=== PATIENT | male | born 1955 | race Caucasian/White ===

== ENCOUNTER 2018-02-17 13:22 | Inpatient (IN) ==
[2018-02-17] MEDS ORDERED: Morphine Inj 4 MG/ML Vial IV.PUSH ONE ×2 (13:55→15:58)
[2018-02-17] MEDS ORDERED: Vancomycin Inj 1 GM/200 ML PIGGYBACK IV.SIG ONE (13:55)
[2018-02-17] MEDS ORDERED: Sodium Chlor 0.9% Inj 500 ML IV.SIG SCH (14:00)
[2018-02-17 14:34] LABS: Baso # (Auto) 2.4 th/mm3 (0.0-0.2); Baso % (Auto) 15.7 % (0.0-2.0); Eos # (Auto) 0.1 th/mm3 (0.0-0.4); Eos % (Auto) 0.5 % (0.0-4.0); Hematocrit 41.6 % (39.0-51.0); Hemoglobin 14.4 gm/dL (13.0-17.0); Lymph # (Auto) 1.9 th/mm3 (1.0-4.8); Lymph % (Auto) 12.4 % (9.0-44.0); Mean Corpuscular HGB Conc 34.6 % (32.0-36.0); Mean Corpuscular Hemoglobin 31.1 pg (27.0-34.0); Mean Corpuscular Volume 89.9 fL (80.0-100.0); Mean Platelet Volume 8.4 fL (7.0-11.0); Mono # (Auto) 2.3 th/mm3 (0.0-0.9); Mono % (Auto) 15.4 % (0.0-8.0); Neut # (Auto) 8.4 th/mm3 (1.8-7.7); Platelet Count 259 th/mm3 (150-450); Red Blood Count 4.62 mil/mm3 (4.50-5.90); Red Cell Distribution Width 13.2 % (11.6-17.2); White Blood Count 15.1 th/mm3 (4.0-11.0)
[2018-02-17 14:42] LABS: Chloride 90 meq/L (98-107); Sodium 129 meq/L (136-145)
--- NOTE | 2018-02-17 14:42 | XR ---
EXAM DATE: 02/17/2018 1:55 PM EDT AGE/SEX: 62 years / Male INDICATIONS: Swelling, red, painful right forearm after fall 6 days ago CLINICAL DATA: This is the patient's initial encounter. Patient reports that signs and symptoms have been present for 4 - 6 days and indicates a pain score of 9/10. MEDICAL/SURGICAL HISTORY: Chronic obstructive pulmonary disease. . Right elbow surgery COMPARISON: No prior exams available for comparison. FINDINGS: Bony structures are intact and in normal alignment. Osseous density is normal. . There is diffuse non specific soft tissue swelling involving the forearm. No definite radiopaque foreign bodies are demons trated. CONCLUSION: 1. Diffuse soft tissue swelling. 2. No acute fracture or joint dislocation. Electronically signed by: Galdino Fowler MD 02/17/2018 2:41 PM EDT
[2018-02-17 14:47] LABS: Anion Gap 14 meq/L (5-15); Blood Urea Nitrogen 10 mg/dL (7-18); Calcium 8.3 mg/dL (8.5-10.1); Carbon Dioxide 24.6 meq/L (21.0-32.0); Glucose,Random 143 mg/dL (74-106)
[2018-02-17 14:48] LABS: Activated Partial Thrombo Time 28.2 sec (24.3-30.1); INR 1.2 Ratio; Prothrombin Time 11.9 sec (9.8-11.6)
[2018-02-17 14:50] LABS: Alanine Aminotransferase 22 U/L (12-78); Aspartate Aminotransferase 26 U/L (15-37); Glomerular Filtration Rate Greater Than 89 mL/min (>89)
[2018-02-17 14:52] LABS: Total Protein 6.6 g/dL (6.4-8.2)
[2018-02-17 14:53] LABS: Alkaline Phosphatase 198 U/L (45-117)
[2018-02-17] MEDS ORDERED: Vancomycin Inj 1,000 MG in Sodium Chlor 0.9% Inj 250 ML IV.SIG ONE (15:00)
[2018-02-17 15:04] LABS: Creatine Kinase 22 U/L (39-308)
[2018-02-17 15:17] LABS: Albumin 2.2 g/dL (3.4-5.0)
[2018-02-17 15:19] LABS: Eosinophils 1 % (0-4); Lymphocytes 3 % (9-44); Monocytes 2 % (0-8)
--- NOTE | 2018-02-17 15:55 | XR ---
EXAM DATE: 02/17/2018 3:33 PM EDT AGE/SEX: 62 years / Male INDICATIONS: Post central line placement CLINICAL DATA: This is the patient's subsequent encounter. Patient reports that signs and symptoms h ave been present for 1 day and indicates a pain score of 10/10. MEDICAL/SURGICAL HISTORY: . Chronic obstructive pulmonary disease. . None. Right elbow surger y COMPARISON: [facility], XR CHEST PA AND LAT, 06/12/2017. . FINDINGS: A single AP view of the chest demonstrates the lungs to be symmetrically aerated without evidence of mass, infiltrate or effusion. There is a right-sided central line in place. The central line appears to be in good position. There is no evidence of pneumothorax. The cardiomediastinal contours are sta ble. Osseous structures are intact and stable. CONCLUSION: Right-sided central line in place. No evidence of pneumothorax. The lungs are grossly clear. Electronically signed by: Galdino Fowler MD 02/17/2018 3:54 PM EDT
[2018-02-17] MEDS ORDERED: Sod Chloride 0.9% Inj 1,000 ML IV.SIG SCH (16:00)
--- NOTE | 2018-02-17 16:01 | ED ---
HPI General Chief complaint: Extremity Problem,Nontraumatic Stated complaint: Right arm swelling/redness Time Seen by Provider: 02/17/18 13:39 Source: patient Mode of arrival: ambulatory Limitations: no limitations History of Present Illness HPI narrative: Patient is a 62-year-old male who comes in complaining of pain and swelling to his right arm. He says it started Sunday when he fell. Per friend, he felt "woozy" that day and seemed off balance when he fell. The symptoms have resolved, however his arm continues to become more swollen, red, painful. He says that after the fall Sunday he noticed some drainage from his elbow. The redness just continued to spread from there. He denies fever at home. He has not taken anything for her symptoms. Severity is moderate to severe. Related Data Home Medications Medication Instructions Recorded Confirmed amlodipine 10 mg PO DAILY 02/17/18 02/17/18 bupropion HCl (smoking deter) 150 mg PO BID 02/17/18 02/17/18 clopidogrel 75 mg PO DAILY 02/17/18 02/17/18 gabapentin 400 mg PO 5 TIMES A DAY 02/17/18 02/17/18 metoprolol tartrate 50 mg PO BID 02/17/18 02/17/18 omeprazole 20 mg PO BID 02/17/18 02/17/18 potassium chloride 20 meq PO DAILY 02/17/18 02/17/18 simvastatin 40 mg PO QPM 02/17/18 02/17/18 Allergies Allergy/AdvReac Type Severity Reaction Status Date / Time penicillin G Allergy Mild Hives Verified 02/17/18 13:30 Review of Systems ROS: all other systems reviewed are negative Constitutional Denies chills and Denies fever(s) ENT Denies dizziness Cardiovascular Denies chest pain and Denies dyspnea Respiratory Denies dyspnea Gastrointestinal Denies nausea and Denies vomiting Musculoskeletal Reports myalgias Integumentary/Breasts Reports change in pigmentation, Reports sores and Reports wounds Neurologic Denies focal weakness and Denies numbness [facility] Medical History Medical History Diverticulitis (Acute) GERD (gastroesophageal reflux disease) (Acute) High cholesterol (Acute) History of CVA (cerebrovascular accident) without residual deficits (Acute) Hypertension (Acute) Hypokalemia (Acute) Neuropathy (Acute) Surgical History Surgical History H/O colectomy (Acute) H/O elbow surgery (Acute) Social History Social History Substance History: No History of Abuse Second Hand Smoke Exposure: No Smoking Status: Former smoker Tobacco Type: Cigarettes How Often Do You Have a Drink Containing Alcohol: 2 to 4 times a month Recent Travel in [facility] within the Last 8 Weeks: No Recent Out of Country Travel within the Last 8 Weeks: No Immunization History Tetanus Immunization: Unsure Exam Narrative Exam Narrative: GENERAL: Awake and alert, in no acute distress. SKIN: Extensive erythema and warmth from the mid humerus to the wrist on the right side. The erythema is circumferential to the right forearm and the posterior humerus. There are areas that are leaking yellow fluid. No definitive abscess. Small amount of crepitus posterior and just distal to the elbow. HEAD: Atraumatic. Normocephalic. EYES: Pupils equal and round. No scleral icterus. No injection or drainage. ENT: No nasal bleeding or discharge. Mucous membranes pink and moist. NECK: Trachea midline. No JVD. CARDIOVASCULAR: Regular rate and rhythm. No murmur appreciated. RESPIRATORY: No accessory muscle use. Clear to auscultation. Breath sounds equal bilaterally. GASTROINTESTINAL: Abdomen soft, non-tender, nondistended. MUSCULOSKELETAL: No obvious deformities. No clubbing. No cyanosis. Large edema of the right arm. Radial pulse intact. NEUROLOGICAL: Awake and alert. No obvious cranial nerve deficits. Motor grossly within normal limits. Normal speech. PSYCHIATRIC: Appropriate mood and affect; insight and judgment normal. Procedures Central Line Placement Right IJ: Time Out Performed: Yes Patient Placed on Monitor/Pulse Ox: Yes Prep: mask, gown and gloves Central Line Prep: Chlorhexidine scrub Local anesthesia used: lidocaine 1% Amount of anesthesia used (mL): 4 Ultrasound Used for Placement: Yes Central Line Lumen Inserted: triple Post Procedure: sutured in place, good blood return, all ports aspirated, flushed, capped and sterile dressing applied Post Procedure X-Ray: tip of catheter in good position and no pneumothorax seen Patient Tolerated Procedure: well and no complications Course Initial Documented Vital Signs Temperature 98.8 F 02/17/18 13:30 Pulse Rate 101 H 02/17/18 13:30 Respiratory Rate 20 10/07/18 13:30 Blood Pressure 155/74 H 02/17/18 13:30 Pulse Oximetry 97 02/17/18 13:30 Last Documented Vital Signs Temperature 98.8 F 02/17/18 13:30 Pulse Rate 80 02/17/18 17:05 Respiratory Rate 18 02/17/18 17:05 Blood Pressure 137/72 02/17/18 17:05 Pulse Oximetry 96 02/17/18 17:05 Critical Care Time Critical Care Time: Yes Total Critical Care Time: 45 Attestation: Aggregate critical care time was 45 minutes. Time to perform other separately billable procedures was not included in the critical care time. My time did not include minutes spent treating any other patients simultaneously or on activities that did not directly contribute to the patient's treatment. The services I provided to this patient were to treat and/or prevent clinically significant deterioration that could result in: serious illness or . I provided critical care services requiring my management, as noted below: Chart data review, documentation time, medication orders and management, vital sign assessments/reviewing monitor data, ordering and reviewing lab tests, ordering and interpreting/reviewing x-rays and diagnostic studies, care of the patient and discussion of the patient with the admitting physicians. Medical Decision Making MDM Narrative Medical decision making narrative: Patient is a 62 year old male who comes in complaining of pain and swelling to his right arm. Exam shows large edema, erythema, warmth and leakage of clear, yellow fluid. IV established in the left forearm and blood work obtained. Patient had limited access and due to the seriousness of his infection, decision made to place right IJ. Patient given IVF, Cefepime, Vancomycin, Clindamycin. Given pain medicine. XR of the forearm performed shows no fracture. I spoke with the radiologist and he was unsure if the air was related to the edema/fat of the arm vs actual gas. CT arm performed, shows large amount of gas bubbles as well as abscess and evidence of cellulitis. 17:21: Spoke with Dr. Moreno regarding the patient and need for surgical debridement. Patient admitted to the ICU for further management. Medical Screen Exam Complete: Yes Emergency Medical Condition: Yes Differential Diagnosis Differential Diagnosis: Cellulitis versus abscess versus necrotizing infection versus fracture Medical Records Medical records reviewed: Yes I reviewed the patient's medical records. Lab Data Lab results reviewed: Yes I reviewed the patient's lab results. Result diagrams: 02/17/18 14:15 02/17/18 14:15 Lab Results 02/17/18 02/17/18 02/17/18 Range/Units 14:15 14:15 14:15 CBC w Diff Slide review pending WBC 15.1 H (4.0-11.0) th/mm3 RBC 4.62 (4.50-5.90) mil/mm3 Hgb 14.4 (13.0-17.0) gm/dL Hct 41.6 (39.0-51.0) % MCV 89.9 (80.0-100.0) fL MCH 31.1 (27.0-34.0) pg MCHC 34.6 (32.0-36.0) % RDW 13.2 (11.6-17.2) % Plt Count 259 (150-450) th/mm3 MPV 8.4 (7.0-11.0) fL Neut % (Auto) 56.0 (16.0-70.0) % Lymph % (Auto) 12.4 (9.0-44.0) % [place] % (Auto) 15.4 H (0.0-8.0) % Eos % (Auto) 0.5 (0.0-4.0) % Baso % (Auto) 15.7 H (0.0-2.0) % Neut # (Auto) 8.4 H (1.8-7.7) th/mm3 Lymph # (Auto) 1.9 (1.0-4.8) th/mm3 [place] # (Auto) 2.3 H (0.0-0.9) th/mm3 Eos # (Auto) 0.1 (0.0-0.4) th/mm3 Baso # (Auto) 2.4 H (0.0-0.2) th/mm3 WBC Differential Manual diff final Seg Neuts % (Manual) 88 H (16-70) % Band Neuts % (Manual) 6 (0-6) % Lymphocytes % (Manual) 3 L (9-44) % Monocytes % (Manual) 2 (0-8) % Eosinophils % (Manual) 1 (0-4) % Abs Neuts (Manual) 14.2 H (1.8-7.7) th/mm3 Differential Comment . PT 11.9 H (9.8-11.6) sec INR 1.2 Ratio APTT 28.2 (24.3-30.1) sec Sodium 129 L (136-145) meq/L Potassium 3.0 L (3.5-5.1) meq/L Chloride 90 L (98-107) meq/L Carbon Dioxide 24.6 (21.0-32.0) meq/L Anion Gap 14 (5-15) meq/L BUN 10 (7-18) mg/dL Creatinine 0.85 (0.60-1.30) mg/dL Estimated GFR Greater than 89 (>89) mL/min Random Glucose 143 H (74-106) mg/dL Lactic Acid (0.4-2.0) mmol/L Calcium 8.3 L (8.5-10.1) mg/dL Total Bilirubin 1.0 (0.2-1.0) mg/dL AST 26 (15-37) U/L ALT 22 (12-78) U/L Alkaline Phosphatase 198 H (45-117) U/L Total Creatine Kinase 22 L (39-308) U/L Troponin I Less than 0.02 L (0.02-0.05) ng/mL Total Protein 6.6 (6.4-8.2) g/dL Albumin 2.2 L (3.4-5.0) g/dL 02/17/18 Range/Units 15:27 CBC w Diff WBC (4.0-11.0) th/mm3 RBC (4.50-5.90) mil/mm3 Hgb (13.0-17.0) gm/dL Hct (39.0-51.0) % MCV (80.0-100.0) fL MCH (27.0-34.0) pg MCHC (32.0-36.0) % RDW (11.6-17.2) % Plt Count (150-450) th/mm3 MPV (7.0-11.0) fL Neut % (Auto) (16.0-70.0) % Lymph % (Auto) (9.0-44.0) % [place] % (Auto) (0.0-8.0) % Eos % (Auto) (0.0-4.0) % Baso % (Auto) (0.0-2.0) % Neut # (Auto) (1.8-7.7) th/mm3 Lymph # (Auto) (1.0-4.8) th/mm3 [place] # (Auto) (0.0-0.9) th/mm3 Eos # (Auto) (0.0-0.4) th/mm3 Baso # (Auto) (0.0-0.2) th/mm3 WBC Differential Seg Neuts % (Manual) (16-70) % Band Neuts % (Manual) (0-6) % Lymphocytes % (Manual) (9-44) % Monocytes % (Manual) (0-8) % Eosinophils % (Manual) (0-4) % Abs Neuts (Manual) (1.8-7.7) th/mm3 Differential Comment PT (9.8-11.6) sec INR Ratio APTT (24.3-30.1) sec Sodium (136-145) meq/L Potassium (3.5-5.1) meq/L Chloride (98-107) meq/L Carbon Dioxide (21.0-32.0) meq/L Anion Gap (5-15) meq/L BUN (7-18) mg/dL Creatinine (0.60-1.30) mg/dL Estimated GFR (>89) mL/min Random Glucose (74-106) mg/dL Lactic Acid 1.5 (0.4-2.0) mmol/L Calcium (8.5-10.1) mg/dL Total Bilirubin (0.2-1.0) mg/dL AST (15-37) U/L ALT (12-78) U/L Alkaline Phosphatase (45-117) U/L Total Creatine Kinase (39-308) U/L Troponin I (0.02-0.05) ng/mL Total Protein (6.4-8.2) g/dL Albumin (3.4-5.0) g/dL Imaging Data Radiologist's impression: Forearm CT 02/17/18 13:55 CONCLUSION: 1. Prominent area of subcutaneous fluid, thickening, and collections of gas extending from distal forearm to elbow, suspicious for abscess along the medial aspect of the forearm. 2. Osseous structures are radiographically intact. Forearm X-Ray 02/17/18 13:55 CONCLUSION: 1. Diffuse soft tissue swelling. 2. No acute fracture or joint dislocation. Head CT 02/17/18 13:55 CONCLUSION: 1. Negative noncontrast CT brain. . Chest X-Ray 02/17/18 15:33 CONCLUSION: Right-sided central line in place. No evidence of pneumothorax. The lungs are grossly clear. ECG Data EKG Prior to Arrival: No Attestation: I personally reviewed and interpreted this ECG as follows: Interpretation: ECG shows sinus rhythm, no ST elevation or depression Discharge Plan Discharge Disposition Patient Disposition: 30 Still Patient Discharge Condition Condition: Stable Discharge Details Diagnosis: Necrotizing soft tissue infection, Cellulitis and abscess of upper arm and forearm Physicians Team ED Provider: Jenna Garcia Primary Care Provider: Dolores Rosales Attending Provider: [place] Other Providers: Yuniel Moreno Discharge Interventions Interventions: Vital Signs Last Done: 02/17/18 17:05 Status ED Status: Admitted Patient
--- NOTE | 2018-02-17 16:26 | CT ---
EXAM DATE: 02/17/2018 2:22 PM EDT AGE/SEX: 62 years / Male INDICATIONS: Weakness. Recent fall. CLINICAL DATA: This is the patient's initial encounter. Patient reports that signs and symptoms have been present for 1 day and indicates a pain score of 8/10. MEDICAL/SURGICAL HISTORY: Diverticulitis. Gastroesophageal reflux disease. Hypertension. . Colect caitlin. Elbow surgery. RADIATION DOSE: 55.39 CTDI (mGy) COMPARISON: No prior exams available for comparison. TECHNIQUE: CT of the head without contrast. Using automated exposure control and adjustment of the mA and/or kV according to patient size, radiation dose was kept as low as reasonably achievable to ob tain optimal diagnostic quality images. DICOM format image data is available electronically for revi ew and comparison. FINDINGS: Cerebrum: The ventricles are normal for age. No evidence of midline shift, mass lesion, hemorrhage or acute infarction. No extraaxial fluid collections are seen. Posterior Fossa: The cerebellum and brainstem are intact. The 4th ventricle is midline. The cerebe llopontine angle is unremarkable. Extracranial: The visualized portion of the orbits is intact. Skull: The calvaria is intact. No evidence of skull fracture. CONCLUSION: 1. Negative noncontrast CT brain. . Electronically signed by: Mika Vega MD 02/17/2018 4:24 PM EDT
[2018-02-17] MEDS ORDERED: Clindamycin 900 mg/NS Premix 900 MG/50 ML PIGGYBACK IV.SIG ONE (16:56)
--- NOTE | 2018-02-17 16:56 | CT ---
EXAM DATE: 02/17/2018 2:22 PM EDT AGE/SEX: 62 years / Male INDICATIONS: Recent fall. Right forearm swelling and redness. CLINICAL DATA: This is the patient's initial encounter. Patient reports that signs and symptoms have been present for 1 day and indicates a pain score of 8/10. MEDICAL/SURGICAL HISTORY: Diverticulitis. Gastroesophageal reflux disease. Hypertension. . Colect caitlin. Elbow surgery. RADIATION DOSE: 29.52 CTDI (mGy) COMPARISON: [facility], FOREARM RIGHT 2V, 02/17/2018. . TECHNIQUE: Multiple contiguous axial images were acquired using a multi-row detector CT scanner afte r the intravenous administration of 95 ml Omnipaque 350 (iohexol) nonionic water-soluble contrast as a single exam dose. Multiplanar reconstruction was performed in the sagittal and coronal planes. Using automated exposure control and adjustment of the mA and/or kV according to patient size, radiat ion dose was kept as low as reasonably achievable to obtain optimal diagnostic quality images. DICOM format image data is available electronically for review and comparison. FINDINGS: There is abnormal appearance to the subcutaneous soft tissues of the mid and proximal forearm with s ubcutaneous soft tissue thickening, fluid, and multiple collections of gas in the medial soft tissues extending from distal one third of the forearm to the elbow about the olecranon. The soft tissue thi ckening/fluid measures up to 3 cm in thickness. There is some flattening of the adjacent musculature, but the gas is limited to the subcutaneous soft tissues. The osseous structures of the forearm are grossly intact without evidence of periosteal reaction, foc al bony destruction, or fracture.. CONCLUSION: 1. Prominent area of subcutaneous fluid, thickening, and collections of gas extending from distal fo rearm to elbow, suspicious for abscess along the medial aspect of the forearm. 2. Osseous structures are radiographically intact. Electronically signed by: Mika Vega MD 02/17/2018 4:55 PM EDT
[2018-02-17] MEDS ORDERED: Bisacodyl 10 MG Supp RECTAL PRN (17:25)
[2018-02-17] MEDS ORDERED: Vancomycin Consult Pharmacy OTHER PRN (17:35)
[2018-02-17] MEDS: Sod Chloride 0.9% Inj 1,000 ML IV.CONT SCH ×2 (18:01→23:50)
[2018-02-17] MEDS: Senna/Docusate Sodium 8.6/50 MG Tablet PO SCH (20:00)
[2018-02-17] MEDS: Famotidine PF Inj 20 MG/2 ML Vial IV.PUSH SCH (20:00)
--- NOTE | 2018-02-17 20:06 | P.CONID ---
History of Present Illness Service: ID Consult date: 02/17/18 Requesting Physician: Esmer Pagan Reason for Consult: Nec Fasc right forearm Primary Care Provider: Dolores Rosales Family Provider: Dolores Rosales History of Present Illness: 62 yo male denies past medical history sp fall on Sunday , he hioit hhis R forearm Since then he noted worsening aswelling redness and pain in the arm with erythema and edema extending upper arm HE presented to ER in [facility] today HIs vitals are stable and afebrile, WBC however is [address] of the RUE showed Prominent area of subcutaneous fluid, thickening, and collections of gas extending from distal forearm to elbow, suspicious for abscess along the medial aspect of the forearm. Nec fasc was suspected and pt was transferred to [facility], orhtoedic surgeon was consulted Review of Systems All other systems reviewed negative except as stated in HPI PMFSH - History History Provided By: Patient - Medical History Medical History: Medical History (Last Reviewed 02/17/18 @ 21:06 by Angelita Velasquez MD) Diverticulitis GERD (gastroesophageal reflux disease) High cholesterol History of CVA (cerebrovascular accident) without residual deficits Hypertension Hypokalemia Neuropathy - Surgical History Surgical History: Surgical History (Last Reviewed 02/17/18 @ 21:06 by Angelita Velasquez MD) H/O colectomy H/O elbow surgery - Family History Family History: Family History (Last Updated 02/17/18 @ 21:06 by Angelita Velasquez MD) Other No pertinent family history - Social History I have reviewed the patient's Social History: Yes - Tobacco History Second Hand Smoke Exposure: No Tobacco Use In Past 30 Days: No Smoking Status: Former smoker Tobacco Type: Cigarettes - Alcohol History How Often Do You Have a Drink Containing Alcohol: 2 to 4 times a month - Substance Use History Substance History: No History of Abuse - Travel History Recent Travel in the [place] Within the Last 8 Weeks: No Recent Travel Out of the Country Within the Last 8 Weeks: No - Immunization History Tetanus Immunization: Unsure Medications and Allergies Active Medications: Active Medications Al Hydroxide/Mg Hydroxide (Milk Of Magnesia Liq) 30 ml PO Q12H PRN PRN Reason: Mild Constipation Albuterol (Duoneb Neb (Prn)) 1 ampul NEB Q2HR NEB PRN PRN Reason: WHEEZING Bisacodyl (Dulcolax Supp) 10 mg RECTAL DAILY PRN PRN Reason: SEVERE CONSITIPATION Chlorhexidine Gluconate (Chlorhexidine 2% Cloth) 3 pack TOPICAL DAILY@0400 [place] Stop: 02/23/18 03:59 Chlorhexidine Gluconate (Chlorhexidine 2% Cloth) 3 pack TOPICAL DAILY@0400 PRN PRN Reason: Extra cloth needed Stop: 02/23/18 03:59 Famotidine (Pepcid Pf Inj) 20 mg IV.PUSH Q12HR [place] Last Admin: 02/17/18 20:00 Dose: Not Given Sodium Chloride (Ns Inj) 500 mls @ 0 mls/hr IV.SIG BOLUS [place] Last Infusion: 02/17/18 15:10 Dose: Infused Sodium Chloride (Ns Inj) 1,000 mls @ 0 mls/hr IV.SIG BOLUS [place] Last Infusion: 02/17/18 17:16 Dose: Infused Sodium Chloride (Ns Inj) 1,000 mls @ 84 mls/hr IV.CONT .[id number] [place] Last Admin: 02/17/18 18:01 Dose: 84 mls/hr Cefepime HCl 2,000 mg/ Sodium (Chloride) 100 mls @ 200 mls/hr IV.SIG Q8H [place] Clindamycin/Sodium Chloride (Cleocin 900 Mg/Ns Premix) 900 mg in 50 mls @ 100 mls/hr IV.SIG Q6HR [place] Vancomycin HCl 1,600 mg/ (Sodium Chloride) 516 mls @ 250 mls/hr IV.SIG Q12H [place] Lactulose (Lactulose Liq) 30 ml PO DAILY PRN PRN Reason: SEVERE CONSITIPATION Miscellaneous Information ([facility] Ordered Lab Info) 1 each OTHER ONCE ONE Stop: 02/19/18 09:46 Pharmacy Profile Note (Vancomycin Consult Pharmacy) 1 each OTHER UNSCH PRN PRN Reason: Pharmacy to dose Senna/Docusate Sodium (Kait-Colace) 1 tab PO BID [facility] Last Admin: 02/17/18 20:00 Dose: Not Given Sennosides (Senokot) 17.2 mg PO Q12H PRN PRN Reason: Moderate Constipation Sodium Chloride (Ns Flush) 2 ml IV.FLUSH BID [place] Sodium Chloride (Ns Flush) 2 ml IV.FLUSH PRN PRN PRN Reason: FLUSH AFTER USING IV ACCESS Allergies Allergy/AdvReac Type Severity Reaction Status Date / Time penicillin G Allergy Mild Hives Verified 02/17/18 13:30 Home Medications Medication Instructions Recorded Confirmed Type amlodipine 10 mg PO DAILY 02/17/18 02/17/18 History bupropion HCl (smoking deter) 150 mg PO BID 02/17/18 02/17/18 History clopidogrel 75 mg PO DAILY 02/17/18 02/17/18 History gabapentin 400 mg PO 5 TIMES A DAY 02/17/18 02/17/18 History metoprolol tartrate 50 mg PO BID 02/17/18 02/17/18 History omeprazole 20 mg PO BID 02/17/18 02/17/18 History potassium chloride 20 meq PO DAILY 02/17/18 02/17/18 History simvastatin 40 mg PO QPM 02/17/18 02/17/18 History Exam Vital signs: Vital Signs 02/17/18 13:30 02/17/18 15:41 02/17/18 17:05 Temperature 98.8 F Pulse Rate 101 H 85 80 Respiratory Rate 20 18 18 Blood Pressure 155/74 H 155/66 H 137/72 Pulse Oximetry 97 96 96 Intake & Output 02/17/18 02/17/18 02/18/18 06:59 18:59 06:59 Intake Total 1900 / 1900 Output Total 2 / 2 Balance 1897 / 189 Weight 95.5 kg 101.9 kg Intake: IV 1900 / 1900 Maxipime Inj 1,000 MG In NS Inj 100 / 100 100 ML @ 200 mls/hr IV.SIG ONCE ONE Rx#:[id number] Cleocin 900 mg/NS Premix 900 mg 50 / 50 In 50 ml @ 100 mls/hr IV.SIG ONCE ONE Rx#:[id number] NS Inj 1,000 ML @ Wide Open IV. 1000 / 1000 SIG BOLUS [place] Rx#:[id number] NS Inj 500 ML @ Wide Open IV. 500 / 500 SIG BOLUS [place] Rx#:[id number] Vancomycin Inj 1,000 MG In NS 250 / 250 Inj 250 ML @ 250 mls/hr IV.SIG ONCE ONE Rx#:[id number] Output: Urine 2 / 2 Other: Weight On Admission 101.9 kg - Constitutional no acute distress, average body habitus - Routine HEENT Exam Head: Present: normocephalic, atraumatic Eye: Present: EOMI, PERRL ENT: Present: mucous membranes moist, oropharynx clear - Routine Neck Exam Present: supple. Absent: JVD, lymphadenopathy - Routine Chest/Breast/Axilla Exam Axillae: Absent: lymphadenopathy - Routine Respiratory Exam Present: CTA bilaterally. Absent: decreased breath sounds - Routine Cardiovascular Exam Present: RRR, S1, S2. Absent: murmur, gallop, rubs - Routine Abdominal Exam Present: soft, normoactive bowel sounds, organomegaly, mass. Absent: tenderness , distended - Routine Extremities Exam Absent: cyanosis, clubbing Comments: STATUS LOCALIS: prominent R forearm and elbow edema with wrinkles cw diminishing edema erythema, brick coloured no loss of sensation finggers free of neurovascular deficits Edema and erythema extending along inner aspect of upper arm to axilla - Routine Skin Exam Absent: warm, rash - Routine Neurological Exam Present: alert, oriented X3, CN II-XII intact, moving all extremities, vision grossly intact, hearing grossly intact, normal speech - Routine Psychiatric Exam Present: normal affect, normal thought process, cooperative Results - Labs CBC & Chem 7: 02/17/18 14:15 02/17/18 14:15 Labs: Laboratory Results - last 24 hr 02/17/18 02/17/18 02/17/18 14:15 14:15 14:15 CBC w Diff Slide review pending WBC 15.1 H RBC 4.62 Hgb 14.4 Hct 41.6 MCV 89.9 MCH 31.1 MCHC 34.6 RDW 13.2 Plt Count 259 MPV 8.4 Neut % (Auto) 56.0 Lymph % (Auto) 12.4 [place] % (Auto) 15.4 H Eos % (Auto) 0.5 Baso % (Auto) 15.7 H Neut # (Auto) 8.4 H Lymph # (Auto) 1.9 [place] # (Auto) 2.3 H Eos # (Auto) 0.1 Baso # (Auto) 2.4 H WBC Differential Manual diff final Seg Neuts % (Manual) 88 H Band Neuts % (Manual) 6 Lymphocytes % (Manual) 3 L Monocytes % (Manual) 2 Eosinophils % (Manual) 1 Abs Neuts (Manual) 14.2 H Differential Comment . PT 11.9 H INR 1.2 APTT 28.2 Sodium 129 L Potassium 3.0 L Chloride 90 L Carbon Dioxide 24.6 Anion Gap 14 BUN 10 Creatinine 0.85 Estimated GFR Greater than 89 Random Glucose 143 H Lactic Acid Calcium 8.3 L Total Bilirubin 1.0 AST 26 ALT 22 Alkaline Phosphatase 198 H Total Creatine Kinase 22 L Troponin I Less than 0.02 L Total Protein 6.6 Albumin 2.2 L 02/17/18 15:27 CBC w Diff WBC RBC Hgb Hct MCV MCH MCHC RDW Plt Count MPV Neut % (Auto) Lymph % (Auto) [place] % (Auto) Eos % (Auto) Baso % (Auto) Neut # (Auto) Lymph # (Auto) [place] # (Auto) Eos # (Auto) Baso # (Auto) WBC Differential Seg Neuts % (Manual) Band Neuts % (Manual) Lymphocytes % (Manual) Monocytes % (Manual) Eosinophils % (Manual) Abs Neuts (Manual) Differential Comment PT INR APTT Sodium Potassium Chloride Carbon Dioxide Anion Gap BUN Creatinine Estimated GFR Random Glucose Lactic Acid 1.5 Calcium Total Bilirubin AST ALT Alkaline Phosphatase Total Creatine Kinase Troponin I Total Protein Albumin - Imaging Impressions Forearm CT 02/17/18 13:55 CONCLUSION: 1. Prominent area of subcutaneous fluid, thickening, and collections of gas extending from distal forearm to elbow, suspicious for abscess along the medial aspect of the forearm. 2. Osseous structures are radiographically intact. Forearm X-Ray 02/17/18 13:55 CONCLUSION: 1. Diffuse soft tissue swelling. 2. No acute fracture or joint dislocation. Head CT 02/17/18 13:55 CONCLUSION: 1. Negative noncontrast CT brain. . Chest X-Ray 02/17/18 15:33 CONCLUSION: Right-sided central line in place. No evidence of pneumothorax. The lungs are grossly clear. Assessment and Plan - Plan Severe SSTI of RUE including celluilitis, abscess and possible early nec fasciiting Gas forming organism seems to be involved by imaging findings Unknown type PCN alelrgic reaction Stable hemodynamically Agree with plan for emergent surgery Broad spectrum abx: meropenem, vancomycin and clindamycin will follow blood and operative cultures dejah Pagan
--- NOTE | 2018-02-17 20:07 | P.PNADD ---
Addendum to Inpatient Note Additional information: pt seen and examined abx reviewd: see orders full note to follow PCN allergy: type unknown to pt (in infancy) dejah Cox
[2018-02-17] MEDS ORDERED: Sugammadex Inj 200 MG/2 ML Vial IV.PUSH ONE (21:13)
[2018-02-17] MEDS ORDERED: Phenylephrine/NS 1000 MCG/10ML Syringe IV.PUSH ONE (21:20)
[2018-02-17] MEDS ORDERED: Succinylcholine Inj 100 MG/5 ML Syringe IV.PUSH ONE (21:20)
[2018-02-17] MEDS ORDERED: Vancomycin Inj 1,600 MG in Sodium Chlor 0.9% Inj 500 ML IV.SIG SCH (22:00)
--- NOTE | 2018-02-17 22:24 | MB ---
cc: Yuniel Moreno MD DATE: 02/17/2018 REASON FOR CONSULTATION: Severe infection, necrotizing fasciitis, right upper extremity. HISTORY OF PRESENT ILLNESS: A 62-year-old male who presents to [facility] complaining of severe pain and swelling of the right arm. He states this started this past Sunday, which is approximately 5 days ago, after a fall. He says he lost his balance his balance and fell into the right arm. The arm subsequently became increasingly painful, swollen and red. He has also noticed blistering of the skin and also drainage. He states the severity of the pain is moderate to severe and getting worse. Currently, no numbness or tingling. He denies IV drug use. PAST MEDICAL HISTORY: Positive for gastric reflux, high cholesterol, history of stroke without residual deficits, hypertension, hypokalemia, peripheral neuropathy, diverticulitis. PAST SURGICAL HISTORY: History of colectomy, history of bilateral cubital tunnel release and ulnar nerve transfer. SOCIAL HISTORY: He denies IV drug use. Denies currently smoking. He is a former smoker. He drinks 2-4 drinks a month. REVIEW OF SYSTEMS: Negative for 10 systems other than HPI. PHYSICAL EXAMINATION: GENERAL: The patient is awake, alert, lying in bed, in no acute distress. HEENT: Normocephalic, atraumatic. Pupils are round and reactive. Extraocular muscles intact. NECK: Supple. LUNGS: Clear. HEART: Regular rate and rhythm. ABDOMEN: Soft, nontender. EXTREMITIES: The right upper extremity has significant swelling, redness, erythema and blistering of the skin with drainage. The redness and erythema begin at the region of the wrist along the volar aspect and extends all the way to the elbow and even proximally. It also as it approaches the elbow becomes more circumferential to include the dorsal aspect as well and extension proximally to the arm. RADIOLOGIC DATA: X-ray of the forearm shows no fracture. There appears to be potential gas. A CT scan of the arm shows a large amount of gas bubbles as well as abscess and cellulitis. IMPRESSION: A 62-year-old male status post fall. He has a severe necrotizing fasciitis infection with gas forming organisms and abscess. This is a limb and life-threatening infection. PLAN: I discussed the findings with the patient and spoke about treatment options and my recommendations. The patient wished to proceed with surgical intervention to including incision, drainage, irrigation and debridement. Of note, the patient has a white blood cell count of 15.1, which is significantly elevated. INR is 1.2. Written consent has been obtained. The surgical site was marked and we will urgently proceed with surgical intervention. Of note, I did speak to the emergency room physician and immediately came to the hospital to evaluate and treat this patient on an emergent basis. MD LACIE Ladd/violeta , 09:30 PM , 09:38 PM
--- NOTE | 2018-02-17 22:43 | P.HPCC ---
History of Present Illness Primary Care Physician: Dolores Rosales History of Present Illness: 62-year-old male presents in complaining of pain and swelling to his right arm. He says it started Sunday when he fell. Per friend, he felt "woozy" that day and seemed off balance when he fell. The symptoms have resolved, however his arm continues to become more swollen, red, painful. He says that after the fall Sunday he noticed some drainage from his elbow. The redness just continued to spread from there. He denies fever at home. He has not taken anything for this symptoms. Necrotizing fasciitis was suspected and the patient was transferred to [facility], and was emergently taken to operating room by orthopedic surgeon. Inpatient Certification: I certify that the inpatient services were ordered in accordance with Medicare regulations governing the order. This includes certification that hospital inpatient services are reasonable and necessary and in the case of services not specified as inpatient-only under 42 CFR 419.22(n), that they are appropriately provided as inpatient services in accordance to with the 2-midnight benchmark under 43 CFR 412.3(e) Estimated Total Length of Stay (Days): 5 Plans for Post Hospital Care: Not yet determined Review of Systems All other systems reviewed negative except as stated in HPI [facility] - History History Provided By: Patient - Medical History Medical History: Medical History (Last Reviewed 02/17/18 @ 21:06 by Angelita Velasquez MD) Diverticulitis GERD (gastroesophageal reflux disease) High cholesterol History of CVA (cerebrovascular accident) without residual deficits Hypertension Hypokalemia Neuropathy - Surgical History Surgical History: Surgical History (Last Reviewed 02/17/18 @ 21:06 by Angelita Velasquez MD) H/O colectomy H/O elbow surgery - Family History Family History: Family History (Last Updated 02/17/18 @ 21:06 by Angelita Velasquez MD) Other No pertinent family history - Tobacco History Second Hand Smoke Exposure: No Tobacco Use In Past 30 Days: No Smoking Status: Former smoker Tobacco Type: Cigarettes - Alcohol History How Often Do You Have a Drink Containing Alcohol: 2 to 4 times a month - Substance Use History Substance History: No History of Abuse - Travel History Recent Travel in the [facility] Within the Last 8 Weeks: No Recent Travel Out of the Country Within the Last 8 Weeks: No - Immunization History Tetanus Immunization: Unsure Hx Influenza Vaccine This Season: No Medications and Allergies Active Medications: Active Medications Al Hydroxide/Mg Hydroxide (Milk Of Magnesia Liq) 30 ml PO Q12H PRN PRN Reason: Mild Constipation Albuterol (Duoneb Neb (Prn)) 1 ampul NEB Q2HR NEB PRN PRN Reason: WHEEZING Bisacodyl (Dulcolax Supp) 10 mg RECTAL DAILY PRN PRN Reason: SEVERE CONSITIPATION Chlorhexidine Gluconate (Chlorhexidine 2% Cloth) 3 pack TOPICAL DAILY@0400 [place] Stop: 02/23/18 03:59 Chlorhexidine Gluconate (Chlorhexidine 2% Cloth) 3 pack TOPICAL DAILY@0400 PRN PRN Reason: Extra cloth needed Stop: 02/23/18 03:59 Famotidine (Pepcid Pf Inj) 20 mg IV.PUSH Q12HR [place] Last Admin: 02/17/18 20:00 Dose: Not Given Hydromorphone HCl (Dilaudid Pf Inj) 0.5 mg IV.PUSH Q3H PRN PRN Reason: PAIN 6-10;IF UNABLE TO TAKE PO Sodium Chloride (Ns Inj) 500 mls @ 0 mls/hr IV.SIG BOLUS [place] Last Infusion: 02/17/18 15:10 Dose: Infused Sodium Chloride (Ns Inj) 1,000 mls @ 0 mls/hr IV.SIG BOLUS [place] Last Infusion: 02/17/18 17:16 Dose: Infused Sodium Chloride (Ns Inj) 1,000 mls @ 84 mls/hr IV.CONT .[id number] [place] Last Admin: 02/17/18 18:01 Dose: 84 mls/hr Clindamycin/Sodium Chloride (Cleocin 900 Mg/Ns Premix) 900 mg in 50 mls @ 100 mls/hr IV.SIG Q6HR [place] Vancomycin HCl 1,600 mg/ (Sodium Chloride) 516 mls @ 250 mls/hr IV.SIG Q12H [place] Meropenem 1,000 mg/ Sodium (Chloride) 100 mls @ 200 mls/hr IV.SIG Q8H [place] Lactulose (Lactulose Liq) 30 ml PO DAILY PRN PRN Reason: SEVERE CONSITIPATION Miscellaneous Information ([facility] Ordered Lab Info) 1 each OTHER ONCE ONE Stop: 02/19/18 09:46 Pharmacy Profile Note (Vancomycin Consult Pharmacy) 1 each OTHER UNSCH PRN PRN Reason: Pharmacy to dose Senna/Docusate Sodium (Kait-Colace) 1 tab PO BID [facility] Last Admin: 02/17/18 20:00 Dose: Not Given Sennosides (Senokot) 17.2 mg PO Q12H PRN PRN Reason: Moderate Constipation Sodium Chloride (Ns Flush) 2 ml IV.FLUSH BID [facility] Last Admin: 02/17/18 20:27 Dose: 2 ml Sodium Chloride (Ns Flush) 2 ml IV.FLUSH PRN PRN PRN Reason: FLUSH AFTER USING IV ACCESS Allergies Allergy/AdvReac Type Severity Reaction Status Date / Time penicillin G Allergy Mild Hives Verified 02/17/18 13:30 Home Medications Medication Instructions Recorded Confirmed Type amlodipine 10 mg PO DAILY 02/17/18 02/17/18 History bupropion HCl (smoking deter) 150 mg PO BID 02/17/18 02/17/18 History clopidogrel 75 mg PO DAILY 02/17/18 02/17/18 History gabapentin 400 mg PO 5 TIMES A DAY 02/17/18 02/17/18 History metoprolol tartrate 50 mg PO BID 02/17/18 02/17/18 History omeprazole 20 mg PO BID 02/17/18 02/17/18 History potassium chloride 20 meq PO DAILY 02/17/18 02/17/18 History simvastatin 40 mg PO QPM 02/17/18 02/17/18 History Results - Labs CBC & Chem 7: 02/17/18 14:15 02/17/18 14:15 Labs: Short CBC 02/17/18 Range/Units 14:15 WBC 15.1 H (4.0-11.0) th/mm3 Hgb 14.4 (13.0-17.0) gm/dL Hct 41.6 (39.0-51.0) % Plt Count 259 (150-450) th/mm3 BMP 02/17/18 14:15 Sodium 129 L Potassium 3.0 L Chloride 90 L Carbon Dioxide 24.6 BUN 10 Creatinine 0.85 Calcium 8.3 L Cardiac Enzymes 02/17/18 Range/Units 14:15 Total Creatine Kinase 22 L (39-308) U/L Troponin I Less than 0.02 L (0.02-0.05) ng/mL Liver Function 10/07/18 Range/Units 14:15 Total Bilirubin 1.0 (0.2-1.0) mg/dL AST 26 (15-37) U/L ALT 22 (12-78) U/L Alkaline Phosphatase 198 H (45-117) U/L Albumin 2.2 L (3.4-5.0) g/dL - Imaging Impressions Forearm CT 02/17/18 13:55 CONCLUSION: 1. Prominent area of subcutaneous fluid, thickening, and collections of gas extending from distal forearm to elbow, suspicious for abscess along the medial aspect of the forearm. 2. Osseous structures are radiographically intact. Forearm X-Ray 02/17/18 13:55 CONCLUSION: 1. Diffuse soft tissue swelling. 2. No acute fracture or joint dislocation. Head CT 02/17/18 13:55 CONCLUSION: 1. Negative noncontrast CT brain. . Chest X-Ray 02/17/18 15:33 CONCLUSION: Right-sided central line in place. No evidence of pneumothorax. The lungs are grossly clear. Exam Vital signs: Vital Signs 02/17/18 13:30 02/17/18 15:41 02/17/18 17:05 Temperature 98.8 F Pulse Rate 101 H 85 80 Respiratory Rate 20 18 18 Blood Pressure 155/74 H 155/66 H 137/72 Pulse Oximetry 97 96 96 02/17/18 20:00 Temperature 98.9 F Pulse Rate 80 Respiratory Rate 23 Blood Pressure 142/65 H Pulse Oximetry 96 Intake & Output 02/17/18 02/17/18 02/18/18 06:59 18:59 06:59 Intake Total 1900 / 1900 Output Total 2 / 2 Balance 1898 / 1898 Weight 95.5 kg 101.9 kg Intake: IV 1900 / 1900 Maxipime Inj 1,000 MG In NS Inj 100 / 100 100 ML @ 200 mls/hr IV.SIG ONCE ONE Rx#:[id number] Cleocin 900 mg/NS Premix 900 mg 50 / 50 In 50 ml @ 100 mls/hr IV.SIG ONCE ONE Rx#:[id number] NS Inj 1,000 ML @ Wide Open IV. 1000 / 1000 SIG BOLUS [place] Rx#:[id number] NS Inj 500 ML @ Wide Open IV. 500 / 500 SIG BOLUS [place] Rx#:[id number] Vancomycin Inj 1,000 MG In NS 250 / 250 Inj 250 ML @ 250 mls/hr IV.SIG ONCE ONE Rx#:[id number] Output: Urine 2 / 2 Other: Weight On Admission 101.9 kg - Constitutional mild distress - Routine HEENT Exam Head: Present: normocephalic, atraumatic Eye: Present: EOMI, PERRL, normal accommodation ENT: Present: mucous membranes moist - Routine Neck Exam Present: supple, full ROM. Absent: JVD, carotid bruit - Routine Respiratory Exam Absent: accessory muscle use, rhonchi, stridor, wheezes - Routine Cardiovascular Exam Present: RRR, S1, S2 - Routine Abdominal Exam Present: soft, normoactive bowel sounds. Absent: tenderness, distended, rebound - Routine Extremities Exam Present: edema, tenderness, joint swelling. Absent: cyanosis, clubbing - Routine Skin Exam Present: erythema, warm, lesions, wounds. Absent: cyanosis - Routine Neurological Exam Present: alert, oriented X3, moving all extremities Septic Shock Reassessment Septic shock perfusion: reassessment completed Caprini VTE Risk Assessment Caprini VTE Risk Assessment: Moderate/High Risk (score >= 2) Caprini Risk Assessment Model: Point Value = 1 Point Value = 2 Point Value = 3 Point Value = 5 Age 41-60 Minor surgery BMI > 25 kg/m2 Swollen legs Varicose veins or History of unexplained or recurrent spontaneous Oral contraceptives or hormone replacement Sepsis (< 1 month) Serious lung disease, including pneumonia (< 1 month) Abnormal pulmonary function Acute myocardial infarction Congestive heart failure (< 1 month) History of inflammatory bowel disease Medical patient at bed rest Age 61-74 Arthroscopic surgery Major open surgery (> 45 min) Laparoscopic surgery (> 45 min) Malignancy Confined to bed (> 72 hours) Immobilizing plaster cast Central venous access Age >= 75 History of VTE Family history of VTE Factor V Leiden Prothrombin [id number] Lupus anticoagulant Anticardiolipin antibodies Elevated serum homocysteine Heparin-induced thrombocytopenia Other congenital or acquired thrombophilia Stroke (< 1 month) Elective arthroplasty Hip, pelvis, or leg fracture Acute spinal cord injury (< 1 month) Prophylaxis Regimen: Total Risk Factor Score Risk Level Prophylaxis Regimen 0-1 Low Early ambulation 2 Moderate Order ONE of the following: *Sequential Compression Device (SCD) *Heparin 5000 units SQ BID 3-4 Higher Order ONE of the following medications: *Heparin 5000 units SQ TID *Enoxaparin/Lovenox 40 mg SQ daily (WT < 150 kg, CrCl > 30 mL/min) *Enoxaparin/Lovenox 30 mg SQ daily (WT < 150 kg, CrCl > 10-29 mL/min) *Enoxaparin/Lovenox 30 mg SQ BID (WT < 150 kg, CrCl > 30 mL/min) AND/OR *Sequential Compression Device (SCD) 5 or more Highest Order ONE of the following medications: *Heparin 5000 units SQ TID (Preferred with Epidurals) *Enoxaparin/Lovenox 40 mg SQ daily (WT < 150 kg, CrCl > 30 mL/min) *Enoxaparin/Lovenox 30 mg SQ daily (WT < 150 kg, CrCl > 10-29 mL/min) *Enoxaparin/Lovenox 30 mg SQ BID (WT < 150 kg, CrCl > 30 mL/min) AND *Sequential Compression Device (SCD) Assessment and Plan - Assessment and Plan Plan: Necrotizing fasciitis -Clindamycin -Vancomycin -Meropenem -Further antibiotic recommendations per infectious disease -Emergent fasciotomy and debridement by orthopedic surgeon Hypertension -Hold Norvasc and metoprolol until hemodynamically stable -Resume when indicated Atherosclerosis -Continue simvastatin -Resume Plavix when okay with surgeon Neuropathy -Continue gabapentin Tobacco use disorder -Wellbutrin DVT GI prophylaxis -Teds SCDs -Pharmacological DVT prophylaxis per surgeon -Pepcid 35 minutes of critical care H&P: Quality - VTE Deep Vein Thrombosis/Pulmonary Embolism Present on Admission: No
[2018-02-17] MEDS ORDERED: fentaNYL Citrate Inj 100 MCG/2 ML Ampul ONE ×2 (23:01)
--- NOTE | 2018-02-17 23:56 | MP ---
cc: Yuniel Morneo MD DATE OF OPERATION: 02/17/2018 PREOPERATIVE DIAGNOSIS: Necrotizing fasciitis of the right upper arm, right elbow, right forearm, right wrist. POSTOPERATIVE DIAGNOSIS: Necrotizing fasciitis of the right upper arm, right elbow, right forearm, right wrist. PROCEDURE PERFORMED: Irrigation and debridement excisional, incision and drainage necrotizing fasciitis right arm, elbow, forearm and wrist through 3 separate incisions, 30 cm total. SURGEON: Yuniel Moreno MD AUTOMATIC DRILL OPERATOR: KM Vergara. ANESTHESIA: General. ESTIMATED BLOOD LOSS: 500 mL. TOURNIQUET TIME: 0 minutes. COMPLICATIONS: None. JUSTIFICATION: This patient is a 62-year-old male who presents to [facility] emergency room with severe pain, swelling, redness and necrotizing fasciitis of the right upper extremity. Orthopedic surgery consulted. The patient was evaluated emergently and taken to the operating room for this limb and life-threatening infection. PROCEDURE IN DETAIL: After appropriate consent was obtained, the patient was identified, taken to the operating room and placed supine on the operating room table. General anesthesia was administered to the patient as well as 2 g of IV Ancef. He has received multiple antibiotics while in the emergency room including vancomycin, Ceftin and clindamycin. The right upper extremity was prepped and draped using isopropyl alcohol, Hibiclens solution and DuraPrep solution. After a timeout was performed, a longitudinal incision was made over the volar aspect of the right forearm, then extending more towards the dorsal aspect over the elbow, then proximally up the arm posteriorly. There was evidence of severe infection with necrosis and purulence. Deep cultures were obtained. Extensive excisional debridement was performed to include skin, subcutaneous tissue, muscle down to level of bone. There was purulence. There was necrosis. There was severe infection almost circumferentially. The patient had severe swelling and his compartments were tight. The fascia was released. Two separate incisions were then performed as well, one over the anterior aspect of the biceps and then another incision more along the dorsal aspect of the forearm, to allow for additional excisional debridement of the severe necrotizing infection. The volar biceps incision was debrided and cleansed. All wounds were then thoroughly irrigated with sterile saline, pulse lavage antibiotic-impregnated solution. At this point, the biceps incision was closed with 3-0 nylon sutures. The dorsal incision closed with 3-0 nylon suture and the volar incision was left open due to the severe nature of the infection. A wound VAC sponge was applied with 125 mm of continuous suction. The patient tolerated the procedure well. No intraoperative complications noted. He will be taken to the intensive care unit in critical condition as related to this infection. Yuniel Moreno MD JWSaul/kehinde , 11:30 PM , 11:37 PM
[2018-02-18] MEDS: Clindamycin 900 mg/NS Premix 900 MG/50 ML PIGGYBACK IV.SIG SCH ×4 (01:34→17:09)
[2018-02-18 03:48] LABS: Baso # (Auto) 0.1 th/mm3 (0.0-0.2); Baso % (Auto) 0.4 % (0.0-2.0); Eos % (Auto) 0.2 % (0.0-4.0); Hematocrit 30.9 % (39.0-51.0); Hemoglobin 10.2 gm/dL (13.0-17.0); Lymph % (Auto) 5.7 % (9.0-44.0); Mean Corpuscular HGB Conc 32.9 % (32.0-36.0); Mean Corpuscular Hemoglobin 30.7 pg (27.0-34.0); Mean Corpuscular Volume 93.1 fL (80.0-100.0); Mean Platelet Volume 8.2 fL (7.0-11.0); Mono # (Auto) 1.6 th/mm3 (0.0-0.9); Mono % (Auto) 9.1 % (0.0-8.0); Neut # (Auto) 15.1 th/mm3 (1.8-7.7); Neut % (Auto) 84.6 % (16.0-70.0); Platelet Count 194 th/mm3 (150-450); Red Blood Count 3.31 mil/mm3 (4.50-5.90); Red Cell Distribution Width 13.9 % (11.6-17.2); White Blood Count 17.9 th/mm3 (4.0-11.0)
[2018-02-18] MEDS ORDERED: Chlorhexidine Gluconate 2% 1 Pack (2 Cloths) TOPICAL PRN (04:00)
[2018-02-18 04:12] LABS: Alanine Aminotransferase 15 U/L (12-78); Albumin 1.5 g/dL (3.4-5.0); Alkaline Phosphatase 129 U/L (45-117); Anion Gap 5 meq/L (5-15); Aspartate Aminotransferase 17 U/L (15-37); Blood Urea Nitrogen 12 mg/dL (7-18); Calcium 6.8 mg/dL (8.5-10.1); Carbon Dioxide 25.6 meq/L (21.0-32.0); Chloride 97 meq/L (98-107); Glomerular Filtration Rate Greater Than 89 mL/min (>89); Glucose,Random 166 mg/dL (74-106); Magnesium 1.7 mg/dL (1.5-2.5); Potassium 3.3 meq/L (3.5-5.1); Sodium 128 meq/L (136-145); Total Protein 4.8 g/dL (6.4-8.2)
[2018-02-18] MEDS: Chlorhexidine Gluconate 2% 1 Pack (2 Cloths) TOPICAL SCH (05:17)
[2018-02-18] MEDS: Gabapentin 400 MG Capsule PO SCH ×5 (05:17→21:28)
[2018-02-18] MEDS: Sod Chloride 0.9% Inj 1,000 ML IV.CONT SCH (05:18)
[2018-02-18] MEDS: HYDROmorphone PF Inj 2 MG/ML Vial IV.PUSH PRN ×4 (05:52→22:27)
--- NOTE | 2018-02-18 07:13 | P.PNOP ---
Subjective Interval history: s/p I&D right arm by Dr Dell Dent yesterday doing well. pain controlled. no complaints. Physical Exam Vital signs: Vital Signs 02/17/18 13:30 02/17/18 15:41 02/17/18 17:05 Temperature 98.8 F Pulse Rate 101 H 85 80 Respiratory Rate 20 18 18 Blood Pressure 155/74 H 155/66 H 137/72 Pulse Oximetry 97 96 96 02/17/18 20:00 02/17/18 23:40 02/17/18 23:45 Temperature 98.9 F 98.3 F Pulse Rate 80 82 94 H Respiratory Rate 23 16 22 Blood Pressure 142/65 H 111/57 L 114/59 L Pulse Oximetry 96 97 94 L 02/18/18 00:00 02/18/18 00:10 02/18/18 04:00 Temperature 98.2 F 96.6 F L Pulse Rate 73 75 60 Respiratory Rate 18 18 15 Blood Pressure 106/59 L 107/61 Pulse Oximetry 94 L 95 100 Intake & Output 02/17/18 02/18/18 02/18/18 18:59 06:59 18:59 Intake Total 1900 / 1900 4600 / 4600 Output Total 2 / 2 850 / 850 Balance 1898 / 1898 3750 / 3750 Weight 95.5 kg 101.1 kg Intake: IV 1900 / 1900 2200 / 2200 NS Inj 1,000 ML @ 84 mls/hr IV. 1999 CONT .[id number] [facility] Rx#: [id number] Maxipime Inj 1,000 MG In NS Inj 100 / 100 100 ML @ 200 mls/hr IV.SIG ONCE ONE Rx#:[id number] Cleocin 900 mg/NS Premix 900 mg 50 / 50 100 / 100 In 50 ml @ 100 mls/hr IV.SIG Q6HR [facility] Rx#:[id number] Merrem Inj 1,000 MG In NS Inj 100 / 100 100 ML @ 200 mls/hr IV.SIG Q8H [facility] Rx#:[id number] NS Inj 1,000 ML @ Wide Open IV. 1000 / 1000 SIG BOLUS [facility] Rx#:[id number] NS Inj 500 ML @ Wide Open IV. 500 / 500 SIG BOLUS [facility] Rx#:[id number] Vancomycin Inj 1,000 MG In NS 250 / 250 Inj 250 ML @ 250 mls/hr IV.SIG ONCE ONE Rx#:[id number] Oral 600 / 600 Anesthesia Amount 1800 / 1800 Output: Urine 2 / 2 400 / 400 Estimated Blood Loss 400 / 400 Wound Vac Amount 50 / 50 Right Arm 50 / 50 Other: Mode Setting Right Arm Continuous Weight On Admission 101.9 kg Narrative: RUE: +vac. good seal. nvi. Results - Labs CBC & Chem 7: 02/18/18 03:35 02/18/18 03:35 Laboratory Results - last 24 hr 02/17/18 02/17/18 02/17/18 14:15 14:15 14:15 CBC w Diff Slide review pending WBC 15.1 H RBC 4.62 Hgb 14.4 Hct 41.6 MCV 89.9 MCH 31.1 MCHC 34.6 RDW 13.2 Plt Count 259 MPV 8.4 Neut % (Auto) 56.0 Lymph % (Auto) 12.4 Weld % (Auto) 15.4 H Eos % (Auto) 0.5 Baso % (Auto) 15.7 H Neut # (Auto) 8.4 H Lymph # (Auto) 1.9 Weld # (Auto) 2.3 H Eos # (Auto) 0.1 Baso # (Auto) 2.4 H WBC Differential Manual diff final Seg Neuts % (Manual) 88 H Band Neuts % (Manual) 6 Lymphocytes % (Manual) 3 L Monocytes % (Manual) 2 Eosinophils % (Manual) 1 Abs Neuts (Manual) 14.2 H Differential Comment . PT 11.9 H INR 1.2 APTT 28.2 Sodium 129 L Potassium 3.0 L Chloride 90 L Carbon Dioxide 24.6 Anion Gap 14 BUN 10 Creatinine 0.85 Estimated GFR Greater than 89 Random Glucose 143 H Lactic Acid Calcium 8.3 L Prot Corrected Calcium Magnesium Total Bilirubin 1.0 AST 26 ALT 22 Alkaline Phosphatase 198 H Total Creatine Kinase 22 L Troponin I Less than 0.02 L Total Protein 6.6 Albumin 2.2 L Nasal Screen MRSA (PCR) 02/17/18 02/17/18 02/18/18 15:27 19:28 03:35 CBC w Diff WBC 17.9 H RBC 3.31 L Hgb 10.2 L D Hct 30.9 L MCV 93.1 MCH 30.7 MCHC 32.9 RDW 13.9 Plt Count 194 MPV 8.2 Neut % (Auto) 84.6 H Lymph % (Auto) 5.7 L Weld % (Auto) 9.1 H Eos % (Auto) 0.2 Baso % (Auto) 0.4 Neut # (Auto) 15.1 H Lymph # (Auto) 1.0 Weld # (Auto) 1.6 H Eos # (Auto) 0.0 Baso # (Auto) 0.1 WBC Differential . Seg Neuts % (Manual) Band Neuts % (Manual) Lymphocytes % (Manual) Monocytes % (Manual) Eosinophils % (Manual) Abs Neuts (Manual) Differential Comment Auto diff final PT INR APTT Sodium Potassium Chloride Carbon Dioxide Anion Gap BUN Creatinine Estimated GFR Random Glucose Lactic Acid 1.5 Calcium Prot Corrected Calcium Magnesium Total Bilirubin AST ALT Alkaline Phosphatase Total Creatine Kinase Troponin I Total Protein Albumin Nasal Screen MRSA (PCR) Not detected 02/18/18 03:35 CBC w Diff WBC RBC Hgb Hct MCV MCH MCHC RDW Plt Count MPV Neut % (Auto) Lymph % (Auto) Weld % (Auto) Eos % (Auto) Baso % (Auto) Neut # (Auto) Lymph # (Auto) Weld # (Auto) Eos # (Auto) Baso # (Auto) WBC Differential Seg Neuts % (Manual) Band Neuts % (Manual) Lymphocytes % (Manual) Monocytes % (Manual) Eosinophils % (Manual) Abs Neuts (Manual) Differential Comment PT INR APTT Sodium 128 L Potassium 3.3 L Chloride 97 L Carbon Dioxide 25.6 Anion Gap 5 BUN 12 Creatinine 0.79 Estimated GFR Greater than 89 Random Glucose 166 H Lactic Acid Calcium 6.8 L* D Prot Corrected Calcium 8.0 L Magnesium 1.7 Total Bilirubin 0.8 AST 17 ALT 15 Alkaline Phosphatase 129 H Total Creatine Kinase Troponin I Total Protein 4.8 L D Albumin 1.5 L D Nasal Screen MRSA (PCR) - Imaging Impressions Forearm CT 02/17/18 13:55 CONCLUSION: 1. Prominent area of subcutaneous fluid, thickening, and collections of gas extending from distal forearm to elbow, suspicious for abscess along the medial aspect of the forearm. 2. Osseous structures are radiographically intact. Forearm X-Ray 02/17/18 13:55 CONCLUSION: 1. Diffuse soft tissue swelling. 2. No acute fracture or joint dislocation. Head CT 02/17/18 13:55 CONCLUSION: 1. Negative noncontrast CT brain. . Chest X-Ray 02/17/18 15:33 CONCLUSION: Right-sided central line in place. No evidence of pneumothorax. The lungs are grossly clear. Assessment and Plan - Assessment and Plan 1) Right Arm Necrotizing Fasciitis s/p I&D and vac application - POD 1 -regular diet -npo after MN -sign consents -plan for repeat I&D with [facility] on sunday
[2018-02-18] MEDS: Famotidine PF Inj 20 MG/2 ML Vial IV.PUSH SCH ×2 (08:41→21:27)
[2018-02-18] MEDS: buPROPion 150 MG 12 HR Tablet PO SCH ×2 (08:41→21:28)
[2018-02-18] MEDS: Senna/Docusate Sodium 8.6/50 MG Tablet PO SCH ×2 (08:41→21:28)
--- NOTE | 2018-02-18 11:00 | ECG ---
Date Performed: 02/17/2018 Time Performed: 14:03:17 PTAGE: 62 years EKG: Sinus rhythm BORDERLINE LEFT AXIS DEVIATION MODERATE INTRAVENTRICULAR CONDUCTION DELAY NONSPECIFIC ST & T-WAVE AB NORMALITY BORDERLINE ECG Compared to PREVIOUS TRACING the patient is no longer bradycardic PREVIOUS TRACIN09/15/2013 12.22 DOCTOR: Rekha Ennis Interpretating Date/Time 02/18/2018 10:58:19
--- NOTE | 2018-02-18 12:48 | P.PNID ---
Subjective Remarks: sp emeergent debridment + VAC last night by Dr Moreno Op report reviewed: nectotic tissue and purulence present vss stable and afebrile G stains with GPC in pairs Antibiotics: meropenem clindaycin vancomycin Allergies/Adverse Reactions: Allergies penicillin G Allergy (Mild, Verified 02/17/18 13:30) Hives Objective Vital Signs 02/17/18 13:30 02/17/18 15:41 02/17/18 17:05 Temperature 98.8 F Pulse Rate 101 H 85 80 Respiratory Rate 20 18 18 Blood Pressure 155/74 H 155/66 H 137/72 Pulse Oximetry 97 96 96 02/17/18 20:00 02/17/18 23:40 02/17/18 23:45 Temperature 98.9 F 98.3 F Pulse Rate 80 82 94 H Respiratory Rate 23 16 22 Blood Pressure 142/65 H 111/57 L 114/59 L Pulse Oximetry 96 97 94 L 02/18/18 00:00 02/18/18 00:10 02/18/18 04:00 Temperature 98.2 F 96.6 F L Pulse Rate 73 75 60 Respiratory Rate 18 18 15 Blood Pressure 106/59 L 107/61 Pulse Oximetry 94 L 95 100 02/18/18 07:31 02/18/18 08:00 02/18/18 10:00 Temperature 97.5 F L Pulse Rate 68 Respiratory Rate 16 16 16 Blood Pressure 127/81 Pulse Oximetry 100 Intake & Output 02/17/18 02/18/18 02/18/18 18:59 06:59 18:59 Intake Total 1900 / 1900 4600 / 4600 Output Total 2 / 2 850 / 850 Balance 1898 / 1898 3750 / 3750 Weight 95.5 kg 101.1 kg Intake: IV 1900 / 1900 2200 / 2200 NS Inj 1,000 ML @ 84 mls/hr IV. 1999 CONT .[id number] [facility] Rx#: [id number] Maxipime Inj 1,000 MG In NS Inj 100 / 100 100 ML @ 200 mls/hr IV.SIG ONCE ONE Rx#:[id number] Cleocin 900 mg/NS Premix 900 mg 50 / 50 100 / 100 In 50 ml @ 100 mls/hr IV.SIG Q6HR [facility] Rx#:[id number] Merrem Inj 1,000 MG In NS Inj 100 / 100 100 ML @ 200 mls/hr IV.SIG Q8H [facility] Rx#:[id number] NS Inj 1,000 ML @ Wide Open IV. 1000 / 1000 SIG BOLUS [facility] Rx#:[id number] NS Inj 500 ML @ Wide Open IV. 500 / 500 SIG BOLUS [place] Rx#:[id number] Vancomycin Inj 1,000 MG In NS 250 / 250 Inj 250 ML @ 250 mls/hr IV.SIG ONCE ONE Rx#:[id number] Oral 600 / 600 Anesthesia Amount 1800 / 1800 Output: Urine 2 / 2 400 / 400 Estimated Blood Loss 400 / 400 Wound Vac Amount 50 / 50 Right Arm 50 / 50 Other: Mode Setting Right Arm Continuous Weight On Admission 101.9 kg 02/17/18 15:27 Blood - Peripheral Aerobic Blood Culture - Preliminary No growth in 1 day 02/17/18 15:27 Blood - Peripheral Anaerobic Blood Culture - Preliminary No growth in 1 day 02/17/18 15:00 Blood - Peripheral Aerobic Blood Culture - Preliminary No growth in 1 day 02/17/18 15:00 Blood - Peripheral Anaerobic Blood Culture - Preliminary No growth in 1 day 02/17/18 21:40 Wound - Elbow Fungal Smear - Final No fungal elements seen 02/17/18 21:40 Wound - Elbow Fungal Culture - Pending 02/17/18 21:40 Wound - Elbow Gram Stain - Final 02/17/18 21:40 Wound - Elbow Wound Culture - Pending 02/17/18 21:50 Wound - Arm Fungal Smear - Final No fungal elements seen 02/17/18 21:50 Wound - Arm Fungal Culture - Pending 02/17/18 21:50 Wound - Arm Gram Stain - Final 02/17/18 21:50 Wound - Arm Wound Culture - Pending 02/17/18 21:40 Wound - Arm Fungal Smear - Final No fungal elements seen 02/17/18 21:40 Wound - Arm Fungal Culture - Pending 02/17/18 21:40 Wound - Arm Gram Stain - Final 02/17/18 21:40 Wound - Arm Wound Culture - Pending 02/17/18 21:40 Wound - Elbow Acid Fast Bacilli Smear - Pending 02/17/18 21:40 Wound - Elbow Mycobacterial Culture - Pending 02/17/18 21:50 Wound - Arm Acid Fast Bacilli Smear - Pending 02/17/18 21:50 Wound - Arm Mycobacterial Culture - Pending 02/17/18 21:40 Wound - Arm Acid Fast Bacilli Smear - Pending 02/17/18 21:40 Wound - Arm Mycobacterial Culture - Pending Lab - Hematology Results 02/17/18 02/18/18 14:15 03:35 CBC w Diff Slide review pending WBC 15.1 H 17.9 H RBC 4.62 3.31 L Hgb 14.4 10.2 L D Hct 41.6 30.9 L MCV 89.9 93.1 MCH 31.1 30.7 MCHC 34.6 32.9 RDW 13.2 13.9 Plt Count 259 194 MPV 8.4 8.2 Neut % (Auto) 56.0 84.6 H Lymph % (Auto) 12.4 5.7 L [place] % (Auto) 15.4 H 9.1 H Eos % (Auto) 0.5 0.2 Baso % (Auto) 15.7 H 0.4 Neut # (Auto) 8.4 H 15.1 H Lymph # (Auto) 1.9 1.0 [place] # (Auto) 2.3 H 1.6 H Eos # (Auto) 0.1 0.0 Baso # (Auto) 2.4 H 0.1 WBC Differential Manual diff final . Seg Neuts % (Manual) 88 H Band Neuts % (Manual) 6 Lymphocytes % (Manual) 3 L Monocytes % (Manual) 2 Eosinophils % (Manual) 1 Abs Neuts (Manual) 14.2 H Differential Comment . Auto diff final Lab - Chemistry Results 02/17/18 02/17/18 02/18/18 14:15 15:27 03:35 Sodium 129 L 128 L Potassium 3.0 L 3.3 L Chloride 90 L 97 L Carbon Dioxide 24.6 25.6 Anion Gap 14 5 BUN 10 12 Creatinine 0.85 0.79 Estimated GFR Greater than 89 Greater than 89 Random Glucose 143 H 166 H Lactic Acid 1.5 Calcium 8.3 L 6.8 L* D Prot Corrected Calcium 8.0 L Magnesium 1.7 Total Bilirubin 1.0 0.8 AST 26 17 ALT 22 15 Alkaline Phosphatase 198 H 129 H Total Creatine Kinase 22 L Troponin I Less than 0.02 L Total Protein 6.6 4.8 L D Albumin 2.2 L 1.5 L D Imaging: ITS Impressions Forearm CT 02/17/18 13:55 CONCLUSION: 1. Prominent area of subcutaneous fluid, thickening, and collections of gas extending from distal forearm to elbow, suspicious for abscess along the medial aspect of the forearm. 2. Osseous structures are radiographically intact. Forearm X-Ray 02/17/18 13:55 CONCLUSION: 1. Diffuse soft tissue swelling. 2. No acute fracture or joint dislocation. Head CT 02/17/18 13:55 CONCLUSION: 1. Negative noncontrast CT brain. . Chest X-Ray 02/17/18 15:33 CONCLUSION: Right-sided central line in place. No evidence of pneumothorax. The lungs are grossly clear. Physical Exam: GENERAL: NAD Sitting on the edge of the bed comfortable SKIN: Warm and dry. No rash EYES: Pupils equal and round. No scleral icterus. ENT: No nasal bleeding or discharge. Mucous membranes pink and moist. NECK: Trachea midline. No JVD. CARDIOVASCULAR: Regular rate and rhythm. No murmurs RESPIRATORY: No accessory muscle use. Clear to auscultation. Breath sounds equal bilaterally. GASTROINTESTINAL: Abdomen soft, non-tender, nondistended. Hepatic and splenic margins not palpable. MUSCULOSKELETAL: Extremities without clubbing, cyanosis, or edema. No obvious deformities. STATUS localis: R UE with surg dressing, CLAUDE, VAC in place with serosang drainage Very large defect ulnar aspect of R forearm covered with VAC sponge no asceding redness or induration on the upper arm fingers free of neurovasc deficits NEUROLOGICAL: Awake and alert. No obvious cranial nerve deficits. Motor grossly within normal limits. Five out of 5 muscle strength in the arms and legs. Normal speech. PSYCHIATRIC: Appropriate mood and affect; Assessment and Plan - Plan Severe SSTI of RUE including celluilitis, abscess and nec fasciiting probaly GAS infx emergent surgery Gas forming organism seems to be involved by imaging findings Unknown type PCN alelrgic reaction Stable hemodynamically pt will undergo staged procedures and likely eventually will need plastic surgery to cover for defect cont broad spectrum abx: meropenem, vancomycin and clindamycin will follow blood and operative cultures untill final dejah MENDENHALL
[2018-02-18] MEDS: Vancomycin Inj 1,600 MG in Sodium Chlor 0.9% Inj 500 ML IV.SIG SCH (13:01)
--- NOTE | 2018-02-18 14:05 | P.PNCC ---
Subjective Subjective Remarks/Hospital Course: 62-year-old male presents in complaining of pain and swelling to his right arm. He says it started Sunday when he fell. Per friend, he felt "woozy" that day and seemed off balance when he fell. The symptoms have resolved, however his arm continues to become more swollen, red, painful. He says that after the fall Sunday he noticed some drainage from his elbow. The redness just continued to spread from there. He denies fever at home. He has not taken anything for this symptoms. Necrotizing fasciitis was suspected and the patient was transferred to [facility], and was emergently taken to operating room by orthopedic surgeon. 02/18: Forearm open widely last night, initial debridement begun, VAC dressing in place. Patient appears comfortable this morning. He is clearly lucid and well-oriented. He does not appear toxic. I discussed the stages involved in the debridement and closure of this wound in detail with his sister at the bedside. Objective Vital Signs / I&O: Vital Signs 02/17/18 15:41 02/17/18 17:05 02/17/18 20:00 Temperature 98.9 F Pulse Rate 85 80 80 Respiratory Rate 18 18 23 Blood Pressure 155/66 H 137/72 142/65 H Pulse Oximetry 96 96 96 02/17/18 23:40 02/17/18 23:45 02/18/18 00:00 Temperature 98.3 F Pulse Rate 82 94 H 73 Respiratory Rate 16 22 18 Blood Pressure 111/57 L 114/59 L 106/59 L Pulse Oximetry 97 94 L 94 L 02/18/18 00:10 02/18/18 04:00 02/18/18 07:31 Temperature 98.2 F 96.6 F L Pulse Rate 75 60 Respiratory Rate 18 15 16 Blood Pressure 107/61 Pulse Oximetry 95 100 02/18/18 08:00 02/18/18 10:00 02/18/18 12:00 Temperature 97.5 F L 98.5 F Pulse Rate 68 63 Respiratory Rate 16 16 18 Blood Pressure 127/81 121/62 Pulse Oximetry 100 96 Intake & Output 02/17/18 02/18/18 02/18/18 18:59 06:59 18:59 Intake Total 1900 / 1900 4600 / 4600 Output Total 2 / 2 850 / 850 Balance 1898 / 1898 3750 / 3750 Weight 95.5 kg 101.1 kg Intake: IV 1900 / 1900 2200 / 2200 NS Inj 1,000 ML @ 84 mls/hr IV. 1999 / 1999 CONT .[id number] [facility] Rx#: [id number] Maxipime Inj 1,000 MG In NS Inj 100 / 100 100 ML @ 200 mls/hr IV.SIG ONCE ONE Rx#:[id number] Cleocin 900 mg/NS Premix 900 mg 50 / 50 100 / 100 In 50 ml @ 100 mls/hr IV.SIG Q6HR [facility] Rx#:[id number] Merrem Inj 1,000 MG In NS Inj 100 / 100 100 ML @ 200 mls/hr IV.SIG Q8H [facility] Rx#:[id number] NS Inj 1,000 ML @ Wide Open IV. 1000 / 1000 SIG BOLUS [facility] Rx#:[id number] NS Inj 500 ML @ Wide Open IV. 500 / 500 SIG BOLUS [facility] Rx#:[id number] Vancomycin Inj 1,000 MG In NS 250 / 250 Inj 250 ML @ 250 mls/hr IV.SIG ONCE ONE Rx#:[id number] Oral 600 / 600 Anesthesia Amount 1800 / 1800 Output: Urine 2 / 2 400 / 400 Estimated Blood Loss 400 / 400 Wound Vac Amount 50 / 50 Right Arm 50 / 50 Other: Mode Setting Right Arm Continuous Weight On Admission 101.9 kg Result Diagrams: 02/18/18 03:35 02/18/18 03:35 Objective Remarks: - Constitutional Calm, no distress distress - Routine HEENT Exam Head: Present: normocephalic, atraumatic Eye: Present: EOMI, PERRL, normal accommodation ENT: Present: mucous membranes moist - Routine Neck Exam Present: supple, full ROM. Airway widely patent, no obstructive noises. Absent : JVD, carotid bruit - Routine Respiratory Exam Comfortable respiratory pattern absent: accessory muscle use, rhonchi, stridor, wheezes - Routine Cardiovascular Exam Present: RRR, S1, S2, no JVD. - Routine Abdominal Exam Present: soft, normoactive bowel sounds. No guarding, mildly obese absent: tenderness, distended, rebound - Routine Extremities Exam Present: edema, tenderness, joint swelling, open wound right side. Fingers viable. Absent: cyanosis, clubbing - Routine Skin Exam Present: erythema, warm, lesions, wounds. Wound VAC in place right forearm. Absent: cyanosis - Routine Neurological Exam Present: alert, oriented X3, moving all extremities, person, speech clear. Assessment and Plan - Assessment and Plan Plan: Necrotizing fasciitis -Clindamycin -Vancomycin -Meropenem -Further antibiotic recommendations per infectious disease -Emergent fasciotomy and debridement by orthopedic surgeon /07. Hypertension -Restart Norvasc and metoprolol -Resume when indicated Atherosclerosis -Continue simvastatin -Resume Plavix when okay with surgeon Neuropathy -Continue gabapentin Tobacco use disorder -Wellbutrin DVT GI prophylaxis -Teds SCDs -Pharmacological DVT prophylaxis per surgeon -Pepcid Overall impression: Patient clearly critically ill with necrotizing fasciitis involving the right forearm. Initial wide incision and debridement has been performed and devitalized tissue removed. Will require additional procedures. Critical care 38 minutes
[2018-02-18] MEDS: Metoprolol Tartrate 50 MG Tablet PO SCH ×2 (16:21→21:27)
[2018-02-19] MEDS: Clindamycin 900 mg/NS Premix 900 MG/50 ML PIGGYBACK IV.SIG SCH ×4 (00:05→18:19)
[2018-02-19] MEDS: Vancomycin Inj 1,600 MG in Sodium Chlor 0.9% Inj 500 ML IV.SIG SCH ×2 (00:06→13:21)
[2018-02-19] MEDS: HYDROmorphone PF Inj 2 MG/ML Vial IV.PUSH PRN ×4 (01:15→13:21)
[2018-02-19 04:43] LABS: Glomerular Filtration Rate Greater Than 89 mL/min (>89)
[2018-02-19] MEDS: Chlorhexidine Gluconate 2% 1 Pack (2 Cloths) TOPICAL SCH (05:45)
[2018-02-19] MEDS: Gabapentin 400 MG Capsule PO SCH ×5 (06:04→21:15)
--- NOTE | 2018-02-19 07:34 | P.PNOP ---
Subjective Interval history: s/p right arm I&D by Dr Moreno on Sunday no changes. doing well Physical Exam Vital signs: Vital Signs 02/18/18 08:00 02/18/18 10:00 02/18/18 12:00 Temperature 97.5 F L 98.5 F Pulse Rate 68 63 Respiratory Rate 16 16 18 Blood Pressure 127/81 121/62 Pulse Oximetry 100 96 02/18/18 16:00 02/18/18 17:08 02/18/18 20:00 Temperature 98.5 F 97.5 F L Pulse Rate 64 58 L Respiratory Rate 16 21 Blood Pressure 134/60 119/84 Pulse Oximetry 97 98 02/19/18 00:00 02/19/18 04:00 Temperature 96.8 F L 98.1 F Pulse Rate 57 L 68 Respiratory Rate 13 19 Blood Pressure 118/54 L 105/51 L Pulse Oximetry 94 L 94 L Intake & Output 02/18/18 02/19/18 02/19/18 18:59 06:59 18:59 Intake Total 1716 / 1716 630 / 630 Output Total 1000 / 1000 800 / 800 Balance 716 / 716 -170 / -170 Weight 105.8 kg Intake: IV 816 / 816 150 / 150 Cleocin 900 mg/NS Premix 900 mg 100 / 100 50 / 50 In 50 ml @ 100 mls/hr IV.SIG Q6HR [facility] Rx#:[id number] Merrem Inj 1,000 MG In NS Inj 200 / 200 100 / 100 100 ML @ 200 mls/hr IV.SIG Q8H [facility] Rx#:[id number] Vancomycin Inj 1,600 MG In NS 516 / 516 Inj 500 ML @ 250 mls/hr IV.SIG Q12H [facility] Rx#:[id number] Oral 900 / 900 480 / 480 Output: Urine 850 / 850 640 / 640 Wound Vac Amount 150 / 150 160 / 160 Right Arm 150 / 150 160 / 160 Other: Mode Setting Right Arm Continuous Continuous # Voids 3 # Bowel Movements 0 Narrative: RUE: +vac. good seal. nvi distally. good movement of arm. Results - Labs CBC & Chem 7: 02/18/18 03:35 02/19/18 04:05 Laboratory Results - last 24 hr 02/18/18 02/19/18 20:00 04:05 Creatinine 0.72 Estimated GFR Greater than 89 Lactic Acid 0.9 Microbiology 02/17/18 21:40 Wound - Elbow Acid Fast Bacilli Smear - Final No acid fast bacilli seen 02/17/18 21:50 Wound - Arm Acid Fast Bacilli Smear - Final No acid fast bacilli seen 02/17/18 21:40 Wound - Arm Acid Fast Bacilli Smear - Final No acid fast bacilli seen 02/17/18 15:27 Blood - Peripheral Aerobic Blood Culture - Preliminary No growth in 1 day 02/17/18 15:27 Blood - Peripheral Anaerobic Blood Culture - Preliminary No growth in 1 day 02/17/18 15:00 Blood - Peripheral Aerobic Blood Culture - Preliminary No growth in 1 day 02/17/18 15:00 Blood - Peripheral Anaerobic Blood Culture - Preliminary No growth in 1 day 02/17/18 21:40 Wound - Elbow Fungal Smear - Final No fungal elements seen 02/17/18 21:40 Wound - Elbow Gram Stain - Final 02/17/18 21:50 Wound - Arm Fungal Smear - Final No fungal elements seen 02/17/18 21:50 Wound - Arm Gram Stain - Final 02/17/18 21:40 Wound - Arm Fungal Smear - Final No fungal elements seen 02/17/18 21:40 Wound - Arm Gram Stain - Final Assessment and Plan - Assessment and Plan 1) Right Arm Necrotizing Fasciitis s/p I&D and vac application - POD 2 -repeat I&D today with [facility]
[2018-02-19] MEDS: Famotidine PF Inj 20 MG/2 ML Vial IV.PUSH SCH ×2 (09:22→21:16)
[2018-02-19] MEDS: buPROPion 150 MG 12 HR Tablet PO SCH ×2 (09:23→21:14)
[2018-02-19] MEDS: Senna/Docusate Sodium 8.6/50 MG Tablet PO SCH ×2 (09:23→21:17)
[2018-02-19] MEDS: Metoprolol Tartrate 50 MG Tablet PO SCH ×2 (09:24→21:15)
[2018-02-19] MEDS ORDERED: Pharmacy Ordered Lab Info OTHER ONE ×2 (09:45→12:45)
--- NOTE | 2018-02-19 10:46 | P.PNCC ---
Subjective Subjective Remarks/Hospital Course: 62-year-old male presents in complaining of pain and swelling to his right arm. He says it started Sunday when he fell. Per friend, he felt "woozy" that day and seemed off balance when he fell. The symptoms have resolved, however his arm continues to become more swollen, red, painful. He says that after the fall Sunday he noticed some drainage from his elbow. The redness just continued to spread from there. He denies fever at home. He has not taken anything for this symptoms. Necrotizing fasciitis was suspected and the patient was transferred to [facility], and was emergently taken to operating room by orthopedic surgeon. 02/18: Forearm open widely last night, initial debridement begun, VAC dressing in place. Patient appears comfortable this morning. He is clearly lucid and well-oriented. He does not appear toxic. I discussed the stages involved in the debridement and closure of this wound in detail with his sister at the bedside. 02/19: Patient appears healthy and nontoxic Swelling in the right hand is reduced considerably. He has no axillary tenderness on the right side. The wound is wrapped and contains a VAC dressing at this point. Objective Vital Signs / I&O: Vital Signs 02/18/18 12:00 02/18/18 16:00 02/18/18 17:08 Temperature 98.5 F 98.5 F Pulse Rate 63 64 Respiratory Rate 18 16 Blood Pressure 121/62 134/60 Pulse Oximetry 96 97 02/18/18 20:00 02/19/18 00:00 02/19/18 04:00 Temperature 97.5 F L 96.8 F L 98.1 F Pulse Rate 58 L 57 L 68 Respiratory Rate 21 13 19 Blood Pressure 119/84 118/54 L 105/51 L Pulse Oximetry 98 94 L 94 L 02/19/18 08:00 Temperature 98.3 F Pulse Rate 62 Respiratory Rate 16 Blood Pressure 99/52 L Pulse Oximetry 96 Intake & Output 02/18/18 02/19/18 02/19/18 18:59 06:59 18:59 Intake Total 1716 / 1716 680 / 680 Output Total 1000 / 1000 800 / 800 Balance 716 / 716 -120 / -120 Weight 105.8 kg Intake: IV 816 / 816 200 / 200 Cleocin 900 mg/NS Premix 900 mg 100 / 100 100 / 100 In 50 ml @ 100 mls/hr IV.SIG Q6HR [facility] Rx#:[id number] Merrem Inj 1,000 MG In NS Inj 200 / 200 100 / 100 100 ML @ 200 mls/hr IV.SIG Q8H [facility] Rx#:[id number] Vancomycin Inj 1,600 MG In NS 516 / 516 Inj 500 ML @ 250 mls/hr IV.SIG Q12H [facility] Rx#:[id number] Oral 900 / 900 480 / 480 Output: Urine 850 / 850 640 / 640 Wound Vac Amount 150 / 150 160 / 160 Right Arm 150 / 150 160 / 160 Other: Mode Setting Right Arm Continuous Continuous # Voids 3 # Bowel Movements 0 Result Diagrams: 02/18/18 03:35 02/19/18 04:05 Objective Remarks: - Constitutional Calm, no distress distress - Routine HEENT Exam Head: Present: normocephalic, atraumatic Eye: Present: EOMI, PERRL, normal accommodation ENT: Present: mucous membranes moist - Routine Neck Exam Present: supple, full ROM. Airway widely patent, no obstructive noises. Absent : JVD, carotid bruit - Routine Respiratory Exam Comfortable respiratory pattern absent: accessory muscle use, rhonchi, stridor, wheezes - Routine Cardiovascular Exam Present: RRR, S1, S2, no JVD. - Routine Abdominal Exam Present: soft, normoactive bowel sounds. No guarding, mildly obese absent: tenderness, distended, rebound - Routine Extremities Exam Present: Less edema, tenderness, joint swelling, open wound right side with wound VAC. Fingers viable. Absent: cyanosis, clubbing - Routine Skin Exam Present: erythema, warm, lesions, wounds. Wound VAC in place right forearm. Absent: cyanosis - Routine Neurological Exam Present: alert, oriented X3, moving all extremities, person, speech clear. Assessment and Plan - Assessment and Plan Plan: Necrotizing fasciitis -Clindamycin -Vancomycin -Meropenem -Further antibiotic recommendations per infectious disease -Emergent fasciotomy and debridement by orthopedic surgeon performed 02/17. -Will return for debridement today 02/19 Hypertension -Restart Norvasc and metoprolol -Resume when indicated -Blood pressure control acceptable Atherosclerosis -Continue simvastatin -Resume Plavix when okay with surgeon Neuropathy -Continue gabapentin Tobacco use disorder -Wellbutrin DVT GI prophylaxis -Teds SCDs -Pharmacological DVT prophylaxis per surgeon -Pepcid Overall impression: Patient much improved following treatment for necrotizing fasciitis involving the right forearm. Initial wide incision and debridement has been performed and devitalized tissue removed. He returns today for additional look and debridement if necessary.
[2018-02-19] MEDS ORDERED: Succinylcholine Inj 100 MG/5 ML Syringe IV.PUSH ONE (16:28)
[2018-02-19] MEDS ORDERED: Phenylephrine/NS 1000 MCG/10ML Syringe IV.PUSH ONE (16:28)
[2018-02-19] MEDS ORDERED: Glycopyrrolate Inj 1 MG/5 ML Vial IV.PUSH ONE (16:28)
[2018-02-19] MEDS ORDERED: Post-op Orders (for Pharmacy) OTHER STA (16:57)
--- NOTE | 2018-02-19 17:02 | P.OP ---
- Preoperative Diagnosis (1) Necrotizing soft tissue infection (2) Cellulitis and abscess of upper arm and forearm Date of procedure: 02/19/18 Procedure: Irrigation and debridement of right forearm, application of wound VAC dressing Anesthesia: SAMMIEA Surgeon: Pietro Catherine MD [employer]: Narciso Narayan PA-C The surgical procedure was assisted by my physician learning support assistant. My P.A. presence was necessary throughout this case for the manipulation and positioning of the surgical extremity. My P.A. was assisting me throughout the duration of this procedure. The skill set of a physician learning support assistant was medically necessary to complete this procedure. During the surgical case the surgical scrub technologist was working at the back table and the physician learning support assistant was directly assisting me. Operation and Findings: Kyree was seen and evaluated preoperatively. He was taken to the operating room [address] Moreno for treatment of necrotizing infection of right forearm. I have been consulted for further management of this wound and problem. Informed consent was obtained preoperatively and operative site was marked. Patient is brought operating. He was given IV sedation and general anesthesia. He is on scheduled antibiotics. Timeout procedure was performed. Right arm was prepped with alcohol followed Hibiclens and draped in usual sterile fashion. Procedure began with debridement of the wound. There were significant areas of skin necrosis. Full-thickness skin flaps were excised. All necrotic tissue was excised. An excisional debridement was performed with scalpel, curettes, and rongour. Areas of muscle and fascia were also excised. After completion of excisional debridement, the wound was thoroughly irrigated with sterile saline. There was an additional anterior forearm incision which was opened. This area of muscle was debrided with curettes. Overall the wound appeared to be clean. There was no gross visible sign of infection in this wound. This incision was closed with 3-0 PDS and 3-0 nylon. At this point a VAC dressing was applied over the open wound. An extra-large VAC dressing was opened. VAC dressing was sealed appropriately. The seal was checked. Sterile dressings were applied. Patient was transferred to recovery room in stable condition.
[2018-02-19] MEDS ORDERED: *morphine SULFATE 4 MG/ML PERIprocedure ONLY ONE ×2 (18:07→18:16)
[2018-02-19] MEDS ORDERED: fentaNYL Citrate Inj 100 MCG/2 ML Ampul ONE (18:07)
[2018-02-19] MEDS: oxyCODONE/Acetaminophen 10/325 Tablet PO PRN (23:46)
[2018-02-20] MEDS: Clindamycin 900 mg/NS Premix 900 MG/50 ML PIGGYBACK IV.SIG SCH ×5 (00:48→23:43)
[2018-02-20] MEDS: Vancomycin Inj 1,600 MG in Sodium Chlor 0.9% Inj 500 ML IV.SIG SCH ×2 (00:58→14:08)
[2018-02-20] MEDS: Chlorhexidine Gluconate 2% 1 Pack (2 Cloths) TOPICAL SCH (04:24)
[2018-02-20] MEDS: oxyCODONE/Acetaminophen 10/325 Tablet PO PRN ×5 (05:24→23:42)
[2018-02-20] MEDS: Gabapentin 400 MG Capsule PO SCH ×5 (05:44→23:43)
[2018-02-20 07:17] LABS: Baso % (Auto) 0.2 % (0.0-2.0); Hematocrit 23.4 % (39.0-51.0); Hemoglobin 7.8 gm/dL (13.0-17.0); Lymph # (Auto) 1.4 th/mm3 (1.0-4.8); Lymph % (Auto) 9.7 % (9.0-44.0); Mean Corpuscular HGB Conc 33.3 % (32.0-36.0); Mean Corpuscular Hemoglobin 30.9 pg (27.0-34.0); Mean Corpuscular Volume 92.6 fL (80.0-100.0); Mean Platelet Volume 7.9 fL (7.0-11.0); Mono # (Auto) 0.7 th/mm3 (0.0-0.9); Mono % (Auto) 5.1 % (0.0-8.0); Neut # (Auto) 12.1 th/mm3 (1.8-7.7); Platelet Count 277 th/mm3 (150-450); Red Blood Count 2.53 mil/mm3 (4.50-5.90); Red Cell Distribution Width 13.8 % (11.6-17.2); White Blood Count 14.2 th/mm3 (4.0-11.0)
--- NOTE | 2018-02-20 08:42 | P.PNOP ---
Subjective Interval history: POD 1 s/p I&D vac change right arm doing well. reoprts soreness Physical Exam Vital signs: Vital Signs 02/19/18 09:00 02/19/18 10:00 02/19/18 10:18 Temperature Pulse Rate 65 66 65 Respiratory Rate 30 H 24 20 Blood Pressure 128/56 L Pulse Oximetry 97 95 98 02/19/18 10:26 02/19/18 11:00 02/19/18 12:00 Temperature 98.0 F Pulse Rate 64 67 Respiratory Rate 20 26 H 20 Blood Pressure 103/51 L Pulse Oximetry 96 96 02/19/18 12:40 02/19/18 13:00 02/19/18 17:58 Temperature 97.8 F Pulse Rate 65 64 74 Respiratory Rate 22 20 16 Blood Pressure 103/51 L 104/59 L Pulse Oximetry 96 97 100 02/19/18 18:00 02/19/18 18:15 02/19/18 18:18 Temperature 97.8 F Pulse Rate 73 68 Respiratory Rate 19 27 H 14 Blood Pressure 116/61 101/56 L Pulse Oximetry 100 98 02/19/18 18:32 02/19/18 20:00 02/19/18 21:43 Temperature 97.2 F L Pulse Rate 68 Respiratory Rate 15 18 Blood Pressure 122/54 L Pulse Oximetry 100 98 02/20/18 00:00 02/20/18 04:00 02/20/18 08:00 Temperature 98.4 F 97.6 F 97.6 F Pulse Rate 73 64 58 L Respiratory Rate 19 19 17 Blood Pressure 139/67 95/54 L 155/69 H Pulse Oximetry 96 95 91 L Intake & Output 02/19/18 02/20/18 02/20/18 18:59 06:59 18:59 Intake Total 2516 / 2516 1716 / 1716 550 / 550 Output Total 70 / 70 800 / 800 400 / 400 Balance 2446 / 2446 916 / 916 150 / 150 Intake: IV 716 / 716 1716 / 1716 LR 1000 mL Inj 1,000 ML @ 80 1000 / 1000 mls/hr IV.CONT .[id number] [facility] Rx# :[id number] Cleocin 900 mg/NS Premix 900 mg 100 / 100 100 / 100 In 50 ml @ 100 mls/hr IV.SIG Q6HR [facility] Rx#:[id number] Merrem Inj 1,000 MG In NS Inj 100 / 100 100 / 100 100 ML @ 200 mls/hr IV.SIG Q8H [facility] Rx#:[id number] Vancomycin Inj 1,600 MG In NS 516 / 516 516 / 516 Inj 500 ML @ 250 mls/hr IV.SIG Q12H [facility] Rx#:[id number] Oral 550 / 550 Anesthesia Amount 1800 / 1800 Output: Urine 800 / 800 300 / 300 Estimated Blood Loss 70 / 70 Wound Vac Amount 100 / 100 Right Arm 100 / 100 Other: Mode Setting Right Arm Intermittent Intermittent Intermittent Narrative: RUE: +vac. good seal. nvi. dressings clean Results - Labs CBC & Chem 7: 02/20/18 06:33 02/19/18 04:05 Laboratory Results - last 24 hr 02/19/18 02/19/18 02/20/18 12:18 14:18 06:33 WBC 14.2 H RBC 2.53 L Hgb 7.8 L Hct 23.4 L MCV 92.6 MCH 30.9 MCHC 33.3 RDW 13.8 Plt Count 277 D MPV 7.9 Prelim Diff (Auto) Slide review pending Neut % (Auto) 85.0 H Lymph % (Auto) 9.7 [place] % (Auto) 5.1 Eos % (Auto) 0.0 Baso % (Auto) 0.2 Neut # (Auto) 12.1 H Lymph # (Auto) 1.4 [place] # (Auto) 0.7 Eos # (Auto) 0.0 Baso # (Auto) 0.0 Differential Comment . POC Glucose 89 Vancomycin Trough 12.6 H Microbiology 02/17/18 21:40 Wound - Elbow Gram Stain - Final 02/17/18 21:40 Wound - Elbow Wound Culture - Preliminary Group A beta Strep 02/17/18 21:50 Wound - Arm Gram Stain - Final 02/17/18 21:50 Wound - Arm Wound Culture - Preliminary Group A beta Strep 02/17/18 21:40 Wound - Arm Gram Stain - Final 02/17/18 21:40 Wound - Arm Wound Culture - Preliminary Group A beta Strep 02/17/18 15:27 Blood - Peripheral Aerobic Blood Culture - Preliminary No growth in 2 days 02/17/18 15:27 Blood - Peripheral Anaerobic Blood Culture - Preliminary No growth in 2 days 02/17/18 15:00 Blood - Peripheral Aerobic Blood Culture - Preliminary No growth in 2 days 02/17/18 15:00 Blood - Peripheral Anaerobic Blood Culture - Preliminary No growth in 2 days Assessment and Plan - Assessment and Plan 1) Right Arm Necrotizing Fasciitis s/p I&D and vac application - POD 1 -maintain vac at all times. -100mmHg, DPC, 3:1 -will plan for repeat I&D or sunday -will need skin grafting of right arm when infection is cleared
[2018-02-20] MEDS: buPROPion 150 MG 12 HR Tablet PO SCH ×2 (09:01→20:27)
[2018-02-20] MEDS: Metoprolol Tartrate 50 MG Tablet PO SCH ×2 (09:02→20:27)
[2018-02-20] MEDS: Senna/Docusate Sodium 8.6/50 MG Tablet PO SCH ×2 (09:03→20:27)
[2018-02-20] MEDS: Famotidine PF Inj 20 MG/2 ML Vial IV.PUSH SCH ×2 (09:03→20:27)
[2018-02-20 12:24] LABS: Lymphocytes 7 % (9-44); Metamyelocytes 1 % (0-1); Monocytes 1 % (0-8); Platelet Estimate Normal (Normal); Platelet Morphology Normal (Normal); Toxic Granulation 1+
--- NOTE | 2018-02-20 15:07 | P.PNIM ---
Subjective Interval history: Pain control. No new complaints. Plan for OR in 1-2 days with further debridement if needed. Physical Exam Vital signs: Vital Signs 02/19/18 17:58 02/19/18 18:00 02/19/18 18:15 Temperature 97.8 F 97.8 F Pulse Rate 74 73 68 Respiratory Rate 16 19 27 H Blood Pressure 104/59 L 116/61 101/56 L Pulse Oximetry 100 100 98 02/19/18 18:18 02/19/18 18:32 02/19/18 20:00 Temperature 97.2 F L Pulse Rate 68 Respiratory Rate 14 15 18 Blood Pressure 122/54 L Pulse Oximetry 100 02/19/18 21:43 02/20/18 00:00 02/20/18 04:00 Temperature 98.4 F 97.6 F Pulse Rate 73 64 Respiratory Rate 19 19 Blood Pressure 139/67 95/54 L Pulse Oximetry 98 96 95 02/20/18 08:00 02/20/18 12:00 Temperature 97.6 F 97.1 F L Pulse Rate 58 L 58 L Respiratory Rate 17 17 Blood Pressure 155/69 H 113/55 L Pulse Oximetry 91 L 93 L Intake & Output 02/19/18 02/20/18 02/20/18 18:59 06:59 18:59 Intake Total 2516 / 2516 1716 / 1716 700 / 700 Output Total 70 / 70 800 / 800 400 / 400 Balance 2446 / 2446 916 / 916 300 / 300 Intake: IV 716 / 716 1716 / 1716 150 / 150 LR 1000 mL Inj 1,000 ML @ 80 1000 / 1000 mls/hr IV.CONT .[id number] [facility] Rx# :[id number] Cleocin 900 mg/NS Premix 900 mg 100 / 100 100 / 100 50 / 50 In 50 ml @ 100 mls/hr IV.SIG Q6HR [facility] Rx#:[id number] Merrem Inj 1,000 MG In NS Inj 100 / 100 100 / 100 100 / 100 100 ML @ 200 mls/hr IV.SIG Q8H [facility] Rx#:[id number] Vancomycin Inj 1,600 MG In NS 516 / 516 516 / 516 Inj 500 ML @ 250 mls/hr IV.SIG Q12H [facility] Rx#:[id number] Oral 550 / 550 Anesthesia Amount 1800 / 1800 Output: Urine 800 / 800 300 / 300 Estimated Blood Loss 70 / 70 Wound Vac Amount 100 / 100 Right Arm 100 / 100 Other: Mode Setting Right Arm Intermittent Intermittent Intermittent Narrative: GENERAL: NAD, A&Ox3 HEAD: Normocephalic. NECK: Supple, trachea midline. No lymphadenopathy. EYES: No scleral icterus. No injection or drainage. CARDIOVASCULAR: Regular rate and rhythm without murmurs, gallops, or rubs. RESPIRATORY: Breath sounds equal bilaterally. No accessory muscle use. GASTROINTESTINAL: Abdomen soft, non-tender, nondistended. MUSCULOSKELETAL: No cyanosis, or edema. Right arm is bandaged, wound VAC in place. SKIN: Warm and dry. NEURO: No focal neurological deficits. Results - Labs CBC & Chem 7: 02/20/18 06:33 02/19/18 04:05 Laboratory Results - last 24 hr 02/19/18 02/20/18 14:18 06:33 WBC 14.2 H RBC 2.53 L Hgb 7.8 L Hct 23.4 L MCV 92.6 MCH 30.9 MCHC 33.3 RDW 13.8 Plt Count 277 D MPV 7.9 Prelim Diff (Auto) Slide review pending Neut % (Auto) 85.0 H Lymph % (Auto) 9.7 [place] % (Auto) 5.1 Eos % (Auto) 0.0 Baso % (Auto) 0.2 Neut # (Auto) 12.1 H Lymph # (Auto) 1.4 [place] # (Auto) 0.7 Eos # (Auto) 0.0 Baso # (Auto) 0.0 WBC Differential Manual diff final Seg Neuts % (Manual) 87 H Band Neuts % (Manual) 4 Lymphocytes % (Manual) 7 L Monocytes % (Manual) 1 Metamyelocytes % (Man) 1 Abs Neuts (Manual) 13.1 H Differential Comment . Toxic Granulation 1+ H Platelet Estimate Normal Platelet Morphology Normal Vancomycin Trough 12.6 H Microbiology 02/17/18 15:27 Blood - Peripheral Aerobic Blood Culture - Preliminary No growth in 3 days 02/17/18 15:27 Blood - Peripheral Anaerobic Blood Culture - Preliminary No growth in 3 days 02/17/18 15:00 Blood - Peripheral Aerobic Blood Culture - Preliminary No growth in 3 days 02/17/18 15:00 Blood - Peripheral Anaerobic Blood Culture - Preliminary No growth in 3 days 02/17/18 21:40 Wound - Elbow Gram Stain - Final 02/17/18 21:40 Wound - Elbow Wound Culture - Preliminary Group A beta Strep Staphylococcus aureus 02/17/18 21:50 Wound - Arm Gram Stain - Final 02/17/18 21:50 Wound - Arm Wound Culture - Final Group A beta Strep 02/17/18 21:40 Wound - Arm Gram Stain - Final 02/17/18 21:40 Wound - Arm Wound Culture - Final Group A beta Strep Assessment and Plan - Plan 62-year-old male admitted secondary to necrotizing fasciitis of the right arm Necrotizing fasciitis Continue clindamycin Continue vancomycin Continue meropenem ID following Orthopedic surgeons following Debridement on 02/17/2018 Debridement on 02/19/2018 Potential further debridement in 1-2 days Hypertension Continue Norvasc and metoprolol Follow blood pressures Adjust treatments as needed Atherosclerosis Continue simvastatin Resume Plavix after surgeries are completed Neuropathy Continue gabapentin Tobacco use disorder Wellbutrin Patient recommended to quit DVT GI prophylaxis SCDs
[2018-02-21] MEDS: Vancomycin Inj 1,600 MG in Sodium Chlor 0.9% Inj 500 ML IV.SIG SCH ×2 (00:19→14:19)
[2018-02-21] MEDS: oxyCODONE/Acetaminophen 10/325 Tablet PO PRN ×4 (04:22→20:36)
[2018-02-21] MEDS: Chlorhexidine Gluconate 2% 1 Pack (2 Cloths) TOPICAL SCH (04:24)
[2018-02-21] MEDS: Clindamycin 900 mg/NS Premix 900 MG/50 ML PIGGYBACK IV.SIG SCH ×4 (06:34→23:58)
[2018-02-21] MEDS: Gabapentin 400 MG Capsule PO SCH ×5 (06:34→23:58)
[2018-02-21 08:27] LABS: Baso # (Auto) 0.1 th/mm3 (0.0-0.2); Baso % (Auto) 0.3 % (0.0-2.0); Eos # (Auto) 0.1 th/mm3 (0.0-0.4); Eos % (Auto) 0.5 % (0.0-4.0); Hematocrit 23.4 % (39.0-51.0); Hemoglobin 7.9 gm/dL (13.0-17.0); Lymph # (Auto) 2.2 th/mm3 (1.0-4.8); Lymph % (Auto) 11.3 % (9.0-44.0); Mean Corpuscular HGB Conc 33.6 % (32.0-36.0); Mean Corpuscular Hemoglobin 31.3 pg (27.0-34.0); Mean Corpuscular Volume 93.2 fL (80.0-100.0); Mean Platelet Volume 7.7 fL (7.0-11.0); Mono # (Auto) 0.9 th/mm3 (0.0-0.9); Mono % (Auto) 4.8 % (0.0-8.0); Neut % (Auto) 83.1 % (16.0-70.0); Platelet Count 330 th/mm3 (150-450); Red Blood Count 2.51 mil/mm3 (4.50-5.90); White Blood Count 19.3 th/mm3 (4.0-11.0)
[2018-02-21] MEDS: Famotidine PF Inj 20 MG/2 ML Vial IV.PUSH SCH ×2 (09:55→20:36)
[2018-02-21] MEDS: Metoprolol Tartrate 50 MG Tablet PO SCH ×2 (09:55→20:37)
[2018-02-21] MEDS: buPROPion 150 MG 12 HR Tablet PO SCH ×2 (09:55→20:37)
[2018-02-21] MEDS: Senna/Docusate Sodium 8.6/50 MG Tablet PO SCH ×2 (09:55→20:46)
[2018-02-21] MEDS ORDERED: Post-op Orders (for Pharmacy) OTHER STA (12:15)
--- NOTE | 2018-02-21 12:19 | P.OP ---
- Preoperative Diagnosis (1) Necrotizing soft tissue infection (2) Cellulitis and abscess of upper arm and forearm Date of procedure: 02/21/18 Procedure: Excisional irrigation and debridement of right forearm, application of wound VAC Anesthesia: SERENE Surgeon: Pietro Catherine MD Mixing Tank Operator: SHAI Rodriguez PA-C The surgical procedure was assisted by my physician legal document assistant. My P.A. presence was necessary throughout this case for the manipulation and positioning of the surgical extremity. My P.A. was assisting me throughout the duration of this procedure. The skill set of a physician legal document assistant was medically necessary to complete this procedure. During the surgical case the surgical corsetier was working at the back table and the physician legal document assistant was directly assisting me. Operation and Findings: Kyree returns to the operating today for management of right arm necrotizing infection. Informed consent was obtained preoperatively and OpSite was marked. He is brought the operating room. Is given IV sedation and general anesthesia. Right arm was prepped with alcohol followed Hibiclens and draped in usual sterile fashion. Timeout procedure was performed. Procedure began with excisional debridement of the right forearm. Areas of skin fascia and muscle were sharply debrided. Scalpel and rongoure were used for debridement. After debridement of all necrotic tissue the wound was thoroughly irrigated with pulsatile lavage. Patient does have evidence of early granulation tissue formation. Next, attention was turned towards wound VAC dressing. An extra-large VAC dressing was opened. VAC dressing was cut to fit the wound. VAC dressing was sealed appropriately. Patient was awakened and transferred to recovery in stable condition.
[2018-02-21] MEDS ORDERED: Pharmacy Ordered Lab Info OTHER ONE (12:45)
[2018-02-21] MEDS ORDERED: Metoprolol Tartrate 25 MG Tablet PO ONE (13:15)
[2018-02-21] MEDS ORDERED: Chlorhexidine Gluconate 2% 1 Pack (2 Cloths) TOPICAL ONE (13:15)
[2018-02-21] MEDS ORDERED: Sodium Chlor 0.9% Inj 500 ML IV.CONT ONE (13:15)
[2018-02-21] MEDS ORDERED: Lidocaine PF 1% Inj 5 ML Syringe OTHER ONE (13:55)
--- NOTE | 2018-02-21 13:57 | P.PNIM ---
Subjective Interval history: Further debridement of the right arm is planned today in regards to patient's necrotizing fasciitis. New complaint of abdominal distention today. Patient has had bowel movements and is passing gas. Pain controlled. Physical Exam Vital signs: Vital Signs 02/20/18 16:00 02/20/18 20:00 02/21/18 00:00 Temperature 97.3 F L 97.8 F 98.3 F Pulse Rate 55 L 64 58 L Respiratory Rate 17 20 20 Blood Pressure 109/58 L 120/56 L 97/55 L Pulse Oximetry 97 98 95 02/21/18 00:18 02/21/18 04:00 02/21/18 04:24 Temperature 97.4 F L Pulse Rate 62 Respiratory Rate 18 20 18 Blood Pressure 120/71 Pulse Oximetry 92 L 02/21/18 06:34 02/21/18 08:00 Temperature 98.2 F Pulse Rate 61 Respiratory Rate 18 17 Blood Pressure 105/56 L Pulse Oximetry 95 Intake & Output 02/20/18 02/21/18 02/21/18 18:59 06:59 18:59 Intake Total 2982 / 2982 1196 / 1196 200 / 200 Output Total 400 / 400 500 / 500 Balance 2582 / 2582 696 / 696 200 / 200 Intake: IV 766 / 766 716 / 716 200 / 200 Cleocin 900 mg/NS Premix 900 mg 50 / 50 100 / 100 100 / 100 In 50 ml @ 100 mls/hr IV.SIG Q6HR [facility] Rx#:[id number] Merrem Inj 1,000 MG In NS Inj 200 / 200 100 / 100 100 / 100 100 ML @ 200 mls/hr IV.SIG Q8H [facility] Rx#:[id number] Vancomycin Inj 1,600 MG In NS 516 / 516 516 / 516 Inj 500 ML @ 250 mls/hr IV.SIG Q12H [facility] Rx#:[id number] Oral 2216 / 2216 480 / 480 Output: Urine 300 / 300 500 / 500 Wound Vac Amount 100 / 100 Right Arm 100 / 100 Other: Mode Setting Right Arm Continuous Continuous Continuous # Voids 2 Date of Last Bowel Movement 02/20/18 # Bowel Movements 1 Narrative: GENERAL: NAD, A&Ox3 HEAD: Normocephalic. NECK: Supple, trachea midline. No lymphadenopathy. EYES: No scleral icterus. No injection or drainage. CARDIOVASCULAR: Regular rate and rhythm without murmurs, gallops, or rubs. RESPIRATORY: Breath sounds equal bilaterally. No accessory muscle use. GASTROINTESTINAL: Abdomen soft, non-tender, nondistended. MUSCULOSKELETAL: No cyanosis, or edema. Right arm is bandaged, wound VAC in place. SKIN: Warm and dry. NEURO: No focal neurological deficits. Results - Labs CBC & Chem 7: 02/21/18 07:36 02/21/18 07:36 Laboratory Results - last 24 hr 02/21/18 02/21/18 07:36 07:36 WBC 19.3 H RBC 2.51 L Hgb 7.9 L Hct 23.4 L MCV 93.2 MCH 31.3 MCHC 33.6 RDW 14.0 Plt Count 330 MPV 7.7 Neut % (Auto) 83.1 H Lymph % (Auto) 11.3 [place] % (Auto) 4.8 Eos % (Auto) 0.5 Baso % (Auto) 0.3 Neut # (Auto) 16.0 H Lymph # (Auto) 2.2 [place] # (Auto) 0.9 Eos # (Auto) 0.1 Baso # (Auto) 0.1 WBC Differential . Differential Comment Auto diff final Creatinine 0.94 Estimated GFR 81 L Microbiology 02/17/18 15:27 Blood - Peripheral Aerobic Blood Culture - Preliminary No growth in 4 days 02/17/18 15:27 Blood - Peripheral Anaerobic Blood Culture - Preliminary No growth in 4 days 02/17/18 15:00 Blood - Peripheral Aerobic Blood Culture - Preliminary No growth in 4 days 02/17/18 15:00 Blood - Peripheral Anaerobic Blood Culture - Preliminary No growth in 4 days 02/17/18 21:40 Wound - Elbow Gram Stain - Final 02/17/18 21:40 Wound - Elbow Wound Culture - Final Group A beta Strep Staphylococcus aureus 02/17/18 21:50 Wound - Arm Gram Stain - Final 02/17/18 21:50 Wound - Arm Wound Culture - Final Group A beta Strep 02/17/18 21:40 Wound - Arm Gram Stain - Final 02/17/18 21:40 Wound - Arm Wound Culture - Final Group A beta Strep Assessment and Plan - Plan 62-year-old male admitted secondary to necrotizing fasciitis of the right arm Abdominal distention Obtain abdominal x-ray If no small bowel obstruction will treat with simethicone, Colace, laxative, and probiotics A small bowel obstruction is present patient will be transitioned to n.p.o. status Necrotizing fasciitis Continue clindamycin Continue vancomycin Continue meropenem ID following Orthopedic surgeons following Debridement on 02/17/2018 Debridement on 02/19/2018 Debridement on 02/21/2018 Potential further debridement in 1-3 days Hypertension Continue Norvasc and metoprolol Follow blood pressures Adjust treatments as needed Atherosclerosis Continue simvastatin Resume Plavix after surgeries are completed Neuropathy Continue gabapentin Tobacco use disorder Wellbutrin Patient recommended to quit DVT GI prophylaxis SCDs
--- NOTE | 2018-02-21 15:06 | P.BOP ---
- Preoperative Diagnosis (1) Necrotizing soft tissue infection (2) Cellulitis and abscess of upper arm and forearm - Postoperative Diagnosis (1) Necrotizing soft tissue infection (2) Cellulitis and abscess of upper arm and forearm Date of procedure: 02/21/18 Procedure: right upper extremity irrigation and debridement, vacuum assisted closure Anesthesia: SAMMIEA Surgeon: Gin Boswell MD Estimated blood loss (mL): 50 Pathology: none sent Condition: stable Disposition: PACU
[2018-02-21] MEDS: Lactobacillus Acidophilus/L. Spores Tablet PO SCH ×2 (15:39→17:08)
[2018-02-21] MEDS ORDERED: Cathflo Activase Inj 2 MG Vial I-CATHETER ONE (16:20)
[2018-02-21] MEDS: ceFAZolin Inj 2,000 MG in Sodium Chlor 0.9% Inj 80 ML IV.SIG SCH (18:39)
--- NOTE | 2018-02-21 19:33 | XR ---
EXAM DATE: 02/21/2018 12:00 AM EDT AGE/SEX: 62 years / Male INDICATIONS: Abdomen pain, distention CLINICAL DATA: This is the patient's initial encounter. Patient reports that signs and symptoms have been present for 2 days and indicates a pain score of 4/10. MEDICAL/SURGICAL HISTORY: . Chronic obstructive pulmonary disease. . Right elbow surgery COMPARISON: No prior exams available for comparison. FINDINGS: There is moderate gaseous distention of large and small bowel present throughout the abdomen. There has been previous mesh abdominal wall reconstruction. There are no suspicious calcific densities. Reg ional skeleton is grossly intact. CONCLUSION: Prominent diffuse gaseous distention of bowel. Recommend CT abdomen and pelvis for further evaluation . Electronically signed by: Ej Huizar MD 02/21/2018 7:32 PM EDT
[2018-02-21] MEDS: Docusate Sodium 100 MG Capsule PO SCH (20:46)
[2018-02-22] MEDS: oxyCODONE/Acetaminophen 10/325 Tablet PO PRN ×5 (00:31→21:37)
[2018-02-22] MEDS: ceFAZolin Inj 2,000 MG in Sodium Chlor 0.9% Inj 80 ML IV.SIG SCH ×3 (04:20→17:21)
[2018-02-22] MEDS: Chlorhexidine Gluconate 2% 1 Pack (2 Cloths) TOPICAL SCH (05:01)
[2018-02-22] MEDS: Gabapentin 400 MG Capsule PO SCH ×5 (05:19→21:36)
[2018-02-22] MEDS: Clindamycin 900 mg/NS Premix 900 MG/50 ML PIGGYBACK IV.SIG SCH ×3 (05:19→18:31)
[2018-02-22 06:53] LABS: Baso % (Auto) 0.2 % (0.0-2.0); Eos % (Auto) 0.1 % (0.0-4.0); Hematocrit 22.3 % (39.0-51.0); Hemoglobin 7.5 gm/dL (13.0-17.0); Lymph # (Auto) 1.7 th/mm3 (1.0-4.8); Mean Corpuscular HGB Conc 33.6 % (32.0-36.0); Mean Corpuscular Hemoglobin 31.1 pg (27.0-34.0); Mean Corpuscular Volume 92.4 fL (80.0-100.0); Mean Platelet Volume 7.7 fL (7.0-11.0); Mono # (Auto) 1.1 th/mm3 (0.0-0.9); Mono % (Auto) 4.5 % (0.0-8.0); Neut # (Auto) 21.7 th/mm3 (1.8-7.7); Neut % (Auto) 88.2 % (16.0-70.0); Platelet Count 345 th/mm3 (150-450); Red Blood Count 2.41 mil/mm3 (4.50-5.90); Red Cell Distribution Width 13.8 % (11.6-17.2); White Blood Count 24.6 th/mm3 (4.0-11.0)
[2018-02-22 07:19] LABS: Anion Gap 10 meq/L (5-15); Aspartate Aminotransferase 15 U/L (15-37); Blood Urea Nitrogen 11 mg/dL (7-18); Calcium 7.8 mg/dL (8.5-10.1); Carbon Dioxide 29.7 meq/L (21.0-32.0); Chloride 95 meq/L (98-107); Glomerular Filtration Rate 82 mL/min (>89); Glucose,Random 95 mg/dL (74-106); Potassium 3.1 meq/L (3.5-5.1); Sodium 135 meq/L (136-145)
[2018-02-22 07:23] LABS: Alanine Aminotransferase 15 U/L (12-78); Alkaline Phosphatase 88 U/L (45-117); Total Protein 5.7 g/dL (6.4-8.2)
[2018-02-22] MEDS: buPROPion 150 MG 12 HR Tablet PO SCH ×2 (09:09→21:36)
[2018-02-22] MEDS: Docusate Sodium 100 MG Capsule PO SCH ×2 (09:09→21:35)
[2018-02-22] MEDS: Senna/Docusate Sodium 8.6/50 MG Tablet PO SCH ×2 (09:09→21:37)
[2018-02-22] MEDS: Famotidine PF Inj 20 MG/2 ML Vial IV.PUSH SCH ×2 (09:09→21:37)
[2018-02-22] MEDS: Metoprolol Tartrate 50 MG Tablet PO SCH ×2 (09:09→21:35)
[2018-02-22] MEDS: Lactobacillus Acidophilus/L. Spores Tablet PO SCH ×3 (09:09→17:22)
--- NOTE | 2018-02-22 10:59 | P.PNIM ---
Subjective Interval history: Patient doing well postop for debridement on 02/21/2018. No complaints of pain today. Next debridement plan for 02/26/2018. Physical Exam Vital signs: Vital Signs 02/21/18 15:12 02/21/18 15:15 02/21/18 15:30 Temperature 97.6 F Pulse Rate 59 L 57 L 58 L Respiratory Rate 20 16 16 Blood Pressure 141/62 H 119/69 110/66 Pulse Oximetry 97 98 98 02/21/18 15:45 02/21/18 17:27 02/21/18 20:00 Temperature 97.6 F 97.2 F L 97.8 F Pulse Rate 55 L 60 64 Respiratory Rate 16 18 18 Blood Pressure 109/56 L 117/57 L 118/66 Pulse Oximetry 98 96 97 02/22/18 00:00 02/22/18 04:00 02/22/18 09:00 Temperature 97.3 F L 97.8 F 97.4 F L Pulse Rate 57 L 61 57 L Respiratory Rate 18 18 18 Blood Pressure 112/59 L 118/67 120/59 L Pulse Oximetry 95 93 L 94 L Intake & Output 02/21/18 02/22/18 02/22/18 18:59 06:59 18:59 Intake Total 1116 / 1116 300 / 300 100 / 100 Output Total 50 / 50 750 / 750 Balance 1066 / 1066 -450 / -450 100 / 100 Weight 105.8 kg Intake: IV 866 / 866 300 / 300 100 / 100 Cleocin 900 mg/NS Premix 900 mg 150 / 150 100 / 100 In 50 ml @ 100 mls/hr IV.SIG Q6HR [facility] Rx#:[id number] Merrem Inj 1,000 MG In NS Inj 200 / 200 100 ML @ 200 mls/hr IV.SIG Q8H [facility] Rx#:[id number] Vancomycin Inj 1,600 MG In NS 516 / 516 Inj 500 ML @ 250 mls/hr IV.SIG Q12H [facility] Rx#:[id number] Ancef Inj 2,000 MG In NS Inj 80 200 / 200 100 / 100 ML @ 200 mls/hr IV.SIG Q8H [facility] Rx#:[id number] Anesthesia Amount 250 / 250 Output: Urine 750 / 750 Estimated Blood Loss 50 / 50 Other: Mode Setting Right Arm Intermittent Continuous Continuous # Voids 1 1 Date of Last Bowel Movement 02/20/18 Narrative: GENERAL: NAD, A&Ox3 HEAD: Normocephalic. NECK: Supple, trachea midline. No lymphadenopathy. EYES: No scleral icterus. No injection or drainage. CARDIOVASCULAR: Regular rate and rhythm without murmurs, gallops, or rubs. RESPIRATORY: Breath sounds equal bilaterally. No accessory muscle use. GASTROINTESTINAL: Abdomen soft, non-tender, nondistended. MUSCULOSKELETAL: No cyanosis, or edema. Right arm is bandaged, wound VAC in place. SKIN: Warm and dry. NEURO: No focal neurological deficits. Results - Labs CBC & Chem 7: 02/22/18 05:20 02/22/18 05:50 Laboratory Results - last 24 hr 02/21/18 02/22/18 02/22/18 15:32 02:10 05:20 WBC 24.6 H RBC 2.41 L Hgb 7.5 L Hct 22.3 L MCV 92.4 MCH 31.1 MCHC 33.6 RDW 13.8 Plt Count 345 MPV 7.7 Neut % (Auto) 88.2 H Lymph % (Auto) 7.0 L [place] % (Auto) 4.5 Eos % (Auto) 0.1 Baso % (Auto) 0.2 Neut # (Auto) 21.7 H Lymph # (Auto) 1.7 [place] # (Auto) 1.1 H Eos # (Auto) 0.0 Baso # (Auto) 0.0 WBC Differential . Differential Comment Auto diff final Sodium Potassium Chloride Carbon Dioxide Anion Gap BUN Creatinine Estimated GFR POC Glucose 107 Random Glucose Calcium Total Bilirubin AST ALT Alkaline Phosphatase Total Protein Albumin Vancomycin Trough 19.9 H 02/22/18 05:50 WBC RBC Hgb Hct MCV MCH MCHC RDW Plt Count MPV Neut % (Auto) Lymph % (Auto) [place] % (Auto) Eos % (Auto) Baso % (Auto) Neut # (Auto) Lymph # (Auto) [place] # (Auto) Eos # (Auto) Baso # (Auto) WBC Differential Differential Comment Sodium 135 L Potassium 3.1 L Chloride 95 L Carbon Dioxide 29.7 Anion Gap 10 BUN 11 Creatinine 0.93 Estimated GFR 82 L POC Glucose Random Glucose 95 Calcium 7.8 L Total Bilirubin 0.3 AST 15 ALT 15 Alkaline Phosphatase 88 Total Protein 5.7 L D Albumin 2.0 L Vancomycin Trough Microbiology 02/17/18 15:27 Blood - Peripheral Aerobic Blood Culture - Preliminary No growth in 4 days 02/17/18 15:27 Blood - Peripheral Anaerobic Blood Culture - Preliminary No growth in 4 days 02/17/18 15:00 Blood - Peripheral Aerobic Blood Culture - Preliminary No growth in 4 days 02/17/18 15:00 Blood - Peripheral Anaerobic Blood Culture - Preliminary No growth in 4 days 02/17/18 21:40 Wound - Elbow Gram Stain - Final 02/17/18 21:40 Wound - Elbow Wound Culture - Final Group A beta Strep Staphylococcus aureus - Imaging Impressions Abdomen X-Ray 02/21/18 00:00 CONCLUSION: Prominent diffuse gaseous distention of bowel. Recommend CT abdomen and pelvis for further evaluation. Assessment and Plan - Plan 62-year-old male admitted secondary to necrotizing fasciitis of the right arm Continue pain management. Continue to follow leukocytosis and follow clinically for fevers or other signs of infection. Abdominal distention Obtain abdominal x-ray If no small bowel obstruction will treat with simethicone, Colace, laxative, and probiotics A small bowel obstruction is present patient will be transitioned to n.p.o. status Necrotizing fasciitis Continue clindamycin Continue vancomycin Continue meropenem ID following Orthopedic surgeons following Debridement on 02/17/2018 Debridement on 02/19/2018 Debridement on 02/21/2018 Potential further debridement on 02/26/2018 Hypertension Continue Norvasc and metoprolol Follow blood pressures Adjust treatments as needed Atherosclerosis Continue simvastatin Resume Plavix after surgeries are completed Neuropathy Continue gabapentin Tobacco use disorder Wellbutrin Patient recommended to quit DVT GI prophylaxis SCDs
[2018-02-22] MEDS: Simethicone 80 MG Chew Tablet PO PRN ×2 (11:39→21:37)
[2018-02-23] MEDS: Clindamycin 900 mg/NS Premix 900 MG/50 ML PIGGYBACK IV.SIG SCH ×3 (01:06→11:50)
[2018-02-23] MEDS: oxyCODONE/Acetaminophen 10/325 Tablet PO PRN ×4 (01:41→18:02)
[2018-02-23] MEDS: ceFAZolin Inj 2,000 MG in Sodium Chlor 0.9% Inj 80 ML IV.SIG SCH ×3 (01:41→18:02)
[2018-02-23] MEDS: Gabapentin 400 MG Capsule PO SCH ×5 (05:45→21:00)
[2018-02-23 06:20] LABS: Baso # (Auto) 0.1 th/mm3 (0.0-0.2); Baso % (Auto) 0.3 % (0.0-2.0); Eos # (Auto) 0.1 th/mm3 (0.0-0.4); Eos % (Auto) 0.5 % (0.0-4.0); Hematocrit 22.9 % (39.0-51.0); Hemoglobin 7.7 gm/dL (13.0-17.0); Lymph # (Auto) 1.3 th/mm3 (1.0-4.8); Lymph % (Auto) 5.9 % (9.0-44.0); Mean Corpuscular HGB Conc 33.6 % (32.0-36.0); Mean Corpuscular Hemoglobin 30.8 pg (27.0-34.0); Mean Corpuscular Volume 91.9 fL (80.0-100.0); Mean Platelet Volume 7.5 fL (7.0-11.0); Mono # (Auto) 0.7 th/mm3 (0.0-0.9); Mono % (Auto) 3.4 % (0.0-8.0); Neut # (Auto) 19.3 th/mm3 (1.8-7.7); Neut % (Auto) 89.9 % (16.0-70.0); Platelet Count 370 th/mm3 (150-450); White Blood Count 21.4 th/mm3 (4.0-11.0)
[2018-02-23 07:37] LABS: Alanine Aminotransferase 10 U/L (12-78); Albumin 1.9 g/dL (3.4-5.0); Alkaline Phosphatase 87 U/L (45-117); Anion Gap 12 meq/L (5-15); Aspartate Aminotransferase 18 U/L (15-37); Blood Urea Nitrogen 14 mg/dL (7-18); Calcium 7.7 mg/dL (8.5-10.1); Carbon Dioxide 30.9 meq/L (21.0-32.0); Chloride 92 meq/L (98-107); Glomerular Filtration Rate 84 mL/min (>89); Glucose,Random 111 mg/dL (74-106); Sodium 135 meq/L (136-145); Total Protein 5.7 g/dL (6.4-8.2)
[2018-02-23] MEDS: Simethicone 80 MG Chew Tablet PO PRN ×2 (09:37→20:35)
[2018-02-23] MEDS: Metoprolol Tartrate 50 MG Tablet PO SCH ×2 (09:37→20:37)
[2018-02-23] MEDS: Senna/Docusate Sodium 8.6/50 MG Tablet PO SCH ×2 (09:37→20:37)
[2018-02-23] MEDS: buPROPion 150 MG 12 HR Tablet PO SCH ×2 (09:37→20:37)
[2018-02-23] MEDS: Docusate Sodium 100 MG Capsule PO SCH ×2 (09:37→20:37)
[2018-02-23] MEDS: Famotidine PF Inj 20 MG/2 ML Vial IV.PUSH SCH ×2 (09:38→20:34)
[2018-02-23] MEDS: Lactobacillus Acidophilus/L. Spores Tablet PO SCH ×3 (09:38→17:11)
--- NOTE | 2018-02-23 13:41 | P.PNIM ---
Subjective Interval history: Patient resting comfortably today. No new complaints. No fevers overnight. Downward trend and leukocytosis. Physical Exam Vital signs: Vital Signs 02/22/18 16:00 02/22/18 17:00 02/22/18 21:00 Temperature 97.3 F L 97.7 F Pulse Rate 57 L 58 L Respiratory Rate 18 18 18 Blood Pressure 144/67 H 126/58 L Pulse Oximetry 95 97 02/23/18 01:29 02/23/18 05:00 02/23/18 08:00 Temperature 97.8 F 97.3 F L 97.6 F Pulse Rate 57 L 59 L 68 Respiratory Rate 18 18 20 Blood Pressure 131/60 135/60 127/77 Pulse Oximetry 94 L 94 L 93 L 02/23/18 11:50 02/23/18 11:59 Temperature 97.6 F 97.6 F Pulse Rate 64 64 Respiratory Rate 16 20 Blood Pressure 142/69 H 142/69 H Pulse Oximetry 92 L 92 L Intake & Output 02/22/18 02/23/18 02/23/18 18:59 06:59 18:59 Intake Total 250 / 250 250 / 250 100 / 100 Balance 250 / 250 250 / 250 100 / 100 Weight 104.8 kg Intake: IV 250 / 250 250 / 250 100 / 100 Cleocin 900 mg/NS Premix 900 mg 50 / 50 150 / 150 In 50 ml @ 100 mls/hr IV.SIG Q6HR [facility] Rx#:[id number] Ancef Inj 2,000 MG In NS Inj 80 200 / 200 100 / 100 100 / 100 ML @ 200 mls/hr IV.SIG Q8H [facility] Rx#:[id number] Other: Mode Setting Right Arm Continuous Intermittent Intermittent # Voids 1 3 Date of Last Bowel Movement 02/22/18 02/20/18 # Bowel Movements 1 Narrative: GENERAL: NAD, A&Ox3 HEAD: Normocephalic. NECK: Supple, trachea midline. No lymphadenopathy. EYES: No scleral icterus. No injection or drainage. CARDIOVASCULAR: Regular rate and rhythm without murmurs, gallops, or rubs. RESPIRATORY: Breath sounds equal bilaterally. No accessory muscle use. GASTROINTESTINAL: Abdomen soft, non-tender, nondistended. MUSCULOSKELETAL: No cyanosis, or edema. Right arm is bandaged, wound VAC in place. SKIN: Warm and dry. NEURO: No focal neurological deficits. Results - Labs CBC & Chem 7: 02/23/18 06:00 02/23/18 06:00 Laboratory Results - last 24 hr 02/20/18 02/23/18 02/23/18 06:33 06:00 06:00 WBC 21.4 H RBC 2.50 L Hgb 7.7 L Hct 22.9 L MCV 91.9 MCH 30.8 MCHC 33.6 RDW 14.0 Plt Count 370 MPV 7.5 Neut % (Auto) 89.9 H Lymph % (Auto) 5.9 L [place] % (Auto) 3.4 Eos % (Auto) 0.5 Baso % (Auto) 0.3 Neut # (Auto) 19.3 H Lymph # (Auto) 1.3 [place] # (Auto) 0.7 Eos # (Auto) 0.1 Baso # (Auto) 0.1 WBC Differential . Differential Comment Auto diff final Sodium 135 L Potassium 3.0 L Chloride 92 L Carbon Dioxide 30.9 Anion Gap 12 BUN 14 Creatinine 0.91 Estimated GFR 84 L Random Glucose 111 H Calcium 7.7 L Total Bilirubin 0.3 AST 18 ALT 10 L Alkaline Phosphatase 87 Total Protein 5.7 L Albumin 1.9 L Vit D 1,25-Dihydroxy 73 H Microbiology 02/17/18 15:27 Blood - Peripheral Aerobic Blood Culture - Final No growth in 5 days 02/17/18 15:27 Blood - Peripheral Anaerobic Blood Culture - Final No growth in 5 days 02/17/18 15:00 Blood - Peripheral Aerobic Blood Culture - Final No growth in 5 days 02/17/18 15:00 Blood - Peripheral Anaerobic Blood Culture - Final No growth in 5 days Assessment and Plan - Plan 62-year-old male admitted secondary to necrotizing fasciitis of the right arm No acute changes overnight. Pain control. Continue pain management. Continue to follow leukocytosis and follow clinically for fevers or other signs of infection. Abdominal distention Obtain abdominal x-ray If no small bowel obstruction will treat with simethicone, Colace, laxative, and probiotics A small bowel obstruction is present patient will be transitioned to n.p.o. status Necrotizing fasciitis Continue clindamycin Continue vancomycin Continue meropenem ID following Orthopedic surgeons following Debridement on 02/17/2018 Debridement on 02/19/2018 Debridement on 02/21/2018 Potential further debridement on 02/26/2018 Hypertension Continue Norvasc and metoprolol Follow blood pressures Adjust treatments as needed Atherosclerosis Continue simvastatin Resume Plavix after surgeries are completed Neuropathy Continue gabapentin Tobacco use disorder Wellbutrin Patient recommended to quit DVT GI prophylaxis SCDs
--- NOTE | 2018-02-23 15:37 | P.PNID ---
Subjective Remarks: co diarrhea and abd distentiosn reports multiple liquid BMs undergoing staged debridements RUE pain, swelling improves wound clx with MSSA 1/3, GAS (3/3) Antibiotics: ancef clindamycin Allergies/Adverse Reactions: Allergies penicillin G Allergy (Mild, Verified 02/17/18 13:30) Hives Objective Vital Signs 02/22/18 16:00 02/22/18 17:00 02/22/18 21:00 Temperature 97.3 F L 97.7 F Pulse Rate 57 L 58 L Respiratory Rate 18 18 18 Blood Pressure 144/67 H 126/58 L Pulse Oximetry 95 97 02/23/18 01:29 02/23/18 05:00 02/23/18 08:00 Temperature 97.8 F 97.3 F L 97.6 F Pulse Rate 57 L 59 L 68 Respiratory Rate 18 18 20 Blood Pressure 131/60 135/60 127/77 Pulse Oximetry 94 L 94 L 93 L 02/23/18 11:50 02/23/18 11:59 Temperature 97.6 F 97.6 F Pulse Rate 64 64 Respiratory Rate 16 20 Blood Pressure 142/69 H 142/69 H Pulse Oximetry 92 L 92 L Intake & Output 02/22/18 02/23/18 02/23/18 18:59 06:59 18:59 Intake Total 250 / 250 250 / 250 150 / 150 Balance 250 / 250 250 / 250 150 / 150 Weight 104.8 kg Intake: IV 250 / 250 250 / 250 150 / 150 Cleocin 900 mg/NS Premix 900 mg 50 / 50 150 / 150 50 / 50 In 50 ml @ 100 mls/hr IV.SIG Q6HR [facility] Rx#:[id number] Ancef Inj 2,000 MG In NS Inj 80 200 / 200 100 / 100 100 / 100 ML @ 200 mls/hr IV.SIG Q8H [facility] Rx#:[id number] Other: Mode Setting Right Arm Continuous Intermittent Intermittent # Voids 1 3 Date of Last Bowel Movement 02/22/18 02/20/18 # Bowel Movements 1 02/17/18 15:27 Blood - Peripheral Aerobic Blood Culture - Final No growth in 5 days 02/17/18 15:27 Blood - Peripheral Anaerobic Blood Culture - Final No growth in 5 days 02/17/18 15:00 Blood - Peripheral Aerobic Blood Culture - Final No growth in 5 days 02/17/18 15:00 Blood - Peripheral Anaerobic Blood Culture - Final No growth in 5 days 02/17/18 21:40 Wound - Elbow Gram Stain - Final 02/17/18 21:40 Wound - Elbow Wound Culture - Final Group A beta Strep Staphylococcus aureus Lab - Hematology Results 02/22/18 02/23/18 05:20 06:00 WBC 24.6 H 21.4 H RBC 2.41 L 2.50 L Hgb 7.5 L 7.7 L Hct 22.3 L 22.9 L MCV 92.4 91.9 MCH 31.1 30.8 MCHC 33.6 33.6 RDW 13.8 14.0 Plt Count 345 370 MPV 7.7 7.5 Neut % (Auto) 88.2 H 89.9 H Lymph % (Auto) 7.0 L 5.9 L [place] % (Auto) 4.5 3.4 Eos % (Auto) 0.1 0.5 Baso % (Auto) 0.2 0.3 Neut # (Auto) 21.7 H 19.3 H Lymph # (Auto) 1.7 1.3 [place] # (Auto) 1.1 H 0.7 Eos # (Auto) 0.0 0.1 Baso # (Auto) 0.0 0.1 WBC Differential . . Differential Comment Auto diff final Auto diff final Lab - Chemistry Results 02/20/18 02/21/18 02/22/18 06:33 15:32 05:50 Sodium 135 L Potassium 3.1 L Chloride 95 L Carbon Dioxide 29.7 Anion Gap 10 BUN 11 Creatinine 0.93 Estimated GFR 82 L POC Glucose 107 Random Glucose 95 Calcium 7.8 L Total Bilirubin 0.3 AST 15 ALT 15 Alkaline Phosphatase 88 Total Protein 5.7 L D Albumin 2.0 L Vit D 1,25-Dihydroxy 73 H 02/23/18 06:00 Sodium 135 L Potassium 3.0 L Chloride 92 L Carbon Dioxide 30.9 Anion Gap 12 BUN 14 Creatinine 0.91 Estimated GFR 84 L POC Glucose Random Glucose 111 H Calcium 7.7 L Total Bilirubin 0.3 AST 18 ALT 10 L Alkaline Phosphatase 87 Total Protein 5.7 L Albumin 1.9 L Vit D 1,25-Dihydroxy Imaging: ITS Impressions Forearm CT 02/17/18 13:55 CONCLUSION: 1. Prominent area of subcutaneous fluid, thickening, and collections of gas extending from distal forearm to elbow, suspicious for abscess along the medial aspect of the forearm. 2. Osseous structures are radiographically intact. Forearm X-Ray 02/17/18 13:55 CONCLUSION: 1. Diffuse soft tissue swelling. 2. No acute fracture or joint dislocation. Head CT 02/17/18 13:55 CONCLUSION: 1. Negative noncontrast CT brain. . Chest X-Ray 02/17/18 15:33 CONCLUSION: Right-sided central line in place. No evidence of pneumothorax. The lungs are grossly clear. Abdomen X-Ray 02/21/18 00:00 CONCLUSION: Prominent diffuse gaseous distention of bowel. Recommend CT abdomen and pelvis for further evaluation. Physical Exam: GENERAL: NAD comfortable SKIN: Warm and dry. No rash EYES: Pupils equal and round. No scleral icterus. ENT: No nasal bleeding or discharge. Mucous membranes pink and moist. NECK: Trachea midline. No JVD. CARDIOVASCULAR: Regular rate and rhythm. No murmurs RESPIRATORY: No accessory muscle use. Clear to auscultation. Breath sounds equal bilaterally. GASTROINTESTINAL: Abdomen soft, quite tender, distended. tympanic to palpation Hepatic and splenic margins not palpable. MUSCULOSKELETAL: Extremities without clubbing, cyanosis, or edema. STATUS localis: R UE with surg dressing, CLAUDE, VAC in place with serosang drainage no asceding redness or induration on the upper arm soft compartments fingers free of neurovasc deficits NEUROLOGICAL: Awake and alert. Non focal. Normal speech. PSYCHIATRIC: Appropriate mood and affect; Assessment and Plan - Plan Nec fasciitis RUE: GAS, MSSA - sp multiple debridement s, VAC Diarrhea, abd distention on clinda ? C.diff cont Ancef Hold clindamycin untill c.diff r/o'd r/o c.diff KUB
--- NOTE | 2018-02-23 17:48 | XR ---
EXAM DATE: 02/23/2018 12:00 AM EDT AGE/SEX: 62 years / Male INDICATIONS: Distention. CLINICAL DATA: This is the patient's subsequent encounter. Patient reports that signs and symptoms h ave been present for 4 - 6 days and indicates a pain score of 0/10. MEDICAL/SURGICAL HISTORY: . Chronic obstructive pulmonary disease. . Right elbow surgery. COMPARISON: [facility] [place], ABDOMEN 1V KUB, 02/21/2018. . FINDINGS: 2 AP supine views of the abdomen. Diffuse air-filled distention of the colon and small bowel is agai n seen. Paucity of bowel gas in the rectosigmoid colon. No significant interval change. Metallic tack s indicating prior hernia repair surgery again seen. CONCLUSION: Diffuse marked air filled distention of the colon and small bowel again seen with paucity of bowel ga s in the rectosigmoid colon. No significant interval change. Electronically signed by: Skinny Wilcox MD 02/23/2018 5:46 PM EDT
[2018-02-24] MEDS: ceFAZolin Inj 2,000 MG in Sodium Chlor 0.9% Inj 80 ML IV.SIG SCH ×3 (02:10→17:12)
[2018-02-24] MEDS: oxyCODONE/Acetaminophen 10/325 Tablet PO PRN (02:38)
[2018-02-24] MEDS ORDERED: Diatrizoate Meglum/Diatrizoate Sod Liq 9 ML UDC PO ONE (04:00)
[2018-02-24 05:11] LABS: Baso # (Auto) 0.1 th/mm3 (0.0-0.2); Baso % (Auto) 0.6 % (0.0-2.0); Eos # (Auto) 0.1 th/mm3 (0.0-0.4); Eos % (Auto) 0.5 % (0.0-4.0); Hematocrit 22.6 % (39.0-51.0); Hemoglobin 7.8 gm/dL (13.0-17.0); Lymph # (Auto) 1.7 th/mm3 (1.0-4.8); Lymph % (Auto) 9.7 % (9.0-44.0); Mean Corpuscular HGB Conc 34.3 % (32.0-36.0); Mean Corpuscular Hemoglobin 31.1 pg (27.0-34.0); Mean Corpuscular Volume 90.8 fL (80.0-100.0); Mean Platelet Volume 7.3 fL (7.0-11.0); Mono # (Auto) 0.8 th/mm3 (0.0-0.9); Mono % (Auto) 4.6 % (0.0-8.0); Neut # (Auto) 14.9 th/mm3 (1.8-7.7); Neut % (Auto) 84.6 % (16.0-70.0); Platelet Count 435 th/mm3 (150-450); Red Blood Count 2.49 mil/mm3 (4.50-5.90); Red Cell Distribution Width 14.1 % (11.6-17.2); White Blood Count 17.6 th/mm3 (4.0-11.0)
[2018-02-24] MEDS: Gabapentin 400 MG Capsule PO SCH ×5 (05:34→21:21)
[2018-02-24 06:08] LABS: Alanine Aminotransferase 10 U/L (12-78); Alkaline Phosphatase 75 U/L (45-117); Anion Gap 8 meq/L (5-15); Aspartate Aminotransferase 10 U/L (15-37); Blood Urea Nitrogen 14 mg/dL (7-18); Calcium 8.3 mg/dL (8.5-10.1); Carbon Dioxide 37.2 meq/L (21.0-32.0); Chloride 90 meq/L (98-107); Glomerular Filtration Rate Greater Than 89 mL/min (>89); Glucose,Random 98 mg/dL (74-106); Sodium 135 meq/L (136-145); Total Protein 5.8 g/dL (6.4-8.2)
[2018-02-24] MEDS: HYDROmorphone PF Inj 2 MG/ML Vial IV.PUSH PRN ×5 (06:37→22:52)
[2018-02-24 06:43] LABS: Potassium 2.7 meq/L (3.5-5.1)
--- NOTE | 2018-02-24 08:20 | CT ---
EXAM DATE: 02/24/2018 7:17 AM EDT AGE/SEX: 62 years / Male INDICATIONS: Abdomen pain with distention CLINICAL DATA: This is the patient's initial encounter. Patient reports that signs and symptoms have been present for 1 day and indicates a pain score of 8/10. MEDICAL/SURGICAL HISTORY: Diverticulitis. Gastroesophageal reflux disease. Hypertension. . Co lectomy RADIATION DOSE: 15.30 CTDI (mGy) COMPARISON: [facility], MR ABDOMEN W/O CONTRAST, 05/11/2017. [facility], ABDOMEN 1V KUB, 02/23/2018. . TECHNIQUE: Multiple contiguous axial images were obtained through the abdomen. Images were obtained using multiple row detector helical technique. Using automated exposure control and adjustment of the mA and/or kV according to patient size, radiation dose was kept as low as reasonably achievable to o btain optimal diagnostic quality images. DICOM format image data is available electronically for rev iew and comparison. FINDINGS: Lower Lungs: The visualized lower lungs are clear. Liver: The liver has a homogeneous density without space-occupying lesion. There is no dilation of th e biliary tree. Gallbladder is well-distended with small stones identified within the lumen. No evide nce of wall thickening. Spleen: Homogeneous density without enlargement. Pancreas: Unremarkable without mass or calcification. Kidneys: Normal in size and shape. No evidence of mass or hydronephrosis. Adrenal Glands: Unremarkable. Aorta: Stents of atherosclerosis. No evidence of aneurysm.. Bowel/Mesentery: There is significant abnormal dilation of the small bowel which is fluid-filled. Th ere is mesh identified along the mid anterior abdominal wall with closely adherent dilated small macho l loops present. There is an area of transition between dilated small bowel and decompressed small phan wel identified within the inferior central pelvis. The large bowel is largely decompressed. Diverticu la identified within the sigmoid colon with a suture line. No adjacent abnormality identified at this point. There is a small amount fluid identified within the right upper quadrant and adjacent to the small bowel loops within the left mid abdomen. Abdominal Wall: Intact. Retroperitoneum: No evidence of adenopathy in the retrocrural, para-aortic, or deep pelvic regions. Bladder: Contours are smooth. Reproductive Organs: No abnormal masses or calcifications seen. Inguinal: The inguinal region is unremarkable without evidence of adenopathy. Bony Structures: Unremarkable. CONCLUSION: 1. Small bowel obstruction with significantly dilated small bowel and evidence of free fluid identif ied within the right upper quadrant and left midabdomen. The transition point appears within the lowe r central pelvis within the ileum. There appears to be large areas of adhesion with small bowel and t he adjacent abdominal mesh. Electronically signed by: Malou Desai MD 02/24/2018 8:18 AM EDT
--- NOTE | 2018-02-24 09:41 | P.CONGI ---
History of Present Illness Chief complaint: Necrotizing fascitis, right fore arm <Linda Gant - Last Filed: 02/24/18 15:42> Consult date: 02/24/18 Consult reason: Gi bleed Chief complaint: Necrotizing fascitis, right fore arm History of Present Illness: This is 62-year-old male admitted secondary to necrotizing fasciitis of the right arm after a fall, he is s/p I&D and wound vac placement. GI consulted for GI bleed, hgb declined from 10 to 7.8 today, but seems to be stable over few days. Gastric fluid was Gastroccult (+). Pt denies any obvious GI bleed. He has been having diarrhea, increasing heart burn, and diffused abd pain. States he has been inducing vomiting to get some relief. Stools were negative for C- diff. CT done and that showed SBO. Pt with hx of colectomy, colostomy then take down due to diverticulitis many yrs ago. No previous hx of SBO. Patient had EGD/ colonoscopy less than a month ago with Dr. Peterson and was normal by report. <Salud Philip - Last Filed: 03/03/18 10:31> Review of Systems All other systems reviewed negative except as stated in HPI <Salud Philip - Last Filed: 03/03/18 10:31> PMFSH - Medical History Medical History: Medical History (Last Reviewed 02/17/18 @ 21:06 by Angelita Velasquez MD) Diverticulitis GERD (gastroesophageal reflux disease) High cholesterol History of CVA (cerebrovascular accident) without residual deficits Hypertension Hypokalemia Neuropathy - Surgical History Surgical History: Surgical History (Last Reviewed 02/20/18 @ 08:15 by Shara Kiran) H/O colectomy H/O elbow surgery - Family History Family History: Family History (Last Updated 02/17/18 @ 21:06 by Angelita Velasquez MD) Other No pertinent family history <Linda Gant - Last Filed: 02/24/18 15:42> - History History Provided By: Patient - Medical History Medical History: Medical History (Last Reviewed 02/17/18 @ 21:06 by Angelita Velasquez MD) Diverticulitis GERD (gastroesophageal reflux disease) High cholesterol History of CVA (cerebrovascular accident) without residual deficits Hypertension Hypokalemia Neuropathy - Surgical History Surgical History: Surgical History (Last Reviewed 02/20/18 @ 08:15 by Shara Kiran) H/O colectomy H/O elbow surgery - Family History Family History: Family History (Last Updated 02/17/18 @ 21:06 by Angelita Velasquez MD) Other No pertinent family history - Tobacco History Second Hand Smoke Exposure: No Tobacco Use In Past 30 Days: No Smoking Status: Former smoker Tobacco Type: Cigarettes - Alcohol History How Often Do You Have a Drink Containing Alcohol: 2 to 4 times a month - Substance Use History Substance History: No History of Abuse - Travel History Recent Travel in the [place] Within the Last 8 Weeks: No Recent Travel Out of the Country Within the Last 8 Weeks: No - Immunization History Tetanus Immunization: Unsure Hx Influenza Vaccine This Season: No <Salud Philip - Last Filed: 03/03/18 10:31> Medications and Allergies Active Medications: Active Medications Al Hydroxide/Mg Hydroxide (Milk Of Qurateraaliyah Liq) 30 ml PO Q12H PRN PRN Reason: Mild Constipation Albuterol (Duoneb Neb (Prn)) 1 ampul NEB Q2HR NEB PRN PRN Reason: WHEEZING Bisacodyl (Dulcolax Supp) 10 mg RECTAL DAILY PRN PRN Reason: SEVERE CONSITIPATION Bupropion HCl (Wellbutrin Sr) 150 mg PO BID [facility] Last Admin: 02/24/18 12:16 Dose: Not Given Diphenhydramine HCl (Benadryl) 25 mg PO Q6H PRN PRN Reason: ITCHING Docusate Sodium (Colace) 100 mg PO BID [facility] Last Admin: 02/24/18 09:48 Dose: Not Given Famotidine (Pepcid Pf Inj) 20 mg IV.PUSH Q12HR [facility] Last Admin: 02/24/18 09:47 Dose: 20 mg Gabapentin (Neurontin) 400 mg PO 5 TIMES A DAY [facility] Last Admin: 02/24/18 12:16 Dose: Not Given Hydromorphone HCl (Dilaudid Pf Inj) 0.5 mg IV.PUSH Q3H PRN PRN Reason: PAIN 6-10;IF UNABLE TO TAKE PO Last Admin: 02/24/18 13:15 Dose: 0.5 mg Sodium Chloride (Ns Inj) 500 mls @ 0 mls/hr IV.SIG BOLUS [facility] Last Infusion: 02/17/18 15:10 Dose: Infused Lactated Ringer's (Lr 1000 Ml Inj) 1,000 mls @ 80 mls/hr IV.CONT .[id number] [facility] Last Admin: 02/24/18 12:16 Dose: Not Given Cefazolin Sodium 2,000 mg/ (Sodium Chloride) 100 mls @ 200 mls/hr IV.SIG Q8H [facility] Last Infusion: 02/24/18 12:16 Dose: Infused Potassium Chloride (Kcl 20 Meq Premix Inj) 20 meq in 100 mls @ 50 mls/hr IV.SIG Q2H [facility] Stop: 02/24/18 18:29 Lactobacillus Acidophilus (Lactinex) 1 tab PO TID [facility] Last Admin: 02/24/18 12:17 Dose: Not Given Lactulose (Lactulose Liq) 30 ml PO DAILY PRN PRN Reason: SEVERE CONSITIPATION Metoprolol Tartrate (Lopressor) 50 mg PO BID [facility] Last Admin: 02/24/18 09:48 Dose: Not Given Ondansetron HCl (Zofran Inj) 4 mg IV.PUSH Q6H PRN PRN Reason: NAUSEA Last Admin: 02/24/18 06:20 Dose: 4 mg Oxycodone/Acetaminophen (Percocet 10/325 Mg) 1 tab PO Q4H PRN PRN Reason: pain 5-10 Last Admin: 02/24/18 02:38 Dose: 1 tab Pravastatin Sodium (Pravachol) 80 mg PO [facility] Last Admin: 02/23/18 20:37 Dose: 80 mg Senna/Docusate Sodium (Kait-Colace) 1 tab PO BID [facility] Last Admin: 02/24/18 12:16 Dose: Not Given Sennosides (Senokot) 17.2 mg PO Q12H PRN PRN Reason: Moderate Constipation Simethicone (Mylicon Chew) 80 mg PO TIDAC PRN PRN Reason: Gaseous Distention Last Admin: 02/23/18 20:35 Dose: 80 mg Sodium Chloride (Ns Flush) 2 ml IV.FLUSH BID [facility] Last Admin: 02/24/18 09:48 Dose: 2 ml Sodium Chloride (Ns Flush) 2 ml IV.FLUSH PRN PRN PRN Reason: FLUSH AFTER USING IV ACCESS Last Admin: 02/22/18 00:31 Dose: 2 ml <Linda Gant - Last Filed: 02/24/18 15:42> Active Medications: Active Medications Al Hydroxide/Mg Hydroxide (Milk Of Magnesia Liq) 30 ml PO Q12H PRN PRN Reason: Mild Constipation Albuterol (Duoneb Neb (Prn)) 1 ampul NEB Q2HR NEB PRN PRN Reason: WHEEZING Bisacodyl (Dulcolax Supp) 10 mg RECTAL DAILY PRN PRN Reason: SEVERE CONSITIPATION Bupropion HCl (Wellbutrin Sr) 150 mg PO BID [facility] Last Admin: 02/23/18 20:37 Dose: 150 mg Diphenhydramine HCl (Benadryl) 25 mg PO Q6H PRN PRN Reason: ITCHING Docusate Sodium (Colace) 100 mg PO BID [facility] Last Admin: 02/23/18 20:37 Dose: Not Given Famotidine (Pepcid Pf Inj) 20 mg IV.PUSH Q12HR [facility] Last Admin: 02/23/18 20:34 Dose: 20 mg Gabapentin (Neurontin) 400 mg PO 5 TIMES A DAY [facility] Last Admin: 02/24/18 05:34 Dose: 400 mg Hydromorphone HCl (Dilaudid Pf Inj) 0.5 mg IV.PUSH Q3H PRN PRN Reason: PAIN 6-10;IF UNABLE TO TAKE PO Last Admin: 02/24/18 06:37 Dose: 0.5 mg Sodium Chloride (Ns Inj) 500 mls @ 0 mls/hr IV.SIG BOLUS [facility] Last Infusion: 02/17/18 15:10 Dose: Infused Lactated Ringer's (Lr 1000 Ml Inj) 1,000 mls @ 80 mls/hr IV.CONT .[id number] [facility] Last Admin: 02/24/18 00:35 Dose: Not Given Cefazolin Sodium 2,000 mg/ (Sodium Chloride) 100 mls @ 200 mls/hr IV.SIG Q8H [facility] Last Infusion: 02/24/18 02:42 Dose: Infused Lactobacillus Acidophilus (Lactinex) 1 tab PO TID [facility] Last Admin: 02/23/18 17:11 Dose: 1 tab Lactulose (Lactulose Liq) 30 ml PO DAILY PRN PRN Reason: SEVERE CONSITIPATION Metoprolol Tartrate (Lopressor) 50 mg PO BID [facility] Last Admin: 02/23/18 20:37 Dose: 50 mg Ondansetron HCl (Zofran Inj) 4 mg IV.PUSH Q6H PRN PRN Reason: NAUSEA Last Admin: 02/24/18 06:20 Dose: 4 mg Oxycodone/Acetaminophen (Percocet 10/325 Mg) 1 tab PO Q4H PRN PRN Reason: pain 5-10 Last Admin: 02/24/18 02:38 Dose: 1 tab Pravastatin Sodium (Pravachol) 80 mg PO [facility] Last Admin: 02/23/18 20:37 Dose: 80 mg Senna/Docusate Sodium (Kait-Colace) 1 tab PO BID [facility] Last Admin: 02/23/18 20:37 Dose: Not Given Sennosides (Senokot) 17.2 mg PO Q12H PRN PRN Reason: Moderate Constipation Simethicone (Mylicon Chew) 80 mg PO TIDAC PRN PRN Reason: Gaseous Distention Last Admin: 02/23/18 20:35 Dose: 80 mg Sodium Chloride (Ns Flush) 2 ml IV.FLUSH BID [facility] Last Admin: 02/23/18 20:32 Dose: 2 ml Sodium Chloride (Ns Flush) 2 ml IV.FLUSH PRN PRN PRN Reason: FLUSH AFTER USING IV ACCESS Last Admin: 02/22/18 00:31 Dose: 2 ml <Salud Philip - Last Filed: 03/03/18 10:31> Allergies Allergy/AdvReac Type Severity Reaction Status Date / Time penicillin G Allergy Mild Hives Verified 02/17/18 13:30 Home Medications Medication Instructions Recorded Confirmed Type amlodipine 10 mg PO DAILY 02/17/18 02/17/18 History bupropion HCl (smoking deter) 150 mg PO BID 02/17/18 02/17/18 History clopidogrel 75 mg PO DAILY 02/17/18 02/17/18 History gabapentin 400 mg PO 5 TIMES A DAY 02/17/18 02/17/18 History metoprolol tartrate 50 mg PO BID 02/17/18 02/17/18 History omeprazole 20 mg PO BID 02/17/18 02/17/18 History potassium chloride 20 meq PO DAILY 02/17/18 02/17/18 History simvastatin 40 mg PO QPM 02/17/18 02/17/18 History Exam Vital signs: Vital Signs 02/23/18 15:58 02/23/18 20:00 02/24/18 00:00 Temperature 97.4 F L 98.1 F 98.4 F Pulse Rate 65 60 64 Respiratory Rate 20 18 18 Blood Pressure 140/67 135/56 L 134/61 Pulse Oximetry 95 96 95 02/24/18 03:01 02/24/18 03:03 02/24/18 04:00 Temperature 98 F Pulse Rate 67 Respiratory Rate 20 20 18 Blood Pressure 145/65 H Pulse Oximetry 98 02/24/18 08:00 02/24/18 11:59 Temperature 97.8 F 97.7 F Pulse Rate 64 69 Respiratory Rate 16 16 Blood Pressure 165/71 H 163/70 H Pulse Oximetry 94 L 92 L Intake & Output 02/23/18 02/24/18 02/24/18 18:59 06:59 18:59 Intake Total 250 / 250 100 / 100 100 / 100 Output Total 451 / 451 Balance -201 / -201 100 / 100 100 / 100 Intake: IV 250 / 250 100 / 100 100 / 100 Cleocin 900 mg/NS Premix 900 mg 50 / 50 In 50 ml @ 100 mls/hr IV.SIG Q6HR [facility] Rx#:[id number] Ancef Inj 2,000 MG In NS Inj 80 200 / 200 100 / 100 100 / 100 ML @ 200 mls/hr IV.SIG Q8H [facility] Rx#:[id number] Output: Urine 450 / 450 Stool 1 / 1 Other: Mode Setting Right Arm Intermittent Continuous Intermittent # Voids 2 Date of Last Bowel Movement 02/23/18 02/24/18 02/24/18 # Bowel Movements 2 # Emeses 3 <Linda Gant - Last Filed: 02/24/18 15:42> Vital signs: Vital Signs 02/23/18 11:50 02/23/18 11:59 02/23/18 15:58 Temperature 97.6 F 97.6 F 97.4 F L Pulse Rate 64 64 65 Respiratory Rate 16 20 20 Blood Pressure 142/69 H 142/69 H 140/67 Pulse Oximetry 92 L 92 L 95 02/23/18 20:00 02/24/18 00:00 02/24/18 03:01 Temperature 98.1 F 98.4 F Pulse Rate 60 64 Respiratory Rate 18 18 20 Blood Pressure 135/56 L 134/61 Pulse Oximetry 96 95 02/24/18 03:03 02/24/18 04:00 02/24/18 08:00 Temperature 98 F 97.8 F Pulse Rate 67 64 Respiratory Rate 20 18 16 Blood Pressure 145/65 H 165/71 H Pulse Oximetry 98 94 L Intake & Output 02/23/18 02/24/18 02/24/18 18:59 06:59 18:59 Intake Total 250 / 250 100 / 100 Output Total 451 / 451 Balance -201 / -201 100 / 100 Intake: IV 250 / 250 100 / 100 Cleocin 900 mg/NS Premix 900 mg 50 / 50 In 50 ml @ 100 mls/hr IV.SIG Q6HR [facility] Rx#:[id number] Ancef Inj 2,000 MG In NS Inj 80 200 / 200 100 / 100 ML @ 200 mls/hr IV.SIG Q8H [facility] Rx#:[id number] Output: Urine 450 / 450 Stool Other: Mode Setting Right Arm Intermittent Continuous # Voids 2 Date of Last Bowel Movement 02/23/18 02/24/18 # Bowel Movements 2 # Emeses 3 - Constitutional mild distress - Routine HEENT Exam Head: Present: normocephalic - Routine Respiratory Exam Present: CTA bilaterally - Routine Cardiovascular Exam Present: RRR - Routine Abdominal Exam Present: tenderness, distended, firm Comments: Hypoactive bowel sounds - Routine Extremities Exam Comments: dssng to right forearm - Routine Skin Exam Present: intact - Routine Neurological Exam Present: alert, oriented X3 <Salud Philip - Last Filed: 03/03/18 10:31> Results - Labs CBC & Chem 7: 02/24/18 04:56 02/24/18 04:56 Labs: Laboratory Results - last 24 hr 02/24/18 02/24/18 02/24/18 02:22 04:56 04:56 WBC 17.6 H RBC 2.49 L Hgb 7.8 L Hct 22.6 L MCV 90.8 MCH 31.1 MCHC 34.3 RDW 14.1 Plt Count 435 MPV 7.3 Neut % (Auto) 84.6 H Lymph % (Auto) 9.7 [place] % (Auto) 4.6 Eos % (Auto) 0.5 Baso % (Auto) 0.6 Neut # (Auto) 14.9 H Lymph # (Auto) 1.7 [place] # (Auto) 0.8 Eos # (Auto) 0.1 Baso # (Auto) 0.1 WBC Differential . Differential Comment Auto diff final Sodium 135 L Potassium 2.7 L* Chloride 90 L Carbon Dioxide 37.2 H Anion Gap 8 BUN 14 Creatinine 0.83 Estimated GFR Greater than 89 Random Glucose 98 Calcium 8.3 L Total Bilirubin 0.3 AST 10 L ALT 10 L Alkaline Phosphatase 75 Total Protein 5.8 L Albumin 2.0 L Stl C.difficile DNA Amp Negative St C. diff Tox Epid 027 Negative - Imaging Impressions Abdomen X-Ray 02/23/18 00:00 CONCLUSION: Diffuse marked air filled distention of the colon and small bowel again seen with paucity of bowel gas in the rectosigmoid colon. No significant interval change. Abdomen X-Ray 02/24/18 00:00 CONCLUSION: 1. No nasoenteric catheter noted in the lower hemithorax are upper abdomen. Catheter may be coiled in the pharynx or esophagus. 2. Redemonstration of small bowel obstruction pattern. Abdomen/Pelvis CT 02/24/18 00:00 CONCLUSION: 1. Small bowel obstruction with significantly dilated small bowel and evidence of free fluid identified within the right upper quadrant and left midabdomen. The transition point appears within the lower central pelvis within the ileum. There appears to be large areas of adhesion with small bowel and the adjacent abdominal mesh. Chest X-Ray 02/24/18 00:00 CONCLUSION: 1. NG tube is coiled in the oropharynx. 2. Stable mild left lower lung zone pleural-parenchymal opacities. Tube Placement X-Ray 02/24/18 00:00 CONCLUSION: 1. Fluoroscopic guided placement of nasogastric catheter. <Linda Gant - Last Filed: 02/24/18 15:42> - Labs CBC & Chem 7: 03/03/18 06:30 03/03/18 06:30 Labs: Laboratory Results - last 24 hr 02/24/18 02/24/18 02/24/18 02:22 04:56 04:56 WBC 17.6 H RBC 2.49 L Hgb 7.8 L Hct 22.6 L MCV 90.8 MCH 31.1 MCHC 34.3 RDW 14.1 Plt Count 435 MPV 7.3 Neut % (Auto) 84.6 H Lymph % (Auto) 9.7 [place] % (Auto) 4.6 Eos % (Auto) 0.5 Baso % (Auto) 0.6 Neut # (Auto) 14.9 H Lymph # (Auto) 1.7 [place] # (Auto) 0.8 Eos # (Auto) 0.1 Baso # (Auto) 0.1 WBC Differential . Differential Comment Auto diff final Sodium 135 L Potassium 2.7 L* Chloride 90 L Carbon Dioxide 37.2 H Anion Gap 8 BUN 14 Creatinine 0.83 Estimated GFR Greater than 89 Random Glucose 98 Calcium 8.3 L Total Bilirubin 0.3 AST 10 L ALT 10 L Alkaline Phosphatase 75 Total Protein 5.8 L Albumin 2.0 L Stl C.difficile DNA Amp Negative St C. diff Tox Epid 027 Negative - Imaging Impressions Abdomen X-Ray 02/23/18 00:00 CONCLUSION: Diffuse marked air filled distention of the colon and small bowel again seen with paucity of bowel gas in the rectosigmoid colon. No significant interval change. Abdomen/Pelvis CT 02/24/18 00:00 CONCLUSION: 1. Small bowel obstruction with significantly dilated small bowel and evidence of free fluid identified within the right upper quadrant and left midabdomen. The transition point appears within the lower central pelvis within the ileum. There appears to be large areas of adhesion with small bowel and the adjacent abdominal mesh. <Salud Philip - Last Filed: 03/03/18 10:31> Assessment and Plan - Plan seen, examined agree with above <Linda Gant - Last Filed: 02/24/18 15:42> - Plan - Anemia/ Gastric fluid was Gastroccult (+) hgb declined from 10 to 7.8 today, but seems to be stable over few days. Pt denies any obvious GI bleed.Patient had EGD/colonoscopy less than a month ago with Dr. Peterson and was normal by report. - SBO He has been having diarrhea, increasing heart burn, and diffused abd pain. States he has been inducing vomiting to get some relief. Stools were negative for C-diff. CT done and that showed SBO. Pt with hx of colectomy, colostomy then take down due to diverticulitis many yrs ago. No previous hx of SBO. Abdomen X-Ray 02/23/18 Diffuse marked air filled distention of the colon and small bowel again seen with paucity of bowel gas in the rectosigmoid colon. No significant interval change. Abdomen/Pelvis CT 02/24/18 1. Small bowel obstruction with significantly dilated small bowel and evidence of free fluid identified within the right upper quadrant and left midabdomen. The transition point appears within the lower central pelvis within the ileum. There appears to be large areas of adhesion with small bowel and the adjacent abdominal mesh. - necrotizing fasciitis of the right arm after a fall, he is s/p I&D and wound vac placement. - Hypokalemia defer to attending - HTN per attending Plan: - NPO - Insert NGT to LIWS - KUB in am - Consult GS - Monitor hh - Transfuse as needed - Supportive care - Pt seen and examined by Dr. Gant and myself and this note is written on her behalf <Salud Philip - Last Filed: 03/03/18 10:31>
[2018-02-24] MEDS: Famotidine PF Inj 20 MG/2 ML Vial IV.PUSH SCH ×2 (09:47→21:20)
[2018-02-24] MEDS: Lactobacillus Acidophilus/L. Spores Tablet PO SCH ×3 (09:48→17:29)
[2018-02-24] MEDS: Metoprolol Tartrate 50 MG Tablet PO SCH ×2 (09:48→23:37)
[2018-02-24] MEDS: Docusate Sodium 100 MG Capsule PO SCH ×2 (09:48→21:20)
--- NOTE | 2018-02-24 11:35 | P.PNIM ---
Subjective Interval history: Patient had worsening of his GI symptoms including distention. Nausea started. CT of abdomen was obtained and shows evidence of a bowel obstruction. Patient now n.p.o. General surgery consulted. NG tube placement in process. Physical Exam Vital signs: Vital Signs 02/23/18 11:50 02/23/18 11:59 02/23/18 15:58 Temperature 97.6 F 97.6 F 97.4 F L Pulse Rate 64 64 65 Respiratory Rate 16 20 20 Blood Pressure 142/69 H 142/69 H 140/67 Pulse Oximetry 92 L 92 L 95 02/23/18 20:00 02/24/18 00:00 02/24/18 03:01 Temperature 98.1 F 98.4 F Pulse Rate 60 64 Respiratory Rate 18 18 20 Blood Pressure 135/56 L 134/61 Pulse Oximetry 96 95 02/24/18 03:03 02/24/18 04:00 02/24/18 08:00 Temperature 98 F 97.8 F Pulse Rate 67 64 Respiratory Rate 20 18 16 Blood Pressure 145/65 H 165/71 H Pulse Oximetry 98 94 L Intake & Output 02/23/18 02/24/18 02/24/18 18:59 06:59 18:59 Intake Total 250 / 250 100 / 100 Output Total 451 / 451 Balance -201 / -201 100 / 100 Intake: IV 250 / 250 100 / 100 Cleocin 900 mg/NS Premix 900 mg 50 / 50 In 50 ml @ 100 mls/hr IV.SIG Q6HR [facility] Rx#:[id number] Ancef Inj 2,000 MG In NS Inj 80 200 / 200 100 / 100 ML @ 200 mls/hr IV.SIG Q8H [facility] Rx#:[id number] Output: Urine 450 / 450 Stool 1 / 1 Other: Mode Setting Right Arm Intermittent Continuous Intermittent # Voids 2 Date of Last Bowel Movement 02/23/18 02/24/18 02/24/18 # Bowel Movements 2 # Emeses 3 Narrative: GENERAL: NAD, A&Ox3 HEAD: Normocephalic. NG tube placed, placement confirmation in process. NECK: Supple, trachea midline. No lymphadenopathy. EYES: No scleral icterus. No injection or drainage. CARDIOVASCULAR: Regular rate and rhythm without murmurs, gallops, or rubs. RESPIRATORY: Breath sounds equal bilaterally. No accessory muscle use. GASTROINTESTINAL: Abdomen soft, non-tender, nondistended. MUSCULOSKELETAL: No cyanosis, or edema. Right arm is bandaged, wound VAC in place. SKIN: Warm and dry. NEURO: No focal neurological deficits. Results - Labs CBC & Chem 7: 02/24/18 04:56 02/24/18 04:56 Laboratory Results - last 24 hr 02/24/18 02/24/18 02/24/18 02:22 04:56 04:56 WBC 17.6 H RBC 2.49 L Hgb 7.8 L Hct 22.6 L MCV 90.8 MCH 31.1 MCHC 34.3 RDW 14.1 Plt Count 435 MPV 7.3 Neut % (Auto) 84.6 H Lymph % (Auto) 9.7 [place] % (Auto) 4.6 Eos % (Auto) 0.5 Baso % (Auto) 0.6 Neut # (Auto) 14.9 H Lymph # (Auto) 1.7 [place] # (Auto) 0.8 Eos # (Auto) 0.1 Baso # (Auto) 0.1 WBC Differential . Differential Comment Auto diff final Sodium 135 L Potassium 2.7 L* Chloride 90 L Carbon Dioxide 37.2 H Anion Gap 8 BUN 14 Creatinine 0.83 Estimated GFR Greater than 89 Random Glucose 98 Calcium 8.3 L Total Bilirubin 0.3 AST 10 L ALT 10 L Alkaline Phosphatase 75 Total Protein 5.8 L Albumin 2.0 L Stl C.difficile DNA Amp Negative St C. diff Tox Epid 027 Negative Microbiology 02/23/18 22:15 Gastric Fluid Gastric Occult Blood - Final Gastrocult positive - Imaging Impressions Abdomen X-Ray 02/23/18 00:00 CONCLUSION: Diffuse marked air filled distention of the colon and small bowel again seen with paucity of bowel gas in the rectosigmoid colon. No significant interval change. Abdomen/Pelvis CT 02/24/18 00:00 CONCLUSION: 1. Small bowel obstruction with significantly dilated small bowel and evidence of free fluid identified within the right upper quadrant and left midabdomen. The transition point appears within the lower central pelvis within the ileum. There appears to be large areas of adhesion with small bowel and the adjacent abdominal mesh. Assessment and Plan - Plan 62-year-old male admitted secondary to necrotizing fasciitis of the right arm Worsening of GI symptoms occurred overnight. CT scan shows evidence of bowel obstruction. No fevers. Small bowel obstruction General surgery following NG tube placement in process N.p.o. Follow clinically for improvement As needed pain treatments Necrotizing fasciitis Continue clindamycin Continue vancomycin Continue meropenem ID following Orthopedic surgeons following Debridement on 02/17/2018 Debridement on 02/19/2018 Debridement on 02/21/2018 Potential further debridement on 02/26/2018 Hypertension Continue Norvasc and metoprolol Follow blood pressures Adjust treatments as needed Atherosclerosis Continue simvastatin Resume Plavix after surgeries are completed Neuropathy Continue gabapentin Tobacco use disorder Wellbutrin Patient recommended to quit DVT GI prophylaxis SCDs
--- NOTE | 2018-02-24 12:03 | XR ---
EXAM DATE: 02/24/2018 12:00 AM EDT AGE/SEX: 62 years / Male INDICATIONS: Check NG tube placement. CLINICAL DATA: This is the patient's initial encounter. Patient reports that signs and symptoms have been present for 1 day and indicates a pain score of 5/10. MEDICAL/SURGICAL HISTORY: . Diverticulitis. Gastroesophageal reflux disease. Hypertension. . Colectomy. [place] [facility] [place]AST, 02/24/2018. . FINDINGS: There is no nasoenteric catheter identified in the lower thorax or upper abdomen. Redemonstration of multiple prominent loops of bowel in the upper abdomen consistent with small bowel obstruction noted on CT exam. No gross free air. CONCLUSION: 1. No nasoenteric catheter noted in the lower hemithorax are upper abdomen. Catheter may be coiled i n the pharynx or esophagus. 2. Redemonstration of small bowel obstruction pattern. Electronically signed by: Juan Miguel Anton MD 02/24/2018 12:02 PM EDT
--- NOTE | 2018-02-24 12:09 | XR ---
EXAM DATE: 02/24/2018 12:00 AM EDT AGE/SEX: 62 years / Male INDICATIONS: Check NG tube placement. CLINICAL DATA: This is the patient's initial encounter. Patient reports that signs and symptoms have been present for 1 day and indicates a pain score of 0/10. MEDICAL/SURGICAL HISTORY: . Diverticulitis. Gastroesophageal reflux disease. Hypertension. . Colectomy. COMPARISON: [facility], CHEST 1V SINGLE AP, 02/17/2018. . FINDINGS: NG tube is coiled in the oropharynx. Right IJ central line is stable in position. Stable mild left lo wer lung zone pleural-parenchymal opacities. Cardiomediastinal contours are within normal limits. Rem ainder of the exam is unchanged. CONCLUSION: 1. NG tube is coiled in the oropharynx. 2. Stable mild left lower lung zone pleural-parenchymal opacities. Electronically signed by: Juan Miguel Anton MD 02/24/2018 12:08 PM EDT
[2018-02-24] MEDS: Senna/Docusate Sodium 8.6/50 MG Tablet PO SCH ×2 (12:16→21:20)
[2018-02-24] MEDS: buPROPion 150 MG 12 HR Tablet PO SCH ×2 (12:16→21:21)
--- NOTE | 2018-02-24 14:05 | FL ---
EXAM DATE: 02/24/2018 12:00 AM EDT AGE/SEX: 62 years / Male INDICATIONS: NG tube placement. CLINICAL DATA: This is the patient's initial encounter. Patient reports that signs and symptoms have been present for 1 day and indicates a pain score of 0/10. MEDICAL/SURGICAL HISTORY: None. None. COMPARISON: No prior exams available for comparison. FINDINGS: With fluoroscopic guidance a standard nasogastric tube was repositioned into the proximal stomach and documented with spot image. The patient tolerated the procedure well and there were no complication s. CONCLUSION: 1. Fluoroscopic guided placement of nasogastric catheter. Electronically signed by: Juan Miguel Anton MD 02/24/2018 2:03 PM EDT
[2018-02-24] MEDS: Potassium Chlor 20 mEq Premix 20 MEQ/100 ML PIGGYBACK IV.SIG SCH ×2 (17:08→19:48)
--- NOTE | 2018-02-24 20:11 | MB ---
cc: Ren Simmons MD, Daniel C MD DATE: 02/24/2018 PHYSICIAN REQUESTING CONSULTATION: Lexa Bedolla MD HISTORY OF PRESENT ILLNESS: The patient is a 62-year-old male who was admitted to [facility] with necrotizing fasciitis of his right arm. He has undergone multiple debridements and care by hand surgery. The patient also has a history of diverticulitis operated on up [place]. The patient states over the last 24 hours, he has developed increased abdominal distention and nausea and vomiting. The last time he had a bowel movement was over 24 hours. He has passed minimal flatus. He denies any fevers, chills, night sweats, chest pain, shortness of breath or any GI bleeding. He denies having a history of a previous bowel obstruction. The patient had an NG tube placed with bilious output. A CT scan was performed on 02/24/2018 in the a.m. and did show a small-bowel obstruction consistent with adhesions. General surgery was consulted. REVIEW OF SYSTEMS: A 12-point review of systems conducted with the patient is negative except for the pertinent positives mentioned above in the history of present illness. PAST MEDICAL HISTORY: 1. Necrotizing fasciitis of the upper extremity as above. 2. History of diverticulitis, status post surgery. 3. Gastroesophageal reflux disease. 4. High cholesterol. 5. History of CVA. 6. Hypertension. 7. Hypokalemia. 8. Neuropathy. PAST SURGICAL HISTORY: 1. Colectomy as above. 2. Multiple debridements of the right upper extremity as above in the HPI. 3. History of elbow surgery. ALLERGIES: PENICILLIN G. HOME MEDICATIONS: 1. Amlodipine. 2. Bupropion. 3. Plavix. 4. Gabapentin. 5. Metoprolol. 6. Omeprazole. 7. Simvastatin. 8. Potassium chloride 20 mEq. SOCIAL HISTORY: The patient occasionally uses alcohol. Denies tobacco or illicit drug use. FAMILY HISTORY: Reviewed and noncontributory. PHYSICAL EXAMINATION: VITAL SIGNS: Temperature 98 degrees, pulse 70, respiratory rate 16, blood pressure 144/65, O2 saturation 92%. GENERAL: The patient is a male in the hospital bed, in no acute distress. HEENT: His head is normocephalic, atraumatic. Pupils are round, reactive and accommodating to light. Sclerae are anicteric. Oral cavity is clear. Nasogastric tube is in place. NECK: Supple. No JVD. No lymphadenopathy. LUNGS: Breath sounds present bilaterally. Nonlabored breathing pattern. HEART: Regular rate and rhythm. No murmurs. ABDOMEN: Distended, tympanic, mildly tender without peritonitis or rebound tenderness. There is a scar in the lower mid abdomen. EXTREMITIES: No clubbing, cyanosis or edema. He does have an upper extremity bandaged splint in place. BACK: No CVA tenderness. NEUROLOGIC: The patient is alert and oriented x 3. Nonfocal peripheral exam. Cranial nerves 2-12 are grossly intact. Mood, judgment and insight are intact. LABORATORY VALUES: White blood cell count 17.6, hemoglobin 7.8. INR 1.2. IMAGING: CT scan of the abdomen and pelvis does show a small-bowel obstruction without mass, likely adhesions. ASSESSMENT AND PLAN: The patient is a 62-year-old male with an adhesive small-bowel obstruction while inpatient for right upper extremity fasciitis. The patient is currently undergoing nonoperative management with n.p.o. and intravenous fluids as well as nasogastric tube decompression. The patient has no signs of bowel ischemia and is stable from a surgical standpoint at this time. I do recommend continued nonoperative management and I do not recommend any acute surgical intervention. I discussed with the patient that if he developed worsening clinical symptoms or signs or signs of nonresolution that this could require surgery; however, we would pursue nonoperative management. He is in agreement with the plan. We will follow along with the patient. Thank you very much for this consultation. MD NANO Putnam/violeta , 05:09 PM , 05:19 PM
[2018-02-25] MEDS: ceFAZolin Inj 2,000 MG in Sodium Chlor 0.9% Inj 80 ML IV.SIG SCH ×3 (02:10→17:07)
[2018-02-25] MEDS: HYDROmorphone PF Inj 2 MG/ML Vial IV.PUSH PRN ×6 (02:11→20:41)
[2018-02-25 06:11] LABS: Baso # (Auto) 0.1 th/mm3 (0.0-0.2); Baso % (Auto) 0.4 % (0.0-2.0); Eos # (Auto) 0.1 th/mm3 (0.0-0.4); Eos % (Auto) 0.4 % (0.0-4.0); Hematocrit 24.6 % (39.0-51.0); Hemoglobin 8.1 gm/dL (13.0-17.0); Lymph # (Auto) 1.3 th/mm3 (1.0-4.8); Mean Corpuscular HGB Conc 32.9 % (32.0-36.0); Mean Corpuscular Hemoglobin 30.1 pg (27.0-34.0); Mean Corpuscular Volume 91.7 fL (80.0-100.0); Mean Platelet Volume 7.2 fL (7.0-11.0); Mono # (Auto) 0.9 th/mm3 (0.0-0.9); Mono % (Auto) 4.9 % (0.0-8.0); Neut # (Auto) 15.6 th/mm3 (1.8-7.7); Neut % (Auto) 87.3 % (16.0-70.0); Platelet Count 470 th/mm3 (150-450); Red Blood Count 2.68 mil/mm3 (4.50-5.90); Red Cell Distribution Width 14.1 % (11.6-17.2); White Blood Count 17.9 th/mm3 (4.0-11.0)
[2018-02-25] MEDS: Gabapentin 400 MG Capsule PO SCH ×5 (06:16→21:30)
[2018-02-25 06:42] LABS: Alanine Aminotransferase 8 U/L (12-78); Albumin 2.1 g/dL (3.4-5.0); Alkaline Phosphatase 74 U/L (45-117); Anion Gap 11 meq/L (5-15); Aspartate Aminotransferase 14 U/L (15-37); Blood Urea Nitrogen 14 mg/dL (7-18); Calcium 8.5 mg/dL (8.5-10.1); Carbon Dioxide 37.1 meq/L (21.0-32.0); Chloride 86 meq/L (98-107); Glomerular Filtration Rate Greater Than 89 mL/min (>89); Glucose,Random 113 mg/dL (74-106); Sodium 134 meq/L (136-145)
--- NOTE | 2018-02-25 06:50 | P.PNOP ---
Subjective Interval history: POD 4 s/p I&D and vac change right arm has developed small bowel obstruction. states arm doing well. no complaints of arm. Physical Exam Vital signs: Vital Signs 02/24/18 08:00 02/24/18 11:59 02/24/18 16:00 Temperature 97.8 F 97.7 F 98.0 F Pulse Rate 64 69 70 Respiratory Rate 16 16 16 Blood Pressure 165/71 H 163/70 H 144/65 H Pulse Oximetry 94 L 92 L 92 L 02/24/18 20:00 02/25/18 00:00 02/25/18 04:00 Temperature 97.9 F 97.9 F 97.9 F Pulse Rate 80 75 67 Respiratory Rate 16 16 18 Blood Pressure 165/70 H 124/59 L 165/71 H Pulse Oximetry 94 L 94 L 94 L Intake & Output 02/24/18 02/24/18 02/25/18 06:59 18:59 06:59 Intake Total 100 / 100 200 / 200 300 / 300 Output Total 250 / 250 Balance 100 / 100 -50 / -50 300 / 300 Intake: IV 100 / 100 200 / 200 300 / 300 KCl 20 mEq Premix Inj 20 meq In 200 / 200 100 ml @ 50 mls/hr IV.SIG Q2H [place] Rx#:[id number] Ancef Inj 2,000 MG In NS Inj 80 100 / 100 200 / 200 100 / 100 ML @ 200 mls/hr IV.SIG Q8H [place] Rx#:[id number] Output: Gastric Drainage 250 / 250 Right Nare Nasogastric Tube 250 / 250 Other: Mode Setting Right Arm Continuous Intermittent Intermittent # Voids 2 Date of Last Bowel Movement 02/24/18 02/24/18 02/24/18 # Bowel Movements 2 # Emeses 3 Narrative: RUE: +vac. good seal. nvi. Results - Labs CBC & Chem 7: 02/25/18 06:00 02/24/18 14:30 Laboratory Results - last 24 hr 02/24/18 02/25/18 14:30 06:00 WBC 17.9 H RBC 2.68 L Hgb 8.1 L Hct 24.6 L MCV 91.7 MCH 30.1 MCHC 32.9 RDW 14.1 Plt Count 470 H MPV 7.2 Neut % (Auto) 87.3 H Lymph % (Auto) 7.0 L [place] % (Auto) 4.9 Eos % (Auto) 0.4 Baso % (Auto) 0.4 Neut # (Auto) 15.6 H Lymph # (Auto) 1.3 [place] # (Auto) 0.9 Eos # (Auto) 0.1 Baso # (Auto) 0.1 WBC Differential . Differential Comment Auto diff final Potassium 3.0 L Microbiology 02/23/18 22:15 Gastric Fluid Gastric Occult Blood - Final Gastrocult positive - Imaging Impressions Abdomen X-Ray 02/24/18 00:00 CONCLUSION: 1. No nasoenteric catheter noted in the lower hemithorax are upper abdomen. Catheter may be coiled in the pharynx or esophagus. 2. Redemonstration of small bowel obstruction pattern. Abdomen/Pelvis CT 02/24/18 00:00 CONCLUSION: 1. Small bowel obstruction with significantly dilated small bowel and evidence of free fluid identified within the right upper quadrant and left midabdomen. The transition point appears within the lower central pelvis within the ileum. There appears to be large areas of adhesion with small bowel and the adjacent abdominal mesh. Chest X-Ray 02/24/18 00:00 CONCLUSION: 1. NG tube is coiled in the oropharynx. 2. Stable mild left lower lung zone pleural-parenchymal opacities. Tube Placement X-Ray 02/24/18 00:00 CONCLUSION: 1. Fluoroscopic guided placement of nasogastric catheter. Assessment and Plan - Assessment and Plan 1) Right Arm Necrotizing Fasciitis s/p I&D and vac application - POD 4 -maintain vac at all times. -100mmHg, DPC, 3:1 -consents on chart -plan for repeat I&D with vac change sunday -will need skin grafting of right arm when infection is cleared -Cx: group A beta strep
[2018-02-25 07:22] LABS: Potassium 2.9 meq/L (3.5-5.1)
[2018-02-25] MEDS: Famotidine PF Inj 20 MG/2 ML Vial IV.PUSH SCH ×2 (09:16→20:42)
[2018-02-25] MEDS: Metoprolol Tartrate 50 MG Tablet PO SCH (09:17)
[2018-02-25] MEDS: Senna/Docusate Sodium 8.6/50 MG Tablet PO SCH (09:17)
[2018-02-25] MEDS: Docusate Sodium 100 MG Capsule PO SCH (09:17)
[2018-02-25] MEDS: Lactobacillus Acidophilus/L. Spores Tablet PO SCH ×3 (09:17→20:44)
[2018-02-25] MEDS: buPROPion 150 MG 12 HR Tablet PO SCH (09:17)
--- NOTE | 2018-02-25 10:52 | XR ---
EXAM DATE: 02/25/2018 12:00 AM EDT AGE/SEX: 62 years / Male INDICATIONS: Obstruction. CLINICAL DATA: This is the patient's subsequent encounter. Patient reports that signs and symptoms h ave been present for 1 week and indicates a pain score of 3/10. MEDICAL/SURGICAL HISTORY: . Diverticulitis. Gastroesophageal reflux disease. Hypertension. . C olectomy. COMPARISON: [place], [facility]BD[facility]EN [facility], 02/24/2018. . FINDINGS: There is an NGT with tip in the proximal stomach. Multiple loops of distended air-filled small bowel throughout the abdomen. Air is seen in the colon extending to the sigmoid. No gross free air or pneu matosis. Surgical clips are seen throughout the abdomen. Osseous structures are intact. CONCLUSION: 1. NG tube the proximal stomach. 2. Persistent small bowel obstruction pattern. Electronically signed by: Juan Miguel Anton MD 02/25/2018 10:51 AM EDT
--- NOTE | 2018-02-25 12:13 | P.PNIM ---
Subjective Interval history: The patient was complaining of abdominal pain. He said that the pain medication was working but he needs it stronger. He says he was told he could have a throat spray and some ice chips. He said he was going for surgery tomorrow. Discussed with nursing. Physical Exam Vital signs: Vital Signs 02/24/18 16:00 02/24/18 20:00 02/25/18 00:00 Temperature 98.0 F 97.9 F 97.9 F Pulse Rate 70 80 75 Respiratory Rate 16 16 16 Blood Pressure 144/65 H 165/70 H 124/59 L Pulse Oximetry 92 L 94 L 94 L 02/25/18 04:00 02/25/18 08:00 Temperature 97.9 F 97.9 F Pulse Rate 67 76 Respiratory Rate 18 18 Blood Pressure 165/71 H 177/76 H Pulse Oximetry 94 L 91 L Intake & Output 02/24/18 02/25/18 02/25/18 18:59 06:59 18:59 Intake Total 200 / 200 300 / 300 Output Total 250 / 250 750 / 750 Balance -50 / -50 300 / 300 -750 / -750 Intake: IV 200 / 200 300 / 300 KCl 20 mEq Premix Inj 20 meq In 200 / 200 100 ml @ 50 mls/hr IV.SIG Q2H [place] Rx#:[id number] Ancef Inj 2,000 MG In NS Inj 80 200 / 200 100 / 100 ML @ 200 mls/hr IV.SIG Q8H [place] Rx#:[id number] Output: Gastric Drainage 250 / 250 750 / 750 Right Nare Nasogastric Tube 250 / 250 750 / 750 Other: Mode Setting Right Arm Intermittent Intermittent Intermittent # Voids 1 Date of Last Bowel Movement 02/24/18 02/24/18 02/25/18 Narrative: GENERAL: NAD. HEAD: Normocephalic. NG tube placed, placement confirmation in process. NECK: Supple, trachea midline. No lymphadenopathy. EYES: No scleral icterus. No injection or drainage. CARDIOVASCULAR: Regular rate and rhythm without murmurs, gallops, or rubs. RESPIRATORY: Breath sounds equal bilaterally. No accessory muscle use. GASTROINTESTINAL: Abdomen soft, non-tender, nondistended. Decreased bowel sounds. MUSCULOSKELETAL: No cyanosis, or edema. Right arm is bandaged, wound VAC in place. SKIN: Warm and dry. NEURO: No focal neurological deficits. Results - Labs CBC & Chem 7: 02/25/18 06:00 02/25/18 06:00 Laboratory Results - last 24 hr 02/24/18 02/25/18 02/25/18 14:30 06:00 06:00 WBC 17.9 H RBC 2.68 L Hgb 8.1 L Hct 24.6 L MCV 91.7 MCH 30.1 MCHC 32.9 RDW 14.1 Plt Count 470 H MPV 7.2 Neut % (Auto) 87.3 H Lymph % (Auto) 7.0 L [place] % (Auto) 4.9 Eos % (Auto) 0.4 Baso % (Auto) 0.4 Neut # (Auto) 15.6 H Lymph # (Auto) 1.3 [place] # (Auto) 0.9 Eos # (Auto) 0.1 Baso # (Auto) 0.1 WBC Differential . Differential Comment Auto diff final Sodium 134 L Potassium 3.0 L 2.9 L* Chloride 86 L Carbon Dioxide 37.1 H Anion Gap 11 BUN 14 Creatinine 0.72 Estimated GFR Greater than 89 Random Glucose 113 H Calcium 8.5 Total Bilirubin 0.3 AST 14 L ALT 8 L Alkaline Phosphatase 74 Total Protein 6.0 L Albumin 2.1 L - Imaging Impressions Chest X-Ray 02/24/18 00:00 CONCLUSION: 1. NG tube is coiled in the oropharynx. 2. Stable mild left lower lung zone pleural-parenchymal opacities. Tube Placement X-Ray 02/24/18 00:00 CONCLUSION: 1. Fluoroscopic guided placement of nasogastric catheter. Abdomen X-Ray 02/25/18 00:00 CONCLUSION: 1. NG tube the proximal stomach. 2. Persistent small bowel obstruction pattern. Assessment and Plan - Plan 62-year-old male admitted secondary to necrotizing fasciitis of the right arm Small bowel obstruction Noted on CT. General surgery consult appreciated. -NG tube. -N.p.o. with IVFs. -Follow clinically for improvement. -As needed pain treatments and antiemetics. -hold PO meds. -Chloraseptic spray as needed. Necrotizing fasciitis Ortho and ID consults appreciated. Debridement on 02/17/2018; Debridement on 02/19; Debridement on 02/21/2018. -Continue clindamycin, vancomycin and meropenem. -Orthopedic following. Potential further debridement on 02/26/2018. -pain control as needed. Hypertension PO meds on hold s/t bowel obstruction. -Vasotec as needed. Tobacco use disorder Wellbutrin on hold. -Patient recommended to quit Hypokalemia S/t decreased PO intake. -D5W with KCl. -follow BMP. Check mag and phos. -telemetry. PPx: JOLYLs
--- NOTE | 2018-02-25 13:29 | P.PNGI ---
Subjective Interval history: Patient laying supine in bed. NG tube in place to low intermittent wall suction. 550 mL's of dark drainage noted in container. Patient reporting little to no abdominal discomfort at this time. States passing a small amount of gas, n.p.o. maintained <DamionMelany - Last Filed: 02/25/18 13:14> Physical Exam Vital signs: Vital Signs 02/24/18 16:00 02/24/18 20:00 02/25/18 00:00 Temperature 98.0 F 97.9 F 97.9 F Pulse Rate 70 80 75 Respiratory Rate 16 16 16 Blood Pressure 144/65 H 165/70 H 124/59 L Pulse Oximetry 92 L 94 L 94 L 02/25/18 04:00 02/25/18 08:00 Temperature 97.9 F 97.9 F Pulse Rate 67 76 Respiratory Rate 18 18 Blood Pressure 165/71 H 177/76 H Pulse Oximetry 94 L 91 L Intake & Output 02/24/18 02/25/18 02/25/18 18:59 06:59 18:59 Intake Total 200 / 200 300 / 300 100 / 100 Output Total 250 / 250 750 / 750 Balance -50 / -50 300 / 300 -650 / -650 Intake: IV 200 / 200 300 / 300 100 / 100 KCl 20 mEq Premix Inj 20 meq In 200 / 200 100 ml @ 50 mls/hr IV.SIG Q2H [facility] Rx#:[id number] Ancef Inj 2,000 MG In NS Inj 80 200 / 200 100 / 100 100 / 100 ML @ 200 mls/hr IV.SIG Q8H [place] Rx#:[id number] Output: Gastric Drainage 250 / 250 750 / 750 Right Nare Nasogastric Tube 250 / 250 750 / 750 Other: Mode Setting Right Arm Intermittent Intermittent Intermittent # Voids 1 Date of Last Bowel Movement 02/24/18 02/24/18 02/25/18 - Constitutional no acute distress - Routine HEENT Exam Head: Present: normocephalic - Routine Respiratory Exam Present: CTA bilaterally. Absent: accessory muscle use - Routine Cardiovascular Exam Present: RRR - Routine Abdominal Exam Present: soft, normoactive bowel sounds, distended. Absent: tenderness, guarding, firm Comments: Normal to hyperactive bowel sounds present throughout - Routine Extremities Exam Present: edema, full ROM - Routine Skin Exam Present: dry, warm - Routine Neurological Exam Present: alert, oriented X3 - Detailed Neurological Exam: Coma Scale Eye Opening: Spontaneous Verbal Response: Oriented Motor Response: Obey commands Maame Coma Scale Total: 15 - Routine Psychiatric Exam Present: normal affect, cooperative <Melany Bruno - Last Filed: 02/25/18 13:14> Vital signs: Vital Signs 02/24/18 20:00 02/25/18 00:00 02/25/18 04:00 Temperature 97.9 F 97.9 F 97.9 F Pulse Rate 80 75 67 Respiratory Rate 16 16 18 Blood Pressure 165/70 H 124/59 L 165/71 H Pulse Oximetry 94 L 94 L 94 L 02/25/18 08:00 02/25/18 12:00 02/25/18 15:30 Temperature 97.9 F 98.0 F Pulse Rate 76 76 Respiratory Rate 18 16 12 Blood Pressure 177/76 H 154/71 H Pulse Oximetry 91 L 99 02/25/18 15:34 Temperature Pulse Rate Respiratory Rate 12 Blood Pressure Pulse Oximetry Intake & Output 02/24/18 02/25/18 02/25/18 18:59 06:59 18:59 Intake Total 200 / 200 300 / 300 1100 / 1100 Output Total 250 / 250 750 / 750 Balance -50 / -50 300 / 300 350 / 350 Intake: IV 200 / 200 300 / 300 1100 / 1100 LR 1000 mL Inj 1,000 ML @ 80 1000 / 1000 mls/hr IV.CONT .[id number] [place] Rx# :[id number] KCl 20 mEq Premix Inj 20 meq In 200 / 200 100 ml @ 50 mls/hr IV.SIG Q2H [place] Rx#:[id number] Ancef Inj 2,000 MG In NS Inj 80 200 / 200 100 / 100 100 / 100 ML @ 200 mls/hr IV.SIG Q8H [place] Rx#:[id number] Output: Gastric Drainage 250 / 250 750 / 750 Right Nare Nasogastric Tube 250 / 250 750 / 750 Other: Mode Setting Right Arm Intermittent Intermittent Intermittent # Voids 1 Date of Last Bowel Movement 02/24/18 02/24/18 02/25/18 <Linda Gant - Last Filed: 02/25/18 17:11> Results - Labs CBC & Chem 7: 02/25/18 06:00 02/25/18 06:00 Laboratory Results - last 24 hr 02/24/18 02/25/18 02/25/18 14:30 06:00 06:00 WBC 17.9 H RBC 2.68 L Hgb 8.1 L Hct 24.6 L MCV 91.7 MCH 30.1 MCHC 32.9 RDW 14.1 Plt Count 470 H MPV 7.2 Neut % (Auto) 87.3 H Lymph % (Auto) 7.0 L [place] % (Auto) 4.9 Eos % (Auto) 0.4 Baso % (Auto) 0.4 Neut # (Auto) 15.6 H Lymph # (Auto) 1.3 [place] # (Auto) 0.9 Eos # (Auto) 0.1 Baso # (Auto) 0.1 WBC Differential . Differential Comment Auto diff final Sodium 134 L Potassium 3.0 L 2.9 L* Chloride 86 L Carbon Dioxide 37.1 H Anion Gap 11 BUN 14 Creatinine 0.72 Estimated GFR Greater than 89 Random Glucose 113 H Calcium 8.5 Total Bilirubin 0.3 AST 14 L ALT 8 L Alkaline Phosphatase 74 Total Protein 6.0 L Albumin 2.1 L - Imaging Impressions Tube Placement X-Ray 02/24/18 00:00 CONCLUSION: 1. Fluoroscopic guided placement of nasogastric catheter. Abdomen X-Ray 02/25/18 00:00 CONCLUSION: 1. NG tube the proximal stomach. 2. Persistent small bowel obstruction pattern. <Melany Bruno - Last Filed: 02/25/18 13:14> - Labs CBC & Chem 7: 02/25/18 06:00 02/25/18 06:00 Laboratory Results - last 24 hr 02/25/18 02/25/18 06:00 06:00 WBC 17.9 H RBC 2.68 L Hgb 8.1 L Hct 24.6 L MCV 91.7 MCH 30.1 MCHC 32.9 RDW 14.1 Plt Count 470 H MPV 7.2 Neut % (Auto) 87.3 H Lymph % (Auto) 7.0 L [place] % (Auto) 4.9 Eos % (Auto) 0.4 Baso % (Auto) 0.4 Neut # (Auto) 15.6 H Lymph # (Auto) 1.3 [place] # (Auto) 0.9 Eos # (Auto) 0.1 Baso # (Auto) 0.1 WBC Differential . Differential Comment Auto diff final Sodium 134 L Potassium 2.9 L* Chloride 86 L Carbon Dioxide 37.1 H Anion Gap 11 BUN 14 Creatinine 0.72 Estimated GFR Greater than 89 Random Glucose 113 H Calcium 8.5 Total Bilirubin 0.3 AST 14 L ALT 8 L Alkaline Phosphatase 74 Total Protein 6.0 L Albumin 2.1 L Microbiology 02/17/18 21:40 Wound - Elbow Fungal Smear - Final No fungal elements seen 02/17/18 21:40 Wound - Elbow Fungal Culture - Preliminary No growth in 1 week 02/17/18 21:40 Wound - Elbow Acid Fast Bacilli Smear - Final No acid fast bacilli seen 02/17/18 21:40 Wound - Elbow Mycobacterial Culture - Preliminary No growth in 1 week 02/17/18 21:50 Wound - Arm Fungal Smear - Final No fungal elements seen 02/17/18 21:50 Wound - Arm Fungal Culture - Preliminary No growth in 1 week 02/17/18 21:50 Wound - Arm Acid Fast Bacilli Smear - Final No acid fast bacilli seen 02/17/18 21:50 Wound - Arm Mycobacterial Culture - Preliminary No growth in 1 week 02/17/18 21:40 Wound - Arm Fungal Smear - Final No fungal elements seen 02/17/18 21:40 Wound - Arm Fungal Culture - Preliminary No growth in 1 week 02/17/18 21:40 Wound - Arm Acid Fast Bacilli Smear - Final No acid fast bacilli seen 02/17/18 21:40 Wound - Arm Mycobacterial Culture - Preliminary No growth in 1 week - Imaging Impressions Abdomen X-Ray 02/25/18 00:00 CONCLUSION: 1. NG tube the proximal stomach. 2. Persistent small bowel obstruction pattern. <Linda Gant - Last Filed: 02/25/18 17:11> Assessment and Plan (1) GI bleed Status: Acute Code(s): K92.2 - Gastrointestinal hemorrhage, unspecified (2) Small bowel obstruction Status: Acute Code(s): K56.609 - Unspecified intestinal obstruction, unspecified as to partial versus complete obstruction - Plan Small bowel obstruction/GI bleed NG tube in place, attached to low intermittent wall suction. 550 mL's of dark [id number] appearance- noted in suction container. Abdomen distended but soft and nontender. Positive bowel sounds noted. KUB this a.m. revealed the following---> There is an NGT with tip in the proximal stomach. Multiple loops of distended air-filled small bowel throughout the abdomen. Air is seen in the colon extending to the sigmoid. No gross free air or pneumatosis. Surgical clips are seen throughout the abdomen. Osseous structures are intact. NG tube the proximal stomach. Persistent small bowel obstruction pattern. Anemia Hemoglobin 8.1 hematocrit 24.6 platelet count 470. Stable, patient denies any rectal bleeding. We will continue to follow labs and monitor for active bleeding. Plan -NG to low intermittent wall suction -N.p.o. -Repeat KUB in the a.m. -Monitor labs -General surgery consulted -Supportive care -Further recommendations to follow based on patient status and findings This patient has been seen by myself and Dr. Gant and this note is written on her behalf - Attending Attestation Dr. Gant <Melany Bruno - Last Filed: 02/25/18 13:14> (1) GI bleed Status: Acute Code(s): K92.2 - Gastrointestinal hemorrhage, unspecified (2) Small bowel obstruction Status: Acute Code(s): K56.609 - Unspecified intestinal obstruction, unspecified as to partial versus complete obstruction - Attending Attestation agree with above surgical consult appreciated <Linda Gant - Last Filed: 02/25/18 17:11>
[2018-02-25] MEDS: Phenol 1.4% 180 ML Spray Bottle OROPHARYNG PRN (13:49)
[2018-02-25] MEDS: KCL 40 mEq/D5W/NaCl 0.9% Inj 1,000 ML IV.CONT SCH (13:49)
--- NOTE | 2018-02-25 14:06 | P.PNGS ---
Subjective Interval history: Resting in bed Thirsty Physical Exam Vital signs: Vital Signs 02/24/18 16:00 02/24/18 20:00 02/25/18 00:00 Temperature 98.0 F 97.9 F 97.9 F Pulse Rate 70 80 75 Respiratory Rate 16 16 16 Blood Pressure 144/65 H 165/70 H 124/59 L Pulse Oximetry 92 L 94 L 94 L 02/25/18 04:00 02/25/18 08:00 02/25/18 12:00 Temperature 97.9 F 97.9 F 98.0 F Pulse Rate 67 76 76 Respiratory Rate 18 18 16 Blood Pressure 165/71 H 177/76 H 154/71 H Pulse Oximetry 94 L 91 L 99 Intake & Output 02/24/18 02/25/18 02/25/18 18:59 06:59 18:59 Intake Total 200 / 200 300 / 300 100 / 100 Output Total 250 / 250 750 / 750 Balance -50 / -50 300 / 300 -650 / -650 Intake: IV 200 / 200 300 / 300 100 / 100 KCl 20 mEq Premix Inj 20 meq In 200 / 200 100 ml @ 50 mls/hr IV.SIG Q2H [facility] Rx#:[id number] Ancef Inj 2,000 MG In NS Inj 80 200 / 200 100 / 100 100 / 100 ML @ 200 mls/hr IV.SIG Q8H [facility] Rx#:[id number] Output: Gastric Drainage 250 / 250 750 / 750 Right Nare Nasogastric Tube 250 / 250 750 / 750 Other: Mode Setting Right Arm Intermittent Intermittent Intermittent # Voids 1 Date of Last Bowel Movement 02/24/18 02/24/18 02/25/18 Narrative: Alert and awake Abd: soft; mildly distended NGT to LIWS with dark drainage RIGHT arm with large wrap bandage on it Results - Labs 02/27/18 05:10 02/27/18 05:10 Laboratory Results - last 24 hr 02/24/18 02/25/18 02/25/18 14:30 06:00 06:00 WBC 17.9 H RBC 2.68 L Hgb 8.1 L Hct 24.6 L MCV 91.7 MCH 30.1 MCHC 32.9 RDW 14.1 Plt Count 470 H MPV 7.2 Neut % (Auto) 87.3 H Lymph % (Auto) 7.0 L [place] % (Auto) 4.9 Eos % (Auto) 0.4 Baso % (Auto) 0.4 Neut # (Auto) 15.6 H Lymph # (Auto) 1.3 [place] # (Auto) 0.9 Eos # (Auto) 0.1 Baso # (Auto) 0.1 WBC Differential . Differential Comment Auto diff final Sodium 134 L Potassium 3.0 L 2.9 L* Chloride 86 L Carbon Dioxide 37.1 H Anion Gap 11 BUN 14 Creatinine 0.72 Estimated GFR Greater than 89 Random Glucose 113 H Calcium 8.5 Total Bilirubin 0.3 AST 14 L ALT 8 L Alkaline Phosphatase 74 Total Protein 6.0 L Albumin 2.1 L - Imaging Imaging: ITS Impressions Forearm CT 02/17/18 13:55 CONCLUSION: 1. Prominent area of subcutaneous fluid, thickening, and collections of gas extending from distal forearm to elbow, suspicious for abscess along the medial aspect of the forearm. 2. Osseous structures are radiographically intact. Forearm X-Ray 02/17/18 13:55 CONCLUSION: 1. Diffuse soft tissue swelling. 2. No acute fracture or joint dislocation. Head CT 02/17/18 13:55 CONCLUSION: 1. Negative noncontrast CT brain. . Abdomen/Pelvis CT 02/24/18 00:00 CONCLUSION: 1. Small bowel obstruction with significantly dilated small bowel and evidence of free fluid identified within the right upper quadrant and left midabdomen. The transition point appears within the lower central pelvis within the ileum. There appears to be large areas of adhesion with small bowel and the adjacent abdominal mesh. Chest X-Ray 02/24/18 00:00 CONCLUSION: 1. NG tube is coiled in the oropharynx. 2. Stable mild left lower lung zone pleural-parenchymal opacities. Tube Placement X-Ray 02/24/18 00:00 CONCLUSION: 1. Fluoroscopic guided placement of nasogastric catheter. Abdomen X-Ray 02/25/18 00:00 CONCLUSION: 1. NG tube the proximal stomach. 2. Persistent small bowel obstruction pattern. Assessment and Plan - Assessment (1) Small bowel obstruction Code(s): K56.609 - Unspecified intestinal obstruction, unspecified as to partial versus complete obstruction Status: Acute Plan: 62 year old male with RIGHT arm infection----Orthopedics following; now with abdominal pain -No flatus or BM -Continue NGT to LIWS -Await KUB results -Monitor electrolytes -OOB as tolerated -Chloraseptic spray ORN -Continue non operative management - Attending Attestation The exam, history, and the medical decision-making described in the above note were completed with the assistance of the mid-level provider. I reviewed and agree with the findings presented. I attest that I had a [id number] encounter with the patient on the same day, and personally performed and documented my assessment and findings in the medical record. SBO pain better and abdomen less distended on exam continue non-operative management for now d/w patient
[2018-02-25] MEDS ORDERED: Metoprolol Tartrate 25 MG Tablet PO ONE (16:15)
[2018-02-25] MEDS ORDERED: Chlorhexidine Gluconate 2% 1 Pack (2 Cloths) TOPICAL ONE (16:15)
[2018-02-25] MEDS ORDERED: Sodium Chlor 0.9% Inj 500 ML IV.CONT ONE (16:15)
[2018-02-26] MEDS: KCL 40 mEq/D5W/NaCl 0.9% Inj 1,000 ML IV.CONT SCH (00:29)
[2018-02-26] MEDS: HYDROmorphone PF Inj 2 MG/ML Vial IV.PUSH PRN ×7 (00:30→23:38)
[2018-02-26] MEDS: ceFAZolin Inj 2,000 MG in Sodium Chlor 0.9% Inj 80 ML IV.SIG SCH ×3 (02:46→18:08)
[2018-02-26] MEDS: Gabapentin 400 MG Capsule PO SCH ×4 (05:52→22:00)
[2018-02-26] MEDS ORDERED: Chlorhexidine Gluconate 2% 1 Pack (2 Cloths) TOPICAL ONE (06:27)
[2018-02-26] MEDS ORDERED: Metoprolol Tartrate 25 MG Tablet PO ONE (06:27)
[2018-02-26 06:49] LABS: Hematocrit 21.4 % (39.0-51.0); Hemoglobin 7.2 gm/dL (13.0-17.0); Mean Corpuscular HGB Conc 33.9 % (32.0-36.0); Mean Corpuscular Hemoglobin 30.8 pg (27.0-34.0); Mean Corpuscular Volume 90.8 fL (80.0-100.0); Mean Platelet Volume 7.3 fL (7.0-11.0); Platelet Count 403 th/mm3 (150-450); Red Blood Count 2.36 mil/mm3 (4.50-5.90); Red Cell Distribution Width 14.1 % (11.6-17.2); White Blood Count 13.1 th/mm3 (4.0-11.0)
--- NOTE | 2018-02-26 06:53 | P.PNOP ---
Subjective Interval history: s/p I&D right arm with vac no changes doing well with arm Physical Exam Vital signs: Vital Signs 02/25/18 08:00 02/25/18 12:00 02/25/18 15:30 Temperature 97.9 F 98.0 F Pulse Rate 76 76 Respiratory Rate 18 16 12 Blood Pressure 177/76 H 154/71 H Pulse Oximetry 91 L 99 02/25/18 15:34 02/25/18 16:00 02/25/18 20:00 Temperature 97.9 F 97.4 F L Pulse Rate 77 84 Respiratory Rate 12 16 12 Blood Pressure 148/82 H 164/70 H Pulse Oximetry 92 L 92 L 02/26/18 00:00 02/26/18 04:00 Temperature 97.9 F 97.9 F Pulse Rate 78 63 Respiratory Rate 12 18 Blood Pressure 130/63 155/70 H Pulse Oximetry 94 L 92 L Intake & Output 02/25/18 02/25/18 02/26/18 06:59 18:59 06:59 Intake Total 300 / 300 1200 / 1200 1000 / 1000 Output Total 2049 / 2049 800 / 800 Balance 300 / 300 -850 / -850 200 / 200 Intake: IV 300 / 300 1200 / 1200 1000 / 1000 D5W/NS + KCL 40 mEq Inj 1,000 1000 / 1000 ML @ 100 mls/hr IV.CONT .Q10H [facility] Rx#:[id number] LR 1000 mL Inj 1,000 ML @ 80 1000 / 1000 mls/hr IV.CONT .[id number] [facility] Rx# :[id number] KCl 20 mEq Premix Inj 20 meq In 200 / 200 100 ml @ 50 mls/hr IV.SIG Q2H [facility] Rx#:[id number] Ancef Inj 2,000 MG In NS Inj 80 100 / 100 200 / 200 ML @ 200 mls/hr IV.SIG Q8H [facility] Rx#:[id number] Output: Urine 250 / 250 100 / 100 Gastric Drainage 1750 / 1750 700 / 700 Right Nare Nasogastric Tube 1750 / 1750 700 / 700 Wound Vac Amount 50 / 50 Right Arm 50 / 50 Other: Mode Setting Right Arm Intermittent Intermittent Intermittent # Voids 1 Date of Last Bowel Movement 02/24/18 02/25/18 02/25/18 Narrative: RUE: +vac. good seal. nvi Results - Labs CBC & Chem 7: 02/26/18 06:30 02/25/18 06:00 Laboratory Results - last 24 hr 02/25/18 02/26/18 06:00 06:30 WBC 13.1 H RBC 2.36 L Hgb 7.2 L Hct 21.4 L MCV 90.8 MCH 30.8 MCHC 33.9 RDW 14.1 Plt Count 403 MPV 7.3 Sodium 134 L Potassium 2.9 L* Chloride 86 L Carbon Dioxide 37.1 H Anion Gap 11 BUN 14 Creatinine 0.72 Estimated GFR Greater than 89 Random Glucose 113 H Calcium 8.5 Total Bilirubin 0.3 AST 14 L ALT 8 L Alkaline Phosphatase 74 Total Protein 6.0 L Albumin 2.1 L Microbiology 02/17/18 21:40 Wound - Elbow Fungal Smear - Final No fungal elements seen 02/17/18 21:40 Wound - Elbow Fungal Culture - Preliminary No growth in 1 week 02/17/18 21:40 Wound - Elbow Acid Fast Bacilli Smear - Final No acid fast bacilli seen 02/17/18 21:40 Wound - Elbow Mycobacterial Culture - Preliminary No growth in 1 week 02/17/18 21:50 Wound - Arm Fungal Smear - Final No fungal elements seen 02/17/18 21:50 Wound - Arm Fungal Culture - Preliminary No growth in 1 week 02/17/18 21:50 Wound - Arm Acid Fast Bacilli Smear - Final No acid fast bacilli seen 02/17/18 21:50 Wound - Arm Mycobacterial Culture - Preliminary No growth in 1 week 02/17/18 21:40 Wound - Arm Fungal Smear - Final No fungal elements seen 02/17/18 21:40 Wound - Arm Fungal Culture - Preliminary No growth in 1 week 02/17/18 21:40 Wound - Arm Acid Fast Bacilli Smear - Final No acid fast bacilli seen 02/17/18 21:40 Wound - Arm Mycobacterial Culture - Preliminary No growth in 1 week - Imaging Impressions Abdomen X-Ray 02/25/18 00:00 CONCLUSION: 1. NG tube the proximal stomach. 2. Persistent small bowel obstruction pattern. Assessment and Plan - Assessment and Plan 1) Right Arm Necrotizing Fasciitis s/p I&D and vac application - POD 5 -maintain vac at all times. -100mmHg, DPC, 3:1 -consents on chart -plan for repeat I&D with vac change today with Galvan -will need skin grafting of right arm when infection is cleared -Cx: group A beta strep
[2018-02-26] MEDS ORDERED: Sodium Chlor 0.9% Inj 500 ML IV.SIG SCH (07:00)
[2018-02-26 07:19] LABS: Anion Gap 6 meq/L (5-15); Blood Urea Nitrogen 10 mg/dL (7-18); Calcium 6.2 mg/dL (8.5-10.1); Carbon Dioxide 37.2 meq/L (21.0-32.0); Chloride 94 meq/L (98-107); Glomerular Filtration Rate Greater Than 89 mL/min (>89); Glucose,Random 119 mg/dL (74-106); Magnesium 1.8 mg/dL (1.5-2.5); Potassium 4.1 meq/L (3.5-5.1); Sodium 137 meq/L (136-145)
[2018-02-26 07:45] LABS: Total Protein 5.2 g/dL (6.4-8.2)
[2018-02-26] MEDS: Famotidine PF Inj 20 MG/2 ML Vial IV.PUSH SCH ×2 (08:13→20:17)
[2018-02-26] MEDS: Lactobacillus Acidophilus/L. Spores Tablet PO SCH ×2 (08:30→14:15)
--- NOTE | 2018-02-26 10:41 | P.PNGS ---
Subjective Interval history: Resting in bed Drank quite a bit of ice water yesterday and overnight Feeling better Pain better Physical Exam Vital signs: Vital Signs 02/25/18 12:00 02/25/18 15:30 02/25/18 15:34 Temperature 98.0 F Pulse Rate 76 Respiratory Rate 16 12 12 Blood Pressure 154/71 H Pulse Oximetry 99 02/25/18 16:00 02/25/18 20:00 02/26/18 00:00 Temperature 97.9 F 97.4 F L 97.9 F Pulse Rate 77 84 78 Respiratory Rate 16 12 12 Blood Pressure 148/82 H 164/70 H 130/63 Pulse Oximetry 92 L 92 L 94 L 02/26/18 04:00 02/26/18 08:00 Temperature 97.9 F 97.7 F Pulse Rate 63 77 Respiratory Rate 18 16 Blood Pressure 155/70 H 149/84 H Pulse Oximetry 92 L 98 Intake & Output 02/25/18 02/26/18 02/26/18 18:59 06:59 18:59 Intake Total 1200 / 1200 1000 / 1000 Output Total 2049 / 2049 800 / 800 Balance -850 / -850 200 / 200 Intake: IV 1200 / 1200 1000 / 1000 D5W/NS + KCL 40 mEq Inj 1,000 1000 / 1000 ML @ 100 mls/hr IV.CONT .Q10H [facility] Rx#:[id number] LR 1000 mL Inj 1,000 ML @ 80 1000 / 1000 mls/hr IV.CONT .[id number] [facility] Rx# :[id number] Ancef Inj 2,000 MG In NS Inj 80 200 / 200 ML @ 200 mls/hr IV.SIG Q8H [facility] Rx#:[id number] Output: Urine 250 / 250 100 / 100 Gastric Drainage 1750 / 1750 700 / 700 Right Nare Nasogastric Tube 1750 / 1750 700 / 700 Wound Vac Amount 50 / 50 Right Arm 50 / 50 Other: Mode Setting Right Arm Intermittent Intermittent # Voids 1 Date of Last Bowel Movement 02/25/18 02/25/18 Narrative: Alert and awake Abd: soft RIGHT arm with Wound Vac in place Results - Labs 02/27/18 05:10 02/27/18 05:10 Laboratory Results - last 24 hr 02/26/18 02/26/18 06:30 06:30 WBC 13.1 H RBC 2.36 L Hgb 7.2 L Hct 21.4 L MCV 90.8 MCH 30.8 MCHC 33.9 RDW 14.1 Plt Count 403 MPV 7.3 Sodium 137 Potassium 4.1 D Chloride 94 L D Carbon Dioxide 37.2 H Anion Gap 6 BUN 10 Creatinine 0.71 Estimated GFR Greater than 89 Random Glucose 119 H Calcium 6.2 L* D Prot Corrected Calcium 7.1 L* Phosphorus 2.0 L Magnesium 1.8 Total Protein 5.2 L D - Imaging Imaging: ITS Impressions Forearm CT 02/17/18 13:55 CONCLUSION: 1. Prominent area of subcutaneous fluid, thickening, and collections of gas extending from distal forearm to elbow, suspicious for abscess along the medial aspect of the forearm. 2. Osseous structures are radiographically intact. Forearm X-Ray 02/17/18 13:55 CONCLUSION: 1. Diffuse soft tissue swelling. 2. No acute fracture or joint dislocation. Head CT 02/17/18 13:55 CONCLUSION: 1. Negative noncontrast CT brain. . Abdomen/Pelvis CT 02/24/18 00:00 CONCLUSION: 1. Small bowel obstruction with significantly dilated small bowel and evidence of free fluid identified within the right upper quadrant and left midabdomen. The transition point appears within the lower central pelvis within the ileum. There appears to be large areas of adhesion with small bowel and the adjacent abdominal mesh. Chest X-Ray 02/24/18 00:00 CONCLUSION: 1. NG tube is coiled in the oropharynx. 2. Stable mild left lower lung zone pleural-parenchymal opacities. Tube Placement X-Ray 02/24/18 00:00 CONCLUSION: 1. Fluoroscopic guided placement of nasogastric catheter. Abdomen X-Ray 02/25/18 00:00 CONCLUSION: 1. NG tube the proximal stomach. 2. Persistent small bowel obstruction pattern. Assessment and Plan - Assessment (1) Small bowel obstruction Code(s): K56.609 - Unspecified intestinal obstruction, unspecified as to partial versus complete obstruction Status: Acute Plan: 62 year old male with RIGHT arm infection----Orthopedics following; now with abdominal pain -+flatus -Going to [place] with Orthopedics this afternoon -Post op pain can have a trial of clamping NGT and clear liquids -Continue non op treatment - Attending Attestation The exam, history, and the medical decision-making described in the above note were completed with the assistance of the mid-level provider. I reviewed and agree with the findings presented. I attest that I had a [id number] encounter with the patient on the same day, and personally performed and documented my assessment and findings in the medical record. SBO resolving +flatus continue to follow
--- NOTE | 2018-02-26 10:45 | P.PNIM ---
Subjective Interval history: The patient said that he was going for surgery later this afternoon. He said he would like ice chips. He says he is very painful but the pain medications work when he gets them. He has not been passing much gas. Discussed with nursing at the bedside. Physical Exam Vital signs: Vital Signs 02/25/18 12:00 02/25/18 15:30 02/25/18 15:34 Temperature 98.0 F Pulse Rate 76 Respiratory Rate 16 12 12 Blood Pressure 154/71 H Pulse Oximetry 99 02/25/18 16:00 02/25/18 20:00 02/26/18 00:00 Temperature 97.9 F 97.4 F L 97.9 F Pulse Rate 77 84 78 Respiratory Rate 16 12 12 Blood Pressure 148/82 H 164/70 H 130/63 Pulse Oximetry 92 L 92 L 94 L 02/26/18 04:00 02/26/18 08:00 Temperature 97.9 F 97.7 F Pulse Rate 63 77 Respiratory Rate 18 16 Blood Pressure 155/70 H 149/84 H Pulse Oximetry 92 L 98 Intake & Output 02/25/18 02/26/18 02/26/18 18:59 06:59 18:59 Intake Total 1200 / 1200 1000 / 1000 Output Total 2050 / 2050 800 / 800 Balance -850 / -850 200 / 200 Intake: IV 1200 / 1200 1000 / 1000 D5W/NS + KCL 40 mEq Inj 1,000 1000 / 1000 ML @ 100 mls/hr IV.CONT .Q10H [facility] Rx#:[id number] LR 1000 mL Inj 1,000 ML @ 80 1000 / 1000 mls/hr IV.CONT .[id number] [facility] Rx# :[id number] Ancef Inj 2,000 MG In NS Inj 80 200 / 200 ML @ 200 mls/hr IV.SIG Q8H [facility] Rx#:[id number] Output: Urine 250 / 250 100 / 100 Gastric Drainage 1750 / 1750 700 / 700 Right Nare Nasogastric Tube 1750 / 1750 700 / 700 Wound Vac Amount 50 / 50 Right Arm 50 / 50 Other: Mode Setting Right Arm Intermittent Intermittent # Voids 1 Date of Last Bowel Movement 02/25/18 02/25/18 Narrative: GENERAL: NAD. HEAD: Normocephalic. NG tube placed. NECK: Supple, trachea midline. No lymphadenopathy. EYES: No scleral icterus. No injection or drainage. CARDIOVASCULAR: Regular rate and rhythm without murmurs, gallops, or rubs. RESPIRATORY: Breath sounds equal bilaterally. No accessory muscle use. GASTROINTESTINAL: Abdomen soft, non-tender, nondistended. Decreased bowel sounds. MUSCULOSKELETAL: No cyanosis, or edema. Right arm is bandaged, wound VAC in place. SKIN: Warm and dry. NEURO: No focal neurological deficits. Results - Labs CBC & Chem 7: 02/26/18 06:30 02/26/18 06:30 Laboratory Results - last 24 hr 02/26/18 02/26/18 06:30 06:30 WBC 13.1 H RBC 2.36 L Hgb 7.2 L Hct 21.4 L MCV 90.8 MCH 30.8 MCHC 33.9 RDW 14.1 Plt Count 403 MPV 7.3 Sodium 137 Potassium 4.1 D Chloride 94 L D Carbon Dioxide 37.2 H Anion Gap 6 BUN 10 Creatinine 0.71 Estimated GFR Greater than 89 Random Glucose 119 H Calcium 6.2 L* D Prot Corrected Calcium 7.1 L* Phosphorus 2.0 L Magnesium 1.8 Total Protein 5.2 L D Microbiology 02/17/18 21:40 Wound - Elbow Fungal Smear - Final No fungal elements seen 02/17/18 21:40 Wound - Elbow Fungal Culture - Preliminary No growth in 1 week 02/17/18 21:40 Wound - Elbow Acid Fast Bacilli Smear - Final No acid fast bacilli seen 02/17/18 21:40 Wound - Elbow Mycobacterial Culture - Preliminary No growth in 1 week 02/17/18 21:50 Wound - Arm Fungal Smear - Final No fungal elements seen 02/17/18 21:50 Wound - Arm Fungal Culture - Preliminary No growth in 1 week 02/17/18 21:50 Wound - Arm Acid Fast Bacilli Smear - Final No acid fast bacilli seen 02/17/18 21:50 Wound - Arm Mycobacterial Culture - Preliminary No growth in 1 week 02/17/18 21:40 Wound - Arm Fungal Smear - Final No fungal elements seen 02/17/18 21:40 Wound - Arm Fungal Culture - Preliminary No growth in 1 week 02/17/18 21:40 Wound - Arm Acid Fast Bacilli Smear - Final No acid fast bacilli seen 02/17/18 21:40 Wound - Arm Mycobacterial Culture - Preliminary No growth in 1 week - Imaging Impressions Abdomen X-Ray 02/25/18 00:00 CONCLUSION: 1. NG tube the proximal stomach. 2. Persistent small bowel obstruction pattern. Assessment and Plan - Plan 62-year-old male admitted secondary to necrotizing fasciitis of the right arm Small bowel obstruction Noted on CT. General surgery and gastroenterology consults appreciated. -NG tube. -N.p.o. with IVFs. -Follow clinically for improvement. -As needed pain treatments and antiemetics. -hold PO meds. -Chloraseptic spray as needed. Necrotizing fasciitis Ortho and ID consults appreciated. Debridement on 02/17/2018; Debridement on 02/19; Debridement on 02/21/2018. -Continue clindamycin, vancomycin and meropenem. -Orthopedic following. Surgery scheduled today (02/26). -pain control as needed. Hypertension PO meds on hold s/t bowel obstruction. -Vasotec as needed. Tobacco use disorder Wellbutrin on hold. -Patient recommended to quit Hypokalemia/ Hypocalcemia S/t decreased PO intake. -D5W with KCl. -calcium chloride IV. -follow BMP. Check mag and phos. -telemetry. PPx: SCDs
[2018-02-26] MEDS ORDERED: Calcium Chloride Inj 2 GM in Sodium Chlor 0.9% Inj 100 ML IV.SIG ONE (11:00)
[2018-02-26] MEDS: KCL 20 mEq/D5W/NaCl 0.9% Inj 1,000 ML IV.CONT SCH ×2 (11:28→22:00)
--- NOTE | 2018-02-26 11:59 | P.PNGI ---
Subjective Interval history: Patient laying supine in bed, awake alert and oriented. Denies abdominal pain, states recently received Dilaudid administration. NG tube to low intermittent wall suction. N.p.o. for orthopedic I&D of right upper extremity. <Melany Bruno - Last Filed: 02/26/18 11:51> Physical Exam Vital signs: Vital Signs 02/25/18 12:00 02/25/18 15:30 02/25/18 15:34 Temperature 98.0 F Pulse Rate 76 Respiratory Rate 16 12 12 Blood Pressure 154/71 H Pulse Oximetry 99 02/25/18 16:00 02/25/18 20:00 02/26/18 00:00 Temperature 97.9 F 97.4 F L 97.9 F Pulse Rate 77 84 78 Respiratory Rate 16 12 12 Blood Pressure 148/82 H 164/70 H 130/63 Pulse Oximetry 92 L 92 L 94 L 02/26/18 04:00 02/26/18 08:00 Temperature 97.9 F 97.7 F Pulse Rate 63 77 Respiratory Rate 18 16 Blood Pressure 155/70 H 149/84 H Pulse Oximetry 92 L 98 Intake & Output 02/25/18 02/26/18 02/26/18 18:59 06:59 18:59 Intake Total 1200 / 1200 1100 / 1100 Output Total 0 / 0 800 / 800 Balance -850 / -850 300 / 300 Intake: IV 1200 / 1200 1100 / 1100 D5W/NS + KCL 40 mEq Inj 1,000 1000 / 1000 ML @ 100 mls/hr IV.CONT .Q10H [place] Rx#:[id number] LR 1000 mL Inj 1,000 ML @ 80 1000 / 1000 mls/hr IV.CONT .[id number] [place] Rx# :[id number] Ancef Inj 2,000 MG In NS Inj 80 200 / 200 100 / 100 ML @ 200 mls/hr IV.SIG Q8H [place] Rx#:[id number] Output: Urine 250 / 250 100 / 100 Gastric Drainage 1750 / 1750 700 / 700 Right Nare Nasogastric Tube 1750 / 1750 700 / 700 Wound Vac Amount 50 / 50 Right Arm 50 / 50 Other: Mode Setting Right Arm Intermittent Intermittent # Voids 1 Date of Last Bowel Movement 02/25/18 02/25/18 02/25/18 - Constitutional no acute distress - Routine HEENT Exam Head: Present: normocephalic - Routine Respiratory Exam Present: CTA bilaterally. Absent: accessory muscle use - Routine Cardiovascular Exam Present: RRR - Routine Abdominal Exam Present: soft, normoactive bowel sounds, distended. Absent: tenderness, guarding, firm Comments: Hyper to normal bowel sounds - Routine Extremities Exam Present: pulses intact. Absent: edema - Routine Skin Exam Present: dry, warm - Routine Neurological Exam Present: alert - Routine Psychiatric Exam Present: normal affect, cooperative <Bruno,Melany - Last Filed: 02/26/18 11:51> Vital signs: Vital Signs 02/25/18 20:00 02/26/18 00:00 02/26/18 04:00 Temperature 97.4 F L 97.9 F 97.9 F Pulse Rate 84 78 63 Respiratory Rate 12 12 18 Blood Pressure 164/70 H 130/63 155/70 H Pulse Oximetry 92 L 94 L 92 L 02/26/18 08:00 02/26/18 12:00 Temperature 97.7 F 97.6 F Pulse Rate 77 81 Respiratory Rate 16 14 Blood Pressure 149/84 H 151/65 H Pulse Oximetry 98 91 L Intake & Output 02/25/18 02/26/18 02/26/18 18:59 06:59 18:59 Intake Total 1200 / 1200 1100 / 1100 1120 / 1120 Output Total 2049 / 0 800 / 800 Balance -850 / -850 300 / 300 1120 / 1120 Intake: IV 1200 / 1200 1100 / 1100 1120 / 1120 D5W/NS + KCL 40 mEq Inj 1,000 1000 / 1000 900 / 900 ML @ 100 mls/hr IV.CONT .Q10H [place] Rx#:[id number] LR 1000 mL Inj 1,000 ML @ 80 1000 / 1000 mls/hr IV.CONT .[id number] [place] Rx# :[id number] Calcium Chloride Inj 2 GM In NS 120 / 120 Inj 100 ML @ 120 mls/hr IV.SIG ONCE ONE Rx#:[id number] Ancef Inj 2,000 MG In NS Inj 80 200 / 200 100 / 100 100 / 100 ML @ 200 mls/hr IV.SIG Q8H [place] Rx#:[id number] Output: Urine 250 / 250 100 / 100 Gastric Drainage 1750 / 1750 700 / 700 Right Nare Nasogastric Tube 1750 / 1750 700 / 700 Wound Vac Amount 50 / 50 Right Arm 50 / 50 Other: Mode Setting Right Arm Intermittent Intermittent Continuous # Voids 1 Date of Last Bowel Movement 02/25/18 02/25/18 02/25/18 <Linda Gant - Last Filed: 02/26/18 16:11> Results - Labs CBC & Chem 7: 02/26/18 06:30 02/26/18 06:30 Laboratory Results - last 24 hr 02/26/18 02/26/18 06:30 06:30 WBC 13.1 H RBC 2.36 L Hgb 7.2 L Hct 21.4 L MCV 90.8 MCH 30.8 MCHC 33.9 RDW 14.1 Plt Count 403 MPV 7.3 Sodium 137 Potassium 4.1 D Chloride 94 L D Carbon Dioxide 37.2 H Anion Gap 6 BUN 10 Creatinine 0.71 Estimated GFR Greater than 89 Random Glucose 119 H Calcium 6.2 L* D Prot Corrected Calcium 7.1 L* Phosphorus 2.0 L Magnesium 1.8 Total Protein 5.2 L D Microbiology 02/17/18 21:40 Wound - Elbow Fungal Smear - Final No fungal elements seen 02/17/18 21:40 Wound - Elbow Fungal Culture - Preliminary No growth in 1 week 02/17/18 21:40 Wound - Elbow Acid Fast Bacilli Smear - Final No acid fast bacilli seen 02/17/18 21:40 Wound - Elbow Mycobacterial Culture - Preliminary No growth in 1 week 02/17/18 21:50 Wound - Arm Fungal Smear - Final No fungal elements seen 02/17/18 21:50 Wound - Arm Fungal Culture - Preliminary No growth in 1 week 02/17/18 21:50 Wound - Arm Acid Fast Bacilli Smear - Final No acid fast bacilli seen 02/17/18 21:50 Wound - Arm Mycobacterial Culture - Preliminary No growth in 1 week 02/17/18 21:40 Wound - Arm Fungal Smear - Final No fungal elements seen 02/17/18 21:40 Wound - Arm Fungal Culture - Preliminary No growth in 1 week 02/17/18 21:40 Wound - Arm Acid Fast Bacilli Smear - Final No acid fast bacilli seen 02/17/18 21:40 Wound - Arm Mycobacterial Culture - Preliminary No growth in 1 week <Melany Bruno - Last Filed: 02/26/18 11:51> - Labs CBC & Chem 7: 02/26/18 06:30 10/16/18 06:30 Laboratory Results - last 24 hr 02/26/18 02/26/18 06:30 06:30 WBC 13.1 H RBC 2.36 L Hgb 7.2 L Hct 21.4 L MCV 90.8 MCH 30.8 MCHC 33.9 RDW 14.1 Plt Count 403 MPV 7.3 Sodium 137 Potassium 4.1 D Chloride 94 L D Carbon Dioxide 37.2 H Anion Gap 6 BUN 10 Creatinine 0.71 Estimated GFR Greater than 89 Random Glucose 119 H Calcium 6.2 L* D Prot Corrected Calcium 7.1 L* Phosphorus 2.0 L Magnesium 1.8 Total Protein 5.2 L D Microbiology 02/17/18 21:40 Wound - Elbow Fungal Smear - Final No fungal elements seen 02/17/18 21:40 Wound - Elbow Fungal Culture - Preliminary No growth in 1 week 02/17/18 21:40 Wound - Elbow Acid Fast Bacilli Smear - Final No acid fast bacilli seen 02/17/18 21:40 Wound - Elbow Mycobacterial Culture - Preliminary No growth in 1 week 02/17/18 21:50 Wound - Arm Fungal Smear - Final No fungal elements seen 02/17/18 21:50 Wound - Arm Fungal Culture - Preliminary No growth in 1 week 02/17/18 21:50 Wound - Arm Acid Fast Bacilli Smear - Final No acid fast bacilli seen 02/17/18 21:50 Wound - Arm Mycobacterial Culture - Preliminary No growth in 1 week 02/17/18 21:40 Wound - Arm Fungal Smear - Final No fungal elements seen 02/17/18 21:40 Wound - Arm Fungal Culture - Preliminary No growth in 1 week 02/17/18 21:40 Wound - Arm Acid Fast Bacilli Smear - Final No acid fast bacilli seen 02/17/18 21:40 Wound - Arm Mycobacterial Culture - Preliminary No growth in 1 week <Linda Gant - Last Filed: 02/26/18 16:11> Assessment and Plan (1) GI bleed Status: Acute Code(s): K92.2 - Gastrointestinal hemorrhage, unspecified (2) Small bowel obstruction Status: Acute Code(s): K56.609 - Unspecified intestinal obstruction, unspecified as to partial versus complete obstruction - Plan Small bowel obstruction/GI bleed NG tube in place, attached to low intermittent wall suction. 550 mL's of dark pfiylxdg-[id number]-ssiesq appearance- noted in suction container. Abdomen distended but soft and nontender. Positive bowel sounds noted. KUB this a.m. revealed the following---> There is an NGT with tip in the proximal stomach. Multiple loops of distended air-filled small bowel throughout the abdomen. Air is seen in the colon extending to the sigmoid. No gross free air or pneumatosis. Surgical clips are seen throughout the abdomen. Osseous structures are intact. NG tube the proximal stomach. Persistent small bowel obstruction pattern. Anemia Hemoglobin 8.1 hematocrit 24.6 platelet count 470. Stable, patient denies any rectal bleeding. We will continue to follow labs and monitor for active bleeding. 02/26/2018 Small bowel obstruction/GI bleeding NG tube in place to low intermittent wall suction. 400 mL's of dark drainage noted in suction container. Patient states he drank from water pitcher last evening. Advised not to do so, states tolerated ice chips well. Denies any nausea. Noted general surgery recommendation to trial clamping NG tube, offering clear liquids. Patient n.p.o. at this time for orthopedic procedure/I& D right upper extremity. KUB in the a.m. Anemia Hemoglobin 7.2 hematocrit 21.4 platelet count 403. Patient denies any obvious bleeding. No active bleeding per nursing. Plan -NG to low intermittent wall suction -N.p.o.for ortho intervention -KUB in the a.m. -Monitor labs -General surgery recommendations noted -Supportive care -Further recommendations to follow based on patient status and findings This patient has been seen by myself and Dr. Gant and this note is written on her behalf - Attending Attestation <Melany Bruno - Last Filed: 02/26/18 11:51> (1) GI bleed Status: Acute Code(s): K92.2 - Gastrointestinal hemorrhage, unspecified (2) Small bowel obstruction Status: Acute Code(s): K56.609 - Unspecified intestinal obstruction, unspecified as to partial versus complete obstruction - Attending Attestation agree with above <Linda Gant - Last Filed: 02/26/18 16:11>
[2018-02-26] MEDS ORDERED: *Heparin Central Flush 100 UNIT/ML 3 ML Syringe Periprocedural ONLY IV.FLUSH ONE (15:32)
[2018-02-26] MEDS ORDERED: Phenylephrine/NS 1000 MCG/10ML Syringe IV.PUSH ONE (16:58)
[2018-02-26] MEDS ORDERED: Succinylcholine Inj 100 MG/5 ML Syringe IV.PUSH ONE (16:58)
[2018-02-26] MEDS ORDERED: Lidocaine PF 1% Inj 5 ML Syringe OTHER ONE (16:58)
[2018-02-26] MEDS ORDERED: Post-op Orders (for Pharmacy) OTHER STA (17:32)
--- NOTE | 2018-02-26 17:36 | P.OP ---
- Preoperative Diagnosis (1) Necrotizing soft tissue infection (2) Cellulitis and abscess of upper arm and forearm Date of procedure: 02/26/18 Procedure: Irrigation and debridement of right arm, application of wound VAC dressing Anesthesia: SAMMIEA Surgeon: Pietro Catherine MD Director Of Development: Narciso Narayan PA-C The surgical procedure was assisted by my physician assistant media planner. My P.A. presence was necessary throughout this case for the manipulation and positioning of the surgical extremity. My P.A. was assisting me throughout the duration of this procedure. The skill set of a physician assistant media planner was medically necessary to complete this procedure. During the surgical case the technical professional was working at the back table and the physician assistant media planner was directly assisting me. Pathology: none sent Operation and Findings: Kyree returns to the operating today for management of right arm necrotizing infection and open forearm wound. Informed consent was obtained preoperatively and OpSite was marked. He is brought the operating room. Is given IV sedation and general anesthesia. Right arm was prepped with alcohol followed Hibiclens and draped in usual sterile fashion. Timeout procedure was performed. Procedure began with excisional debridement of the right forearm. Areas of skin fascia and muscle were sharply debrided. Scalpel and rongoure were used for debridement. Overall the wound appeared to be relatively healthy. The wound was now thoroughly irrigated with sterile saline. Patient has some early granulation tissue forming. Patient's forearm is not yet ready for skin graft. Next, attention was turned towards wound VAC dressing. An extra-large VAC dressing was opened. VAC dressing was cut to fit the wound. VAC dressing was sealed appropriately. Patient was awakened and transferred to recovery in stable condition.
[2018-02-26] MEDS ORDERED: fentaNYL Citrate Inj 100 MCG/2 ML Ampul ONE (18:02)
[2018-02-26] MEDS ORDERED: *morphine SULFATE 4 MG/ML PERIprocedure ONLY ONE ×2 (18:02→18:14)
[2018-02-26] MEDS ORDERED: *Meperidine Inj 25 MG/ML Vial PERIprocedural Use ONLY ONE (18:05)
[2018-02-27] MEDS: HYDROmorphone PF Inj 2 MG/ML Vial IV.PUSH PRN ×7 (02:18→23:45)
[2018-02-27] MEDS: KCL 20 mEq/D5W/NaCl 0.9% Inj 1,000 ML IV.CONT SCH ×3 (02:19→19:02)
[2018-02-27] MEDS: ceFAZolin Inj 2,000 MG in Sodium Chlor 0.9% Inj 80 ML IV.SIG SCH ×3 (02:29→17:00)
[2018-02-27] MEDS: Gabapentin 400 MG Capsule PO SCH ×6 (05:11→22:43)
[2018-02-27 05:28] LABS: Hematocrit 21.7 % (39.0-51.0); Hemoglobin 7.3 gm/dL (13.0-17.0); Mean Corpuscular HGB Conc 33.6 % (32.0-36.0); Mean Corpuscular Hemoglobin 30.5 pg (27.0-34.0); Mean Corpuscular Volume 90.8 fL (80.0-100.0); Platelet Count 433 th/mm3 (150-450); Red Blood Count 2.39 mil/mm3 (4.50-5.90); Red Cell Distribution Width 14.1 % (11.6-17.2); White Blood Count 13.5 th/mm3 (4.0-11.0)
[2018-02-27 06:09] LABS: Anion Gap 4 meq/L (5-15); Blood Urea Nitrogen 6 mg/dL (7-18); Calcium 7.9 mg/dL (8.5-10.1); Carbon Dioxide 36.7 meq/L (21.0-32.0); Chloride 96 meq/L (98-107); Glomerular Filtration Rate Greater Than 89 mL/min (>89); Glucose,Random 137 mg/dL (74-106); Magnesium 1.6 mg/dL (1.5-2.5); Phosphorus 3.2 mg/dL (2.5-4.9); Potassium 3.6 meq/L (3.5-5.1); Sodium 137 meq/L (136-145)
--- NOTE | 2018-02-27 07:03 | P.PNOP ---
Subjective Interval history: POd 1 s/p I&D and vac change right forearm doing well. pain controlled. no new complaints. Physical Exam Vital signs: Vital Signs 02/26/18 08:00 02/26/18 12:00 02/26/18 16:00 Temperature 97.7 F 97.6 F 98.0 F Pulse Rate 77 81 79 Respiratory Rate 16 14 18 Blood Pressure 149/84 H 151/65 H 166/75 H Pulse Oximetry 98 91 L 98 02/26/18 17:55 02/26/18 18:10 02/26/18 18:25 Temperature 97.6 F 98.0 F Pulse Rate 74 73 72 Respiratory Rate 20 18 20 Blood Pressure 162/70 H 154/70 H 152/68 H Pulse Oximetry 100 97 97 02/26/18 19:10 02/27/18 00:00 02/27/18 00:23 Temperature 97.6 F 98.1 F Pulse Rate 73 71 74 Respiratory Rate 18 18 Blood Pressure 192/84 H 161/72 H Pulse Oximetry 98 97 02/27/18 00:24 02/27/18 04:00 02/27/18 05:36 Temperature Pulse Rate 71 Respiratory Rate 18 18 18 Blood Pressure Pulse Oximetry Intake & Output 02/26/18 02/27/18 02/27/18 18:59 06:59 18:59 Intake Total 1420 / 1420 1400 / 1400 Output Total 5 / 5 900 / 900 Balance 1415 / 1415 500 / 500 Intake: IV 1120 / 1120 1200 / 1200 D5W/NS + KCL 20 mEq Inj 1,000 1000 / 1000 ML @ 100 mls/hr IV.CONT .Q10H [place] Rx#:[id number] D5W/NS + KCL 40 mEq Inj 1,000 900 / 900 ML @ 100 mls/hr IV.CONT .Q10H [place] Rx#:[id number] Calcium Chloride Inj 2 GM In NS 120 / 120 Inj 100 ML @ 120 mls/hr IV.SIG ONCE ONE Rx#:[id number] Ancef Inj 2,000 MG In NS Inj 80 100 / 100 200 / 200 ML @ 200 mls/hr IV.SIG Q8H [place] Rx#:[id number] Oral 200 / 200 Anesthesia Amount 300 / 300 Output: Urine 400 / 400 Estimated Blood Loss 5 / 5 Gastric Drainage 500 / 500 Right Nare Nasogastric Tube 500 / 500 Other: Mode Setting Right Arm Intermittent Intermittent Narrative: RUE: +vac. good seal. nvi. Results - Labs CBC & Chem 7: 02/27/18 05:10 02/27/18 05:10 Laboratory Results - last 24 hr 02/26/18 02/26/18 02/27/18 06:30 16:14 05:10 WBC RBC Hgb Hct MCV MCH MCHC RDW Plt Count MPV Sodium 137 137 Potassium 4.1 D 3.6 Chloride 94 L D 96 L Carbon Dioxide 37.2 H 36.7 H Anion Gap 6 4 L BUN 10 6 L Creatinine 0.71 0.73 Estimated GFR Greater than 89 Greater than 89 POC Glucose 131 H Random Glucose 119 H 137 H Calcium 6.2 L* D 7.9 L D Prot Corrected Calcium 7.1 L* Phosphorus 2.0 L 3.2 D Magnesium 1.8 1.6 Total Protein 5.2 L D 02/27/18 05:10 WBC 13.5 H RBC 2.39 L Hgb 7.3 L Hct 21.7 L MCV 90.8 MCH 30.5 MCHC 33.6 RDW 14.1 Plt Count 433 MPV 7.0 Sodium Potassium Chloride Carbon Dioxide Anion Gap BUN Creatinine Estimated GFR POC Glucose Random Glucose Calcium Prot Corrected Calcium Phosphorus Magnesium Total Protein Assessment and Plan - Assessment and Plan 1) Right Arm Necrotizing Fasciitis s/p I&D and vac application - POD 1 -maintain vac at all times. -100mmHg, DPC, 3:1 -plan for possible skin graft with repeat I&D sunday -will need skin grafting of right arm when infection is cleared and enough granulation tissue present -Cx: group A beta strep
[2018-02-27] MEDS: Lactobacillus Acidophilus/L. Spores Tablet PO SCH ×4 (09:08→20:16)
[2018-02-27] MEDS: Famotidine PF Inj 20 MG/2 ML Vial IV.PUSH SCH ×2 (09:11→20:28)
--- NOTE | 2018-02-27 09:42 | XR ---
EXAM DATE: 02/27/2018 6:00 AM EDT AGE/SEX: 62 years / Male INDICATIONS: Distention. CLINICAL DATA: This is the patient's subsequent encounter. Patient reports that signs and symptoms h ave been present for 1 week and indicates a pain score of 0/10. MEDICAL/SURGICAL HISTORY: . Diverticulitis. Gastroesophageal reflux disease. Hypertension. . Colectomy. [place] [facility] [place]UB, [place]. [facility] [place] PELVIS W/O CONTRAST, 02/24/2018. . FINDINGS: There remains gaseous distention of small bowel loops overlying the mid to upper abdomen. There is a ir seen within the large bowel. NG tube is present and the side-port overlies the expected location o f the distal esophagus. Osseous structures are intact. CONCLUSION: Persistent small bowel dilatation. Electronically signed by: Wilfred Desir MD 02/27/2018 9:41 AM EDT
--- NOTE | 2018-02-27 15:40 | P.PNGS ---
Subjective Interval history: Resting in bed Tolerating clear liquids No issues after NGT clamped early this morning Physical Exam Vital signs: Vital Signs 02/26/18 16:00 02/26/18 17:55 02/26/18 18:10 Temperature 98.0 F 97.6 F Pulse Rate 79 74 73 Respiratory Rate 18 20 18 Blood Pressure 166/75 H 162/70 H 154/70 H Pulse Oximetry 98 100 97 02/26/18 18:25 02/26/18 19:10 02/27/18 00:00 Temperature 98.0 F 97.6 F Pulse Rate 72 73 71 Respiratory Rate 20 18 Blood Pressure 152/68 H 192/84 H Pulse Oximetry 97 98 02/27/18 00:23 02/27/18 00:24 02/27/18 04:00 Temperature 98.1 F Pulse Rate 74 71 Respiratory Rate 18 18 18 Blood Pressure 161/72 H Pulse Oximetry 97 02/27/18 05:36 02/27/18 06:00 02/27/18 08:00 Temperature 98.4 F 98.7 F Pulse Rate 64 65 Respiratory Rate 18 18 16 Blood Pressure 163/72 H 154/70 H Pulse Oximetry 97 96 02/27/18 12:00 Temperature 97.8 F Pulse Rate 68 Respiratory Rate 16 Blood Pressure 172/79 H Pulse Oximetry 96 Intake & Output 02/26/18 02/27/18 02/27/18 18:59 06:59 18:59 Intake Total 1420 / 1420 1400 / 1400 100 / 100 Output Total 5 / 5 900 / 900 Balance 1415 / 1415 500 / 500 100 / 100 Weight 106 kg Intake: IV 1120 / 1120 1200 / 1200 100 / 100 D5W/NS + KCL 20 mEq Inj 1,000 1000 / 1000 ML @ 100 mls/hr IV.CONT .Q10H [place] Rx#:[id number] D5W/NS + KCL 40 mEq Inj 1,000 900 / 900 ML @ 100 mls/hr IV.CONT .Q10H [place] Rx#:[id number] Calcium Chloride Inj 2 GM In NS 120 / 120 Inj 100 ML @ 120 mls/hr IV.SIG ONCE ONE Rx#:[id number] Ancef Inj 2,000 MG In NS Inj 80 100 / 100 200 / 200 100 / 100 ML @ 200 mls/hr IV.SIG Q8H [place] Rx#:[id number] Oral 200 / 200 Anesthesia Amount 300 / 300 Output: Urine 400 / 400 Estimated Blood Loss 5 / 5 Gastric Drainage 500 / 500 Right Nare Nasogastric Tube 500 / 500 Other: Mode Setting Right Arm Intermittent Intermittent Intermittent Narrative: Alert and awake Abd: soft; non tender; NGT clamped Results - Labs 02/27/18 05:10 02/27/18 05:10 Laboratory Results - last 24 hr 02/26/18 02/27/18 02/27/18 16:14 05:10 05:10 WBC 13.5 H RBC 2.39 L Hgb 7.3 L Hct 21.7 L MCV 90.8 MCH 30.5 MCHC 33.6 RDW 14.1 Plt Count 433 MPV 7.0 Sodium 137 Potassium 3.6 Chloride 96 L Carbon Dioxide 36.7 H Anion Gap 4 L BUN 6 L Creatinine 0.73 Estimated GFR Greater than 89 POC Glucose 131 H Random Glucose 137 H Calcium 7.9 L D Phosphorus 3.2 D Magnesium 1.6 - Imaging Imaging: ITS Impressions Forearm CT 02/17/18 13:55 CONCLUSION: 1. Prominent area of subcutaneous fluid, thickening, and collections of gas extending from distal forearm to elbow, suspicious for abscess along the medial aspect of the forearm. 2. Osseous structures are radiographically intact. Forearm X-Ray 02/17/18 13:55 CONCLUSION: 1. Diffuse soft tissue swelling. 2. No acute fracture or joint dislocation. Head CT 02/17/18 13:55 CONCLUSION: 1. Negative noncontrast CT brain. . Abdomen/Pelvis CT 02/24/18 00:00 CONCLUSION: 1. Small bowel obstruction with significantly dilated small bowel and evidence of free fluid identified within the right upper quadrant and left midabdomen. The transition point appears within the lower central pelvis within the ileum. There appears to be large areas of adhesion with small bowel and the adjacent abdominal mesh. Chest X-Ray 02/24/18 00:00 CONCLUSION: 1. NG tube is coiled in the oropharynx. 2. Stable mild left lower lung zone pleural-parenchymal opacities. Tube Placement X-Ray 02/24/18 00:00 CONCLUSION: 1. Fluoroscopic guided placement of nasogastric catheter. Abdomen X-Ray 02/27/18 06:00 CONCLUSION: Persistent small bowel dilatation. Assessment and Plan - Assessment (1) Small bowel obstruction Code(s): K56.609 - Unspecified intestinal obstruction, unspecified as to partial versus complete obstruction Status: Acute Plan: 62 year old male with RIGHT arm infection----Orthopedics following; now with abdominal pain -+flatus -NG clamped; tolerating clears -DC NGT -Continue non op treatment - Attending Attestation The exam, history, and the medical decision-making described in the above note were completed with the assistance of the mid-level provider. I reviewed and agree with the findings presented. I attest that I had a [id number] encounter with the patient on the same day, and personally performed and documented my assessment and findings in the medical record. SBO resolving, likely due to adhesions, possibly some ileus component 2/2 repeated anesthesia and opioids abdominal exam better, soft pain better will follow, advance slowly
--- NOTE | 2018-02-27 17:42 | P.PNIM ---
Subjective Interval history: 62-year-old male who is admitted for necrotizing fasciitis of right arm, he remains in positive spirits despite this diagnosis and the addition of recent small bowel obstruction which he received an NG tube for decompression. He is requesting to have the NG tube removed today if possible. Denies any nausea or vomiting since yesterday. Physical Exam Vital signs: Vital Signs 02/26/18 17:55 02/26/18 18:10 02/26/18 18:25 Temperature 97.6 F 98.0 F Pulse Rate 74 73 72 Respiratory Rate 20 18 20 Blood Pressure 162/70 H 154/70 H 152/68 H Pulse Oximetry 100 97 97 02/26/18 19:10 02/27/18 00:00 02/27/18 00:23 Temperature 97.6 F 98.1 F Pulse Rate 73 71 74 Respiratory Rate 18 18 Blood Pressure 192/84 H 161/72 H Pulse Oximetry 98 97 02/27/18 00:24 02/27/18 04:00 02/27/18 05:36 Temperature Pulse Rate 71 Respiratory Rate 18 18 18 Blood Pressure Pulse Oximetry 02/27/18 06:00 02/27/18 08:00 02/27/18 12:00 Temperature 98.4 F 98.7 F 97.8 F Pulse Rate 64 65 68 Respiratory Rate 18 16 16 Blood Pressure 163/72 H 154/70 H 172/79 H Pulse Oximetry 97 96 96 02/27/18 16:00 Temperature 98.4 F Pulse Rate 71 Respiratory Rate 17 Blood Pressure 161/75 H Pulse Oximetry 99 Intake & Output 02/26/18 02/27/18 02/27/18 18:59 06:59 18:59 Intake Total 1420 / 1420 1400 / 1400 1100 / 1100 Output Total 5 / 5 900 / 900 Balance 1415 / 1415 500 / 500 1100 / 1100 Weight 106 kg Intake: IV 1120 / 1120 1200 / 1200 1100 / 1100 D5W/NS + KCL 20 mEq Inj 1,000 1000 / 1000 1000 / 1000 ML @ 100 mls/hr IV.CONT .Q10H [place] Rx#:[id number] D5W/NS + KCL 40 mEq Inj 1,000 900 / 900 ML @ 100 mls/hr IV.CONT .Q10H [place] Rx#:[id number] Calcium Chloride Inj 2 GM In NS 120 / 120 Inj 100 ML @ 120 mls/hr IV.SIG ONCE ONE Rx#:[id number] Ancef Inj 2,000 MG In NS Inj 80 100 / 100 200 / 200 100 / 100 ML @ 200 mls/hr IV.SIG Q8H [place] Rx#:[id number] Oral 200 / 200 Anesthesia Amount 300 / 300 Output: Urine 400 / 400 Estimated Blood Loss 5 / 5 Gastric Drainage 500 / 500 Right Nare Nasogastric Tube 500 / 500 Other: Mode Setting Right Arm Intermittent Intermittent Intermittent Date of Last Bowel Movement 02/27/18 # Bowel Movements 1 Narrative: GENERAL: AAOx3, no acute distress, uncomfortable from NG tube SKIN: Warm and dry. No rashes, Júnior bandage over right arm HEAD: Atruamtic, normocephalic. EYES: No scleral icterus. No injection or drainage. ENT: Moist mucous membranes, patent nares, no erythema of oropharynx. NG tube in place NECK: Supple, trachea midline. No JVD or lymphadenopathy. Normal thyroid. CARDIOVASCULAR: Regular rate and rhythm. No murmurs, gallops, or rubs. RESPIRATORY: Breath sounds clear equal bilaterally. No crackles or wheezes. No accessory muscle use. GASTROINTESTINAL: Abdomen soft, non-tender, nondistended, normal active bowel sounds MUSCULOSKELETAL: No cyanosis, or edema. NEURO: CN II-XII grossly intact, no focal deficits, no slurring of speech Results - Labs CBC & Chem 7: 02/27/18 05:10 02/27/18 05:10 Laboratory Results - last 24 hr 02/27/18 02/27/18 05:10 05:10 WBC 13.5 H RBC 2.39 L Hgb 7.3 L Hct 21.7 L MCV 90.8 MCH 30.5 MCHC 33.6 RDW 14.1 Plt Count 433 MPV 7.0 Sodium 137 Potassium 3.6 Chloride 96 L Carbon Dioxide 36.7 H Anion Gap 4 L BUN 6 L Creatinine 0.73 Estimated GFR Greater than 89 Random Glucose 137 H Calcium 7.9 L D Phosphorus 3.2 D Magnesium 1.6 - Imaging Impressions Abdomen X-Ray 02/27/18 06:00 CONCLUSION: Persistent small bowel dilatation. Assessment and Plan - Plan 62-year-old male admitted secondary to necrotizing fasciitis of the right arm Necrotizing fasciitis Ortho and ID consults appreciated. For debridements thus far since 02/17/2018, another debridement scheduled for Continue clindamycin, vancomycin, meropenem Continue pain management Appreciate orthopedics involvement Small bowel obstruction Noted on CT, NG tube placed, symptoms resolved, tube was clamped and nausea did not persist. Bowel sounds are hypoactive on exam today, patient tolerating clear liquids GI pulled NG tube this afternoon, advancing diet as tolerated Chloraseptic spray as needed for throat discomfort Appreciate general surgery consult Appreciate gastroenterology consult Hypertension Okay to resume p.o. meds Tobacco use disorder Okay to resume Wellbutrin Patient counseled to quit DVT prophylaxis SCDs due to frequent surgical debridements
--- NOTE | 2018-02-27 18:55 | P.PNADD ---
Addendum to Inpatient Note Additional information: C.diff negative SBO on CT Gen sx ff conservative treatment NG clamped anticipate transition to PO abx @ dc
--- NOTE | 2018-02-27 18:58 | P.PNGI ---
Subjective Interval history: Patient resting comfortably with eyes closed, awakens easily. Denies abdominal pain, states tolerating clear liquids well without any nausea or vomiting. NG out and patient reports having one small soft brown bowel movement this afternoon. <BrunoMelany - Last Filed: 02/27/18 18:53> Physical Exam Vital signs: Vital Signs 02/26/18 19:10 02/27/18 00:00 02/27/18 00:23 Temperature 97.6 F 98.1 F Pulse Rate 73 71 74 Respiratory Rate 18 18 Blood Pressure 192/84 H 161/72 H Pulse Oximetry 98 97 02/27/18 00:24 02/27/18 04:00 02/27/18 05:36 Temperature Pulse Rate 71 Respiratory Rate 18 18 18 Blood Pressure Pulse Oximetry 02/27/18 06:00 02/27/18 08:00 02/27/18 12:00 Temperature 98.4 F 98.7 F 97.8 F Pulse Rate 64 65 68 Respiratory Rate 18 16 16 Blood Pressure 163/72 H 154/70 H 172/79 H Pulse Oximetry 97 96 96 02/27/18 16:00 Temperature 98.4 F Pulse Rate 71 Respiratory Rate 17 Blood Pressure 161/75 H Pulse Oximetry 99 Intake & Output 02/26/18 02/27/18 02/27/18 18:59 06:59 18:59 Intake Total 1420 / 1420 1400 / 1400 1100 / 1100 Output Total 5 / 5 900 / 900 Balance 1415 / 1415 500 / 500 1100 / 1100 Weight 106 kg Intake: IV 1120 / 1120 1200 / 1200 1100 / 1100 D5W/NS + KCL 20 mEq Inj 1,000 1000 / 1000 1000 / 1000 ML @ 100 mls/hr IV.CONT .Q10H [facility] Rx#:[id number] D5W/NS + KCL 40 mEq Inj 1,000 900 / 900 ML @ 100 mls/hr IV.CONT .Q10H [facility] Rx#:[id number] Calcium Chloride Inj 2 GM In NS 120 / 120 Inj 100 ML @ 120 mls/hr IV.SIG ONCE ONE Rx#:[id number] Ancef Inj 2,000 MG In NS Inj 80 100 / 100 200 / 200 100 / 100 ML @ 200 mls/hr IV.SIG Q8H [facility] Rx#:[id number] Oral 200 / 200 Anesthesia Amount 300 / 300 Output: Urine 400 / 400 Estimated Blood Loss 5 / 5 Gastric Drainage 500 / 500 Right Nare Nasogastric Tube 500 / 500 Other: Mode Setting Right Arm Intermittent Intermittent Intermittent Date of Last Bowel Movement 02/27/18 # Bowel Movements 1 - Constitutional no acute distress - Routine HEENT Exam Head: Present: normocephalic - Routine Respiratory Exam Present: CTA bilaterally. Absent: accessory muscle use - Routine Abdominal Exam Present: soft, normoactive bowel sounds, distended. Absent: guarding, firm - Routine Extremities Exam Absent: edema - Routine Skin Exam Present: dry, warm - Routine Neurological Exam Present: alert, oriented X3 - Routine Psychiatric Exam Present: normal affect, cooperative <Bruno,Melany - Last Filed: 02/27/18 18:53> Vital signs: Vital Signs 02/27/18 00:00 02/27/18 00:23 02/27/18 00:24 Temperature 98.1 F Pulse Rate 71 74 Respiratory Rate 18 18 Blood Pressure 161/72 H Pulse Oximetry 97 02/27/18 04:00 02/27/18 05:36 02/27/18 06:00 Temperature 98.4 F Pulse Rate 71 64 Respiratory Rate 18 18 18 Blood Pressure 163/72 H Pulse Oximetry 97 02/27/18 08:00 02/27/18 12:00 02/27/18 16:00 Temperature 98.7 F 97.8 F 98.4 F Pulse Rate 65 68 71 Respiratory Rate 16 16 17 Blood Pressure 154/70 H 172/79 H 161/75 H Pulse Oximetry 96 96 99 02/27/18 19:37 Temperature 97.3 F L Pulse Rate 70 Respiratory Rate 18 Blood Pressure 167/73 H Pulse Oximetry 97 Intake & Output 02/27/18 02/27/18 02/28/18 06:59 18:59 06:59 Intake Total 1400 / 1400 1820 / 1820 100 / 100 Output Total 900 / 900 400 / 400 Balance 500 / 500 1420 / 1420 100 / 100 Weight 106 kg Intake: IV 1200 / 1200 1100 / 1100 100 / 100 D5W/NS + KCL 20 mEq Inj 1,000 1000 / 1000 1000 / 1000 ML @ 100 mls/hr IV.CONT .Q10H [facility] Rx#:[id number] Ancef Inj 2,000 MG In NS Inj 80 200 / 200 100 / 100 100 / 100 ML @ 200 mls/hr IV.SIG Q8H [facility] Rx#:[id number] Oral 200 / 200 720 / 720 Output: Urine 400 / 400 400 / 400 Gastric Drainage 500 / 500 Right Nare Nasogastric Tube 500 / 500 Other: Mode Setting Right Arm Intermittent Intermittent # Voids 2 4 Date of Last Bowel Movement 02/27/18 02/27/18 # Bowel Movements 1 <Linda Gant - Last Filed: 02/27/18 20:56> Results - Labs CBC & Chem 7: 02/27/18 05:10 02/27/18 05:10 Laboratory Results - last 24 hr 02/27/18 02/27/18 05:10 05:10 WBC 13.5 H RBC 2.39 L Hgb 7.3 L Hct 21.7 L MCV 90.8 MCH 30.5 MCHC 33.6 RDW 14.1 Plt Count 433 MPV 7.0 Sodium 137 Potassium 3.6 Chloride 96 L Carbon Dioxide 36.7 H Anion Gap 4 L BUN 6 L Creatinine 0.73 Estimated GFR Greater than 89 Random Glucose 137 H Calcium 7.9 L D Phosphorus 3.2 D Magnesium 1.6 - Imaging Impressions Abdomen X-Ray 02/27/18 06:00 CONCLUSION: Persistent small bowel dilatation. <Melany Bruno - Last Filed: 02/27/18 18:53> - Labs CBC & Chem 7: 02/27/18 05:10 02/27/18 05:10 Laboratory Results - last 24 hr 02/27/18 02/27/18 05:10 05:10 WBC 13.5 H RBC 2.39 L Hgb 7.3 L Hct 21.7 L MCV 90.8 MCH 30.5 MCHC 33.6 RDW 14.1 Plt Count 433 MPV 7.0 Sodium 137 Potassium 3.6 Chloride 96 L Carbon Dioxide 36.7 H Anion Gap 4 L BUN 6 L Creatinine 0.73 Estimated GFR Greater than 89 Random Glucose 137 H Calcium 7.9 L D Phosphorus 3.2 D Magnesium 1.6 - Imaging Impressions Abdomen X-Ray 02/27/18 06:00 CONCLUSION: Persistent small bowel dilatation. <Linda Gant - Last Filed: 02/27/18 20:56> Assessment and Plan (1) GI bleed Status: Acute Code(s): K92.2 - Gastrointestinal hemorrhage, unspecified (2) Small bowel obstruction Status: Acute Code(s): K56.609 - Unspecified intestinal obstruction, unspecified as to partial versus complete obstruction - Plan Small bowel obstruction/GI bleed NG tube in place, attached to low intermittent wall suction. 550 mL's of dark wnrbgilr-nbtcvu-zssgsv appearance- noted in suction container. Abdomen distended but soft and nontender. Positive bowel sounds noted. KUB this a.m. revealed the following---> There is an NGT with tip in the proximal stomach. Multiple loops of distended air-filled small bowel throughout the abdomen. Air is seen in the colon extending to the sigmoid. No gross free air or pneumatosis. Surgical clips are seen throughout the abdomen. Osseous structures are intact. NG tube the proximal stomach. Persistent small bowel obstruction pattern. Anemia Hemoglobin 8.1 hematocrit 24.6 platelet count 470. Stable, patient denies any rectal bleeding. We will continue to follow labs and monitor for active bleeding. 02/26/2018 Small bowel obstruction/GI bleeding NG tube in place to low intermittent wall suction. 400 mL's of dark drainage noted in suction container. Patient states he drank from water pitcher last evening. Advised not to do so, states tolerated ice chips well. Denies any nausea. Noted general surgery recommendation to trial clamping NG tube, offering clear liquids. Patient n.p.o. at this time for orthopedic procedure/I& D right upper extremity. KUB in the a.m. Anemia Hemoglobin 7.2 hematocrit 21.4 platelet count 403. Patient denies any obvious bleeding. No active bleeding per nursing. 02/26/2018 Abdomen distended with positive bowel sounds present. Patient tolerating ice chips and clear liquids without nausea or vomiting. Hemoglobin 7.3 hematocrit 21.7. Patient denies any active bleeding no active bleeding reported. Plan -Clear liquids -Monitor for bleeding -Monitor labs -General surgery recommendations noted -Supportive care -Further recommendations to follow based on patient status and findings This patient has been seen by myself and Dr. Gant and this note is written on her behalf - Attending Attestation <Melany Bruno - Last Filed: 02/27/18 18:53> (1) GI bleed Status: Acute Code(s): K92.2 - Gastrointestinal hemorrhage, unspecified (2) Small bowel obstruction Status: Acute Code(s): K56.609 - Unspecified intestinal obstruction, unspecified as to partial versus complete obstruction - Attending Attestation seen, examined agree with above egd when sbo completely resolved, unless active bleeding <Linda Gant - Last Filed: 02/27/18 20:56>
[2018-02-28] MEDS: ceFAZolin Inj 2,000 MG in Sodium Chlor 0.9% Inj 80 ML IV.SIG SCH ×3 (01:50→17:31)
[2018-02-28] MEDS: HYDROmorphone PF Inj 2 MG/ML Vial IV.PUSH PRN ×6 (03:13→23:52)
[2018-02-28] MEDS: KCL 20 mEq/D5W/NaCl 0.9% Inj 1,000 ML IV.CONT SCH ×3 (03:13→23:51)
[2018-02-28] MEDS: Gabapentin 400 MG Capsule PO SCH ×5 (06:01→22:08)
--- NOTE | 2018-02-28 06:56 | P.PNOP ---
Subjective Interval history: Patient is awake and alert. He has large open wound on right arm with VAC dressing in place. No new complaints. Physical Exam Vital signs: Vital Signs 02/27/18 08:00 02/27/18 12:00 02/27/18 16:00 Temperature 98.7 F 97.8 F 98.4 F Pulse Rate 65 68 71 Respiratory Rate 16 16 17 Blood Pressure 154/70 H 172/79 H 161/75 H Pulse Oximetry 96 96 99 02/27/18 19:37 02/27/18 23:44 02/28/18 00:45 Temperature 97.3 F L 97.7 F Pulse Rate 70 67 Respiratory Rate 18 20 18 Blood Pressure 167/73 H 148/67 H Pulse Oximetry 97 97 02/28/18 00:51 02/28/18 00:52 02/28/18 02:40 Temperature Pulse Rate 66 Respiratory Rate 18 18 Blood Pressure Pulse Oximetry 02/28/18 03:18 02/28/18 04:25 02/28/18 04:43 Temperature 97.2 F L Pulse Rate 68 62 Respiratory Rate 20 16 Blood Pressure 155/68 H Pulse Oximetry 95 Intake & Output 02/27/18 02/27/18 02/28/18 06:59 18:59 06:59 Intake Total 1400 / 1400 1820 / 1820 1938 Output Total 900 / 900 400 / 400 Balance 500 / 500 1420 / 1420 1938 Weight 106 kg Intake: IV 1200 / 1200 1100 / 1100 1938 D5W/NS + KCL 20 mEq Inj 1,000 1000 / 1000 1000 / 1000 1739 / 1739 ML @ 100 mls/hr IV.CONT .Q10H [facility] Rx#:[id number] Ancef Inj 2,000 MG In NS Inj 80 200 / 200 100 / 100 200 / 200 ML @ 200 mls/hr IV.SIG Q8H [facility] Rx#:[id number] Oral 200 / 200 720 / 720 Output: Urine 400 / 400 400 / 400 Gastric Drainage 500 / 500 Right Nare Nasogastric Tube 500 / 500 Other: Mode Setting Right Arm Intermittent Intermittent Intermittent # Voids 2 4 Date of Last Bowel Movement 02/27/18 02/27/18 # Bowel Movements 1 Narrative: Kyree is awake and alert. VAC dressing in place on right arm. Intact sensation in all fingers. Good capillary refill right hand and fingers. Results - Labs CBC & Chem 7: 02/27/18 05:10 02/27/18 05:10 - Imaging Impressions Abdomen X-Ray 02/27/18 06:00 CONCLUSION: Persistent small bowel dilatation. Assessment and Plan - Assessment and Plan 1) Right Arm Necrotizing Fasciitis s/p multiple I&D and vac application -maintain vac at all times. -125mmHg, intermittent 3:1 -plan for possible skin graft with repeat I&D and VAC dressing change Sunday -will need skin grafting of right arm when infection is cleared and enough granulation tissue present -Cx: group A beta strep -N.p.o. after midnight tonight -Consents on chart
[2018-02-28] MEDS: Famotidine PF Inj 20 MG/2 ML Vial IV.PUSH SCH ×2 (09:13→20:25)
[2018-02-28] MEDS: Lactobacillus Acidophilus/L. Spores Tablet PO SCH ×3 (09:14→17:31)
--- NOTE | 2018-02-28 11:04 | MP ---
cc: Gin Boswell MD DATE OF OPERATION: 02/28/2018 PREOPERATIVE DIAGNOSIS: Necrotizing fasciitis, right arm. POSTOPERATIVE DIAGNOSIS: Necrotizing fasciitis, right arm. PROCEDURE PERFORMED: Irrigation and debridement, right forearm with application of wound VAC dressing. SURGEON: Dr. Gin Boswell. SUB MASTER: None. ANESTHESIA: General. ESTIMATED BLOOD LOSS: 50 mL COMPLICATIONS: None. SPECIMENS: None. DESCRIPTION PROCEDURE: The patient was identified in the preop holding area and the correct side and site were clearly marked. The patient was then taken back to the operating room and placed supine on the standard operating table with a hand table attachment. General anesthesia was then administered. His wound VAC dressing was removed and the right arm was then prepped and draped in the usual sterile fashion with Betadine. After an appropriate timeout, procedure began. Overall, the wound bed looked pretty healthy without any gross purulence noted. There were a few remaining areas of necrotic skin and fat. These areas were debrided sharply with scalpel and a rongeur. There was noted to be some degloving of the skin, but overall appeared healthy. There was some early granulation tissue. Once I was satisfied with our debridement, the wound was then irrigated copiously with saline. A VAC sponge was then cut to the appropriate size, stapled in place and sealed with an Ioban dressing. The remainder of his previous surgical incisions were covered with sterile dressings, and the patient was then awoken and taken to the recovery room in good condition. MD TRENT Talamantes/irwin , 09:08 AM , 09:14 AM
--- NOTE | 2018-02-28 12:26 | P.PNGI ---
Subjective Interval history: Patient sitting up in bed eating breakfast meal. Denies abdominal pain nausea or vomiting at this time. Tolerating clear liquids <Bruno,Melany - Last Filed: 02/28/18 12:19> Physical Exam Vital signs: Vital Signs 02/27/18 16:00 02/27/18 19:37 02/27/18 23:44 Temperature 98.4 F 97.3 F L 97.7 F Pulse Rate 71 70 67 Respiratory Rate 17 18 20 Blood Pressure 161/75 H 167/73 H 148/67 H Pulse Oximetry 99 97 97 02/28/18 00:45 02/28/18 00:51 02/28/18 00:52 Temperature Pulse Rate 66 Respiratory Rate 18 18 Blood Pressure Pulse Oximetry 02/28/18 02:40 02/28/18 03:18 02/28/18 04:25 Temperature 97.2 F L Pulse Rate 68 Respiratory Rate 18 20 16 Blood Pressure 155/68 H Pulse Oximetry 95 02/28/18 04:43 02/28/18 08:00 Temperature 97.9 F Pulse Rate 62 86 Respiratory Rate 18 Blood Pressure 151/80 H Pulse Oximetry 97 Intake & Output 02/27/18 02/28/18 02/28/18 18:59 06:59 18:59 Intake Total 1820 / 1820 1938 / 193 100 / 100 Output Total 400 / 400 Balance 1420 / 1420 1938 / 1938 100 / 100 Intake: IV 1100 / 1100 1938 100 / 100 D5W/NS + KCL 20 mEq Inj 1,000 1000 / 1000 1739 / 1739 ML @ 100 mls/hr IV.CONT .Q10H [facility] Rx#:[id number] Ancef Inj 2,000 MG In NS Inj 80 100 / 100 200 / 200 100 / 100 ML @ 200 mls/hr IV.SIG Q8H [facility] Rx#:[id number] Oral 720 / 720 Output: Urine 400 / 400 Other: Mode Setting Right Arm Intermittent Intermittent Intermittent # Voids 2 4 1 Date of Last Bowel Movement 02/27/18 02/27/18 02/28/18 # Bowel Movements 1 1 - Constitutional no acute distress - Routine HEENT Exam Head: Present: normocephalic - Routine Respiratory Exam Present: CTA bilaterally. Absent: accessory muscle use - Routine Abdominal Exam Present: soft, normoactive bowel sounds, distended. Absent: tenderness, guarding, firm - Routine Skin Exam Present: dry, warm - Routine Psychiatric Exam Present: normal affect, cooperative <Melany Bruno - Last Filed: 02/28/18 12:19> Vital signs: Vital Signs 02/27/18 19:37 02/27/18 23:44 02/28/18 00:45 Temperature 97.3 F L 97.7 F Pulse Rate 70 67 Respiratory Rate 18 20 18 Blood Pressure 167/73 H 148/67 H Pulse Oximetry 97 97 02/28/18 00:51 02/28/18 00:52 02/28/18 02:40 Temperature Pulse Rate 66 Respiratory Rate 18 18 Blood Pressure Pulse Oximetry 02/28/18 03:18 02/28/18 04:25 02/28/18 04:43 Temperature 97.2 F L Pulse Rate 68 62 Respiratory Rate 20 16 Blood Pressure 155/68 H Pulse Oximetry 95 02/28/18 08:00 02/28/18 12:00 Temperature 97.9 F 97.9 F Pulse Rate 86 72 Respiratory Rate 18 20 Blood Pressure 151/80 H 166/79 H Pulse Oximetry 97 98 Intake & Output 02/27/18 02/28/18 02/28/18 18:59 06:59 18:59 Intake Total 1820 / 1820 1938 / 1938 100 / 100 Output Total 400 / 400 Balance 1420 / 1420 1938 / 1938 100 / 100 Intake: IV 1100 / 1100 1938 100 / 100 D5W/NS + KCL 20 mEq Inj 1,000 1000 / 1000 1739 / 1739 0 / 0 ML @ 100 mls/hr IV.CONT .Q10H [facility] Rx#:[id number] Ancef Inj 2,000 MG In NS Inj 80 100 / 100 200 / 200 100 / 100 ML @ 200 mls/hr IV.SIG Q8H [facility] Rx#:[id number] Oral 720 / 720 Output: Urine 400 / 400 Other: Mode Setting Right Arm Intermittent Intermittent Intermittent # Voids 2 4 1 Date of Last Bowel Movement 02/27/18 02/27/18 02/28/18 # Bowel Movements 1 1 <Linda Gant - Last Filed: 02/28/18 16:48> Results - Labs CBC & Chem 7: 02/27/18 05:10 02/27/18 05:10 <Melany Bruno - Last Filed: 02/28/18 12:19> - Labs CBC & Chem 7: 02/27/18 05:10 02/27/18 05:10 <Linda Gant - Last Filed: 02/28/18 16:48> Assessment and Plan (1) GI bleed Status: Acute Code(s): K92.2 - Gastrointestinal hemorrhage, unspecified (2) Small bowel obstruction Status: Acute Code(s): K56.609 - Unspecified intestinal obstruction, unspecified as to partial versus complete obstruction - Plan Small bowel obstruction/GI bleed NG tube in place, attached to low intermittent wall suction. 550 mL's of dark nueswoqv-sjiuht-uqkcqx appearance- noted in suction container. Abdomen distended but soft and nontender. Positive bowel sounds noted. KUB this a.m. revealed the following---> There is an NGT with tip in the proximal stomach. Multiple loops of distended air-filled small bowel throughout the abdomen. Air is seen in the colon extending to the sigmoid. No gross free air or pneumatosis. Surgical clips are seen throughout the abdomen. Osseous structures are intact. NG tube the proximal stomach. Persistent small bowel obstruction pattern. Anemia Hemoglobin 8.1 hematocrit 24.6 platelet count 470. Stable, patient denies any rectal bleeding. We will continue to follow labs and monitor for active bleeding. 02/26/2018 Small bowel obstruction/GI bleeding NG tube in place to low intermittent wall suction. 400 mL's of dark drainage noted in suction container. Patient states he drank from water pitcher last evening. Advised not to do so, states tolerated ice chips well. Denies any nausea. Noted general surgery recommendation to trial clamping NG tube, offering clear liquids. Patient n.p.o. at this time for orthopedic procedure/I& D right upper extremity. KUB in the a.m. Anemia Hemoglobin 7.2 hematocrit 21.4 platelet count 403. Patient denies any obvious bleeding. No active bleeding per nursing. 02/27/2018 Abdomen distended with positive bowel sounds present. Patient tolerating ice chips and clear liquids without nausea or vomiting. Hemoglobin 7.3 hematocrit 21.7. Patient denies any active bleeding no active bleeding reported. 02/28/2018 Less abdominal distention noted. Patient tolerating clear liquid diet without nausea or vomiting. KUB/CBC in the a.m., patient and nursing deny any noted active bleeding. Discussed plan for endoscopy once small bowel obstruction resolved. Patient states he underwent endoscopy "a few weeks ago" at [facility]. Medical records requested Plan -Clear liquids -Monitor for bleeding -Monitor labs -Endoscopy findings requested from most recent hospitalization at [facility] -Supportive care -Further recommendations to follow based on patient status and findings This patient has been seen by myself and Dr. Gant and this note is written on her behalf - Attending Attestation Dr. Gant <Melany Bruno - Last Filed: 02/28/18 12:19> (1) GI bleed Status: Acute Code(s): K92.2 - Gastrointestinal hemorrhage, unspecified (2) Small bowel obstruction Status: Acute Code(s): K56.609 - Unspecified intestinal obstruction, unspecified as to partial versus complete obstruction - Attending Attestation seen, examined agree with above recent egd/colonoscopy-dr MOODY-gastritis <Linda Gant - Last Filed: 02/28/18 16:48>
--- NOTE | 2018-02-28 15:25 | P.PNGS ---
Subjective Patient reports: no new complaints, bowel movement Interval history: No issues overnight +BM Physical Exam Vital signs: Vital Signs 02/27/18 16:00 02/27/18 19:37 02/27/18 23:44 Temperature 98.4 F 97.3 F L 97.7 F Pulse Rate 71 70 67 Respiratory Rate 17 18 20 Blood Pressure 161/75 H 167/73 H 148/67 H Pulse Oximetry 99 97 97 02/28/18 00:45 02/28/18 00:51 02/28/18 00:52 Temperature Pulse Rate 66 Respiratory Rate 18 18 Blood Pressure Pulse Oximetry 02/28/18 02:40 02/28/18 03:18 02/28/18 04:25 Temperature 97.2 F L Pulse Rate 68 Respiratory Rate 18 20 16 Blood Pressure 155/68 H Pulse Oximetry 95 02/28/18 04:43 02/28/18 08:00 02/28/18 12:00 Temperature 97.9 F 97.9 F Pulse Rate 62 86 72 Respiratory Rate 18 20 Blood Pressure 151/80 H 166/79 H Pulse Oximetry 97 98 Intake & Output 02/27/18 02/28/18 02/28/18 18:59 06:59 18:59 Intake Total 1820 / 1820 1939 / 1939 100 / 100 Output Total 400 / 400 Balance 1420 / 1420 193 / 1939 100 / 100 Intake: IV 1100 / 1100 193 / 193 100 / 100 D5W/NS + KCL 20 mEq Inj 1,000 1000 / 1000 1739 / 1739 0 / 0 ML @ 100 mls/hr IV.CONT .Q10H [facility] Rx#:[id number] Ancef Inj 2,000 MG In NS Inj 80 100 / 100 200 / 200 100 / 100 ML @ 200 mls/hr IV.SIG Q8H [facility] Rx#:[id number] Oral 720 / 720 Output: Urine 400 / 400 Other: Mode Setting Right Arm Intermittent Intermittent Intermittent # Voids 2 4 1 Date of Last Bowel Movement 02/27/18 02/27/18 02/28/18 # Bowel Movements 1 1 Narrative: Alert and awake Abd: soft; non tender RIGHT arm with bandage - Constitutional no acute distress - Routine Abdominal Exam Present: soft, normoactive bowel sounds. Absent: tenderness, distended, rebound , guarding Results - Labs 03/01/18 04:30 03/01/18 04:30 - Imaging Imaging: ITS Impressions Forearm CT 02/17/18 13:55 CONCLUSION: 1. Prominent area of subcutaneous fluid, thickening, and collections of gas extending from distal forearm to elbow, suspicious for abscess along the medial aspect of the forearm. 2. Osseous structures are radiographically intact. Forearm X-Ray 02/17/18 13:55 CONCLUSION: 1. Diffuse soft tissue swelling. 2. No acute fracture or joint dislocation. Head CT 02/17/18 13:55 CONCLUSION: 1. Negative noncontrast CT brain. . Abdomen/Pelvis CT 02/24/18 00:00 CONCLUSION: 1. Small bowel obstruction with significantly dilated small bowel and evidence of free fluid identified within the right upper quadrant and left midabdomen. The transition point appears within the lower central pelvis within the ileum. There appears to be large areas of adhesion with small bowel and the adjacent abdominal mesh. Chest X-Ray 02/24/18 00:00 CONCLUSION: 1. NG tube is coiled in the oropharynx. 2. Stable mild left lower lung zone pleural-parenchymal opacities. Tube Placement X-Ray 02/24/18 00:00 CONCLUSION: 1. Fluoroscopic guided placement of nasogastric catheter. Abdomen X-Ray 02/27/18 06:00 CONCLUSION: Persistent small bowel dilatation. Assessment and Plan - Assessment (1) Small bowel obstruction Code(s): K56.609 - Unspecified intestinal obstruction, unspecified as to partial versus complete obstruction Status: Acute Plan: 62 year old male with RIGHT arm infection----Orthopedics following; now with abdominal pain -+flatus; +BM -Advance to fulls; will need to be NPO for Orthopedic procedure tomorrow -Continue non op treatment - Attending Attestation The exam, history, and the medical decision-making described in the above note were completed with the assistance of the mid-level provider. I reviewed and agree with the findings presented. I attest that I had a [id number] encounter with the patient on the same day, and personally performed and documented my assessment and findings in the medical record. bowel obstruction resolved no need for surgical intervention, will sign off
--- NOTE | 2018-02-28 18:46 | P.PNIM ---
Subjective Interval history: Patient is in good spirits despite his condition. He showed me his arm today during a dressing change and overall looks good but he will be in need of a skin graft. Physical Exam Vital signs: Vital Signs 02/27/18 19:37 02/27/18 23:44 02/28/18 00:45 Temperature 97.3 F L 97.7 F Pulse Rate 70 67 Respiratory Rate 18 20 18 Blood Pressure 167/73 H 148/67 H Pulse Oximetry 97 97 02/28/18 00:51 02/28/18 00:52 02/28/18 02:40 Temperature Pulse Rate 66 Respiratory Rate 18 18 Blood Pressure Pulse Oximetry 02/28/18 03:18 02/28/18 04:25 02/28/18 04:43 Temperature 97.2 F L Pulse Rate 68 62 Respiratory Rate 20 16 Blood Pressure 155/68 H Pulse Oximetry 95 02/28/18 08:00 02/28/18 12:00 02/28/18 16:00 Temperature 97.9 F 97.9 F 98.1 F Pulse Rate 86 72 73 Respiratory Rate 18 20 18 Blood Pressure 151/80 H 166/79 H 166/69 H Pulse Oximetry 97 98 97 Intake & Output 02/27/18 02/28/18 02/28/18 18:59 06:59 18:59 Intake Total 1820 / 1820 1938 100 / 100 Output Total 400 / 400 Balance 1420 / 1420 1938 / 1938 100 / 100 Intake: IV 1100 / 1100 1938 100 / 100 D5W/NS + KCL 20 mEq Inj 1,000 1000 / 1000 1739 / 1739 0 / 0 ML @ 100 mls/hr IV.CONT .Q10H [facility] Rx#:[id number] Ancef Inj 2,000 MG In NS Inj 80 100 / 100 200 / 200 100 / 100 ML @ 200 mls/hr IV.SIG Q8H [facility] Rx#:[id number] Oral 720 / 720 Output: Urine 400 / 400 Other: Mode Setting Right Arm Intermittent Intermittent Intermittent # Voids 2 4 1 Date of Last Bowel Movement 02/27/18 02/27/18 02/28/18 # Bowel Movements 1 1 Narrative: GENERAL: AAOx3, no acute distress SKIN: Warm and dry. 12-14 inch area of loss skin from debridement involving his forearm and just proximal to the elbow posteriorly, no sign of infection HEAD: Atruamtic, normocephalic. EYES: No scleral icterus. No injection or drainage. ENT: Moist mucous membranes, patent nares, no erythema of oropharynx. NECK: Supple, trachea midline. No JVD or lymphadenopathy. Normal thyroid. CARDIOVASCULAR: Regular rate and rhythm. No murmurs, gallops, or rubs. RESPIRATORY: Breath sounds clear equal bilaterally. No crackles or wheezes. No accessory muscle use. GASTROINTESTINAL: Abdomen soft, non-tender, nondistended, normal active bowel sounds MUSCULOSKELETAL: No cyanosis, or edema. NEURO: CN II-XII grossly intact, no focal deficits, no slurring of speech Results - Labs CBC & Chem 7: 02/27/18 05:10 02/27/18 05:10 Assessment and Plan - Plan 62-year-old male admitted secondary to necrotizing fasciitis of the right arm Necrotizing fasciitis Ortho and ID consults appreciated. For debridements thus far since 02/17/2018, another debridement scheduled for Planned for skin graft closure, likely will be hospitalized through next week Continue clindamycin, vancomycin, meropenem Continue pain management Appreciate orthopedics involvement Small bowel obstruction, resolved NG tube was removed yesterday, patient tolerating clears and advance to full liquid diet Undergoing another surgery tomorrow, plan to advance to solid foods following that Appreciate general surgery management Hypertension Continue home meds Tobacco use disorder Continue Wellbutrin Patient counseled to quit DVT prophylaxis SCDs due to frequent surgical debridements
[2018-03-01] MEDS: ceFAZolin Inj 2,000 MG in Sodium Chlor 0.9% Inj 80 ML IV.SIG SCH ×3 (01:21→19:26)
--- NOTE | 2018-03-01 04:21 | XR ---
EXAM DATE: 03/01/2018 6:00 AM EDT AGE/SEX: 62 years / Male INDICATIONS: Distention. CLINICAL DATA: This is the patient's subsequent encounter. Patient reports that signs and symptoms h ave been present for 4 - 6 days and indicates a pain score of 5/10. MEDICAL/SURGICAL HISTORY: Gastroesophageal reflux disease. Hypertension. Diverticulitis. . co lectomy. COMPARISON: [facility] [place] 1V KUB, 02/27/2018. . FINDINGS: There does appear to be dilated small bowel in the left upper abdomen measuring up to 4.[address] Free air is not seen. Dilated bowel is not seen in the pelvis. The colon is not distended. Herni a mesh is seen in the lower abdomen and pelvic region. CONCLUSION: Persistent mildly dilated bowel the upper abdomen. Electronically signed by: Ej Fisher MD 03/01/2018 4:19 AM EDT
[2018-03-01] MEDS: HYDROmorphone PF Inj 2 MG/ML Vial IV.PUSH PRN ×7 (04:28→23:44)
[2018-03-01 04:47] LABS: Baso # (Auto) 0.1 th/mm3 (0.0-0.2); Baso % (Auto) 0.9 % (0.0-2.0); Eos # (Auto) 0.2 th/mm3 (0.0-0.4); Eos % (Auto) 2.6 % (0.0-4.0); Hematocrit 22.6 % (39.0-51.0); Hemoglobin 7.7 gm/dL (13.0-17.0); Lymph # (Auto) 1.7 th/mm3 (1.0-4.8); Mean Corpuscular HGB Conc 33.9 % (32.0-36.0); Mean Corpuscular Hemoglobin 31.2 pg (27.0-34.0); Mean Corpuscular Volume 92.2 fL (80.0-100.0); Mono # (Auto) 0.8 th/mm3 (0.0-0.9); Mono % (Auto) 9.3 % (0.0-8.0); Neut # (Auto) 6.1 th/mm3 (1.8-7.7); Neut % (Auto) 68.2 % (16.0-70.0); Platelet Count 372 th/mm3 (150-450); Red Blood Count 2.45 mil/mm3 (4.50-5.90); Red Cell Distribution Width 14.5 % (11.6-17.2); White Blood Count 8.9 th/mm3 (4.0-11.0)
[2018-03-01 05:20] LABS: Glomerular Filtration Rate Greater Than 89 mL/min (>89)
[2018-03-01] MEDS: Gabapentin 400 MG Capsule PO SCH ×5 (06:03→22:26)
--- NOTE | 2018-03-01 07:12 | P.PNOP ---
Subjective Interval history: s/p I&D vac change right arm doing well. pain controlled. no new complaints Physical Exam Vital signs: Vital Signs 02/28/18 08:00 02/28/18 12:00 02/28/18 16:00 Temperature 97.9 F 97.9 F 98.1 F Pulse Rate 86 72 73 Respiratory Rate 18 20 18 Blood Pressure 151/80 H 166/79 H 166/69 H Pulse Oximetry 97 98 97 02/28/18 19:18 02/28/18 19:45 02/28/18 23:53 Temperature 98.1 F 97.4 F L Pulse Rate 73 74 73 Respiratory Rate 18 20 Blood Pressure 171/75 H 167/79 H Pulse Oximetry 96 98 03/01/18 00:00 03/01/18 00:59 03/01/18 02:19 Temperature Pulse Rate 72 Respiratory Rate 18 18 Blood Pressure Pulse Oximetry 03/01/18 04:00 Temperature 98.1 F Pulse Rate 64 Respiratory Rate 18 Blood Pressure 161/72 H Pulse Oximetry 95 Intake & Output 02/28/18 03/01/18 03/01/18 18:59 06:59 18:59 Intake Total 200 / 200 1015 / 1015 Output Total 1800 / 1800 Balance 200 / 200 -785 / -785 Weight 101.1 kg Intake: IV 200 / 200 1015 / 1015 D5W/NS + KCL 20 mEq Inj 1,000 0 / 0 915 / 915 ML @ 100 mls/hr IV.CONT .Q10H [facility] Rx#:[id number] Ancef Inj 2,000 MG In NS Inj 80 200 / 200 100 / 100 ML @ 200 mls/hr IV.SIG Q8H [facility] Rx#:[id number] Output: Urine 1800 / 1800 Other: Mode Setting Right Arm Intermittent Continuous # Voids 1 Date of Last Bowel Movement 02/28/18 02/28/18 # Bowel Movements 1 1 Narrative: RUE: +vac. good seal. nvi Results - Labs CBC & Chem 7: 03/01/18 04:30 03/01/18 04:30 Laboratory Results - last 24 hr 03/01/18 03/01/18 04:30 04:30 WBC 8.9 RBC 2.45 L Hgb 7.7 L Hct 22.6 L MCV 92.2 MCH 31.2 MCHC 33.9 RDW 14.5 Plt Count 372 MPV 7.0 Neut % (Auto) 68.2 Lymph % (Auto) 19.0 [place] % (Auto) 9.3 H Eos % (Auto) 2.6 Baso % (Auto) 0.9 Neut # (Auto) 6.1 Lymph # (Auto) 1.7 [place] # (Auto) 0.8 Eos # (Auto) 0.2 Baso # (Auto) 0.1 WBC Differential . Differential Comment Auto diff final Creatinine 0.63 Estimated GFR Greater than 89 - Imaging Impressions Abdomen X-Ray 03/01/18 06:00 CONCLUSION: Persistent mildly dilated bowel the upper abdomen. Assessment and Plan - Assessment and Plan 1) Right Arm Necrotizing Fasciitis s/p multiple I&D and vac application -maintain vac at all times. -125mmHg, intermittent 3:1 -plan for possible skin graft with repeat I&D and VAC dressing change Sunday -will need skin grafting of right arm when infection is cleared and enough granulation tissue present -Cx: group A beta strep -surgery this AM for vac change and possible STSG with Dr Galvan
[2018-03-01] MEDS ORDERED: Lidocaine PF 1% Inj 5 ML Syringe OTHER ONE (07:28)
[2018-03-01] MEDS ORDERED: Post-op Orders (for Pharmacy) OTHER STA (07:58)
--- NOTE | 2018-03-01 08:05 | P.OP ---
- Preoperative Diagnosis (1) Necrotizing soft tissue infection (2) Cellulitis and abscess of upper arm and forearm Date of procedure: 03/01/18 Procedure: Right arm irrigation and debridement with VAC dressing change Anesthesia: GETA Surgeon: Pietro Catherine MD Hearing Health Technician: SHAI Rodriguez PA-C The surgical procedure was assisted by my physician pediatric assistant. My P.A. presence was necessary throughout this case for the manipulation and positioning of the surgical extremity. My P.A. was assisting me throughout the duration of this procedure. The skill set of a physician pediatric assistant was medically necessary to complete this procedure. During the surgical case the rn neurosurgical was working at the back table and the physician pediatric assistant was directly assisting me. Operation and Findings: Kyree returns to the operating today for management of right arm necrotizing infection and open forearm wound. Informed consent was obtained preoperatively and OpSite was marked. He is brought the operating room. He was given IV sedation and general anesthesia. Right arm was prepped with alcohol followed Hibiclens and draped in usual sterile fashion. Timeout procedure was performed. Procedure began with excisional debridement of the right forearm. Areas of skin fascia and muscle were sharply debrided. Scalpel and rongoure were used for debridement. Overall the wound appeared to be relatively healthy. The wound was now thoroughly irrigated with sterile saline. Patient has some early granulation tissue forming. Patient's forearm is still not yet ready for skin graft. Next, attention was turned towards wound VAC dressing. An extra-large VAC dressing was opened. VAC dressing was cut to fit the wound. VAC dressing was sealed appropriately. Patient was awakened and transferred to recovery in stable condition.
[2018-03-01] MEDS ORDERED: Sodium Chlor 0.9% Inj 500 ML IV.CONT ONE (08:15)
[2018-03-01] MEDS ORDERED: Chlorhexidine Gluconate 2% 1 Pack (2 Cloths) TOPICAL ONE (08:15)
[2018-03-01] MEDS ORDERED: Metoprolol Tartrate 25 MG Tablet PO ONE (08:15)
--- NOTE | 2018-03-01 08:17 | P.PNOP ---
Subjective Interval history: POD 0 s/p I&D and vac change stable in pacu Physical Exam Vital signs: Vital Signs 02/28/18 12:00 02/28/18 16:00 02/28/18 19:18 Temperature 97.9 F 98.1 F 98.1 F Pulse Rate 72 73 73 Respiratory Rate 20 18 18 Blood Pressure 166/79 H 166/69 H 171/75 H Pulse Oximetry 98 97 96 02/28/18 19:45 02/28/18 23:53 03/01/18 00:00 Temperature 97.4 F L Pulse Rate 74 73 72 Respiratory Rate 20 Blood Pressure 167/79 H Pulse Oximetry 98 03/01/18 00:59 03/01/18 02:19 03/01/18 04:00 Temperature 98.1 F Pulse Rate 64 Respiratory Rate 18 18 18 Blood Pressure 161/72 H Pulse Oximetry 95 Intake & Output 02/28/18 03/01/18 03/01/18 18:59 06:59 18:59 Intake Total 200 / 200 1015 / 1015 1000 / 1000 Output Total 1800 / 1800 Balance 200 / 200 -785 / -785 990 / 990 Weight 101.1 kg Intake: IV 200 / 200 1015 / 1015 D5W/NS + KCL 20 mEq Inj 1,000 0 / 0 915 / 915 ML @ 100 mls/hr IV.CONT .Q10H [facility] Rx#:[id number] Ancef Inj 2,000 MG In NS Inj 80 200 / 200 100 / 100 ML @ 200 mls/hr IV.SIG Q8H [facility] Rx#:[id number] Anesthesia Amount 1000 / 1000 Output: Urine 1800 / 1800 Estimated Blood Loss Other: Mode Setting Right Arm Intermittent Continuous # Voids 1 5 Date of Last Bowel Movement 02/28/18 02/28/18 # Bowel Movements 1 1 3 Narrative: RUE: +vac. good seal Results - Labs CBC & Chem 7: 03/01/18 04:30 03/01/18 04:30 Laboratory Results - last 24 hr 03/01/18 03/01/18 04:30 04:30 WBC 8.9 RBC 2.45 L Hgb 7.7 L Hct 22.6 L MCV 92.2 MCH 31.2 MCHC 33.9 RDW 14.5 Plt Count 372 MPV 7.0 Neut % (Auto) 68.2 Lymph % (Auto) 19.0 [place] % (Auto) 9.3 H Eos % (Auto) 2.6 Baso % (Auto) 0.9 Neut # (Auto) 6.1 Lymph # (Auto) 1.7 [place] # (Auto) 0.8 Eos # (Auto) 0.2 Baso # (Auto) 0.1 WBC Differential . Differential Comment Auto diff final Creatinine 0.63 Estimated GFR Greater than 89 - Imaging Impressions Abdomen X-Ray 03/01/18 06:00 CONCLUSION: Persistent mildly dilated bowel the upper abdomen. Assessment and Plan - Assessment and Plan 1) Right Arm Necrotizing Fasciitis s/p multiple I&D and vac application - POD 0 -maintain vac at all times. -150mmHg, intermittent 5:2 -plan for possible skin graft with repeat I&D and VAC dressing change Sunday -will need skin grafting of right arm when infection is cleared and enough granulation tissue present -Cx: group A beta strep -
[2018-03-01] MEDS ORDERED: Morphine Inj 4 MG/ML Vial ONE (08:23)
[2018-03-01] MEDS ORDERED: fentaNYL Citrate Inj 100 MCG/2 ML Ampul ONE (08:23)
[2018-03-01] MEDS ORDERED: *morphine SULFATE 4 MG/ML PERIprocedure ONLY ONE ×3 (08:23→08:45)
[2018-03-01] MEDS ORDERED: *Meperidine Inj 25 MG/ML Vial PERIprocedural Use ONLY ONE (08:28)
[2018-03-01] MEDS: Famotidine PF Inj 20 MG/2 ML Vial IV.PUSH SCH ×2 (09:24→20:33)
[2018-03-01] MEDS: Lactobacillus Acidophilus/L. Spores Tablet PO SCH ×3 (09:24→17:21)
[2018-03-01] MEDS: KCL 20 mEq/D5W/NaCl 0.9% Inj 1,000 ML IV.CONT SCH ×3 (09:38→20:29)
--- NOTE | 2018-03-01 10:51 | P.PNGI ---
Subjective Interval history: Patient sitting up in bed eating breakfast. Denies any nausea, vomiting or abdominal pain. States having soft brown bowel movements without any noted bleeding. <Melany Bruno - Last Filed: 03/01/18 10:44> Physical Exam Vital signs: Vital Signs 02/28/18 12:00 02/28/18 16:00 02/28/18 19:18 Temperature 97.9 F 98.1 F 98.1 F Pulse Rate 72 73 73 Respiratory Rate 20 18 18 Blood Pressure 166/79 H 166/69 H 171/75 H Pulse Oximetry 98 97 96 02/28/18 19:45 02/28/18 23:53 03/01/18 00:00 Temperature 97.4 F L Pulse Rate 74 73 72 Respiratory Rate 20 Blood Pressure 167/79 H Pulse Oximetry 98 03/01/18 00:59 03/01/18 02:19 03/01/18 04:00 Temperature 98.1 F Pulse Rate 64 Respiratory Rate 18 18 18 Blood Pressure 161/72 H Pulse Oximetry 95 03/01/18 08:17 03/01/18 08:30 03/01/18 08:45 Temperature 98 F Pulse Rate 73 65 65 Respiratory Rate 20 20 20 Blood Pressure 156/67 H 145/64 H 130/60 Pulse Oximetry 100 100 100 03/01/18 09:01 Temperature 98 F Pulse Rate 66 Respiratory Rate 20 Blood Pressure 105/65 Pulse Oximetry 100 Intake & Output 02/28/18 03/01/18 03/01/18 18:59 06:59 18:59 Intake Total 200 / 200 1015 / 1015 1000 / 1000 Output Total 1800 / 1800 Balance 200 / 200 -785 / -785 990 / 990 Weight 101.1 kg Intake: IV 200 / 200 1015 / 1015 D5W/NS + KCL 20 mEq Inj 1,000 0 / 0 915 / 915 ML @ 100 mls/hr IV.CONT .Q10H [facility] Rx#:[id number] Ancef Inj 2,000 MG In NS Inj 80 200 / 200 100 / 100 ML @ 200 mls/hr IV.SIG Q8H [facility] Rx#:[id number] Anesthesia Amount 1000 / 1000 Output: Urine 1800 / 1800 Estimated Blood Loss Other: Mode Setting Right Arm Intermittent Continuous Intermittent # Voids 1 5 Date of Last Bowel Movement 02/28/18 02/28/18 # Bowel Movements 1 1 3 - Constitutional no acute distress - Routine HEENT Exam Head: Present: normocephalic - Routine Abdominal Exam Present: soft, normoactive bowel sounds. Absent: tenderness, guarding, firm - Routine Extremities Exam Present: full ROM - Routine Skin Exam Present: dry, warm - Routine Neurological Exam Present: alert, oriented X3 - Routine Psychiatric Exam Present: normal affect, cooperative <Bruno,Melany - Last Filed: 03/01/18 10:44> Vital signs: Vital Signs 02/28/18 16:00 02/28/18 19:18 02/28/18 19:45 Temperature 98.1 F 98.1 F Pulse Rate 73 73 74 Respiratory Rate 18 18 Blood Pressure 166/69 H 171/75 H Pulse Oximetry 97 96 02/28/18 23:53 03/01/18 00:00 03/01/18 00:59 Temperature 97.4 F L Pulse Rate 73 72 Respiratory Rate 20 18 Blood Pressure 167/79 H Pulse Oximetry 98 03/01/18 02:19 03/01/18 04:00 03/01/18 08:17 Temperature 98.1 F 98 F Pulse Rate 64 73 Respiratory Rate 18 18 20 Blood Pressure 161/72 H 156/67 H Pulse Oximetry 95 100 03/01/18 08:30 03/01/18 08:45 03/01/18 09:01 Temperature 98 F Pulse Rate 65 65 66 Respiratory Rate 20 20 20 Blood Pressure 145/64 H 130/60 105/65 Pulse Oximetry 100 100 100 03/01/18 12:41 Temperature 97.5 F L Pulse Rate 78 Respiratory Rate 16 Blood Pressure 101/58 L Pulse Oximetry 99 Intake & Output 02/28/18 03/01/18 03/01/18 18:59 06:59 18:59 Intake Total 200 / 200 1015 / 1015 2100 / 2100 Output Total 1800 / 1800 Balance 200 / 200 -785 / -785 2089 / 2089 Weight 101.1 kg Intake: IV 200 / 200 1015 / 1015 1100 / 1100 D5W/NS + KCL 20 mEq Inj 1,000 0 / 0 915 / 915 1000 / 1000 ML @ 100 mls/hr IV.CONT .Q10H [facility] Rx#:[id number] Ancef Inj 2,000 MG In NS Inj 80 200 / 200 100 / 100 100 / 100 ML @ 200 mls/hr IV.SIG Q8H [facility] Rx#:[id number] Anesthesia Amount 1000 / 1000 Output: Urine 1800 / 1800 Estimated Blood Loss Other: Mode Setting Right Arm Intermittent Continuous Intermittent # Voids 1 5 Date of Last Bowel Movement 02/28/18 02/28/18 02/28/18 # Bowel Movements 1 1 3 <Linda Gant - Last Filed: 03/01/18 19:22> Results - Labs CBC & Chem 7: 03/01/18 04:30 03/01/18 04:30 Laboratory Results - last 24 hr 03/01/18 03/01/18 04:30 04:30 WBC 8.9 RBC 2.45 L Hgb 7.7 L Hct 22.6 L MCV 92.2 MCH 31.2 MCHC 33.9 RDW 14.5 Plt Count 372 MPV 7.0 Neut % (Auto) 68.2 Lymph % (Auto) 19.0 [place] % (Auto) 9.3 H Eos % (Auto) 2.6 Baso % (Auto) 0.9 Neut # (Auto) 6.1 Lymph # (Auto) 1.7 [place] # (Auto) 0.8 Eos # (Auto) 0.2 Baso # (Auto) 0.1 WBC Differential . Differential Comment Auto diff final Creatinine 0.63 Estimated GFR Greater than 89 - Imaging Impressions Abdomen X-Ray 03/01/18 06:00 CONCLUSION: Persistent mildly dilated bowel the upper abdomen. <Melany Bruno - Last Filed: 03/01/18 10:44> - Labs CBC & Chem 7: 03/01/18 04:30 03/01/18 04:30 Laboratory Results - last 24 hr 02/22/18 03/01/18 03/01/18 05:20 04:30 04:30 WBC 8.9 RBC 2.45 L Hgb 7.7 L Hct 22.6 L MCV 92.2 MCH 31.2 MCHC 33.9 RDW 14.5 Plt Count 372 MPV 7.0 Neut % (Auto) 68.2 Lymph % (Auto) 19.0 [place] % (Auto) 9.3 H Eos % (Auto) 2.6 Baso % (Auto) 0.9 Neut # (Auto) 6.1 Lymph # (Auto) 1.7 [place] # (Auto) 0.8 Eos # (Auto) 0.2 Baso # (Auto) 0.1 WBC Differential . Differential Comment Auto diff final Creatinine 0.63 Estimated GFR Greater than 89 Vit D 1,25-Dihydroxy 94 H - Imaging Impressions Abdomen X-Ray 03/01/18 06:00 CONCLUSION: Persistent mildly dilated bowel the upper abdomen. <AlfredaLinda - Last Filed: 03/01/18 19:22> Assessment and Plan (1) GI bleed Status: Acute Code(s): K92.2 - Gastrointestinal hemorrhage, unspecified (2) Small bowel obstruction Status: Acute Code(s): K56.609 - Unspecified intestinal obstruction, unspecified as to partial versus complete obstruction - Plan Small bowel obstruction/GI bleed NG tube in place, attached to low intermittent wall suction. 550 mL's of dark [id number] appearance- noted in suction container. Abdomen distended but soft and nontender. Positive bowel sounds noted. KUB this a.m. revealed the following---> There is an NGT with tip in the proximal stomach. Multiple loops of distended air-filled small bowel throughout the abdomen. Air is seen in the colon extending to the sigmoid. No gross free air or pneumatosis. Surgical clips are seen throughout the abdomen. Osseous structures are intact. NG tube the proximal stomach. Persistent small bowel obstruction pattern. Anemia Hemoglobin 8.1 hematocrit 24.6 platelet count 470. Stable, patient denies any rectal bleeding. We will continue to follow labs and monitor for active bleeding. 02/26/2018 Small bowel obstruction/GI bleeding NG tube in place to low intermittent wall suction. 400 mL's of dark drainage noted in suction container. Patient states he drank from water pitcher last evening. Advised not to do so, states tolerated ice chips well. Denies any nausea. Noted general surgery recommendation to trial clamping NG tube, offering clear liquids. Patient n.p.o. at this time for orthopedic procedure/I& D right upper extremity. KUB in the a.m. Anemia Hemoglobin 7.2 hematocrit 21.4 platelet count 403. Patient denies any obvious bleeding. No active bleeding per nursing. 02/27/2018 Abdomen distended with positive bowel sounds present. Patient tolerating ice chips and clear liquids without nausea or vomiting. Hemoglobin 7.3 hematocrit 21.7. Patient denies any active bleeding no active bleeding reported. 02/28/2018 Less abdominal distention noted. Patient tolerating clear liquid diet without nausea or vomiting. KUB/CBC in the a.m., patient and nursing deny any noted active bleeding. Discussed plan for endoscopy once small bowel obstruction resolved. Patient states he underwent endoscopy "a few weeks ago" at [facility]. Medical records requested 03/01/2018 Abdomen soft nontender. Patient tolerating regular diet well without reported nausea or vomiting. Reports moving bowels soft brown stool without any reported noted bleeding. Hemoglobin 7.7 hematocrit 22.6 stable Plan -Diabetic diet as tolerated -Monitor for bleeding -Monitor labs -Recent EGD by Dr. Peterson -Supportive care -Further recommendations to follow based on patient status and findings This patient has been seen by myself and Dr. Gant and this note is written on her behalf - Attending Attestation Dr. Gant <Melany Bruno - Last Filed: 03/01/18 10:44> (1) GI bleed Status: Acute Code(s): K92.2 - Gastrointestinal hemorrhage, unspecified (2) Small bowel obstruction Status: Acute Code(s): K56.609 - Unspecified intestinal obstruction, unspecified as to partial versus complete obstruction - Attending Attestation seen, examined agree with above awaiting egd/colon report reviewed egd/colon-done november 2017-diverticulosis, hemorrhoids, Mckeon's esophagus , gastritis if hb continues to drop -egd <Linda Gant - Last Filed: 03/01/18 19:22>
--- NOTE | 2018-03-01 13:42 | P.DIET ---
Nutritional Evaluation Type of nutrition evaluation: initial Nutrition screening: [facility] [place] (Patient has very delayed wound healing. Please evaluate his dietary intake.) Subjective Subjective Comments: Usually eating 100% of his meals. Objective - Diagnosis Necrotizing Fascitis R forearm - Objective Body Mass Index: 31.1 % IBW: 129 (IBW = 172#) Body Weight Used for Calculations: IBW (78.2 kg) Energy Needs - Lower Range (kCal/kg): 30 Energy Needs - Upper Range (kCal/kg): 35 Lower Limit kCal/kg (kCals): 2,345 Upper Limit kCal/kg (kCals): 2,737 Lower Limit Protein Factor (Grams per Kg): 1.2 Upper Limit Protein Factor (Grams per Kg): 1.5 Lower Protein Needs (Protein): 94 Upper Protein Needs (Protein): 117 Fluid Factor (ml/kg): 35 Estimated Fluid Needs (ml): 2,737 Dietitian Reviewed in Medical Record: Current diet, Curent medications, Intake & Output, Labs, Medical history, Wound/DTI Assessment Assessment: Pt was admitted on 02/17 for necrotizing fascitis and has had 5 surgeries so far. This entails being npo so he has probably not had any nutrition on at least 5 days of his 12 day stay. . Pt's po intake is good when he is able to eat. Current diet as ordered is appropriate. Glucose has been in good control. Will send Glucerna Shakes bid: each 8 oz serving provides 220 kcals and 10 gms protein. Pt would also benefit from the addition of a daily MVI/min. RD will continue to follow. Recommendations: 1. Continue diet 2200 ADA 2. Glucerna Shakes bid 3. Please order MVI/min q day 4. RD will follow Dietitian to Monitor: Lab values, Supplement acceptance, Intake & Output, Diet tolerance, Weight change, PO Intake, Wound/skin status, Medical course
[2018-03-01] MEDS: oxyCODONE/Acetaminophen 10/325 Tablet PO PRN ×2 (16:23→22:26)
--- NOTE | 2018-03-01 17:05 | P.PNIM ---
Subjective Interval history: Patient underwent debridement early this morning, there was essentially nothing to debride. Base of tissue is not yet ready for skin grafting according to surgeon's discussion with his daughter. Reevaluation early next week. Physical Exam Vital signs: Vital Signs 02/28/18 19:18 02/28/18 19:45 02/28/18 23:53 Temperature 98.1 F 97.4 F L Pulse Rate 73 74 73 Respiratory Rate 18 20 Blood Pressure 171/75 H 167/79 H Pulse Oximetry 96 98 03/01/18 00:00 03/01/18 00:59 03/01/18 02:19 Temperature Pulse Rate 72 Respiratory Rate 18 18 Blood Pressure Pulse Oximetry 03/01/18 04:00 03/01/18 08:17 03/01/18 08:30 Temperature 98.1 F 98 F Pulse Rate 64 73 65 Respiratory Rate 18 20 20 Blood Pressure 161/72 H 156/67 H 145/64 H Pulse Oximetry 95 100 100 03/01/18 08:45 03/01/18 09:01 03/01/18 12:41 Temperature 98 F 97.5 F L Pulse Rate 65 66 78 Respiratory Rate 20 20 16 Blood Pressure 130/60 105/65 101/58 L Pulse Oximetry 100 100 99 Intake & Output 02/28/18 03/01/18 03/01/18 18:59 06:59 18:59 Intake Total 200 / 200 1015 / 1015 2100 / 2100 Output Total 1800 / 1800 10 Balance 200 / 200 -785 / -785 0 / 2090 Weight 101.1 kg Intake: IV 200 / 200 1015 / 1015 1100 / 1100 D5W/NS + KCL 20 mEq Inj 1,000 0 / 0 915 / 915 1000 / 1000 ML @ 100 mls/hr IV.CONT .Q10H [facility] Rx#:[id number] Ancef Inj 2,000 MG In NS Inj 80 200 / 200 100 / 100 100 / 100 ML @ 200 mls/hr IV.SIG Q8H [facility] Rx#:[id number] Anesthesia Amount 1000 / 1000 Output: Urine 1800 / 1800 Estimated Blood Loss Other: Mode Setting Right Arm Intermittent Continuous Intermittent # Voids 1 5 Date of Last Bowel Movement 02/28/18 02/28/18 02/28/18 # Bowel Movements 1 1 3 Narrative: GENERAL: AAOx3, no acute distress SKIN: Warm and dry. 12-14 inch area of loss skin from debridement involving his forearm and just proximal to the elbow posteriorly, no sign of infection HEAD: Atruamtic, normocephalic. EYES: No scleral icterus. No injection or drainage. ENT: Moist mucous membranes, patent nares, no erythema of oropharynx. NECK: Supple, trachea midline. No JVD or lymphadenopathy. Normal thyroid. CARDIOVASCULAR: Regular rate and rhythm. No murmurs, gallops, or rubs. RESPIRATORY: Breath sounds clear equal bilaterally. No crackles or wheezes. No accessory muscle use. GASTROINTESTINAL: Abdomen soft, non-tender, nondistended, normal active bowel sounds MUSCULOSKELETAL: No cyanosis, or edema. NEURO: CN II-XII grossly intact, no focal deficits, no slurring of speech Results - Labs CBC & Chem 7: 03/01/18 04:30 03/01/18 04:30 Laboratory Results - last 24 hr 02/22/18 03/01/18 03/01/18 05:20 04:30 04:30 WBC 8.9 RBC 2.45 L Hgb 7.7 L Hct 22.6 L MCV 92.2 MCH 31.2 MCHC 33.9 RDW 14.5 Plt Count 372 MPV 7.0 Neut % (Auto) 68.2 Lymph % (Auto) 19.0 [place] % (Auto) 9.3 H Eos % (Auto) 2.6 Baso % (Auto) 0.9 Neut # (Auto) 6.1 Lymph # (Auto) 1.7 [place] # (Auto) 0.8 Eos # (Auto) 0.2 Baso # (Auto) 0.1 WBC Differential . Differential Comment Auto diff final Creatinine 0.63 Estimated GFR Greater than 89 Vit D 1,25-Dihydroxy 94 H - Imaging Impressions Abdomen X-Ray 03/01/18 06:00 CONCLUSION: Persistent mildly dilated bowel the upper abdomen. Assessment and Plan - Plan 62-year-old male admitted secondary to necrotizing fasciitis of the right arm Necrotizing fasciitis Ortho and ID consults appreciated. For debridements thus far since 02/17/2018, another debridement scheduled for Planned for skin graft closure, likely will be hospitalized through end of next week Continue clindamycin, vancomycin, meropenem Continue pain management Appreciate orthopedics involvement Pharyngitis Irritated pharynx secondary to NG tube and multiple LMA placements for frequent surgeries Continue Chloraseptic spray as needed Small bowel obstruction, resolved NG tube was removed yesterday, patient tolerating clears and advance to full liquid diet Undergoing another surgery tomorrow, plan to advance to solid foods following that Appreciate general surgery management Hypertension Continue home meds Tobacco use disorder Continue Wellbutrin Patient counseled to quit DVT prophylaxis SCDs due to frequent surgical debridements
[2018-03-02] MEDS: ceFAZolin Inj 2,000 MG in Sodium Chlor 0.9% Inj 80 ML IV.SIG SCH ×3 (01:34→17:57)
[2018-03-02] MEDS: oxyCODONE/Acetaminophen 10/325 Tablet PO PRN ×5 (03:05→22:01)
[2018-03-02] MEDS: KCL 20 mEq/D5W/NaCl 0.9% Inj 1,000 ML IV.CONT SCH (04:24)
[2018-03-02] MEDS: HYDROmorphone PF Inj 2 MG/ML Vial IV.PUSH PRN ×5 (04:25→23:16)
[2018-03-02] MEDS: Gabapentin 400 MG Capsule PO SCH ×5 (06:36→22:01)
[2018-03-02] MEDS: Famotidine PF Inj 20 MG/2 ML Vial IV.PUSH SCH ×2 (09:33→22:01)
[2018-03-02] MEDS: Lactobacillus Acidophilus/L. Spores Tablet PO SCH ×3 (09:33→17:53)
--- NOTE | 2018-03-02 13:31 | P.PN ---
Subjective Interval history: Patient doing well. Reports that he is tolerating p.o., and voiding/stooling well. No overnight events per RN. Physical Exam Vital signs: Vital Signs 03/01/18 16:00 03/01/18 19:31 03/01/18 21:30 Temperature 97.5 F L 97.4 F L Pulse Rate 70 86 Respiratory Rate 18 20 18 Blood Pressure 159/67 H 143/61 H Pulse Oximetry 98 97 03/01/18 23:49 03/02/18 00:00 03/02/18 00:28 Temperature 97.9 F Pulse Rate 70 70 Respiratory Rate 18 18 Blood Pressure 161/80 H Pulse Oximetry 97 03/02/18 03:18 03/02/18 05:47 03/02/18 05:48 Temperature 97.5 F L Pulse Rate 68 Respiratory Rate 18 17 17 Blood Pressure 166/67 H Pulse Oximetry 98 03/02/18 08:00 03/02/18 12:00 Temperature 98.2 F 97.8 F Pulse Rate 59 L 68 Respiratory Rate 18 18 Blood Pressure 132/66 155/66 H Pulse Oximetry 98 98 Intake & Output 03/01/18 03/02/18 03/02/18 18:59 06:59 18:59 Intake Total 2100 / 2100 1200 / 1200 100 / 100 Output Total 1400 / 1400 Balance 0 / 0 -200 / -200 100 / 100 Weight 97.2 kg Intake: IV 1100 / 1100 1200 / 1200 100 / 100 D5W/NS + KCL 20 mEq Inj 1,000 1000 / 1000 1000 / 1000 ML @ 100 mls/hr IV.CONT .Q10H [facility] Rx#:[id number] Ancef Inj 2,000 MG In NS Inj 80 100 / 100 200 / 200 100 / 100 ML @ 200 mls/hr IV.SIG Q8H [facility] Rx#:[id number] Anesthesia Amount 1000 / 1000 Output: Urine 1400 / 1400 Estimated Blood Loss Other: Mode Setting Right Arm Intermittent Intermittent # Voids 5 Date of Last Bowel Movement 02/28/18 03/01/18 03/01/18 # Bowel Movements 3 Narrative: GENERAL: Well-nourished male, in no acute distress, sitting comfortably in bed SKIN: Warm and dry. HEENT: Normocephalic. No scleral icterus. No injection or drainage. PERRLA. MOM. NECK: Supple, trachea midline. No JVD or lymphadenopathy. CARDIOVASCULAR: Regular rate and rhythm without murmurs, gallops, or rubs. RESPIRATORY: Breath sounds equal bilaterally. No accessory muscle use. GASTROINTESTINAL: Abdomen soft, non-tender, nondistended. MUSCULOSKELETAL: No cyanosis, or edema. Right forearm with dressing in place, C /D/I with wound VAC present. BACK: Nontender without obvious deformity. No CVA tenderness. NEURO: AAO x3, no focal deficits Results - Labs CBC & Chem 7: 03/01/18 04:30 03/01/18 04:30 Assessment and Plan - Assessment (1) HTN (hypertension) Code(s): I10 - Essential (primary) hypertension Status: Chronic (2) Cellulitis and abscess of upper arm and forearm Status: Acute (3) GI bleed Code(s): K92.2 - Gastrointestinal hemorrhage, unspecified Status: Acute - Plan 62-year-old M with PMHx of HTN admitted secondary to necrotizing fasciitis of the right arm s/p multiple irrigation and debridements with wound vac, HD#14 1. Necrotizing fasciitis, +GA Strep. Ortho and ID managing, appreciate assistance with care s/p multiple irrigation and debridement with VAC dressing change, last on 03/01 Planned for skin graft closure, with repeat I&D and VAC dressing change Sunday Continue Cefazolin IV started on 02/21 Continue pain management with Dilaudid and Oxy PRN Wound culture arm from 02/17, negative fungal x1 wk, + Group A strep, pansensitive Wound culture elbow from 02/17, negative fungal x1 wk, negative AFB, + Group A strep, pansensitive Blood culture from 02/17, no growth at 5 days x4 (Final) Per Ortho Reccs on 03/01 1) Right Arm Necrotizing Fasciitis s/p multiple I&D and vac application - POD 0 -maintain vac at all times. -150mmHg, intermittent 5:2 -plan for possible skin graft with repeat I&D and VAC dressing change Sunday -will need skin grafting of right arm when infection is cleared and enough granulation tissue present -Cx: group A beta strep 2. Small Bowel Obstruction/Upper GI Bleed Advance diet as tolerated Continue Famotidine Appreciate general surgery and GI assistance with management GI Reccs 03/01: Plan -Diabetic diet as tolerated -Monitor for bleeding -Monitor labs -Recent EGD by Dr. Peterson -Supportive care -Further recommendations to follow based on patient status and findings 3. Hypertension Stable Continue home Metoprolol 4. Tobacco use disorder Continue Wellbutrin Patient counseled to quit 5. Anemia Positive Hemoccult on 02/23 Being managed per GI, appreciate recommendations Hemoglobin stable at 7.7 on 03/01 from 11/13 Will check stat CBC Follow-up CBC in AM Follow-up iron studies 6. Neuropathy Continue home [place] 7. HLD Cont. statin 8. Hyperglycemia Blood sugar 137, 119 No previous history of diabetes Checking hemoglobin A1c 9. DVT prophylaxis: SCD's due to frequent surgical debridements 10. Dispo: Continue inpatient management with antibiotics, follow-up GI and Ortho Reccs Code Status: full Discussed Condition With: patient, RN
--- NOTE | 2018-03-02 14:10 | P.PNID ---
Subjective Remarks: resolved diarrhea and abd distentiosn c. diff negative undergoing staged debridements RUE pain, swelling improves wound clx with MSSA 1/3, GAS (3/3) still requiring I+Ds, not re4ady for grafting Antibiotics: ancef clindamycin Allergies/Adverse Reactions: Allergies penicillin G Allergy (Mild, Verified 02/17/18 13:30) Hives Objective Vital Signs 03/01/18 16:00 03/01/18 19:31 03/01/18 21:30 Temperature 97.5 F L 97.4 F L Pulse Rate 70 86 Respiratory Rate 18 20 18 Blood Pressure 159/67 H 143/61 H Pulse Oximetry 98 97 03/01/18 23:49 03/02/18 00:00 03/02/18 00:28 Temperature 97.9 F Pulse Rate 70 70 Respiratory Rate 18 18 Blood Pressure 161/80 H Pulse Oximetry 97 03/02/18 03:18 03/02/18 05:47 03/02/18 05:48 Temperature 97.5 F L Pulse Rate 68 Respiratory Rate 18 17 17 Blood Pressure 166/67 H Pulse Oximetry 98 03/02/18 08:00 03/02/18 12:00 Temperature 98.2 F 97.8 F Pulse Rate 59 L 68 Respiratory Rate 18 18 Blood Pressure 132/66 155/66 H Pulse Oximetry 98 98 Intake & Output 03/01/18 03/02/18 03/02/18 18:59 06:59 18:59 Intake Total 2100 / 2100 1200 / 1200 100 / 100 Output Total 1400 / 1400 Balance 2089 / 2089 -200 / -200 100 / 100 Weight 97.2 kg Intake: IV 1100 / 1100 1200 / 1200 100 / 100 D5W/NS + KCL 20 mEq Inj 1,000 1000 / 1000 1000 / 1000 ML @ 100 mls/hr IV.CONT .Q10H [facility] Rx#:[id number] Ancef Inj 2,000 MG In NS Inj 80 100 / 100 200 / 200 100 / 100 ML @ 200 mls/hr IV.SIG Q8H [facility] Rx#:[id number] Anesthesia Amount 1000 / 1000 Output: Urine 1400 / 1400 Estimated Blood Loss Other: Mode Setting Right Arm Intermittent Intermittent # Voids 5 Date of Last Bowel Movement 02/28/18 03/01/18 03/01/18 # Bowel Movements 3 Lab - Hematology Results 03/01/18 04:30 WBC 8.9 RBC 2.45 L Hgb 7.7 L Hct 22.6 L MCV 92.2 MCH 31.2 MCHC 33.9 RDW 14.5 Plt Count 372 MPV 7.0 Neut % (Auto) 68.2 Lymph % (Auto) 19.0 [place] % (Auto) 9.3 H Eos % (Auto) 2.6 Baso % (Auto) 0.9 Neut # (Auto) 6.1 Lymph # (Auto) 1.7 [place] # (Auto) 0.8 Eos # (Auto) 0.2 Baso # (Auto) 0.1 WBC Differential . Differential Comment Auto diff final Lab - Chemistry Results 02/22/18 03/01/18 05:20 04:30 Creatinine 0.63 Estimated GFR Greater than 89 Vit D 1,25-Dihydroxy 94 H Imaging: ITS Impressions Forearm CT 02/17/18 13:55 CONCLUSION: 1. Prominent area of subcutaneous fluid, thickening, and collections of gas extending from distal forearm to elbow, suspicious for abscess along the medial aspect of the forearm. 2. Osseous structures are radiographically intact. Forearm X-Ray 02/17/18 13:55 CONCLUSION: 1. Diffuse soft tissue swelling. 2. No acute fracture or joint dislocation. Head CT 02/17/18 13:55 CONCLUSION: 1. Negative noncontrast CT brain. . Abdomen/Pelvis CT 02/24/18 00:00 CONCLUSION: 1. Small bowel obstruction with significantly dilated small bowel and evidence of free fluid identified within the right upper quadrant and left midabdomen. The transition point appears within the lower central pelvis within the ileum. There appears to be large areas of adhesion with small bowel and the adjacent abdominal mesh. Chest X-Ray 02/24/18 00:00 CONCLUSION: 1. NG tube is coiled in the oropharynx. 2. Stable mild left lower lung zone pleural-parenchymal opacities. Tube Placement X-Ray 02/24/18 00:00 CONCLUSION: 1. Fluoroscopic guided placement of nasogastric catheter. Abdomen X-Ray 03/01/18 06:00 CONCLUSION: Persistent mildly dilated bowel the upper abdomen. Physical Exam: GENERAL: NAD comfortable SKIN: Warm and dry. No rash EYES: Pupils equal and round. No scleral icterus. ENT: No nasal bleeding or discharge. Mucous membranes pink and moist. NECK: Trachea midline. No JVD. CARDIOVASCULAR: Regular rate and rhythm. No murmurs RESPIRATORY: No accessory muscle use. Clear to auscultation. Breath sounds equal bilaterally. GASTROINTESTINAL: Abdomen soft, quite tender, distended. tympanic to palpation Hepatic and splenic margins not palpable. MUSCULOSKELETAL: Extremities without clubbing, cyanosis, or edema. STATUS localis: R UE with surg dressing, CLAUDE, VAC in place with serosang drainage VAC covering a hiuge soft tissue defect ariane the forearm no asceding redness or induration on the upper arm soft compartments soft edema of R hand dorsum NEUROLOGICAL: Awake and alert. Non focal. Normal speech. PSYCHIATRIC: Appropriate mood and affect; Assessment and Plan - Plan Nec fasciitis RUE: GAS, MSSA - sp multiple debridement s, VAC Diarrhea, abd distention on clinda ? C.diff cont Ancef resume clindamycin since c.diff r/o'd
--- NOTE | 2018-03-02 14:29 | P.PNGI ---
Subjective Interval history: Patient currently denies any abdominal pain stools are loose but brown. No nausea no vomiting History of Mckeon's esophagus gastritis and diverticular disease Physical Exam Vital signs: Vital Signs 03/01/18 16:00 03/01/18 19:31 03/01/18 21:30 Temperature 97.5 F L 97.4 F L Pulse Rate 70 86 Respiratory Rate 18 20 18 Blood Pressure 159/67 H 143/61 H Pulse Oximetry 98 97 03/01/18 23:49 03/02/18 00:00 03/02/18 00:28 Temperature 97.9 F Pulse Rate 70 70 Respiratory Rate 18 18 Blood Pressure 161/80 H Pulse Oximetry 97 03/02/18 03:18 03/02/18 05:47 03/02/18 05:48 Temperature 97.5 F L Pulse Rate 68 Respiratory Rate 18 17 17 Blood Pressure 166/67 H Pulse Oximetry 98 03/02/18 08:00 03/02/18 12:00 Temperature 98.2 F 97.8 F Pulse Rate 59 L 68 Respiratory Rate 18 18 Blood Pressure 132/66 155/66 H Pulse Oximetry 98 98 Intake & Output 03/01/18 03/02/18 03/02/18 18:59 06:59 18:59 Intake Total 2100 / 2100 1200 / 1200 100 / 100 Output Total 1400 / 1400 Balance 2089 / 2089 -200 / -200 100 / 100 Weight 97.2 kg Intake: IV 1100 / 1100 1200 / 1200 100 / 100 D5W/NS + KCL 20 mEq Inj 1,000 1000 / 1000 1000 / 1000 ML @ 100 mls/hr IV.CONT .Q10H [facility] Rx#:[id number] Ancef Inj 2,000 MG In NS Inj 80 100 / 100 200 / 200 100 / 100 ML @ 200 mls/hr IV.SIG Q8H [facility] Rx#:[id number] Anesthesia Amount 1000 / 1000 Output: Urine 1400 / 1400 Estimated Blood Loss Other: Mode Setting Right Arm Intermittent Intermittent # Voids 5 Date of Last Bowel Movement 02/28/18 03/01/18 03/01/18 # Bowel Movements 3 - Constitutional no acute distress, chronically ill appearing, cooperative - Routine HEENT Exam Head: Present: normocephalic ENT: Present: mucous membranes moist - Routine Respiratory Exam Present: accessory muscle use (Even, unlabored) - Routine Cardiovascular Exam Present: S1, S2 - Routine Abdominal Exam Present: distended (Mild, round, soft bowel sounds are present) - Routine Extremities Exam Present: edema (Right arm dressing clean dry and intact surgical procedure on ) Results - Labs CBC & Chem 7: 03/01/18 04:30 03/01/18 04:30 Assessment and Plan (1) GI bleed Status: Acute Code(s): K92.2 - Gastrointestinal hemorrhage, unspecified (2) Small bowel obstruction Status: Acute Code(s): K56.609 - Unspecified intestinal obstruction, unspecified as to partial versus complete obstruction - Plan Small bowel obstruction/GI bleed NG tube in place, attached to low intermittent wall suction. 550 mL's of dark ebdkzsjc-[id number] appearance- noted in suction container. Abdomen distended but soft and nontender. Positive bowel sounds noted. KUB this a.m. revealed the following---> There is an NGT with tip in the proximal stomach. Multiple loops of distended air-filled small bowel throughout the abdomen. Air is seen in the colon extending to the sigmoid. No gross free air or pneumatosis. Surgical clips are seen throughout the abdomen. Osseous structures are intact. NG tube the proximal stomach. Persistent small bowel obstruction pattern. Anemia Hemoglobin 8.1 hematocrit 24.6 platelet count 470. Stable, patient denies any rectal bleeding. We will continue to follow labs and monitor for active bleeding. 02/26/2018 Small bowel obstruction/GI bleeding NG tube in place to low intermittent wall suction. 400 mL's of dark drainage noted in suction container. Patient states he drank from water pitcher last evening. Advised not to do so, states tolerated ice chips well. Denies any nausea. Noted general surgery recommendation to trial clamping NG tube, offering clear liquids. Patient n.p.o. at this time for orthopedic procedure/I& D right upper extremity. KUB in the a.m. Anemia Hemoglobin 7.2 hematocrit 21.4 platelet count 403. Patient denies any obvious bleeding. No active bleeding per nursing. 02/27/2018 Abdomen distended with positive bowel sounds present. Patient tolerating ice chips and clear liquids without nausea or vomiting. Hemoglobin 7.3 hematocrit 21.7. Patient denies any active bleeding no active bleeding reported. 02/28/2018 Less abdominal distention noted. Patient tolerating clear liquid diet without nausea or vomiting. KUB/CBC in the a.m., patient and nursing deny any noted active bleeding. Discussed plan for endoscopy once small bowel obstruction resolved. Patient states he underwent endoscopy "a few weeks ago" at [facility]. Medical records requested 03/01/2018 Abdomen soft nontender. Patient tolerating regular diet well without reported nausea or vomiting. Reports moving bowels soft brown stool without any reported noted bleeding. Hemoglobin 7.7 mild increase from previous 7.3. Hematocrit 22.6 stable 03/02/2018 patient states abdomen feeling much better less pressure and list of current discomfort bowel sounds are soft current hemoglobin 7.7 monitor patient' s anemia Loose brown stools but no obvious blood noted today, gradual improvement from patient's small bowel obstruction pattern NG tube has been out for 2 days. Note last EGD/colonoscopy showed Mckeon's esophagus, gastritis, diverticulosis , hemorrhoids,. Had been followed per Dr. Peterson Continue to monitor hemoglobin if needed EGD will be repeated if hemoglobin drops. Recent surgical procedure right arm on 03/01/2018 for necrotizing fasciitis. Some of his anemia may be related to acute blood loss SBO , abdominal x-rays from 03/01/2018 do show small area persistent in the left upper abdomen, no large bowel distention Plan Diet diabetic as tolerated Monitor labs special attention hemoglobin and transfuse as needed Recheck KUB in the morning Repeat EGD if hemoglobin decreases Supportive care Monitor abdominal distention, gradual improvement has been noted Patient was seen per myself and Dr. Espinal, note was written on his behalf
[2018-03-02 15:08] LABS: Baso # (Auto) 0.1 th/mm3 (0.0-0.2); Baso % (Auto) 0.7 % (0.0-2.0); Eos # (Auto) 0.3 th/mm3 (0.0-0.4); Eos % (Auto) 3.6 % (0.0-4.0); Hemoglobin 7.3 gm/dL (13.0-17.0); Lymph # (Auto) 1.3 th/mm3 (1.0-4.8); Lymph % (Auto) 17.7 % (9.0-44.0); Mean Corpuscular HGB Conc 33.3 % (32.0-36.0); Mean Corpuscular Hemoglobin 31.1 pg (27.0-34.0); Mean Corpuscular Volume 93.5 fL (80.0-100.0); Mean Platelet Volume 7.3 fL (7.0-11.0); Mono # (Auto) 0.7 th/mm3 (0.0-0.9); Mono % (Auto) 9.6 % (0.0-8.0); Neut # (Auto) 5.1 th/mm3 (1.8-7.7); Neut % (Auto) 68.4 % (16.0-70.0); Platelet Count 288 th/mm3 (150-450); Red Blood Count 2.35 mil/mm3 (4.50-5.90); Red Cell Distribution Width 14.3 % (11.6-17.2); White Blood Count 7.5 th/mm3 (4.0-11.0)
[2018-03-02 15:48] LABS: % Iron Saturation 9.3 % (20-50); Alanine Aminotransferase 8 U/L (12-78); Alkaline Phosphatase 67 U/L (45-117); Anion Gap 6 meq/L (5-15); Aspartate Aminotransferase 13 U/L (15-37); Blood Urea Nitrogen 2 mg/dL (7-18); Carbon Dioxide 29.4 meq/L (21.0-32.0); Chloride 102 meq/L (98-107); Glomerular Filtration Rate Greater Than 89 mL/min (>89); Glucose,Random 108 mg/dL (74-106); Iron 18 mcg/dL (65-175); Sodium 137 meq/L (136-145); Total Iron Binding Capacity 193 mcg/dL (250-450); Total Protein 5.1 g/dL (6.4-8.2)
[2018-03-02] MEDS: Clindamycin 900 mg/NS Premix 900 MG/50 ML PIGGYBACK IV.SIG SCH ×2 (16:33→23:21)
[2018-03-02] MEDS ORDERED: *Heparin Central Flush 100 UNIT/ML 3 ML Syringe Periprocedural ONLY IV.FLUSH ONE (17:00)
[2018-03-03] MEDS: ceFAZolin Inj 2,000 MG in Sodium Chlor 0.9% Inj 80 ML IV.SIG SCH ×3 (01:01→19:30)
[2018-03-03] MEDS: oxyCODONE/Acetaminophen 10/325 Tablet PO PRN ×6 (02:07→21:33)
[2018-03-03] MEDS: HYDROmorphone PF Inj 2 MG/ML Vial IV.PUSH PRN ×5 (03:52→22:55)
[2018-03-03] MEDS: Gabapentin 400 MG Capsule PO SCH ×5 (06:05→22:57)
[2018-03-03 07:27] LABS: Baso # (Auto) 0.1 th/mm3 (0.0-0.2); Baso % (Auto) 0.9 % (0.0-2.0); Eos # (Auto) 0.2 th/mm3 (0.0-0.4); Eos % (Auto) 4.1 % (0.0-4.0); Hematocrit 21.2 % (39.0-51.0); Hemoglobin 7.3 gm/dL (13.0-17.0); Lymph # (Auto) 1.5 th/mm3 (1.0-4.8); Lymph % (Auto) 26.1 % (9.0-44.0); Mean Corpuscular HGB Conc 34.2 % (32.0-36.0); Mean Corpuscular Hemoglobin 31.2 pg (27.0-34.0); Mean Corpuscular Volume 91.3 fL (80.0-100.0); Mean Platelet Volume 7.5 fL (7.0-11.0); Mono # (Auto) 0.7 th/mm3 (0.0-0.9); Mono % (Auto) 11.8 % (0.0-8.0); Neut # (Auto) 3.2 th/mm3 (1.8-7.7); Neut % (Auto) 57.1 % (16.0-70.0); Platelet Count 250 th/mm3 (150-450); Red Blood Count 2.32 mil/mm3 (4.50-5.90); Red Cell Distribution Width 14.5 % (11.6-17.2); White Blood Count 5.6 th/mm3 (4.0-11.0)
[2018-03-03 07:55] LABS: Alanine Aminotransferase 7 U/L (12-78); Alkaline Phosphatase 66 U/L (45-117); Anion Gap 6 meq/L (5-15); Aspartate Aminotransferase 11 U/L (15-37); Blood Urea Nitrogen 2 mg/dL (7-18); Calcium 7.1 mg/dL (8.5-10.1); Carbon Dioxide 28.8 meq/L (21.0-32.0); Chloride 102 meq/L (98-107); Glomerular Filtration Rate Greater Than 89 mL/min (>89); Glucose,Random 103 mg/dL (74-106); Sodium 137 meq/L (136-145); Total Protein 5.2 g/dL (6.4-8.2)
[2018-03-03] MEDS: Lactobacillus Acidophilus/L. Spores Tablet PO SCH ×3 (09:12→17:23)
[2018-03-03] MEDS: Famotidine PF Inj 20 MG/2 ML Vial IV.PUSH SCH ×2 (09:12→20:23)
[2018-03-03] MEDS: Clindamycin 900 mg/NS Premix 900 MG/50 ML PIGGYBACK IV.SIG SCH ×2 (09:12→17:24)
--- NOTE | 2018-03-03 09:30 | P.PNOP ---
Subjective Interval history: Right arm pain and burning. Pain control helping. Feels tired. Has questions about his hand and treatment plan. Physical Exam Vital signs: Vital Signs 03/02/18 12:00 03/02/18 16:00 03/02/18 20:00 Temperature 97.8 F 97.7 F 97.5 F L Pulse Rate 68 66 72 Respiratory Rate 18 18 18 Blood Pressure 155/66 H 170/71 H 149/66 H Pulse Oximetry 98 97 96 03/03/18 00:00 03/03/18 04:00 03/03/18 08:00 Temperature 98.5 F 97.2 F L 98.3 F Pulse Rate 72 68 64 Respiratory Rate 18 18 18 Blood Pressure 154/75 H 144/63 H 126/61 Pulse Oximetry 95 96 95 Intake & Output 03/02/18 03/03/18 03/03/18 18:59 06:59 18:59 Intake Total 2958 / 2958 630 / 630 Output Total 550 / 550 850 / 850 Balance 2408 / 2408 -220 / -220 Weight 96.7 kg Intake: IV 2250 / 2250 150 / 150 D5W/NS + KCL 20 mEq Inj 1,000 1000 / 1000 ML @ 100 mls/hr IV.CONT .Q10H [place] Rx#:[id number] LR 1000 mL Inj 1,000 ML @ 30 1000 / 1000 mls/hr IV.CONT .Q24H [facility] Rx#: [id number] Cleocin 900 mg/NS Premix 900 mg 50 / 50 50 / 50 In 50 ml @ 100 mls/hr IV.SIG Q8H [place] Rx#:[id number] Ancef Inj 2,000 MG In NS Inj 80 200 / 200 100 / 100 ML @ 200 mls/hr IV.SIG Q8H [facility] Rx#:[id number] Oral 708 / 708 480 / 480 Output: Urine 550 / 550 850 / 850 Other: Mode Setting Right Arm Intermittent Intermittent Date of Last Bowel Movement 03/01/18 03/02/18 Narrative: Laying in bed NAD RUE Dressing / Wound VAC in place, No new swelling forearm and hand, +motor dry chain offbearer, +sens fingers, +nvi Patient seen and examined by Dr. Martha Klein - Constitutional no acute distress Results - Labs CBC & Chem 7: 03/03/18 06:30 03/03/18 06:30 Laboratory Results - last 24 hr 03/02/18 03/02/18 03/02/18 14:12 14:12 14:12 WBC 7.5 RBC 2.35 L Hgb 7.3 L Hct 22.0 L MCV 93.5 MCH 31.1 MCHC 33.3 RDW 14.3 Plt Count 288 MPV 7.3 Neut % (Auto) 68.4 Lymph % (Auto) 17.7 [place] % (Auto) 9.6 H Eos % (Auto) 3.6 Baso % (Auto) 0.7 Neut # (Auto) 5.1 Lymph # (Auto) 1.3 [place] # (Auto) 0.7 Eos # (Auto) 0.3 Baso # (Auto) 0.1 WBC Differential . Differential Comment Auto diff final Sodium 137 Potassium 4.0 Chloride 102 Carbon Dioxide 29.4 Anion Gap 6 BUN 2 L Creatinine 0.68 Estimated GFR Greater than 89 Random Glucose 108 H Calcium 7.0 L* Prot Corrected Calcium 8.1 L Iron 18 L Cancelled TIBC 193 L Cancelled % Saturation 9.3 L Cancelled Total Bilirubin 0.2 AST 13 L ALT 8 L Alkaline Phosphatase 67 Total Protein 5.1 L Albumin 2.0 L 03/03/18 03/03/18 06:30 06:30 WBC 5.6 RBC 2.32 L Hgb 7.3 L Hct 21.2 L MCV 91.3 MCH 31.2 MCHC 34.2 RDW 14.5 Plt Count 250 MPV 7.5 Neut % (Auto) 57.1 Lymph % (Auto) 26.1 [place] % (Auto) 11.8 H Eos % (Auto) 4.1 H Baso % (Auto) 0.9 Neut # (Auto) 3.2 Lymph # (Auto) 1.5 [place] # (Auto) 0.7 Eos # (Auto) 0.2 Baso # (Auto) 0.1 WBC Differential . Differential Comment Auto diff final Sodium 137 Potassium 4.0 Chloride 102 Carbon Dioxide 28.8 Anion Gap 6 BUN 2 L Creatinine 0.82 Estimated GFR Greater than 89 Random Glucose 103 Calcium 7.1 L* Prot Corrected Calcium 8.1 L Iron TIBC % Saturation Total Bilirubin 0.3 AST 11 L ALT 7 L Alkaline Phosphatase 66 Total Protein 5.2 L Albumin 2.0 L Assessment and Plan - Ortho Post Op Day # 2 - Assessment and Plan 1) Right Arm Necrotizing Fasciitis s/p multiple I&D and vac application - POD #2 - On exam no new erythema or swelling -maintain vac at all times. -150mmHg, intermittent 5:2 -plan for possible skin graft with repeat I&D and VAC dressing change next week with Dr. Galvan (poss Sunday?) -will need skin grafting of right arm when infection is cleared and enough granulation tissue present -Cx shows group A beta strep
--- NOTE | 2018-03-03 09:51 | XR ---
EXAM DATE: 03/03/2018 8:00 AM EDT AGE/SEX: 62 years / Male INDICATIONS: Abdominal distention CLINICAL DATA: This is the patient's subsequent encounter. Patient reports that signs and symptoms h ave been present for 1 week and indicates a pain score of 0/10. MEDICAL/SURGICAL HISTORY: . Gastroesophageal reflux disease. Hypertension. Diverticulitis. . colectomy. [place] [facility] [place]. . FINDINGS: 2 AP supine views of the abdomen and pelvis were obtained and demonstrate gas and stool noted segmen zachery in the colon. There are multiple loops of mildly dilated air-containing small bowel again noted. These appear mildly increased in size and number. These measure up to approximately 5.4 cm in greates t diameter. Markers from hernia mesh is again noted. The bony structures remain intact. The lung base s are clear. CONCLUSION: Interval increase in the size and number of the mildly dilated small bowel loops. Gas and stool remai ns segmentally in the colon. Electronically signed by: Gonzalo Hendrickson MD 03/03/2018 9:50 AM EDT
[2018-03-03] MEDS ORDERED: Acetaminophen 325 MG Tablet PO PRN (11:03)
--- NOTE | 2018-03-03 11:06 | P.PN ---
Subjective Interval history: Patient doing well overnight. Reports that he is tolerating p.o., voiding/ stooling well with occasional diarrhea. Pain well controlled. No concerns per RN Physical Exam Vital signs: Vital Signs 03/02/18 12:00 03/02/18 16:00 03/02/18 20:00 Temperature 97.8 F 97.7 F 97.5 F L Pulse Rate 68 66 72 Respiratory Rate 18 18 18 Blood Pressure 155/66 H 170/71 H 149/66 H Pulse Oximetry 98 97 96 03/03/18 00:00 03/03/18 04:00 03/03/18 08:00 Temperature 98.5 F 97.2 F L 98.3 F Pulse Rate 72 68 64 Respiratory Rate 18 18 18 Blood Pressure 154/75 H 144/63 H 126/61 Pulse Oximetry 95 96 95 Intake & Output 03/02/18 03/03/18 03/03/18 18:59 06:59 18:59 Intake Total 2958 / 2958 630 / 630 Output Total 550 / 550 850 / 850 Balance 2408 / 2408 -220 / -220 Weight 96.7 kg Intake: IV 2250 / 2250 150 / 150 D5W/NS + KCL 20 mEq Inj 1,000 1000 / 1000 ML @ 100 mls/hr IV.CONT .Q10H [place] Rx#:[id number] LR 1000 mL Inj 1,000 ML @ 30 1000 / 1000 mls/hr IV.CONT .Q24H ONE Rx#: [id number] Cleocin 900 mg/NS Premix 900 mg 50 / 50 50 / 50 In 50 ml @ 100 mls/hr IV.SIG Q8H [place] Rx#:[id number] Ancef Inj 2,000 MG In NS Inj 80 200 / 200 100 / 100 ML @ 200 mls/hr IV.SIG Q8H [place] Rx#:[id number] Oral 708 / 708 480 / 480 Output: Urine 550 / 550 850 / 850 Other: Mode Setting Right Arm Intermittent Intermittent Date of Last Bowel Movement 03/01/18 03/02/18 Narrative: GENERAL: Well-nourished male, in no acute distress, sitting comfortably in bed SKIN: Warm and dry. Picc on R neck. HEENT: Normocephalic. No scleral icterus. No injection or drainage. PERRLA. MOM. NECK: Supple, trachea midline. No JVD or lymphadenopathy. CARDIOVASCULAR: Regular rate and rhythm without murmurs, gallops, or rubs. RESPIRATORY: Breath sounds equal bilaterally. No accessory muscle use. GASTROINTESTINAL: Abdomen soft, non-tender, nondistended. MUSCULOSKELETAL: No cyanosis, or edema. Right forearm with dressing in place, C /D/I with wound VAC present. BACK: Nontender without obvious deformity. No CVA tenderness. NEURO: AAO x3, no focal deficits Results - Labs CBC & Chem 7: 03/03/18 06:30 03/03/18 06:30 Laboratory Results - last 24 hr 03/02/18 03/02/18 03/02/18 14:12 14:12 14:12 WBC 7.5 RBC 2.35 L Hgb 7.3 L Hct 22.0 L MCV 93.5 MCH 31.1 MCHC 33.3 RDW 14.3 Plt Count 288 MPV 7.3 Neut % (Auto) 68.4 Lymph % (Auto) 17.7 [place] % (Auto) 9.6 H Eos % (Auto) 3.6 Baso % (Auto) 0.7 Neut # (Auto) 5.1 Lymph # (Auto) 1.3 [place] # (Auto) 0.7 Eos # (Auto) 0.3 Baso # (Auto) 0.1 WBC Differential . Differential Comment Auto diff final Sodium 137 Potassium 4.0 Chloride 102 Carbon Dioxide 29.4 Anion Gap 6 BUN 2 L Creatinine 0.68 Estimated GFR Greater than 89 Random Glucose 108 H Calcium 7.0 L* Prot Corrected Calcium 8.1 L Iron 18 L Cancelled TIBC 193 L Cancelled % Saturation 9.3 L Cancelled Total Bilirubin 0.2 AST 13 L ALT 8 L Alkaline Phosphatase 67 Total Protein 5.1 L Albumin 2.0 L 03/03/18 03/03/18 06:30 06:30 WBC 5.6 RBC 2.32 L Hgb 7.3 L Hct 21.2 L MCV 91.3 MCH 31.2 MCHC 34.2 RDW 14.5 Plt Count 250 MPV 7.5 Neut % (Auto) 57.1 Lymph % (Auto) 26.1 [place] % (Auto) 11.8 H Eos % (Auto) 4.1 H Baso % (Auto) 0.9 Neut # (Auto) 3.2 Lymph # (Auto) 1.5 [place] # (Auto) 0.7 Eos # (Auto) 0.2 Baso # (Auto) 0.1 WBC Differential . Differential Comment Auto diff final Sodium 137 Potassium 4.0 Chloride 102 Carbon Dioxide 28.8 Anion Gap 6 BUN 2 L Creatinine 0.82 Estimated GFR Greater than 89 Random Glucose 103 Calcium 7.1 L* Prot Corrected Calcium 8.1 L Iron TIBC % Saturation Total Bilirubin 0.3 AST 11 L ALT 7 L Alkaline Phosphatase 66 Total Protein 5.2 L Albumin 2.0 L - Imaging Impressions Abdomen X-Ray 03/03/18 08:00 CONCLUSION: Interval increase in the size and number of the mildly dilated small bowel loops. Gas and stool remains segmentally in the colon. Assessment and Plan - Assessment (1) HTN (hypertension) Code(s): I10 - Essential (primary) hypertension Status: Chronic (2) Cellulitis and abscess of upper arm and forearm Status: Acute (3) GI bleed Code(s): K92.2 - Gastrointestinal hemorrhage, unspecified Status: Acute - Plan 62-year-old M with PMHx of HTN admitted secondary to necrotizing fasciitis of the right arm s/p multiple irrigation and debridements with wound vac, HD#15 1. Necrotizing fasciitis, +GA Strep. Ortho and ID managing, appreciate assistance with care s/p multiple irrigation and debridement with VAC dressing change, last on 03/01 Planned for skin graft closure, with repeat I&D and VAC dressing change Sunday Continue Cefazolin IV started on 02/21 and Clinda started on 03/02 per ID Continue pain management with Dilaudid and Oxy PRN Wound culture arm from 02/17, negative fungal x1 wk, + Group A strep, pansensitive Wound culture elbow from 02/17, negative fungal x1 wk, negative AFB, + Group A strep, pansensitive Blood culture from 02/17, no growth at 5 days x4 (Final) Per Ortho Reccs on 03/02: 1) Right Arm Necrotizing Fasciitis s/p multiple I&D and vac application - POD #2 - On exam no new erythema or swelling -maintain vac at all times. -150mmHg, intermittent 5:2 -plan for possible skin graft with repeat I&D and VAC dressing change next week with Dr. Galvan (poss Sunday?) -will need skin grafting of right arm when infection is cleared and enough granulation tissue present -Cx shows group A beta strep ID Reccs on 03/02: cont Ancef resume clindamycin untill c.diff r/o'd 2. Small Bowel Obstruction/Upper GI Bleed/?Diarrhea Tolerating diet Continue Famotidine Appreciate general surgery and GI assistance with management F/U KUB today F/U C. Diff results GI Reccs 03/02: Diet diabetic as tolerated Monitor labs special attention hemoglobin and transfuse as needed Recheck KUB in the morning Repeat EGD if hemoglobin decreases Supportive care Monitor abdominal distention, gradual improvement has been noted 3. Hypertension Not well controlled, will restart home Norvasc Currently holding home Metoprolol, resume if needed Continue to monitor 4. Tobacco Abuse Continue Wellbutrin Patient counseled to quit 5. Anemia Positive Hemoccult on 02/23 Being managed per GI, appreciate recommendations Hemoglobin 7.3 today from 7.3 on 03/02 Per GI reccs will transfuse 1 unit PRBC Follow-up CBC in AM Follow-up iron studies 6. Neuropathy Continue home Deacon 7. HLD Cont. statin 8. Hyperglycemia Blood sugar 103, 108, 137 No previous history of diabetes Checking hemoglobin A1c 9. DVT prophylaxis: SCD's due to frequent surgical debridements 10. Dispo: Continue inpatient management with antibiotics, follow-up GI and Ortho Reccs, Hemoglobin 7.3 today, unchanged from yesterday, but per GI recommendations will transfuse 1 unit PRBC. Follow-up CBC in AM. Code Status: full Discussed Condition With: patient, RN
[2018-03-03] MEDS ORDERED: Sodium Chlor 0.9% Inj 250 ML IV.SIG SCH (12:00)
[2018-03-03] MEDS ORDERED: *Heparin Central Flush 100 UNIT/ML 3 ML Syringe Periprocedural ONLY IV.FLUSH SCH (13:15)
[2018-03-03] MEDS ORDERED: Alteplase Inj 50 MG in Water for Inj, Sterile 50 ML IV.SIG ONE (13:30)
[2018-03-03] MEDS: amLODIPine 10 MG Tablet PO SCH (13:33)
[2018-03-03 14:53] LABS: Hemoglobin A1c 5.4 % (4.3-6.0)
[2018-03-03] MEDS ORDERED: Cathflo Activase Inj 2 MG Vial I-CATHETER ONE (15:00)
--- NOTE | 2018-03-03 15:04 | P.PNGI ---
Subjective Interval history: No nausea no vomiting no abdominal pain, generalized weakness but no obvious dizziness current hemoglobin 7.3 unchanged Physical Exam Vital signs: Vital Signs 03/02/18 16:00 03/02/18 20:00 03/03/18 00:00 Temperature 97.7 F 97.5 F L 98.5 F Pulse Rate 66 72 72 Respiratory Rate 18 18 18 Blood Pressure 170/71 H 149/66 H 154/75 H Pulse Oximetry 97 96 95 03/03/18 04:00 03/03/18 08:00 03/03/18 12:00 Temperature 97.2 F L 98.3 F 99 F Pulse Rate 68 64 60 Respiratory Rate 18 18 18 Blood Pressure 144/63 H 126/61 134/60 Pulse Oximetry 96 95 96 Intake & Output 03/02/18 03/03/18 03/03/18 18:59 06:59 18:59 Intake Total 2958 / 2958 630 / 630 150 / 150 Output Total 550 / 550 850 / 850 400 / 400 Balance 2408 / 2408 -220 / -220 -250 / -250 Weight 96.7 kg Intake: IV 2250 / 2250 150 / 150 150 / 150 D5W/NS + KCL 20 mEq Inj 1,000 1000 / 1000 ML @ 100 mls/hr IV.CONT .Q10H [place] Rx#:[id number] LR 1000 mL Inj 1,000 ML @ 30 1000 / 1000 mls/hr IV.CONT .Q24H [facility] Rx#: [id number] Cleocin 900 mg/NS Premix 900 mg 50 / 50 50 / 50 50 / 50 In 50 ml @ 100 mls/hr IV.SIG Q8H [place] Rx#:[id number] Ancef Inj 2,000 MG In NS Inj 80 200 / 200 100 / 100 100 / 100 ML @ 200 mls/hr IV.SIG Q8H [place] Rx#:[id number] Oral 708 / 708 480 / 480 Output: Urine 550 / 550 850 / 850 400 / 400 Other: Mode Setting Right Arm Intermittent Intermittent Intermittent Date of Last Bowel Movement 03/01/18 03/02/18 03/03/18 - Constitutional mild distress, obese, cachectic, disheveled, cooperative - Routine HEENT Exam Head: Present: normocephalic ENT: Present: mucous membranes moist - Routine Respiratory Exam Present: accessory muscle use (Even, unlabored) - Routine Cardiovascular Exam Present: S1, S2 - Routine Abdominal Exam Present: soft, normoactive bowel sounds - Routine Extremities Exam Present: edema (Right arm postsurgical for necrotizing fasciitis clean dry and intact less edema and elevated) Results - Labs CBC & Chem 7: 03/03/18 06:30 03/03/18 06:30 Laboratory Results - last 24 hr 03/02/18 03/02/18 03/02/18 14:12 14:12 14:12 WBC 7.5 RBC 2.35 L Hgb 7.3 L Hct 22.0 L MCV 93.5 MCH 31.1 MCHC 33.3 RDW 14.3 Plt Count 288 MPV 7.3 Neut % (Auto) 68.4 Lymph % (Auto) 17.7 [place] % (Auto) 9.6 H Eos % (Auto) 3.6 Baso % (Auto) 0.7 Neut # (Auto) 5.1 Lymph # (Auto) 1.3 [place] # (Auto) 0.7 Eos # (Auto) 0.3 Baso # (Auto) 0.1 WBC Differential . Differential Comment Auto diff final Sodium 137 Potassium 4.0 Chloride 102 Carbon Dioxide 29.4 Anion Gap 6 BUN 2 L Creatinine 0.68 Estimated GFR Greater than 89 Random Glucose 108 H Hemoglobin A1c Calcium 7.0 L* Prot Corrected Calcium 8.1 L Iron 18 L Cancelled TIBC 193 L Cancelled % Saturation 9.3 L Cancelled Total Bilirubin 0.2 AST 13 L ALT 8 L Alkaline Phosphatase 67 Total Protein 5.1 L Albumin 2.0 L MTS Gel Crossmatch 03/02/18 03/03/18 03/03/18 14:12 06:30 06:30 WBC 5.6 RBC 2.32 L Hgb 7.3 L Hct 21.2 L MCV 91.3 MCH 31.2 MCHC 34.2 RDW 14.5 Plt Count 250 MPV 7.5 Neut % (Auto) 57.1 Lymph % (Auto) 26.1 [place] % (Auto) 11.8 H Eos % (Auto) 4.1 H Baso % (Auto) 0.9 Neut # (Auto) 3.2 Lymph # (Auto) 1.5 [place] # (Auto) 0.7 Eos # (Auto) 0.2 Baso # (Auto) 0.1 WBC Differential . Differential Comment Auto diff final Sodium 137 Potassium 4.0 Chloride 102 Carbon Dioxide 28.8 Anion Gap 6 BUN 2 L Creatinine 0.82 Estimated GFR Greater than 89 Random Glucose 103 Hemoglobin A1c 5.4 Calcium 7.1 L* Prot Corrected Calcium 8.1 L Iron TIBC % Saturation Total Bilirubin 0.3 AST 11 L ALT 7 L Alkaline Phosphatase 66 Total Protein 5.2 L Albumin 2.0 L MTS Gel Crossmatch 03/03/18 13:37 WBC RBC Hgb Hct MCV MCH MCHC RDW Plt Count MPV Neut % (Auto) Lymph % (Auto) [place] % (Auto) Eos % (Auto) Baso % (Auto) Neut # (Auto) Lymph # (Auto) [place] # (Auto) Eos # (Auto) Baso # (Auto) WBC Differential Differential Comment Sodium Potassium Chloride Carbon Dioxide Anion Gap BUN Creatinine Estimated GFR Random Glucose Hemoglobin A1c Calcium Prot Corrected Calcium Iron TIBC % Saturation Total Bilirubin AST ALT Alkaline Phosphatase Total Protein Albumin MTS Gel Crossmatch See Detail - Imaging Impressions Abdomen X-Ray 03/03/18 08:00 CONCLUSION: Interval increase in the size and number of the mildly dilated small bowel loops. Gas and stool remains segmentally in the colon. Assessment and Plan - Plan - Anemia/ Gastric fluid was Gastroccult (+) hgb declined from 10 to 7.8 today, but seems to be stable over few days. Pt denies any obvious GI bleed.Patient had EGD/colonoscopy less than a month ago with Dr. Peterson and was normal by report. - SBO He has been having diarrhea, increasing heart burn, and diffused abd pain. States he has been inducing vomiting to get some relief. Stools were negative for C-diff. CT done and that showed SBO. Pt with hx of colectomy, colostomy then take down due to diverticulitis many yrs ago. No previous hx of SBO. Abdomen X-Ray 02/23/18 Diffuse marked air filled distention of the colon and small bowel again seen with paucity of bowel gas in the rectosigmoid colon. No significant interval change. Abdomen/Pelvis CT 02/24/18 1. Small bowel obstruction with significantly dilated small bowel and evidence of free fluid identified within the right upper quadrant and left midabdomen. The transition point appears within the lower central pelvis within the ileum. There appears to be large areas of adhesion with small bowel and the adjacent abdominal mesh. - necrotizing fasciitis of the right arm after a fall, he is s/p I&D and wound vac placement. - Hypokalemia defer to attending - HTN per attending 03/02/2018 patient resting in the bed, no obvious distress. Hemoglobin 7.3 unchanged, patient denies any GI symptoms of nausea vomiting or abdominal pain monitoring patient for anemia which is probably related to his recent right arm surgery. 12/01/2017 patient continues with hemoglobin 7.3 unchanged, still denies any GI symptoms of nausea vomiting or abdominal pain. Discussed with hospitalist recommendation for 1 unit of packed RBCs. Patient would benefit from increase hemoglobin for healing properties and less stress on the heart. Plan Diet as tolerated Monitor for any nausea vomiting or obvious bleeding Consider EGD if hemoglobin drops Monitor labs patient is receiving 1 unit packed RBCs today to bump up hemoglobin for less stress Supportive care PPI Further recommendations to follow Patient was seen per Dr. Espinal and myself, note was written on his behalf
[2018-03-04] MEDS: ceFAZolin Inj 2,000 MG in Sodium Chlor 0.9% Inj 80 ML IV.SIG SCH ×3 (01:35→17:44)
[2018-03-04] MEDS: Clindamycin 900 mg/NS Premix 900 MG/50 ML PIGGYBACK IV.SIG SCH ×4 (01:35→23:54)
[2018-03-04] MEDS: oxyCODONE/Acetaminophen 10/325 Tablet PO PRN ×5 (01:39→20:29)
[2018-03-04] MEDS: HYDROmorphone PF Inj 2 MG/ML Vial IV.PUSH PRN ×5 (02:48→23:54)
[2018-03-04] MEDS: Gabapentin 400 MG Capsule PO SCH ×5 (06:01→23:54)
[2018-03-04 07:06] LABS: Baso % (Auto) 0.7 % (0.0-2.0); Eos # (Auto) 0.2 th/mm3 (0.0-0.4); Eos % (Auto) 4.2 % (0.0-4.0); Hematocrit 24.5 % (39.0-51.0); Hemoglobin 8.4 gm/dL (13.0-17.0); Lymph # (Auto) 1.5 th/mm3 (1.0-4.8); Lymph % (Auto) 29.2 % (9.0-44.0); Mean Corpuscular HGB Conc 34.4 % (32.0-36.0); Mean Corpuscular Hemoglobin 29.8 pg (27.0-34.0); Mean Corpuscular Volume 86.6 fL (80.0-100.0); Mean Platelet Volume 7.4 fL (7.0-11.0); Mono # (Auto) 0.6 th/mm3 (0.0-0.9); Mono % (Auto) 12.3 % (0.0-8.0); Neut # (Auto) 2.8 th/mm3 (1.8-7.7); Neut % (Auto) 53.6 % (16.0-70.0); Platelet Count 247 th/mm3 (150-450); Red Blood Count 2.83 mil/mm3 (4.50-5.90); Red Cell Distribution Width 19.7 % (11.6-17.2); White Blood Count 5.2 th/mm3 (4.0-11.0)
[2018-03-04 07:31] LABS: Alanine Aminotransferase 8 U/L (12-78); Albumin 2.2 g/dL (3.4-5.0); Alkaline Phosphatase 65 U/L (45-117); Anion Gap 7 meq/L (5-15); Aspartate Aminotransferase 11 U/L (15-37); Blood Urea Nitrogen 3 mg/dL (7-18); Calcium 7.3 mg/dL (8.5-10.1); Carbon Dioxide 29.5 meq/L (21.0-32.0); Chloride 102 meq/L (98-107); Glomerular Filtration Rate Greater Than 89 mL/min (>89); Glucose,Random 95 mg/dL (74-106); Potassium 3.9 meq/L (3.5-5.1); Sodium 138 meq/L (136-145); Total Protein 5.3 g/dL (6.4-8.2)
[2018-03-04] MEDS: amLODIPine 10 MG Tablet PO SCH (08:32)
[2018-03-04] MEDS: Lactobacillus Acidophilus/L. Spores Tablet PO SCH ×3 (08:33→17:44)
[2018-03-04] MEDS: Famotidine PF Inj 20 MG/2 ML Vial IV.PUSH SCH ×2 (09:33→20:29)
[2018-03-04 09:50] LABS: Dimorphic RBC Present; Polychromasia 2.6 % (0.0-1.9)
[2018-03-04 09:51] LABS: Ovalocytes 1+
--- NOTE | 2018-03-04 15:01 | P.PN ---
Subjective Interval history: Patient doing well, reports improved weakness after blood transfusion. No concerns. Physical Exam Vital signs: Vital Signs 03/03/18 16:00 03/03/18 16:33 03/03/18 16:40 Temperature 97.4 F L 98 F 98.4 F Pulse Rate 62 63 62 Respiratory Rate 18 16 17 Blood Pressure 161/72 H 171/70 H Pulse Oximetry 97 98 03/03/18 20:00 03/04/18 00:00 03/04/18 04:00 Temperature 97.3 F L 97.8 F 97.3 F L Pulse Rate 74 78 78 Respiratory Rate 18 18 18 Blood Pressure 163/73 H 158/72 H 148/72 H Pulse Oximetry 97 97 97 03/04/18 08:00 03/04/18 12:00 03/04/18 14:16 Temperature 97.5 F L 98.1 F Pulse Rate 60 70 Respiratory Rate 20 20 16 Blood Pressure 168/71 H 142/62 H Pulse Oximetry 99 95 Intake & Output 03/03/18 03/04/18 03/04/18 18:59 06:59 18:59 Intake Total 800 / 800 250 / 250 150 / 150 Output Total 1000 / 1000 1200 / 1200 50 / 50 Balance -200 / -200 -950 / -950 100 / 100 Weight 96.7 kg Intake: IV 200 / 200 250 / 250 150 / 150 Cleocin 900 mg/NS Premix 900 mg 100 / 100 50 / 50 50 / 50 In 50 ml @ 100 mls/hr IV.SIG Q8H [place] Rx#:[id number] Ancef Inj 2,000 MG In NS Inj 80 100 / 100 200 / 200 100 / 100 ML @ 200 mls/hr IV.SIG Q8H [place] Rx#:[id number] Oral 600 / 600 Intake (Blood Product) Amt 0 / 0 Rbc As-3 Leukoreduced Unit 0 / 0 [id number] Output: Urine 1000 / 1000 1200 / 1200 Wound Vac Amount 50 / 50 Right Arm 50 / 50 Other: Mode Setting Right Arm Intermittent Intermittent Continuous # Voids 2 Date of Last Bowel Movement 03/03/18 03/03/18 03/04/18 Narrative: GENERAL: Well-nourished male, in no acute distress, sitting comfortably in bed SKIN: Warm and dry. HEENT: Normocephalic. No scleral icterus. No injection or drainage. PERRLA. MOM. NECK: Supple, trachea midline. No JVD or lymphadenopathy. CARDIOVASCULAR: Regular rate and rhythm without murmurs, gallops, or rubs. RESPIRATORY: Breath sounds equal bilaterally. No accessory muscle use. GASTROINTESTINAL: Abdomen soft, non-tender, nondistended. MUSCULOSKELETAL: No cyanosis, or edema. Right forearm with dressing in place, C /D/I with wound VAC present. BACK: Nontender without obvious deformity. No CVA tenderness. NEURO: AAO x3, no focal deficits Results - Labs CBC & Chem 7: 03/04/18 06:00 03/04/18 06:00 Laboratory Results - last 24 hr 03/02/18 03/03/18 03/04/18 14:12 13:37 06:00 WBC 5.2 RBC 2.83 L Hgb 8.4 L Hct 24.5 L MCV 86.6 D MCH 29.8 MCHC 34.4 RDW 19.7 H D Plt Count 247 MPV 7.4 Prelim Diff (Auto) Slide review pending Neut % (Auto) 53.6 Lymph % (Auto) 29.2 [place] % (Auto) 12.3 H Eos % (Auto) 4.2 H Baso % (Auto) 0.7 Neut # (Auto) 2.8 Lymph # (Auto) 1.5 [place] # (Auto) 0.6 Eos # (Auto) 0.2 Baso # (Auto) 0.0 WBC Differential . Diff Scan Auto diff confirmed Differential Comment . Dimorphic RBCs Present H Polychromasia 2.6 H Ovalocytes 1+ H Sodium Potassium Chloride Carbon Dioxide Anion Gap BUN Creatinine Estimated GFR Random Glucose Hemoglobin A1c 5.4 Calcium Prot Corrected Calcium Total Bilirubin AST ALT Alkaline Phosphatase Total Protein Albumin Stl C.difficile DNA Amp St C. diff Tox Epid 027 Blood Type O Positive Antibody Screen Negative MTS Gel Crossmatch See Detail 03/04/18 03/04/18 06:00 10:44 WBC RBC Hgb Hct MCV MCH MCHC RDW Plt Count MPV Prelim Diff (Auto) Neut % (Auto) Lymph % (Auto) [place] % (Auto) Eos % (Auto) Baso % (Auto) Neut # (Auto) Lymph # (Auto) [place] # (Auto) Eos # (Auto) Baso # (Auto) WBC Differential Diff Scan Differential Comment Dimorphic RBCs Polychromasia Ovalocytes Sodium 138 Potassium 3.9 Chloride 102 Carbon Dioxide 29.5 Anion Gap 7 BUN 3 L Creatinine 0.84 Estimated GFR Greater than 89 Random Glucose 95 Hemoglobin A1c Calcium 7.3 L* Prot Corrected Calcium 8.3 L Total Bilirubin 0.2 AST 11 L ALT 8 L Alkaline Phosphatase 65 Total Protein 5.3 L Albumin 2.2 L Stl C.difficile DNA Amp Negative St C. diff Tox Epid 027 Negative Blood Type Antibody Screen MTS Gel Crossmatch Microbiology 02/17/18 21:40 Wound - Elbow Fungal Smear - Final No fungal elements seen 02/17/18 21:40 Wound - Elbow Fungal Culture - Preliminary No growth in 2 weeks 02/17/18 21:40 Wound - Elbow Acid Fast Bacilli Smear - Final No acid fast bacilli seen 02/17/18 21:40 Wound - Elbow Mycobacterial Culture - Preliminary No growth in 2 weeks 02/17/18 21:50 Wound - Arm Fungal Smear - Final No fungal elements seen 02/17/18 21:50 Wound - Arm Fungal Culture - Preliminary No growth in 2 weeks 02/17/18 21:50 Wound - Arm Acid Fast Bacilli Smear - Final No acid fast bacilli seen 02/17/18 21:50 Wound - Arm Mycobacterial Culture - Preliminary No growth in 2 weeks 02/17/18 21:40 Wound - Arm Fungal Smear - Final No fungal elements seen 02/17/18 21:40 Wound - Arm Fungal Culture - Preliminary No growth in 2 weeks 02/17/18 21:40 Wound - Arm Acid Fast Bacilli Smear - Final No acid fast bacilli seen 02/17/18 21:40 Wound - Arm Mycobacterial Culture - Preliminary No growth in 2 weeks Assessment and Plan - Assessment (1) HTN (hypertension) Code(s): I10 - Essential (primary) hypertension Status: Chronic (2) Cellulitis and abscess of upper arm and forearm Status: Acute (3) GI bleed Code(s): K92.2 - Gastrointestinal hemorrhage, unspecified Status: Acute - Plan 62-year-old M with PMHx of HTN admitted secondary to necrotizing fasciitis of the right arm s/p multiple irrigation and debridements with wound vac, HD#16 1. Necrotizing fasciitis, +[place] Strep. Ortho and ID managing, appreciate assistance with care s/p multiple irrigation and debridement with VAC dressing change, last on 03/01 Planned for skin graft closure, with repeat I&D and VAC dressing change ?Sunday Continue Cefazolin IV started on 02/21 and cont. Clinda started on 03/02 Continue pain management with Dilaudid and Oxy PRN Wound culture arm from 02/17, negative fungal x1 wk, + Group A strep, pansensitive Wound culture elbow from 02/17, negative fungal x1 wk, negative AFB, + Group A strep, pansensitive Blood culture from 02/17, no growth at 5 days x4 (Final) Per Ortho Reccs on 03/02: 1) Right Arm Necrotizing Fasciitis s/p multiple I&D and vac application - POD #2 - On exam no new erythema or swelling -maintain vac at all times. -150mmHg, intermittent 5:2 -plan for possible skin graft with repeat I&D and VAC dressing change next week with Dr. Galvan (poss Sunday?) -will need skin grafting of right arm when infection is cleared and enough granulation tissue present -Cx shows group A beta strep ID Reccs on 03/02: Cont Ancef resume clindamycin untill c.diff r/o'd 2. Small Bowel Obstruction/Upper GI Bleed/?Diarrhea Tolerating diet Continue Famotidine Appreciate general surgery and GI assistance with management C. Diff Neg on 03/04, this was discussed with ID today GI Reccs 03/03: Plan Diet as tolerated Monitor for any nausea vomiting or obvious bleeding Consider EGD if hemoglobin drops Monitor labs patient is receiving 1 unit packed RBCs today to bump up hemoglobin for less stress Supportive care PPI Further recommendations to follow 3. Hypertension Improved, cont. home Norvasc Currently holding home Metoprolol, resume if needed Continue to monitor 4. Tobacco Abuse Continue Wellbutrin Patient counseled to quit 5. Anemia Positive Hemoccult on 02/23 Being managed per GI, appreciate recommendations Hemoglobin 8.4 today s/p 1UpRBC on 03/03, Hgb 7.3 yesterday Follow-up CBC in AM 6. Neuropathy Continue home Deacon 7. HLD Cont. statin 8. Hyperglycemia Blood sugar 103, 108, 137 No previous history of diabetes Hemoglobin A1c 5.4% 9. DVT prophylaxis: SCD's due to frequent surgical debridements 10. Dispo: Follow-up GI and Ortho Reccs, Hemoglobin stable Code Status: full Discussed Condition With: patient, RN
--- NOTE | 2018-03-04 15:51 | P.PNID ---
Subjective Remarks: resolved diarrhea and abd distentiosn c. diff negative still undergoing staged debridements, next planned for sunday RUE pain, swelling improves wound clx with MSSA 1/3, GAS (3/3) still requiring I+Ds, not re4ady for grafting Antibiotics: ancef clindamycin Allergies/Adverse Reactions: Allergies penicillin G Allergy (Mild, Verified 02/17/18 13:30) Hives Objective Vital Signs 03/03/18 16:00 03/03/18 16:33 03/03/18 16:40 Temperature 97.4 F L 98 F 98.4 F Pulse Rate 62 63 62 Respiratory Rate 18 16 17 Blood Pressure 161/72 H 171/70 H Pulse Oximetry 97 98 03/03/18 20:00 03/04/18 00:00 03/04/18 04:00 Temperature 97.3 F L 97.8 F 97.3 F L Pulse Rate 74 78 78 Respiratory Rate 18 18 18 Blood Pressure 163/73 H 158/72 H 148/72 H Pulse Oximetry 97 97 97 03/04/18 08:00 03/04/18 12:00 03/04/18 14:16 Temperature 97.5 F L 98.1 F Pulse Rate 60 70 Respiratory Rate 20 20 16 Blood Pressure 168/71 H 142/62 H Pulse Oximetry 99 95 Intake & Output 03/03/18 03/04/18 03/04/18 18:59 06:59 18:59 Intake Total 800 / 800 250 / 250 150 / 150 Output Total 1000 / 1000 1200 / 1200 50 / 50 Balance -200 / -200 -950 / -950 100 / 100 Weight 96.7 kg Intake: IV 200 / 200 250 / 250 150 / 150 Cleocin 900 mg/NS Premix 900 mg 100 / 100 50 / 50 50 / 50 In 50 ml @ 100 mls/hr IV.SIG Q8H [place] Rx#:[id number] Ancef Inj 2,000 MG In NS Inj 80 100 / 100 200 / 200 100 / 100 ML @ 200 mls/hr IV.SIG Q8H [place] Rx#:[id number] Oral 600 / 600 Intake (Blood Product) Amt 0 / 0 Rbc As-3 Leukoreduced Unit 0 / 0 [id number] Output: Urine 1000 / 1000 1200 / 1200 Wound Vac Amount 50 / 50 Right Arm 50 / 50 Other: Mode Setting Right Arm Intermittent Intermittent Continuous # Voids 2 Date of Last Bowel Movement 03/03/18 03/03/18 03/04/18 02/17/18 21:40 Wound - Elbow Fungal Smear - Final No fungal elements seen 02/17/18 21:40 Wound - Elbow Fungal Culture - Preliminary No growth in 2 weeks 02/17/18 21:40 Wound - Elbow Acid Fast Bacilli Smear - Final No acid fast bacilli seen 02/17/18 21:40 Wound - Elbow Mycobacterial Culture - Preliminary No growth in 2 weeks 02/17/18 21:50 Wound - Arm Fungal Smear - Final No fungal elements seen 02/17/18 21:50 Wound - Arm Fungal Culture - Preliminary No growth in 2 weeks 02/17/18 21:50 Wound - Arm Acid Fast Bacilli Smear - Final No acid fast bacilli seen 02/17/18 21:50 Wound - Arm Mycobacterial Culture - Preliminary No growth in 2 weeks 02/17/18 21:40 Wound - Arm Fungal Smear - Final No fungal elements seen 02/17/18 21:40 Wound - Arm Fungal Culture - Preliminary No growth in 2 weeks 02/17/18 21:40 Wound - Arm Acid Fast Bacilli Smear - Final No acid fast bacilli seen 02/17/18 21:40 Wound - Arm Mycobacterial Culture - Preliminary No growth in 2 weeks Lab - Hematology Results 03/03/18 03/04/18 06:30 06:00 WBC 5.6 5.2 RBC 2.32 L 2.83 L Hgb 7.3 L 8.4 L Hct 21.2 L 24.5 L MCV 91.3 86.6 D MCH 31.2 29.8 MCHC 34.2 34.4 RDW 14.5 19.7 H D Plt Count 250 247 MPV 7.5 7.4 Prelim Diff (Auto) Slide review pending Neut % (Auto) 57.1 53.6 Lymph % (Auto) 26.1 29.2 [place] % (Auto) 11.8 H 12.3 H Eos % (Auto) 4.1 H 4.2 H Baso % (Auto) 0.9 0.7 Neut # (Auto) 3.2 2.8 Lymph # (Auto) 1.5 1.5 [place] # (Auto) 0.7 0.6 Eos # (Auto) 0.2 0.2 Baso # (Auto) 0.1 0.0 WBC Differential . . Diff Scan Auto diff confirmed Differential Comment Auto diff final . Dimorphic RBCs Present H Polychromasia 2.6 H Ovalocytes 1+ H Lab - Chemistry Results 03/02/18 03/02/18 03/03/18 14:12 14:12 06:30 Sodium 137 137 Potassium 4.0 4.0 Chloride 102 102 Carbon Dioxide 29.4 28.8 Anion Gap 6 6 BUN 2 L 2 L Creatinine 0.68 0.82 Estimated GFR Greater than 89 Greater than 89 Random Glucose 108 H 103 Hemoglobin A1c 5.4 Calcium 7.0 L* 7.1 L* Prot Corrected Calcium 8.1 L 8.1 L Iron 18 L TIBC 193 L % Saturation 9.3 L Total Bilirubin 0.2 0.3 AST 13 L 11 L ALT 8 L 7 L Alkaline Phosphatase 67 66 Total Protein 5.1 L 5.2 L Albumin 2.0 L 2.0 L 03/04/18 06:00 Sodium 138 Potassium 3.9 Chloride 102 Carbon Dioxide 29.5 Anion Gap 7 BUN 3 L Creatinine 0.84 Estimated GFR Greater than 89 Random Glucose 95 Hemoglobin A1c Calcium 7.3 L* Prot Corrected Calcium 8.3 L Iron TIBC % Saturation Total Bilirubin 0.2 AST 11 L ALT 8 L Alkaline Phosphatase 65 Total Protein 5.3 L Albumin 2.2 L Imaging: ITS Impressions Forearm CT 02/17/18 13:55 CONCLUSION: 1. Prominent area of subcutaneous fluid, thickening, and collections of gas extending from distal forearm to elbow, suspicious for abscess along the medial aspect of the forearm. 2. Osseous structures are radiographically intact. Forearm X-Ray 02/17/18 13:55 CONCLUSION: 1. Diffuse soft tissue swelling. 2. No acute fracture or joint dislocation. Head CT 02/17/18 13:55 CONCLUSION: 1. Negative noncontrast CT brain. . Abdomen/Pelvis CT 02/24/18 00:00 CONCLUSION: 1. Small bowel obstruction with significantly dilated small bowel and evidence of free fluid identified within the right upper quadrant and left midabdomen. The transition point appears within the lower central pelvis within the ileum. There appears to be large areas of adhesion with small bowel and the adjacent abdominal mesh. Chest X-Ray 02/24/18 00:00 CONCLUSION: 1. NG tube is coiled in the oropharynx. 2. Stable mild left lower lung zone pleural-parenchymal opacities. Tube Placement X-Ray 02/24/18 00:00 CONCLUSION: 1. Fluoroscopic guided placement of nasogastric catheter. Abdomen X-Ray 03/03/18 08:00 CONCLUSION: Interval increase in the size and number of the mildly dilated small bowel loops. Gas and stool remains segmentally in the colon. Physical Exam: GENERAL: NAD comfortable SKIN: Warm and dry. No rash EYES: Pupils equal and round. No scleral icterus. ENT: . Mucous membranes pink and moist. CARDIOVASCULAR: Regular rate and rhythm. No murmurs RESPIRATORY: No accessory muscle use. Clear to auscultation. Breath sounds equal bilaterally. GASTROINTESTINAL: Abdomen soft, not tender, not distended. Hepatic and splenic margins not palpable. MUSCULOSKELETAL: Extremities without clubbing, cyanosis, or edema. STATUS localis: R UE with surg dressing, CLAUDE, VAC in place with serosang drainage VAC covering a huge soft tissue defect ariane the forearm no asceding redness or induration on the upper arm soft compartments soft edema of R hand dorsum - resolved NEUROLOGICAL: Awake and alert. Non focal. Normal speech. PSYCHIATRIC: Appropriate mood and affect; Assessment and Plan - Plan Nec fasciitis RUE: GAS, MSSA - sp multiple debridement s, VAC Diarrhea, abd distention on clinda ? C.diff cont Ancef + clindamycin I no necrotic tissue on Sunday sx will dc abx dw Dr Crenshaw
[2018-03-04] MEDS: Ferrous Sulfate 325 MG Tablet PO SCH ×2 (15:58→20:29)
--- NOTE | 2018-03-04 16:59 | P.PNGI ---
Subjective Interval history: Patient resting in the bed states he is feeling somewhat better no abdominal pain no nausea no vomiting good appetite states he is eating regular diet without any difficulty. Notes one stool a day, occasional loose but no diarrhea. C. difficile times second check negative <Aneta Mcgraw - Last Filed: 03/04/18 16:52> Physical Exam Vital signs: Vital Signs 03/03/18 20:00 03/04/18 00:00 03/04/18 04:00 Temperature 97.3 F L 97.8 F 97.3 F L Pulse Rate 74 78 78 Respiratory Rate 18 18 18 Blood Pressure 163/73 H 158/72 H 148/72 H Pulse Oximetry 97 97 97 03/04/18 08:00 03/04/18 12:00 03/04/18 14:16 Temperature 97.5 F L 98.1 F Pulse Rate 60 70 Respiratory Rate 20 20 16 Blood Pressure 168/71 H 142/62 H Pulse Oximetry 99 95 03/04/18 16:00 Temperature 97.8 F Pulse Rate 69 Respiratory Rate 20 Blood Pressure 171/74 H Pulse Oximetry 95 Intake & Output 03/03/18 03/04/18 03/04/18 18:59 06:59 18:59 Intake Total 800 / 800 250 / 250 150 / 150 Output Total 1000 / 1000 1200 / 1200 50 / 50 Balance -200 / -200 -950 / -950 100 / 100 Weight 96.7 kg Intake: IV 200 / 200 250 / 250 150 / 150 Cleocin 900 mg/NS Premix 900 mg 100 / 100 50 / 50 50 / 50 In 50 ml @ 100 mls/hr IV.SIG Q8H [place] Rx#:[id number] Ancef Inj 2,000 MG In NS Inj 80 100 / 100 200 / 200 100 / 100 ML @ 200 mls/hr IV.SIG Q8H [place] Rx#:[id number] Oral 600 / 600 Intake (Blood Product) Amt 0 / 0 Rbc As-3 Leukoreduced Unit 0 / 0 [id number] Output: Urine 1000 / 1000 1200 / 1200 Wound Vac Amount 50 / 50 Right Arm 50 / 50 Other: Mode Setting Right Arm Intermittent Intermittent Continuous # Voids 2 Date of Last Bowel Movement 03/03/18 03/03/18 03/04/18 - Constitutional no acute distress, obese, cooperative - Routine HEENT Exam Head: Present: normocephalic ENT: Present: mucous membranes moist - Routine Respiratory Exam Present: accessory muscle use - Routine Cardiovascular Exam Present: S1 (Even, unlabored), S2 - Routine Abdominal Exam Present: soft, normoactive bowel sounds (Round, obese, no abdominal pain) - Routine Extremities Exam Present: edema (Mild right arm full-length dressing clean dry and intact, status post surgical procedure) <Aneta Mcgraw - Last Filed: 03/04/18 16:52> Vital signs: Vital Signs 03/04/18 00:00 03/04/18 04:00 03/04/18 08:00 Temperature 97.8 F 97.3 F L 97.5 F L Pulse Rate 78 78 60 Respiratory Rate 18 18 20 Blood Pressure 158/72 H 148/72 H 168/71 H Pulse Oximetry 97 97 99 03/04/18 12:00 03/04/18 14:16 03/04/18 16:00 Temperature 98.1 F 97.8 F Pulse Rate 70 69 Respiratory Rate 20 16 20 Blood Pressure 142/62 H 171/74 H Pulse Oximetry 95 95 03/04/18 19:35 03/04/18 20:00 Temperature 97.6 F Pulse Rate 67 Respiratory Rate 14 16 Blood Pressure 154/68 H Pulse Oximetry 98 Intake & Output 03/04/18 03/04/18 03/05/18 06:59 18:59 06:59 Intake Total 250 / 250 820 / 820 100 / 100 Output Total 1200 / 1200 50 / 50 Balance -950 / -950 770 / 770 100 / 100 Weight 96.7 kg Intake: IV 250 / 250 200 / 200 100 / 100 Cleocin 900 mg/NS Premix 900 mg 50 / 50 100 / 100 In 50 ml @ 100 mls/hr IV.SIG Q8H [place] Rx#:[id number] Ancef Inj 2,000 MG In NS Inj 80 200 / 200 100 / 100 100 / 100 ML @ 200 mls/hr IV.SIG Q8H [place] Rx#:[id number] Oral 620 / 620 Output: Urine 1200 / 1200 Wound Vac Amount 50 / 50 Right Arm 50 / 50 Other: Mode Setting Right Arm Intermittent Continuous Continuous # Voids 2 Date of Last Bowel Movement 03/03/18 03/04/18 03/04/18 <Maurilio Greenfield - Last Filed: 03/04/18 22:32> Results - Labs CBC & Chem 7: 03/04/18 06:00 03/04/18 06:00 Laboratory Results - last 24 hr 03/03/18 03/04/18 03/04/18 13:37 06:00 06:00 WBC 5.2 RBC 2.83 L Hgb 8.4 L Hct 24.5 L MCV 86.6 D MCH 29.8 MCHC 34.4 RDW 19.7 H D Plt Count 247 MPV 7.4 Prelim Diff (Auto) Slide review pending Neut % (Auto) 53.6 Lymph % (Auto) 29.2 [place] % (Auto) 12.3 H Eos % (Auto) 4.2 H Baso % (Auto) 0.7 Neut # (Auto) 2.8 Lymph # (Auto) 1.5 [place] # (Auto) 0.6 Eos # (Auto) 0.2 Baso # (Auto) 0.0 WBC Differential . Diff Scan Auto diff confirmed Differential Comment . Dimorphic RBCs Present H Polychromasia 2.6 H Ovalocytes 1+ H Sodium 138 Potassium 3.9 Chloride 102 Carbon Dioxide 29.5 Anion Gap 7 BUN 3 L Creatinine 0.84 Estimated GFR Greater than 89 Random Glucose 95 Calcium 7.3 L* Prot Corrected Calcium 8.3 L Total Bilirubin 0.2 AST 11 L ALT 8 L Alkaline Phosphatase 65 Total Protein 5.3 L Albumin 2.2 L Stl C.difficile DNA Amp St C. diff Tox Epid 027 MTS Gel Crossmatch See Detail 03/04/18 10:44 WBC RBC Hgb Hct MCV MCH MCHC RDW Plt Count MPV Prelim Diff (Auto) Neut % (Auto) Lymph % (Auto) [place] % (Auto) Eos % (Auto) Baso % (Auto) Neut # (Auto) Lymph # (Auto) [place] # (Auto) Eos # (Auto) Baso # (Auto) WBC Differential Diff Scan Differential Comment Dimorphic RBCs Polychromasia Ovalocytes Sodium Potassium Chloride Carbon Dioxide Anion Gap BUN Creatinine Estimated GFR Random Glucose Calcium Prot Corrected Calcium Total Bilirubin AST ALT Alkaline Phosphatase Total Protein Albumin Stl C.difficile DNA Amp Negative St C. diff Tox Epid 027 Negative MTS Gel Crossmatch Microbiology 02/17/18 21:40 Wound - Elbow Fungal Smear - Final No fungal elements seen 02/17/18 21:40 Wound - Elbow Fungal Culture - Preliminary No growth in 2 weeks 02/17/18 21:40 Wound - Elbow Acid Fast Bacilli Smear - Final No acid fast bacilli seen 02/17/18 21:40 Wound - Elbow Mycobacterial Culture - Preliminary No growth in 2 weeks 02/17/18 21:50 Wound - Arm Fungal Smear - Final No fungal elements seen 02/17/18 21:50 Wound - Arm Fungal Culture - Preliminary No growth in 2 weeks 02/17/18 21:50 Wound - Arm Acid Fast Bacilli Smear - Final No acid fast bacilli seen 02/17/18 21:50 Wound - Arm Mycobacterial Culture - Preliminary No growth in 2 weeks 02/17/18 21:40 Wound - Arm Fungal Smear - Final No fungal elements seen 02/17/18 21:40 Wound - Arm Fungal Culture - Preliminary No growth in 2 weeks 02/17/18 21:40 Wound - Arm Acid Fast Bacilli Smear - Final No acid fast bacilli seen 02/17/18 21:40 Wound - Arm Mycobacterial Culture - Preliminary No growth in 2 weeks <Aneta Mcgraw - Last Filed: 03/04/18 16:52> - Labs CBC & Chem 7: 03/04/18 06:00 03/04/18 06:00 Laboratory Results - last 24 hr 03/04/18 03/04/18 03/04/18 06:00 06:00 10:44 WBC 5.2 RBC 2.83 L Hgb 8.4 L Hct 24.5 L MCV 86.6 D MCH 29.8 MCHC 34.4 RDW 19.7 H D Plt Count 247 MPV 7.4 Prelim Diff (Auto) Slide review pending Neut % (Auto) 53.6 Lymph % (Auto) 29.2 [place] % (Auto) 12.3 H Eos % (Auto) 4.2 H Baso % (Auto) 0.7 Neut # (Auto) 2.8 Lymph # (Auto) 1.5 [place] # (Auto) 0.6 Eos # (Auto) 0.2 Baso # (Auto) 0.0 WBC Differential . Diff Scan Auto diff confirmed Differential Comment . Dimorphic RBCs Present H Polychromasia 2.6 H Ovalocytes 1+ H Sodium 138 Potassium 3.9 Chloride 102 Carbon Dioxide 29.5 Anion Gap 7 BUN 3 L Creatinine 0.84 Estimated GFR Greater than 89 Random Glucose 95 Calcium 7.3 L* Prot Corrected Calcium 8.3 L Total Bilirubin 0.2 AST 11 L ALT 8 L Alkaline Phosphatase 65 Total Protein 5.3 L Albumin 2.2 L Stl C.difficile DNA Amp Negative St C. diff Tox Epid 027 Negative Microbiology 02/17/18 21:40 Wound - Elbow Fungal Smear - Final No fungal elements seen 02/17/18 21:40 Wound - Elbow Fungal Culture - Preliminary No growth in 2 weeks 02/17/18 21:40 Wound - Elbow Acid Fast Bacilli Smear - Final No acid fast bacilli seen 02/17/18 21:40 Wound - Elbow Mycobacterial Culture - Preliminary No growth in 2 weeks 02/17/18 21:50 Wound - Arm Fungal Smear - Final No fungal elements seen 02/17/18 21:50 Wound - Arm Fungal Culture - Preliminary No growth in 2 weeks 02/17/18 21:50 Wound - Arm Acid Fast Bacilli Smear - Final No acid fast bacilli seen 02/17/18 21:50 Wound - Arm Mycobacterial Culture - Preliminary No growth in 2 weeks 02/17/18 21:40 Wound - Arm Fungal Smear - Final No fungal elements seen 02/17/18 21:40 Wound - Arm Fungal Culture - Preliminary No growth in 2 weeks 02/17/18 21:40 Wound - Arm Acid Fast Bacilli Smear - Final No acid fast bacilli seen 02/17/18 21:40 Wound - Arm Mycobacterial Culture - Preliminary No growth in 2 weeks <Mauriloi Greenfield - Last Filed: 03/04/18 22:32> Assessment and Plan (1) GI bleed Status: Acute Code(s): K92.2 - Gastrointestinal hemorrhage, unspecified (2) Small bowel obstruction Status: Acute Code(s): K56.609 - Unspecified intestinal obstruction, unspecified as to partial versus complete obstruction - Plan Small bowel obstruction/GI bleed NG tube in place, attached to low intermittent wall suction. 550 mL's of dark [id number] appearance- noted in suction container. Abdomen distended but soft and nontender. Positive bowel sounds noted. KUB this a.m. revealed the following---> There is an NGT with tip in the proximal stomach. Multiple loops of distended air-filled small bowel throughout the abdomen. Air is seen in the colon extending to the sigmoid. No gross free air or pneumatosis. Surgical clips are seen throughout the abdomen. Osseous structures are intact. NG tube the proximal stomach. Persistent small bowel obstruction pattern. Anemia Hemoglobin 8.1 hematocrit 24.6 platelet count 470. Stable, patient denies any rectal bleeding. We will continue to follow labs and monitor for active bleeding. 02/26/2018 Small bowel obstruction/GI bleeding NG tube in place to low intermittent wall suction. 400 mL's of dark drainage noted in suction container. Patient states he drank from water pitcher last evening. Advised not to do so, states tolerated ice chips well. Denies any nausea. Noted general surgery recommendation to trial clamping NG tube, offering clear liquids. Patient n.p.o. at this time for orthopedic procedure/I& D right upper extremity. KUB in the a.m. Anemia Hemoglobin 7.2 hematocrit 21.4 platelet count 403. Patient denies any obvious bleeding. No active bleeding per nursing. 02/27/2018 Abdomen distended with positive bowel sounds present. Patient tolerating ice chips and clear liquids without nausea or vomiting. Hemoglobin 7.3 hematocrit 21.7. Patient denies any active bleeding no active bleeding reported. 02/28/2018 Less abdominal distention noted. Patient tolerating clear liquid diet without nausea or vomiting. KUB/CBC in the a.m., patient and nursing deny any noted active bleeding. Discussed plan for endoscopy once small bowel obstruction resolved. Patient states he underwent endoscopy "a few weeks ago" at [facility]. Medical records requested 03/01/2018 Abdomen soft nontender. Patient tolerating regular diet well without reported nausea or vomiting. Reports moving bowels soft brown stool without any reported noted bleeding. Hemoglobin 7.7 mild increase from previous 7.3. Hematocrit 22.6 stable 03/02/2018 patient states abdomen feeling much better less pressure and list of current discomfort bowel sounds are soft current hemoglobin 7.7 monitor patient' s anemia Loose brown stools but no obvious blood noted today, gradual improvement from patient's small bowel obstruction pattern NG tube has been out for 2 days. Note last EGD/colonoscopy showed Mckeon's esophagus, gastritis, diverticulosis , hemorrhoids,. Had been followed per Dr. Peterson Continue to monitor hemoglobin if needed EGD will be repeated if hemoglobin drops. Recent surgical procedure right arm on 03/01/2018 for necrotizing fasciitis. Some of his anemia may be related to acute blood loss SBO , abdominal x-rays from 03/01/2018 do show small area persistent in the left upper abdomen, no large bowel distention 03/04/2018 patient, states that he is feeling good appetite good no abdominal pain no nausea no vomiting. Patient states one bowel movement sometimes soft per day negative C. difficile. Current hemoglobin 8.4 today after 1 unit transfusion yesterday. Appears that patient is having no GI distress or GI bleed. Will recheck hemoglobin in a.m. and if stable GI will sign off. Plan Diet diabetic as tolerated Monitor labs special attention hemoglobin and transfuse as needed Recheck CBC in am Supportive care Patient was seen per myself and Dr. Greenfield, note was written on his behalf <Aneta Mcgraw - Last Filed: 03/04/18 16:52> (1) GI bleed Status: Acute Code(s): K92.2 - Gastrointestinal hemorrhage, unspecified (2) Small bowel obstruction Status: Acute Code(s): K56.609 - Unspecified intestinal obstruction, unspecified as to partial versus complete obstruction - Plan Patient seen and examined Agree with above history and physical Continue with current supportive care Monitor labs <Maurilio Greenfield - Last Filed: 03/04/18 22:32>
[2018-03-05] MEDS: ceFAZolin Inj 2,000 MG in Sodium Chlor 0.9% Inj 80 ML IV.SIG SCH ×3 (01:01→18:28)
[2018-03-05] MEDS: oxyCODONE/Acetaminophen 10/325 Tablet PO PRN ×5 (01:01→20:33)
[2018-03-05] MEDS: HYDROmorphone PF Inj 2 MG/ML Vial IV.PUSH PRN ×4 (04:12→23:35)
[2018-03-05] MEDS: Gabapentin 400 MG Capsule PO SCH ×5 (05:27→23:35)
[2018-03-05 06:04] LABS: Baso # (Auto) 0.1 th/mm3 (0.0-0.2); Eos # (Auto) 0.2 th/mm3 (0.0-0.4); Eos % (Auto) 3.2 % (0.0-4.0); Hematocrit 27.4 % (39.0-51.0); Hemoglobin 8.9 gm/dL (13.0-17.0); Lymph # (Auto) 1.9 th/mm3 (1.0-4.8); Lymph % (Auto) 29.2 % (9.0-44.0); Mean Corpuscular HGB Conc 32.6 % (32.0-36.0); Mean Corpuscular Hemoglobin 28.8 pg (27.0-34.0); Mean Corpuscular Volume 88.3 fL (80.0-100.0); Mean Platelet Volume 7.2 fL (7.0-11.0); Mono # (Auto) 0.9 th/mm3 (0.0-0.9); Mono % (Auto) 14.3 % (0.0-8.0); Neut # (Auto) 3.5 th/mm3 (1.8-7.7); Neut % (Auto) 52.3 % (16.0-70.0); Platelet Count 247 th/mm3 (150-450); Red Cell Distribution Width 19.4 % (11.6-17.2); White Blood Count 6.6 th/mm3 (4.0-11.0)
[2018-03-05 06:29] LABS: Albumin 2.2 g/dL (3.4-5.0); Calcium 7.3 mg/dL (8.5-10.1); Carbon Dioxide 27.7 meq/L (21.0-32.0); Potassium 4.1 meq/L (3.5-5.1); Total Protein 5.8 g/dL (6.4-8.2)
--- NOTE | 2018-03-05 07:42 | P.PNOP ---
Subjective Interval history: Resting comfortably Physical Exam Vital signs: Vital Signs 03/04/18 08:00 03/04/18 12:00 03/04/18 14:16 Temperature 97.5 F L 98.1 F Pulse Rate 60 70 Respiratory Rate 20 20 16 Blood Pressure 168/71 H 142/62 H Pulse Oximetry 99 95 03/04/18 16:00 03/04/18 19:35 03/04/18 20:00 Temperature 97.8 F 97.6 F Pulse Rate 69 67 Respiratory Rate 20 14 16 Blood Pressure 171/74 H 154/68 H Pulse Oximetry 95 98 03/05/18 00:00 03/05/18 04:00 Temperature 97.4 F L 97.6 F Pulse Rate 77 72 Respiratory Rate 19 18 Blood Pressure 156/71 H 133/63 Pulse Oximetry 97 98 Intake & Output 03/04/18 03/05/18 03/05/18 18:59 06:59 18:59 Intake Total 820 / 820 250 / 250 Output Total 50 / 50 1400 / 1400 Balance 770 / 770 -1150 / -1150 Weight 95.3 kg Intake: IV 200 / 200 250 / 250 Cleocin 900 mg/NS Premix 900 mg 100 / 100 50 / 50 In 50 ml @ 100 mls/hr IV.SIG Q8H [place] Rx#:[id number] Ancef Inj 2,000 MG In NS Inj 80 100 / 100 200 / 200 ML @ 200 mls/hr IV.SIG Q8H [place] Rx#:[id number] Oral 620 / 620 Output: Urine 1400 / 1400 Wound Vac Amount 50 / 50 Right Arm 50 / 50 Other: Mode Setting Right Arm Continuous Continuous # Voids 4 Date of Last Bowel Movement 03/04/18 03/04/18 # Bowel Movements 0 Narrative: Right upper extremity: clean dry dressings and intact. wound vac intact. distally NVI Results - Labs CBC & Chem 7: 03/05/18 05:40 03/05/18 05:40 Laboratory Results - last 24 hr 03/04/18 03/04/18 03/05/18 06:00 10:44 05:40 WBC 6.6 RBC 3.10 L Hgb 8.9 L Hct 27.4 L MCV 88.3 MCH 28.8 MCHC 32.6 RDW 19.4 H Plt Count 247 MPV 7.2 Neut % (Auto) 52.3 Lymph % (Auto) 29.2 [place] % (Auto) 14.3 H Eos % (Auto) 3.2 Baso % (Auto) 1.0 Neut # (Auto) 3.5 Lymph # (Auto) 1.9 [place] # (Auto) 0.9 Eos # (Auto) 0.2 Baso # (Auto) 0.1 WBC Differential . . Diff Scan Auto diff confirmed Differential Comment Auto diff final Dimorphic RBCs Present H Polychromasia 2.6 H Ovalocytes 1+ H Sodium Potassium Chloride Carbon Dioxide Anion Gap BUN Creatinine Estimated GFR Random Glucose Calcium Prot Corrected Calcium Total Bilirubin AST ALT Alkaline Phosphatase Total Protein Albumin Stl C.difficile DNA Amp Negative St C. diff Tox Epid 027 Negative 03/05/18 05:40 WBC RBC Hgb Hct MCV MCH MCHC RDW Plt Count MPV Neut % (Auto) Lymph % (Auto) [place] % (Auto) Eos % (Auto) Baso % (Auto) Neut # (Auto) Lymph # (Auto) [place] # (Auto) Eos # (Auto) Baso # (Auto) WBC Differential Diff Scan Differential Comment Dimorphic RBCs Polychromasia Ovalocytes Sodium 138 Potassium 4.1 Chloride 102 Carbon Dioxide 27.7 Anion Gap 8 BUN 3 L Creatinine 0.92 Estimated GFR 83 L Random Glucose 100 Calcium 7.3 L* Prot Corrected Calcium 8.0 L Total Bilirubin 0.3 AST 7 L ALT 7 L Alkaline Phosphatase 72 Total Protein 5.8 L Albumin 2.2 L Stl C.difficile DNA Amp St C. diff Tox Epid 027 Microbiology 02/17/18 21:40 Wound - Elbow Fungal Smear - Final No fungal elements seen 02/17/18 21:40 Wound - Elbow Fungal Culture - Preliminary No growth in 2 weeks 02/17/18 21:40 Wound - Elbow Acid Fast Bacilli Smear - Final No acid fast bacilli seen 02/17/18 21:40 Wound - Elbow Mycobacterial Culture - Preliminary No growth in 2 weeks 02/17/18 21:50 Wound - Arm Fungal Smear - Final No fungal elements seen 02/17/18 21:50 Wound - Arm Fungal Culture - Preliminary No growth in 2 weeks 02/17/18 21:50 Wound - Arm Acid Fast Bacilli Smear - Final No acid fast bacilli seen 02/17/18 21:50 Wound - Arm Mycobacterial Culture - Preliminary No growth in 2 weeks 02/17/18 21:40 Wound - Arm Fungal Smear - Final No fungal elements seen 02/17/18 21:40 Wound - Arm Fungal Culture - Preliminary No growth in 2 weeks 02/17/18 21:40 Wound - Arm Acid Fast Bacilli Smear - Final No acid fast bacilli seen 02/17/18 21:40 Wound - Arm Mycobacterial Culture - Preliminary No growth in 2 weeks Assessment and Plan - Assessment and Plan 1) Right Arm Necrotizing Fasciitis s/p multiple I&D and vac application - POD #4 - On exam no new erythema or swelling -maintain vac at all times. -150mmHg, intermittent 5:2 -NPO -plan for surgery for skin graft with repeat I&D and VAC dressing change today -will need skin grafting of right arm when infection is cleared and enough granulation tissue present -Cx shows group A beta strep
[2018-03-05] MEDS ORDERED: ceFAZolin 2 GM Premix Inj 2 GM/50 ML PIGGYBACK IV.SIG ONE (07:57)
[2018-03-05] MEDS ORDERED: Sodium Chlor 0.9% Inj 500 ML IV.SIG SCH (08:00)
[2018-03-05] MEDS ORDERED: Metoprolol Tartrate 25 MG Tablet PO PRN (08:00)
[2018-03-05] MEDS ORDERED: Chlorhexidine Gluconate 2% 1 Pack (2 Cloths) TOPICAL ONE (08:00)
[2018-03-05] MEDS ORDERED: fentaNYL Citrate Inj 250 MCG/5 ML Ampul ONE (08:11)
[2018-03-05] MEDS ORDERED: Glycopyrrolate Inj 1 MG/5 ML Syringe IV.PUSH ONE (08:12)
[2018-03-05] MEDS ORDERED: Phenylephrine/NS 1000 MCG/10ML Syringe IV.PUSH ONE (08:12)
[2018-03-05] MEDS ORDERED: Neostigmine Inj 5 MG/5 ML Syringe IV.PUSH ONE (08:12)
[2018-03-05] MEDS ORDERED: Lidocaine PF 1% Inj 5 ML Syringe OTHER ONE (08:12)
[2018-03-05] MEDS: Clindamycin 900 mg/NS Premix 900 MG/50 ML PIGGYBACK IV.SIG SCH ×3 (08:30→23:35)
[2018-03-05] MEDS ORDERED: Post-op Orders (for Pharmacy) OTHER STA (09:02)
--- NOTE | 2018-03-05 09:07 | P.OP ---
- Preoperative Diagnosis (1) Necrotizing soft tissue infection Date of procedure: 03/05/18 Procedure: Irrigation and debridement of right arm, split-thickness skin grafting right arm of wound measuring 40 cm x 15 cm (600 cm), application of wound VAC dressing Anesthesia: SERENE Surgeon: Pietro Catherine MD Shot Hole Shooter: SHAI Rodas PA-C The surgical procedure was assisted by my physician pharmacy sales assistant. My P.A. presence was necessary throughout this case for the manipulation and positioning of the surgical extremity. My P.A. was assisting me throughout the duration of this procedure. The skill set of a physician pharmacy sales assistant was medically necessary to complete this procedure. During the surgical case the surgical clinical reviewer was working at the back table and the physician pharmacy sales assistant was directly assisting me. Operation and Findings: Kyree returns operating today for additional surgery for his right arm infection and subsequent large open wound. He was brought to operating room and given IV sedation and general anesthesia. Timeout procedure was performed. IV antibiotics were administered. The right arm and right leg were prepped with alcohol followed by Hibiclens and draped in usual sterile fashion. Procedure began with irrigation and debridement of the open wound. Skin subcutaneous tissue and fascia were sharply debrided. Overall the wound was healthy. A excisional debridement was performed. Muscle appeared be healthy and viable. There was granulation tissue forming. Wound was now thoroughly irrigated with sterile saline. Next was turned to skin grafting. Using the Mario dermatome set at 0.015 skin graft was obtained from the thigh. Skin graft was now meshed at a ratio of 1- 2. The skin graft was now placed over the open wound. Skin graft was stapled into position. The wound measured 40 cm x 15 cm for a total of 600 cm. The open wound was completely covered. Skin graft was now covered with Xeroform. A VAC dressing was cut to fit over the wound. VAC dressing was sealed appropriately. A compressive dressing was applied. VAC dressing was set on continuous. Patient was awakened and transferred to recovery in stable condition.
[2018-03-05] MEDS ORDERED: *Meperidine Inj 25 MG/ML Vial PERIprocedural Use ONLY ONE (10:00)
[2018-03-05] MEDS: Ferrous Sulfate 325 MG Tablet PO SCH ×2 (11:07→20:33)
[2018-03-05] MEDS: Lactobacillus Acidophilus/L. Spores Tablet PO SCH ×3 (11:08→18:28)
[2018-03-05] MEDS: Famotidine PF Inj 20 MG/2 ML Vial IV.PUSH SCH ×2 (11:08→20:33)
[2018-03-05] MEDS: amLODIPine 10 MG Tablet PO SCH (11:08)
--- NOTE | 2018-03-05 12:15 | P.PN ---
Subjective Interval history: Patient reports that he is doing well postop. No overnight concerns per RN. Patient is hungry and reports prior to surgery was tolerating p.o., voiding/ stooling well. No current concerns per Physical Exam Vital signs: Vital Signs 03/04/18 14:16 03/04/18 16:00 03/04/18 19:35 Temperature 97.8 F Pulse Rate 69 Respiratory Rate 16 20 14 Blood Pressure 171/74 H Pulse Oximetry 95 03/04/18 20:00 03/04/18 20:30 03/05/18 00:00 Temperature 97.6 F 97.4 F L Pulse Rate 67 63 77 Respiratory Rate 16 19 Blood Pressure 154/68 H 156/71 H Pulse Oximetry 98 97 03/05/18 04:00 03/05/18 09:43 03/05/18 09:45 Temperature 97.6 F 97.7 F Pulse Rate 72 85 81 Respiratory Rate 18 20 18 Blood Pressure 133/63 134/63 131/60 Pulse Oximetry 98 100 99 03/05/18 10:00 03/05/18 10:15 Temperature 98 F Pulse Rate 79 78 Respiratory Rate 17 20 Blood Pressure 150/58 H 150/60 H Pulse Oximetry 98 98 Intake & Output 03/04/18 03/05/18 03/05/18 18:59 06:59 18:59 Intake Total 820 / 820 250 / 250 400 / 400 Output Total 50 / 50 1400 / 1400 25 / 25 Balance 770 / 770 -1150 / -1150 375 / 375 Weight 95.3 kg Intake: IV 200 / 200 250 / 250 Cleocin 900 mg/NS Premix 900 mg 100 / 100 50 / 50 In 50 ml @ 100 mls/hr IV.SIG Q8H [place] Rx#:[id number] Ancef Inj 2,000 MG In NS Inj 80 100 / 100 200 / 200 ML @ 200 mls/hr IV.SIG Q8H [place] Rx#:[id number] Oral 620 / 620 Anesthesia Amount 400 / 400 Output: Urine 1400 / 1400 Estimated Blood Loss 25 / 25 Wound Vac Amount 50 / 50 Right Arm 50 / 50 Other: Mode Setting Right Arm Continuous Continuous Continuous # Voids 4 Date of Last Bowel Movement 03/04/18 03/04/18 # Bowel Movements 0 Narrative: GENERAL: Well-nourished male, in no acute distress, sitting comfortably in bed SKIN: Warm and dry. HEENT: Normocephalic. No scleral icterus. No injection or drainage. PERRLA. MOM. NECK: Supple, trachea midline. No JVD or lymphadenopathy. CARDIOVASCULAR: Regular rate and rhythm without murmurs, gallops, or rubs. RESPIRATORY: Breath sounds equal bilaterally. No accessory muscle use. GASTROINTESTINAL: Abdomen soft, non-tender, nondistended. MUSCULOSKELETAL: No cyanosis, or edema. Right forearm with dressing in place, C /D/I with wound VAC present. BACK: Nontender without obvious deformity. No CVA tenderness. NEURO: AAO x3, no focal deficits Results - Labs CBC & Chem 7: 03/05/18 05:40 03/05/18 05:40 Laboratory Results - last 24 hr 03/04/18 03/05/18 03/05/18 10:44 05:40 05:40 WBC 6.6 RBC 3.10 L Hgb 8.9 L Hct 27.4 L MCV 88.3 MCH 28.8 MCHC 32.6 RDW 19.4 H Plt Count 247 MPV 7.2 Neut % (Auto) 52.3 Lymph % (Auto) 29.2 Gilmer % (Auto) 14.3 H Eos % (Auto) 3.2 Baso % (Auto) 1.0 Neut # (Auto) 3.5 Lymph # (Auto) 1.9 Gilmer # (Auto) 0.9 Eos # (Auto) 0.2 Baso # (Auto) 0.1 WBC Differential . Differential Comment Auto diff final Sodium 138 Potassium 4.1 Chloride 102 Carbon Dioxide 27.7 Anion Gap 8 BUN 3 L Creatinine 0.92 Estimated GFR 83 L Random Glucose 100 Calcium 7.3 L* Prot Corrected Calcium 8.0 L Total Bilirubin 0.3 AST 7 L ALT 7 L Alkaline Phosphatase 72 Total Protein 5.8 L Albumin 2.2 L Stl C.difficile DNA Amp Negative St C. diff Tox Epid 027 Negative Microbiology 02/17/18 21:40 Wound - Elbow Fungal Smear - Final No fungal elements seen 02/17/18 21:40 Wound - Elbow Fungal Culture - Preliminary No growth in 2 weeks 02/17/18 21:40 Wound - Elbow Acid Fast Bacilli Smear - Final No acid fast bacilli seen 02/17/18 21:40 Wound - Elbow Mycobacterial Culture - Preliminary No growth in 2 weeks 02/17/18 21:50 Wound - Arm Fungal Smear - Final No fungal elements seen 02/17/18 21:50 Wound - Arm Fungal Culture - Preliminary No growth in 2 weeks 02/17/18 21:50 Wound - Arm Acid Fast Bacilli Smear - Final No acid fast bacilli seen 02/17/18 21:50 Wound - Arm Mycobacterial Culture - Preliminary No growth in 2 weeks 02/17/18 21:40 Wound - Arm Fungal Smear - Final No fungal elements seen 02/17/18 21:40 Wound - Arm Fungal Culture - Preliminary No growth in 2 weeks 02/17/18 21:40 Wound - Arm Acid Fast Bacilli Smear - Final No acid fast bacilli seen 02/17/18 21:40 Wound - Arm Mycobacterial Culture - Preliminary No growth in 2 weeks Assessment and Plan - Assessment (1) HTN (hypertension) Code(s): I10 - Essential (primary) hypertension Status: Chronic (2) Cellulitis and abscess of upper arm and forearm Status: Acute (3) GI bleed Code(s): K92.2 - Gastrointestinal hemorrhage, unspecified Status: Acute - Plan 62-year-old M with PMHx of HTN admitted secondary to necrotizing fasciitis of the right arm s/p multiple irrigation and debridements with wound vac, s/p OR today on 03/05 for Irrigation and debridement of right arm, split-thickness skin grafting right arm of wound measuring 40 cm x 15 cm (600 cm), application of wound VAC dressing, POD#0, HD#17 1. Necrotizing fasciitis, +GA Strep. Ortho and ID managing, appreciate assistance with care s/p multiple irrigation and debridements s/p Irrigation and debridement of right arm, split-thickness skin grafting right arm of wound measuring 40 cm x 15 cm (600 cm), application of wound VAC dressing today on 03/05 Continue Cefazolin IV started on 02/21 and cont. Clinda started on 03/02 Continue pain management with Dilaudid and Oxy PRN Wound culture arm from 02/17, negative fungal x2 wks, + Group A strep, pansensitive Wound culture elbow from 02/17, negative fungal x2 wks, Negative AFB, + Group A strep, pansensitive Blood culture from 02/17, no growth at 5days x4 (Final) Per Ortho Reccs on 03/05: 1) Right Arm Necrotizing Fasciitis s/p multiple I&D and vac application - POD #4 - On exam no new erythema or swelling -maintain vac at all times. -150mmHg, intermittent 5:2 -NPO -plan for surgery for skin graft with repeat I&D and VAC dressing change today -will need skin grafting of right arm when infection is cleared and enough granulation tissue present -Cx shows group A beta strep ID Reccs on 03/04: Nec fasciitis RUE: GAS, MSSA - sp multiple debridement s, VAC Diarrhea, abd distention on clinda ? C.diff cont Ancef + clindamycin If no necrotic tissue on Sunday sx will dc abx 2. Small Bowel Obstruction/Upper GI Bleed/?Diarrhea Tolerating diet Continue Famotidine Appreciate general surgery and GI assistance with management C. Diff Neg on 03/04, this was discussed with ID today GI Reccs 03/03: Plan Diet as tolerated Monitor for any nausea vomiting or obvious bleeding Consider EGD if hemoglobin drops Monitor labs patient is receiving 1 unit packed RBCs today to bump up hemoglobin for less stress Supportive care PPI Further recommendations to follow 3. Hypertension Improved, cont. home Norvasc Currently holding home Metoprolol, resume if needed Continue to monitor 4. Tobacco Abuse Continue Wellbutrin Patient counseled to quit 5. Anemia Positive Hemoccult on 02/23 Being managed per GI, appreciate recommendations Hemoglobin 8.9 today from 8.4, s/p 1UpRBC on 03/03 Follow-up CBC in AM GI Reccs on 03/04: Diet diabetic as tolerated Monitor labs special attention hemoglobin and transfuse as needed Recheck CBC in am Supportive care 6. Neuropathy Continue home Deacon 7. HLD Cont. statin 8. Hyperglycemia Blood sugar stable No previous history of diabetes Hemoglobin A1c 5.4% 9. DVT prophylaxis: SCD's due to frequent surgical debridements 10. Dispo: Follow-up GI and Ortho Reccs, Hemoglobin stable Code Status: full Discussed Condition With: patient, RN
[2018-03-06] MEDS: oxyCODONE/Acetaminophen 10/325 Tablet PO PRN ×6 (00:55→22:40)
[2018-03-06] MEDS: ceFAZolin Inj 2,000 MG in Sodium Chlor 0.9% Inj 80 ML IV.SIG SCH ×3 (01:00→18:07)
[2018-03-06] MEDS: HYDROmorphone PF Inj 2 MG/ML Vial IV.PUSH PRN ×5 (03:34→21:12)
[2018-03-06] MEDS: Gabapentin 400 MG Capsule PO SCH ×5 (05:10→21:24)
--- NOTE | 2018-03-06 07:30 | P.PN ---
Subjective Interval history: Patient doing well. Patient is tolerating p.o., voiding/stooling well. Patient reports that he was called by his Physical Exam Vital signs: Vital Signs 03/05/18 09:43 03/05/18 09:45 03/05/18 10:00 Temperature 97.7 F Pulse Rate 85 81 79 Respiratory Rate 20 18 17 Blood Pressure 134/63 131/60 150/58 H Pulse Oximetry 100 99 98 03/05/18 10:15 03/05/18 12:00 03/05/18 16:00 Temperature 98 F 97.4 F L 97.5 F L Pulse Rate 78 63 84 Respiratory Rate 20 20 20 Blood Pressure 150/60 H 131/61 153/66 H Pulse Oximetry 98 100 98 03/05/18 20:00 03/06/18 00:00 03/06/18 00:30 Temperature 98.2 F 97.4 F L Pulse Rate 86 87 87 Respiratory Rate 16 20 Blood Pressure 137/67 150/78 H Pulse Oximetry 98 96 03/06/18 02:39 03/06/18 05:01 03/06/18 06:29 Temperature Pulse Rate 61 Respiratory Rate 18 18 Blood Pressure Pulse Oximetry Intake & Output 03/05/18 03/06/18 03/06/18 18:59 06:59 18:59 Intake Total 450 / 450 250 / 250 Output Total 25 / 25 Balance 425 / 425 250 / 250 Intake: IV 50 / 50 250 / 250 Cleocin 900 mg/NS Premix 900 mg 50 / 50 50 / 50 In 50 ml @ 100 mls/hr IV.SIG Q8H [place] Rx#:[id number] Ancef Inj 2,000 MG In NS Inj 80 200 / 200 ML @ 200 mls/hr IV.SIG Q8H [place] Rx#:[id number] Anesthesia Amount 400 / 400 Output: Estimated Blood Loss 25 / 25 Other: Mode Setting Right Arm Continuous Continuous # Voids 200 Narrative: GENERAL: Well-nourished male, in no acute distress, sitting comfortably in bed SKIN: Warm and dry. Dressing noted on right anterior thigh, C/D/I HEENT: Normocephalic. No scleral icterus. No injection or drainage. PERRLA. MOM. NECK: Supple, trachea midline. No JVD or lymphadenopathy. CARDIOVASCULAR: Regular rate and rhythm without murmurs, gallops, or rubs. RESPIRATORY: Breath sounds equal bilaterally. No accessory muscle use. GASTROINTESTINAL: Abdomen soft, non-tender, nondistended. MUSCULOSKELETAL: No cyanosis, or edema. Right forearm with dressing in place, C /D/I with wound VAC present. BACK: Nontender without obvious deformity. No CVA tenderness. NEURO: AAO x3, no focal deficits Results - Labs CBC & Chem 7: 03/06/18 10:13 03/06/18 10:15 Assessment and Plan - Assessment (1) HTN (hypertension) Code(s): I10 - Essential (primary) hypertension Status: Chronic (2) Cellulitis and abscess of upper arm and forearm Status: Acute (3) GI bleed Code(s): K92.2 - Gastrointestinal hemorrhage, unspecified Status: Acute - Plan 62-year-old M with PMHx of HTN admitted secondary to necrotizing fasciitis of the right arm s/p multiple irrigation and debridements with wound vac, s/p OR today on 03/05 for Irrigation and debridement of right arm, split-thickness skin grafting right arm of wound measuring 40 cm x 15 cm (600 cm), application of wound VAC dressing, POD#1, HD#18 1. Necrotizing fasciitis, +GA Strep. Ortho and ID managing, appreciate assistance with care s/p multiple irrigation and debridements s/p Irrigation and debridement of right arm, split-thickness skin grafting right arm of wound measuring 40 cm x 15 cm (600 cm), application of wound VAC dressing today on 03/05 Continue Cefazolin IV started on 02/21 and cont. Clinda started on 03/02 Continue pain management with Dilaudid and Oxy PRN Wound culture arm from 02/17, negative fungal x2 wks, + Group A strep, pansensitive Wound culture elbow from 02/17, negative fungal x2 wks, Negative AFB, + Group A strep, pansensitive Blood culture from 02/17, no growth at 5days x4 (Final) Per Ortho Reccs on 03/06: Right Arm Necrotizing Fasciitis s/p multiple I&D and vac application Irrigation debridement with split-thickness skin graft POD 1 -maintain vac at all times. -125mmHg, constant -I will take down dressings over thigh tomorrow. Xeroform will remain -We will plan on discontinuing wound VAC on Sunday and be getting daily dressing changes on the arm ID Reccs on 03/04: Nec fasciitis RUE: GAS, MSSA - sp multiple debridement s, VAC Diarrhea, abd distention on clinda C.diff Neg cont Ancef + clindamycin If no necrotic tissue on Sunday sx will dc abx 2. Small Bowel Obstruction/Upper GI Bleed Tolerating diet Continue Famotidine Appreciate general surgery and GI assistance with management 3. Hypertension Improved, cont. home Norvasc Currently holding home Metoprolol, resume if needed Continue to monitor 4. Tobacco Abuse Continue Wellbutrin Patient counseled on cessations/risks 5. Anemia Positive Hemoccult on 02/23 Being managed per GI, appreciate recommendations Hemoglobin 9.4 today 8.9, s/p 1UpRBC on 03/03 for Hgb 7.3 Follow-up CBC in AM GI Reccs on 03/04: Diet diabetic as tolerated Monitor labs special attention hemoglobin and transfuse as needed Recheck CBC in am Supportive care 6. Neuropathy Continue home Deacon 7. HLD Cont. statin 8. Hyperglycemia Blood sugar stable No previous history of diabetes Hemoglobin A1c 5.4% 9. DVT prophylaxis: SCD's due to frequent surgical debridements 10. Dispo: Follow-up GI and Ortho Reccs, Hemoglobin stable, plan on D/C wound vac Sunday per Ortho. Code Status: full Discussed Condition With: patient, RN
--- NOTE | 2018-03-06 07:42 | P.PNOP ---
Subjective Interval history: Doing well status post surgery POD 1 Physical Exam Vital signs: Vital Signs 03/05/18 09:43 03/05/18 09:45 03/05/18 10:00 Temperature 97.7 F Pulse Rate 85 81 79 Respiratory Rate 20 18 17 Blood Pressure 134/63 131/60 150/58 H Pulse Oximetry 100 99 98 03/05/18 10:15 03/05/18 12:00 03/05/18 16:00 Temperature 98 F 97.4 F L 97.5 F L Pulse Rate 78 63 84 Respiratory Rate 20 20 20 Blood Pressure 150/60 H 131/61 153/66 H Pulse Oximetry 98 100 98 03/05/18 20:00 03/06/18 00:00 03/06/18 00:30 Temperature 98.2 F 97.4 F L Pulse Rate 86 87 87 Respiratory Rate 16 20 Blood Pressure 137/67 150/78 H Pulse Oximetry 98 96 03/06/18 02:39 03/06/18 04:00 03/06/18 05:01 Temperature 97.6 F Pulse Rate 60 61 Respiratory Rate 18 21 Blood Pressure 178/86 H Pulse Oximetry 99 03/06/18 06:29 Temperature Pulse Rate Respiratory Rate 18 Blood Pressure Pulse Oximetry Intake & Output 03/05/18 03/06/18 03/06/18 18:59 06:59 18:59 Intake Total 450 / 450 250 / 250 Output Total 25 / 25 1500 / 1500 Balance 425 / 425 -1250 / -1250 Weight 95.3 kg Intake: IV 50 / 50 250 / 250 Cleocin 900 mg/NS Premix 900 mg 50 / 50 50 / 50 In 50 ml @ 100 mls/hr IV.SIG Q8H [place] Rx#:[id number] Ancef Inj 2,000 MG In NS Inj 80 200 / 200 ML @ 200 mls/hr IV.SIG Q8H [place] Rx#:[id number] Anesthesia Amount 400 / 400 Output: Urine 1500 / 1500 Estimated Blood Loss 25 / 25 Other: Mode Setting Right Arm Continuous Continuous # Voids 200 # Bowel Movements 0 Narrative: Right upper extremity: Clean dry dressings with splint in place. Wound VAC intact with appropriate seal. Intact sensation in fingers and is able to move fingers appropriately Right thigh: Dressings with mild drainage. Results - Labs CBC & Chem 7: 03/05/18 05:40 03/05/18 05:40 Assessment and Plan - Assessment and Plan 1) Right Arm Necrotizing Fasciitis s/p multiple I&D and vac application Irrigation debridement with split-thickness skin graft POD 1 -maintain vac at all times. -125mmHg, constant -I will take down dressings over thigh tomorrow. Xeroform will remain -We will plan on discontinuing wound VAC on Sunday and be getting daily dressing changes on the arm
[2018-03-06] MEDS: Clindamycin 900 mg/NS Premix 900 MG/50 ML PIGGYBACK IV.SIG SCH ×2 (07:51→16:32)
[2018-03-06] MEDS: amLODIPine 10 MG Tablet PO SCH (10:19)
[2018-03-06] MEDS: Ferrous Sulfate 325 MG Tablet PO SCH ×2 (10:20→21:11)
[2018-03-06] MEDS: Lactobacillus Acidophilus/L. Spores Tablet PO SCH ×3 (10:20→18:07)
[2018-03-06] MEDS: Famotidine PF Inj 20 MG/2 ML Vial IV.PUSH SCH ×2 (10:20→21:11)
[2018-03-06 11:02] LABS: Baso # (Auto) 0.1 th/mm3 (0.0-0.2); Baso % (Auto) 0.8 % (0.0-2.0); Eos % (Auto) 0.3 % (0.0-4.0); Hematocrit 27.7 % (39.0-51.0); Hemoglobin 9.4 gm/dL (13.0-17.0); Lymph # (Auto) 2.1 th/mm3 (1.0-4.8); Lymph % (Auto) 26.2 % (9.0-44.0); Mean Corpuscular HGB Conc 33.8 % (32.0-36.0); Mean Corpuscular Hemoglobin 29.3 pg (27.0-34.0); Mean Corpuscular Volume 86.6 fL (80.0-100.0); Mean Platelet Volume 8.1 fL (7.0-11.0); Mono # (Auto) 0.8 th/mm3 (0.0-0.9); Mono % (Auto) 10.3 % (0.0-8.0); Neut # (Auto) 5.1 th/mm3 (1.8-7.7); Neut % (Auto) 62.4 % (16.0-70.0); Platelet Count 215 th/mm3 (150-450); Red Cell Distribution Width 19.5 % (11.6-17.2); White Blood Count 8.2 th/mm3 (4.0-11.0)
[2018-03-06 11:11] LABS: Albumin 2.3 g/dL (3.4-5.0); Anion Gap 12 meq/L (5-15); Aspartate Aminotransferase 12 U/L (15-37); Blood Urea Nitrogen 5 mg/dL (7-18); Calcium 7.7 mg/dL (8.5-10.1); Carbon Dioxide 25.5 meq/L (21.0-32.0); Chloride 99 meq/L (98-107); Glomerular Filtration Rate 87 mL/min (>89); Glucose,Random 133 mg/dL (74-106)
[2018-03-06 11:14] LABS: Sodium 136 meq/L (136-145)
[2018-03-06 11:24] LABS: Alanine Aminotransferase 7 U/L (12-78); Alkaline Phosphatase 67 U/L (45-117); Total Protein 5.9 g/dL (6.4-8.2)
--- NOTE | 2018-03-06 15:23 | P.PNGI ---
Subjective Interval history: Pt is resting in bed No BM yet today Denies nausea, vomiting Tolerating PO <AlexandrKaye duncan - Last Filed: 03/06/18 15:16> Physical Exam Vital signs: Vital Signs 03/05/18 16:00 03/05/18 20:00 03/06/18 00:00 Temperature 97.5 F L 98.2 F 97.4 F L Pulse Rate 84 86 87 Respiratory Rate 20 16 20 Blood Pressure 153/66 H 137/67 150/78 H Pulse Oximetry 98 98 96 03/06/18 00:30 03/06/18 02:39 03/06/18 04:00 Temperature 97.6 F Pulse Rate 87 60 Respiratory Rate 18 21 Blood Pressure 178/86 H Pulse Oximetry 99 03/06/18 05:01 03/06/18 06:29 03/06/18 08:00 Temperature 97.6 F Pulse Rate 61 95 H Respiratory Rate 18 20 Blood Pressure 122/58 L Pulse Oximetry 03/06/18 10:42 03/06/18 12:00 Temperature 99.6 F Pulse Rate 65 Respiratory Rate 14 20 Blood Pressure 142/60 H Pulse Oximetry 98 Intake & Output 03/05/18 03/06/18 03/06/18 18:59 06:59 18:59 Intake Total 450 / 450 250 / 250 Output Total 25 / 25 1500 / 1500 500 / 500 Balance 425 / 425 -1250 / -1250 -500 / -500 Weight 95.3 kg Intake: IV 50 / 50 250 / 250 Cleocin 900 mg/NS Premix 900 mg 50 / 50 50 / 50 In 50 ml @ 100 mls/hr IV.SIG Q8H [place] Rx#:[id number] Ancef Inj 2,000 MG In NS Inj 80 200 / 200 ML @ 200 mls/hr IV.SIG Q8H [place] Rx#:[id number] Anesthesia Amount 400 / 400 Output: Urine 1500 / 1500 500 / 500 Estimated Blood Loss 25 / 25 Other: Mode Setting Right Arm Continuous Continuous Continuous # Voids 200 Date of Last Bowel Movement 03/05/18 # Bowel Movements 0 - Constitutional no acute distress - Routine HEENT Exam Head: Present: normocephalic, atraumatic - Routine Respiratory Exam Absent: accessory muscle use - Routine Abdominal Exam Present: soft, normoactive bowel sounds. Absent: tenderness, distended - Routine Skin Exam Present: dry, warm - Routine Neurological Exam Present: alert, oriented X3 <Kaye Ulrich - Last Filed: 03/06/18 15:16> Vital signs: Vital Signs 03/06/18 00:00 03/06/18 00:30 03/06/18 02:39 Temperature 97.4 F L Pulse Rate 87 87 Respiratory Rate 20 18 Blood Pressure 150/78 H Pulse Oximetry 96 03/06/18 04:00 03/06/18 05:01 03/06/18 06:29 Temperature 97.6 F Pulse Rate 60 61 Respiratory Rate 21 18 Blood Pressure 178/86 H Pulse Oximetry 99 03/06/18 08:00 03/06/18 10:42 03/06/18 12:00 Temperature 97.6 F 99.6 F Pulse Rate 95 H 65 Respiratory Rate 20 14 20 Blood Pressure 122/58 L 142/60 H Pulse Oximetry 98 03/06/18 16:00 03/06/18 16:33 Temperature 97.7 F Pulse Rate 71 Respiratory Rate 20 14 Blood Pressure 138/66 Pulse Oximetry 98 Intake & Output 03/06/18 03/06/18 03/07/18 06:59 18:59 06:59 Intake Total 250 / 250 150 / 150 100 / 100 Output Total 1500 / 1500 1100 / 1100 Balance -1250 / -1250 -950 / -950 100 / 100 Weight 95.3 kg Intake: IV 250 / 250 150 / 150 100 / 100 Cleocin 900 mg/NS Premix 900 mg 50 / 50 50 / 50 In 50 ml @ 100 mls/hr IV.SIG Q8H [place] Rx#:[id number] Ancef Inj 2,000 MG In NS Inj 80 200 / 200 100 / 100 100 / 100 ML @ 200 mls/hr IV.SIG Q8H [place] Rx#:[id number] Output: Urine 1500 / 1500 1100 / 1100 Other: Mode Setting Right Arm Continuous Continuous # Voids 200 Date of Last Bowel Movement 03/05/18 # Bowel Movements 0 <Maurilio Greenfield - Last Filed: 03/06/18 21:13> Results - Labs CBC & Chem 7: 03/06/18 10:13 03/06/18 10:15 Laboratory Results - last 24 hr 03/06/18 03/06/18 10:13 10:15 WBC 8.2 RBC 3.20 L Hgb 9.4 L Hct 27.7 L MCV 86.6 MCH 29.3 MCHC 33.8 RDW 19.5 H Plt Count 215 MPV 8.1 Prelim Diff (Auto) Slide review pending Neut % (Auto) 62.4 Lymph % (Auto) 26.2 Bent % (Auto) 10.3 H Eos % (Auto) 0.3 Baso % (Auto) 0.8 Neut # (Auto) 5.1 Lymph # (Auto) 2.1 Bent # (Auto) 0.8 Eos # (Auto) 0.0 Baso # (Auto) 0.1 WBC Differential . Diff Scan Auto diff confirmed Differential Comment . Platelet Morphology Enlarged H Hematology Comments Sodium 136 Potassium 4.0 Chloride 99 Carbon Dioxide 25.5 Anion Gap 12 BUN 5 L Creatinine 0.88 Estimated GFR 87 L Random Glucose 133 H Calcium 7.7 L Total Bilirubin 0.3 AST 12 L ALT 7 L Alkaline Phosphatase 67 Total Protein 5.9 L Albumin 2.3 L <Kaye Ulrich - Last Filed: 03/06/18 15:16> - Labs CBC & Chem 7: 03/06/18 10:13 03/06/18 10:15 Laboratory Results - last 24 hr 03/06/18 03/06/18 10:13 10:15 WBC 8.2 RBC 3.20 L Hgb 9.4 L Hct 27.7 L MCV 86.6 MCH 29.3 MCHC 33.8 RDW 19.5 H Plt Count 215 MPV 8.1 Prelim Diff (Auto) Slide review pending Neut % (Auto) 62.4 Lymph % (Auto) 26.2 Bent % (Auto) 10.3 H Eos % (Auto) 0.3 Baso % (Auto) 0.8 Neut # (Auto) 5.1 Lymph # (Auto) 2.1 Bent # (Auto) 0.8 Eos # (Auto) 0.0 Baso # (Auto) 0.1 WBC Differential . Diff Scan Auto diff confirmed Differential Comment . Platelet Morphology Enlarged H Hematology Comments Sodium 136 Potassium 4.0 Chloride 99 Carbon Dioxide 25.5 Anion Gap 12 BUN 5 L Creatinine 0.88 Estimated GFR 87 L Random Glucose 133 H Calcium 7.7 L Total Bilirubin 0.3 AST 12 L ALT 7 L Alkaline Phosphatase 67 Total Protein 5.9 L Albumin 2.3 L <Jean Pierre,Maurilio E - Last Filed: 03/06/18 21:13> Assessment and Plan (1) GI bleed Status: Acute Code(s): K92.2 - Gastrointestinal hemorrhage, unspecified (2) Small bowel obstruction Status: Acute Code(s): K56.609 - Unspecified intestinal obstruction, unspecified as to partial versus complete obstruction - Plan Assessment: - Small bowel obstruction with gastric occult positive emesis- CT abdomen/pelvis WO IV contrast (02/24) Small bowel obstruction with significantly dilated small bowel and evidence of free fluid identified within the right upper quadrant and left midabdomen. The transition point appears within the lower central pelvis within the ileum. There appears to be large areas of adhesion with small bowel and the adjacent abdominal mesh. S/P decompression with NG tube to LIWS. Surgery was following, signed off, pt was having BMs and tolerating PO Previous records reviewed from [facility], pt had routine EGD and colonoscopy done by Dr. Peterson in November of this year EGD --> Erosive gastritis, hiatal hernia Pathology: (stomach) antral and oxyntic type mucosa with chronic inactive gastritis (GE junction) squamocolumnar mucosa with intestinal metaplasia and chronic active inflammation Colonoscopy --> Good prep, few diverticula in left colon Of note, pt had previous partial colectomy with colostomy S/P reversal for diverticulitis Plan: Previous records reviewed H/H stable No indication for endoscopic procedures at this time Diet as tolerated Bowel regimen Our service will sign off, please reconsult as needed Have pt follow up with GI after DC Pt has been seen and examined by myself and Dr. Greenfield and this note is written on his behalf <Kaye Ulrich - Last Filed: 03/06/18 15:16> (1) GI bleed Status: Acute Code(s): K92.2 - Gastrointestinal hemorrhage, unspecified (2) Small bowel obstruction Status: Acute Code(s): K56.609 - Unspecified intestinal obstruction, unspecified as to partial versus complete obstruction - Plan Patient seen and examined Agree with above Continue with current supportive care Monitor labs We will sign off <Maurilio Greenfield - Last Filed: 03/06/18 21:13>
[2018-03-07] MEDS: Clindamycin 900 mg/NS Premix 900 MG/50 ML PIGGYBACK IV.SIG SCH ×4 (00:55→23:05)
[2018-03-07] MEDS: ceFAZolin Inj 2,000 MG in Sodium Chlor 0.9% Inj 80 ML IV.SIG SCH ×3 (02:00→17:33)
[2018-03-07] MEDS: HYDROmorphone PF Inj 2 MG/ML Vial IV.PUSH PRN ×6 (02:00→23:03)
[2018-03-07] MEDS: oxyCODONE/Acetaminophen 10/325 Tablet PO PRN ×5 (03:28→21:09)
[2018-03-07] MEDS: Gabapentin 400 MG Capsule PO SCH ×5 (06:23→21:09)
--- NOTE | 2018-03-07 07:45 | P.PNOP ---
Subjective Interval history: POD 1 s/p right forearm STSG doing well. reports thigh pain. otherwise no complaints Physical Exam Vital signs: Vital Signs 03/06/18 08:00 03/06/18 10:42 03/06/18 12:00 Temperature 97.6 F 99.6 F Pulse Rate 95 H 65 Respiratory Rate 20 14 20 Blood Pressure 122/58 L 142/60 H Pulse Oximetry 98 03/06/18 16:00 03/06/18 16:33 03/06/18 20:00 Temperature 97.7 F 98.4 F Pulse Rate 71 72 Respiratory Rate 20 14 20 Blood Pressure 138/66 131/60 Pulse Oximetry 98 100 03/06/18 20:30 03/07/18 00:00 03/07/18 01:16 Temperature 97.9 F Pulse Rate 66 67 Respiratory Rate 18 18 Blood Pressure 119/62 Pulse Oximetry 100 03/07/18 03:40 03/07/18 04:00 03/07/18 04:30 Temperature 98.4 F Pulse Rate 81 76 75 Respiratory Rate 18 Blood Pressure 140/64 Pulse Oximetry 98 03/07/18 04:57 Temperature Pulse Rate Respiratory Rate 17 Blood Pressure Pulse Oximetry Intake & Output 03/06/18 03/07/18 03/07/18 18:59 06:59 18:59 Intake Total 150 / 150 250 / 250 Output Total 1100 / 1100 1625 / 1625 Balance -950 / -950 -1375 / -1375 Intake: IV 150 / 150 250 / 250 Cleocin 900 mg/NS Premix 900 mg 50 / 50 50 / 50 In 50 ml @ 100 mls/hr IV.SIG Q8H [place] Rx#:[id number] Ancef Inj 2,000 MG In NS Inj 80 100 / 100 200 / 200 ML @ 200 mls/hr IV.SIG Q8H [place] Rx#:[id number] Output: Urine 1100 / 1100 1625 / 1625 Other: Mode Setting Right Arm Continuous Continuous Date of Last Bowel Movement 03/05/18 Narrative: RUE: +splint. +vac with good seal. nvi RLE: moderate bloody drainage. ABDs removed and wound visualized. xeroform in place. Results - Labs CBC & Chem 7: 03/06/18 10:13 03/06/18 10:15 Laboratory Results - last 24 hr 03/06/18 03/06/18 10:13 10:15 WBC 8.2 RBC 3.20 L Hgb 9.4 L Hct 27.7 L MCV 86.6 MCH 29.3 MCHC 33.8 RDW 19.5 H Plt Count 215 MPV 8.1 Prelim Diff (Auto) Slide review pending Neut % (Auto) 62.4 Lymph % (Auto) 26.2 Burt % (Auto) 10.3 H Eos % (Auto) 0.3 Baso % (Auto) 0.8 Neut # (Auto) 5.1 Lymph # (Auto) 2.1 Burt # (Auto) 0.8 Eos # (Auto) 0.0 Baso # (Auto) 0.1 WBC Differential . Diff Scan Auto diff confirmed Differential Comment . Platelet Morphology Enlarged H Hematology Comments Sodium 136 Potassium 4.0 Chloride 99 Carbon Dioxide 25.5 Anion Gap 12 BUN 5 L Creatinine 0.88 Estimated GFR 87 L Random Glucose 133 H Calcium 7.7 L Total Bilirubin 0.3 AST 12 L ALT 7 L Alkaline Phosphatase 67 Total Protein 5.9 L Albumin 2.3 L Assessment and Plan - Assessment and Plan 1) Right Arm wound with multiple I&D and application of STSG - POD 1 -maintain vac at all times. -125mmHg, constant -dressing removed over thigh today. new ABD and tape placed. will apply stockinette as well to help hold dressing in place -daily dressing changes of right thigh with fresh ABD only. DO NOT REMOVE XEROFORM ON WOUND. -We will plan on discontinuing wound VAC bedside on Sunday and be getting daily dressing changes on the arm -this will be done by Ortho team
[2018-03-07 08:27] LABS: Baso # (Auto) 0.1 th/mm3 (0.0-0.2); Baso % (Auto) 0.8 % (0.0-2.0); Eos # (Auto) 0.1 th/mm3 (0.0-0.4); Eos % (Auto) 1.1 % (0.0-4.0); Hematocrit 26.2 % (39.0-51.0); Hemoglobin 8.9 gm/dL (13.0-17.0); Lymph # (Auto) 1.8 th/mm3 (1.0-4.8); Lymph % (Auto) 21.6 % (9.0-44.0); Mean Corpuscular HGB Conc 34.1 % (32.0-36.0); Mean Corpuscular Hemoglobin 30.1 pg (27.0-34.0); Mean Corpuscular Volume 88.3 fL (80.0-100.0); Mono % (Auto) 11.4 % (0.0-8.0); Neut # (Auto) 5.5 th/mm3 (1.8-7.7); Neut % (Auto) 65.1 % (16.0-70.0); Platelet Count 248 th/mm3 (150-450); Red Blood Count 2.97 mil/mm3 (4.50-5.90); Red Cell Distribution Width 19.7 % (11.6-17.2); White Blood Count 8.4 th/mm3 (4.0-11.0)
[2018-03-07] MEDS: amLODIPine 10 MG Tablet PO SCH (08:36)
[2018-03-07] MEDS: Ferrous Sulfate 325 MG Tablet PO SCH ×2 (08:36→21:09)
[2018-03-07] MEDS: Lactobacillus Acidophilus/L. Spores Tablet PO SCH ×3 (08:36→17:33)
[2018-03-07 09:01] LABS: Alanine Aminotransferase 8 U/L (12-78); Albumin 2.4 g/dL (3.4-5.0); Alkaline Phosphatase 66 U/L (45-117); Anion Gap 7 meq/L (5-15); Aspartate Aminotransferase 10 U/L (15-37); Blood Urea Nitrogen 5 mg/dL (7-18); Calcium 7.4 mg/dL (8.5-10.1); Carbon Dioxide 30.3 meq/L (21.0-32.0); Chloride 101 meq/L (98-107); Glomerular Filtration Rate Greater Than 89 mL/min (>89); Glucose,Random 102 mg/dL (74-106); Potassium 3.8 meq/L (3.5-5.1); Sodium 138 meq/L (136-145); Total Protein 5.8 g/dL (6.4-8.2)
[2018-03-07] MEDS: Famotidine PF Inj 20 MG/2 ML Vial IV.PUSH SCH ×2 (10:49→21:13)
--- NOTE | 2018-03-07 13:53 | P.PNIM ---
Subjective Interval history: Patient complains of bilateral lower extremity edema. Pain is controlled. Physical Exam Vital signs: Vital Signs 03/06/18 16:00 03/06/18 16:33 03/06/18 20:00 Temperature 97.7 F 98.4 F Pulse Rate 71 72 Respiratory Rate 20 14 20 Blood Pressure 138/66 131/60 Pulse Oximetry 98 100 03/06/18 20:30 03/07/18 00:00 03/07/18 01:16 Temperature 97.9 F Pulse Rate 66 67 Respiratory Rate 18 18 Blood Pressure 119/62 Pulse Oximetry 100 03/07/18 03:40 03/07/18 04:00 03/07/18 04:30 Temperature 98.4 F Pulse Rate 81 76 75 Respiratory Rate 18 Blood Pressure 140/64 Pulse Oximetry 98 03/07/18 04:57 03/07/18 08:00 Temperature 97.7 F Pulse Rate 67 Respiratory Rate 17 20 Blood Pressure 146/69 H Pulse Oximetry 98 Intake & Output 03/06/18 03/07/18 03/07/18 18:59 06:59 18:59 Intake Total 150 / 150 250 / 250 150 / 150 Output Total 1100 / 1100 1625 / 1625 Balance -950 / -950 -1375 / -1375 150 / 150 Intake: IV 150 / 150 250 / 250 150 / 150 Cleocin 900 mg/NS Premix 900 mg 50 / 50 50 / 50 50 / 50 In 50 ml @ 100 mls/hr IV.SIG Q8H [place] Rx#:[id number] Ancef Inj 2,000 MG In NS Inj 80 100 / 100 200 / 200 100 / 100 ML @ 200 mls/hr IV.SIG Q8H [place] Rx#:[id number] Output: Urine 1100 / 1100 1625 / 1625 Other: Mode Setting Right Arm Continuous Continuous Continuous Date of Last Bowel Movement 03/05/18 Narrative: GENERAL: This is a well-nourished, well-developed patient, in no apparent distress. CARDIOVASCULAR: Normal rate and regular rhythm without murmurs, gallops, or rubs. RESPIRATORY: Good respiratory efforts. Breath sounds equal and clear to auscultation bilaterally. GASTROINTESTINAL: Abdomen soft, non-tender, non-distended. Normal active bowel sounds MUSCULOSKELETAL: Right forearm with dressing in place, C/D/I with wound VAC present. 2+ bilateral lower extremity edema. NEURO: Alert & Oriented x4 to person, place, time, situation. Moves all ext x4 PSYCH: Appropriate mood and affect. Results - Labs CBC & Chem 7: 03/07/18 07:52 03/07/18 07:52 Laboratory Results - last 24 hr 03/02/18 03/07/18 03/07/18 04:30 07:52 07:52 WBC 8.4 RBC 2.97 L Hgb 8.9 L Hct 26.2 L MCV 88.3 MCH 30.1 MCHC 34.1 RDW 19.7 H Plt Count 248 MPV 8.0 Neut % (Auto) 65.1 Lymph % (Auto) 21.6 Cooke % (Auto) 11.4 H Eos % (Auto) 1.1 Baso % (Auto) 0.8 Neut # (Auto) 5.5 Lymph # (Auto) 1.8 [place] # (Auto) 1.0 H Eos # (Auto) 0.1 Baso # (Auto) 0.1 WBC Differential . Differential Comment Auto diff final Sodium 138 Potassium 3.8 Chloride 101 Carbon Dioxide 30.3 Anion Gap 7 BUN 5 L Creatinine 0.84 Estimated GFR Greater than 89 Random Glucose 102 Calcium 7.4 L* Prot Corrected Calcium 8.1 L Total Bilirubin 0.4 AST 10 L ALT 8 L Alkaline Phosphatase 66 Total Protein 5.8 L Albumin 2.4 L Vit D 1,25-Dihydroxy 20 Assessment and Plan - Assessment (1) HTN (hypertension) Code(s): I10 - Essential (primary) hypertension Status: Chronic (2) Cellulitis and abscess of upper arm and forearm Status: Acute (3) GI bleed Code(s): K92.2 - Gastrointestinal hemorrhage, unspecified Status: Acute - Plan 62-year-old M with PMHx of HTN admitted secondary to necrotizing fasciitis of the right arm s/p multiple irrigation and debridements with wound vac, s/p OR on 03/05 for Irrigation and debridement of right arm, split-thickness skin grafting right arm of wound measuring 40 cm x 15 cm (600 cm), application of wound VAC dressing 1. Necrotizing fasciitis, +GA Strep. Ortho and ID managing, appreciate assistance with care s/p multiple irrigation and debridements s/p Irrigation and debridement of right arm, split-thickness skin grafting right arm of wound measuring 40 cm x 15 cm (600 cm), application of wound VAC dressing on 03/05 Continue Cefazolin IV started on 02/21 and cont. Clinda started on 03/02 Continue pain management with Dilaudid and Oxy PRN Wound culture arm from 02/17, negative fungal x2 wks, + Group A strep, pansensitive Wound culture elbow from 02/17, negative fungal x2 wks, Negative AFB, + Group A strep, pansensitive Blood culture from 02/17, no growth at 5 days x4 (Final) 2. Small Bowel Obstruction/Upper GI Bleed: Resolved Tolerating diet Continue Famotidine. GI signed off 3. Hypertension Improved, cont. home Norvasc Currently holding home Metoprolol, resume if needed Continue to monitor 4. Tobacco Abuse Continue Wellbutrin Patient counseled on cessations/risks 5. Anemia Positive Hemoccult on 02/23 Patient followed by GI. H&H stabilized. No indication for endoscopy at this time. Continue to monitor labs as indicated. 6. Neuropathy Continue home Deacon 7. HLD Cont. statin 8. Hyperglycemia Blood sugar stable No previous history of diabetes Hemoglobin A1c 5.4% 9. DVT prophylaxis: SCD's due to frequent surgical debridements 10. Dependent edema: - Will give 1 time dose of 20 mg IV lasix. Ruben hose/stockings. Discharge Planning: When orthopedic procedures are completed and cleared by orthopedics..
[2018-03-08] MEDS: oxyCODONE/Acetaminophen 10/325 Tablet PO PRN ×6 (01:14→21:25)
[2018-03-08] MEDS: ceFAZolin Inj 2,000 MG in Sodium Chlor 0.9% Inj 80 ML IV.SIG SCH ×3 (01:15→17:45)
[2018-03-08] MEDS: HYDROmorphone PF Inj 2 MG/ML Vial IV.PUSH PRN ×5 (04:13→23:16)
[2018-03-08] MEDS: Gabapentin 400 MG Capsule PO SCH ×5 (05:23→21:25)
[2018-03-08 07:44] LABS: Hematocrit 29.5 % (39.0-51.0); Hemoglobin 9.8 gm/dL (13.0-17.0); Mean Corpuscular HGB Conc 33.3 % (32.0-36.0); Mean Corpuscular Hemoglobin 29.3 pg (27.0-34.0); Mean Corpuscular Volume 88.1 fL (80.0-100.0); Mean Platelet Volume 7.8 fL (7.0-11.0); Platelet Count 264 th/mm3 (150-450); Red Blood Count 3.35 mil/mm3 (4.50-5.90); Red Cell Distribution Width 19.2 % (11.6-17.2); White Blood Count 10.7 th/mm3 (4.0-11.0)
[2018-03-08 08:09] LABS: Carbon Dioxide 26.6 meq/L (21.0-32.0); Potassium 3.9 meq/L (3.5-5.1)
[2018-03-08] MEDS: Ferrous Sulfate 325 MG Tablet PO SCH ×2 (09:08→21:25)
[2018-03-08] MEDS: Clindamycin 900 mg/NS Premix 900 MG/50 ML PIGGYBACK IV.SIG SCH ×3 (09:08→23:17)
[2018-03-08] MEDS: Famotidine PF Inj 20 MG/2 ML Vial IV.PUSH SCH ×2 (09:08→21:25)
[2018-03-08] MEDS: amLODIPine 10 MG Tablet PO SCH (09:08)
[2018-03-08] MEDS: Lactobacillus Acidophilus/L. Spores Tablet PO SCH ×3 (09:08→17:45)
--- NOTE | 2018-03-08 10:49 | P.PNOP ---
Subjective Interval history: Resting comfortably with no new complaints Physical Exam Vital signs: Vital Signs 03/07/18 12:00 03/07/18 20:00 03/07/18 20:16 Temperature 98.0 F 98.3 F Pulse Rate 73 76 91 H Respiratory Rate 20 18 Blood Pressure 125/53 L 127/60 Pulse Oximetry 98 100 03/08/18 00:00 03/08/18 04:00 03/08/18 08:00 Temperature 98.6 F 97.8 F 97.3 F L Pulse Rate 72 76 72 Respiratory Rate 18 18 18 Blood Pressure 131/69 164/68 H 127/57 L Pulse Oximetry 99 99 98 Intake & Output 03/07/18 03/08/18 03/08/18 18:59 06:59 18:59 Intake Total 1160 / 1160 150 / 150 Output Total 1450 / 1450 1300 / 1300 Balance -290 / -290 -1150 / -1150 Intake: IV 300 / 300 150 / 150 Cleocin 900 mg/NS Premix 900 mg 100 / 100 50 / 50 In 50 ml @ 100 mls/hr IV.SIG Q8H [place] Rx#:[id number] Ancef Inj 2,000 MG In NS Inj 80 200 / 200 100 / 100 ML @ 200 mls/hr IV.SIG Q8H [place] Rx#:[id number] Oral 860 / 860 Output: Urine 1450 / 1450 1300 / 1300 Other: Mode Setting Right Arm Continuous Continuous Continuous Date of Last Bowel Movement 03/07/18 Narrative: Right upper extremity: Splint intact. Wound VAC in place with appropriate seal. Intact sensation distally with full extension flexion of all fingers Right thigh: Skin graft harvest site-removed white dressings and trimmed the Xeroform edges. Applied new ABD Results - Labs CBC & Chem 7: 03/08/18 07:17 03/08/18 07:17 Laboratory Results - last 24 hr 03/02/18 03/08/18 03/08/18 04:30 07:17 07:17 WBC 10.7 RBC 3.35 L Hgb 9.8 L Hct 29.5 L MCV 88.1 MCH 29.3 MCHC 33.3 RDW 19.2 H Plt Count 264 MPV 7.8 Sodium 134 L Potassium 3.9 Chloride 97 L Carbon Dioxide 26.6 Anion Gap 10 BUN 5 L Creatinine 0.89 Estimated GFR 86 L Random Glucose 105 Calcium 8.0 L Vit D 1,25-Dihydroxy 20 Assessment and Plan - Assessment and Plan 1) Right Arm wound with multiple I&D and application of STSG - POD 2 -maintain vac at all times. -125mmHg, constant -dressing removed over thigh today. new ABD and tape placed. will apply stockinette as well to help hold dressing in place -daily dressing changes of right thigh with fresh ABD only. DO NOT REMOVE XEROFORM ON WOUND. -We will plan on discontinuing wound VAC bedside on Sunday and be getting daily dressing changes on the arm -this will be done by Ortho team Potential discharge after dressing change on Sunday
[2018-03-08] MEDS: Phenol 1.4% 180 ML Spray Bottle OROPHARYNG PRN (11:29)
--- NOTE | 2018-03-08 17:43 | P.PNIM ---
Subjective Interval history: Patient reports he is feeling okay today. Lower extremity swelling has improved. Physical Exam Vital signs: Vital Signs 03/07/18 20:00 03/07/18 20:16 03/08/18 00:00 Temperature 98.3 F 98.6 F Pulse Rate 76 91 H 72 Respiratory Rate 18 18 Blood Pressure 127/60 131/69 Pulse Oximetry 100 99 03/08/18 04:00 03/08/18 08:00 03/08/18 12:00 Temperature 97.8 F 97.3 F L 98.7 F Pulse Rate 76 71 68 Respiratory Rate 18 18 18 Blood Pressure 164/68 H 127/57 L 108/66 Pulse Oximetry 99 98 100 Intake & Output 03/07/18 03/08/18 03/08/18 18:59 06:59 18:59 Intake Total 1160 / 1160 150 / 150 150 / 150 Output Total 1450 / 1450 1300 / 1300 575 / 575 Balance -290 / -290 -1150 / -1150 -425 / -425 Intake: IV 300 / 300 150 / 150 150 / 150 Cleocin 900 mg/NS Premix 900 mg 100 / 100 50 / 50 50 / 50 In 50 ml @ 100 mls/hr IV.SIG Q8H [place] Rx#:[id number] Ancef Inj 2,000 MG In NS Inj 80 200 / 200 100 / 100 100 / 100 ML @ 200 mls/hr IV.SIG Q8H [place] Rx#:[id number] Oral 860 / 860 Output: Urine 1450 / 1450 1300 / 1300 575 / 575 Other: Mode Setting Right Arm Continuous Continuous Continuous Date of Last Bowel Movement 03/07/18 03/08/18 # Bowel Movements 1 Narrative: GENERAL: This is a well-nourished, well-developed patient, in no apparent distress. CARDIOVASCULAR: Normal rate and regular rhythm without murmurs, gallops, or rubs. RESPIRATORY: Good respiratory efforts. Breath sounds equal and clear to auscultation bilaterally. GASTROINTESTINAL: Abdomen soft, non-tender, non-distended. Normal active bowel sounds MUSCULOSKELETAL: Right forearm with dressing in place, C/D/I with wound VAC present. 2+ bilateral lower extremity edema. NEURO: Alert & Oriented x4 to person, place, time, situation. Moves all ext x4 PSYCH: Appropriate mood and affect. Results - Labs CBC & Chem 7: 03/08/18 07:17 03/08/18 07:17 Laboratory Results - last 24 hr 03/08/18 03/08/18 07:17 07:17 WBC 10.7 RBC 3.35 L Hgb 9.8 L Hct 29.5 L MCV 88.1 MCH 29.3 MCHC 33.3 RDW 19.2 H Plt Count 264 MPV 7.8 Sodium 134 L Potassium 3.9 Chloride 97 L Carbon Dioxide 26.6 Anion Gap 10 BUN 5 L Creatinine 0.89 Estimated GFR 86 L Random Glucose 105 Calcium 8.0 L Assessment and Plan - Assessment (1) HTN (hypertension) Code(s): I10 - Essential (primary) hypertension Status: Chronic (2) Cellulitis and abscess of upper arm and forearm Status: Acute (3) GI bleed Code(s): K92.2 - Gastrointestinal hemorrhage, unspecified Status: Acute - Plan 62-year-old M with PMHx of HTN admitted secondary to necrotizing fasciitis of the right arm s/p multiple irrigation and debridements with wound vac, s/p OR on 03/05 for Irrigation and debridement of right arm, split-thickness skin grafting right arm of wound measuring 40 cm x 15 cm (600 cm), application of wound VAC dressing 1. Necrotizing fasciitis, +GA Strep. Ortho and ID managing, appreciate assistance with care s/p multiple irrigation and debridements s/p Irrigation and debridement of right arm, split-thickness skin grafting right arm of wound measuring 40 cm x 15 cm (600 cm), application of wound VAC dressing on 03/05 Continue Cefazolin IV started on 02/21 and cont. Clinda started on 03/02 Continue pain management with Dilaudid and Oxy PRN Wound culture arm from 02/17, negative fungal x2 wks, + Group A strep, pansensitive Wound culture elbow from 02/17, negative fungal x2 wks, Negative AFB, + Group A strep, pansensitive Blood culture from 02/17, no growth at 5 days x4 (Final) Orthopedics planning on changing wound VAC dressing on Sunday. May consider discontinue at that time. 2. Small Bowel Obstruction/Upper GI Bleed: Resolved Tolerating diet Continue Famotidine. GI signed off 3. Hypertension Improved, cont. home Norvasc Currently holding home Metoprolol, resume if needed Continue to monitor 4. Tobacco Abuse Continue Wellbutrin Patient counseled on cessations/risks 5. Anemia Positive Hemoccult on 02/23 Patient followed by GI. H&H stabilized. No indication for endoscopy at this time. Continue to monitor labs as indicated. 6. Neuropathy Continue home Deacon 7. HLD Cont. statin 8. Hyperglycemia Blood sugar stable No previous history of diabetes Hemoglobin A1c 5.4% 9. DVT prophylaxis: SCD's due to frequent surgical debridements 10. Dependent edema: -Status post 1 time dose of 20 mg IV lasix with significant improvement. Ruben hose/stockings. Discharge Planning: When orthopedic procedures are completed and cleared by orthopedics..
[2018-03-09] MEDS: ceFAZolin Inj 2,000 MG in Sodium Chlor 0.9% Inj 80 ML IV.SIG SCH ×3 (02:13→17:05)
[2018-03-09] MEDS: oxyCODONE/Acetaminophen 10/325 Tablet PO PRN ×6 (02:13→21:37)
[2018-03-09] MEDS: HYDROmorphone PF Inj 2 MG/ML Vial IV.PUSH PRN ×5 (03:36→20:15)
[2018-03-09] MEDS: Gabapentin 400 MG Capsule PO SCH ×5 (06:46→21:36)
[2018-03-09] MEDS: Famotidine PF Inj 20 MG/2 ML Vial IV.PUSH SCH ×2 (08:07→21:45)
[2018-03-09] MEDS: Clindamycin 900 mg/NS Premix 900 MG/50 ML PIGGYBACK IV.SIG SCH (08:08)
[2018-03-09] MEDS: Lactobacillus Acidophilus/L. Spores Tablet PO SCH ×3 (08:09→17:05)
[2018-03-09] MEDS: Ferrous Sulfate 325 MG Tablet PO SCH ×2 (08:09→20:05)
[2018-03-09] MEDS: amLODIPine 10 MG Tablet PO SCH (08:09)
--- NOTE | 2018-03-09 14:48 | P.PNIM ---
Subjective Interval history: Patient reports he is feeling okay today. No new issues. Pain is controlled. Physical Exam Vital signs: Vital Signs 03/08/18 16:00 03/08/18 18:27 03/08/18 20:00 Temperature 98.3 F 98.5 F Pulse Rate 118 H 71 77 Respiratory Rate 16 19 Blood Pressure 125/59 L 137/65 Pulse Oximetry 98 100 03/08/18 20:10 03/09/18 00:00 03/09/18 08:00 Temperature 97.9 F 98.3 F Pulse Rate 70 79 71 Respiratory Rate 18 16 Blood Pressure 135/54 L 116/56 L Pulse Oximetry 100 96 03/09/18 08:03 03/09/18 10:06 03/09/18 10:50 Temperature Pulse Rate Respiratory Rate 16 16 16 Blood Pressure Pulse Oximetry 03/09/18 12:00 03/09/18 12:54 03/09/18 13:05 Temperature 98.0 F Pulse Rate 86 84 Respiratory Rate 16 16 Blood Pressure 141/63 H Pulse Oximetry 100 Intake & Output 03/08/18 03/09/18 03/09/18 18:59 06:59 18:59 Intake Total 200 / 200 150 / 150 250 / 250 Output Total 575 / 575 400 / 400 Balance -375 / -375 -250 / -250 250 / 250 Intake: IV 200 / 200 150 / 150 250 / 250 Cleocin 900 mg/NS Premix 900 mg 100 / 100 50 / 50 50 / 50 In 50 ml @ 100 mls/hr IV.SIG Q8H [place] Rx#:[id number] Ancef Inj 2,000 MG In NS Inj 80 100 / 100 100 / 100 200 / 200 ML @ 200 mls/hr IV.SIG Q8H [place] Rx#:[id number] Output: Urine 575 / 575 400 / 400 Other: Mode Setting Right Arm Continuous Continuous Continuous Date of Last Bowel Movement 03/08/18 03/07/18 03/07/18 # Bowel Movements 1 Narrative: GENERAL: This is a well-nourished, well-developed patient, in no apparent distress. CARDIOVASCULAR: Normal rate and regular rhythm without murmurs, gallops, or rubs. RESPIRATORY: Good respiratory efforts. Breath sounds equal and clear to auscultation bilaterally. GASTROINTESTINAL: Abdomen soft, non-tender, non-distended. Normal active bowel sounds MUSCULOSKELETAL: Right forearm with dressing in place, C/D/I with wound VAC present. 1+ bilateral lower extremity edema. NEURO: Alert & Oriented x4 to person, place, time, situation. Moves all ext x4 PSYCH: Appropriate mood and affect. Results - Labs CBC & Chem 7: 03/08/18 07:17 03/08/18 07:17 Assessment and Plan - Assessment (1) HTN (hypertension) Code(s): I10 - Essential (primary) hypertension Status: Chronic (2) Cellulitis and abscess of upper arm and forearm Status: Acute (3) GI bleed Code(s): K92.2 - Gastrointestinal hemorrhage, unspecified Status: Acute - Plan 62-year-old M with PMHx of HTN admitted secondary to necrotizing fasciitis of the right arm s/p multiple irrigation and debridements with wound vac, s/p OR on 03/05 for Irrigation and debridement of right arm, split-thickness skin grafting right arm of wound measuring 40 cm x 15 cm (600 cm), application of wound VAC dressing 1. Necrotizing fasciitis, +GA Strep. Ortho and ID managing, appreciate assistance with care s/p multiple irrigation and debridements s/p Irrigation and debridement of right arm, split-thickness skin grafting right arm of wound measuring 40 cm x 15 cm (600 cm), application of wound VAC dressing on 03/05 Continue Cefazolin IV started on 02/21 and cont. Clinda started on 03/02 Continue pain management with Dilaudid and Oxy PRN Wound culture arm from 02/17, negative fungal x2 wks, + Group A strep, pansensitive Wound culture elbow from 02/17, negative fungal x2 wks, Negative AFB, + Group A strep, pansensitive Blood culture from 02/17, no growth at 5 days x4 (Final) Orthopedics planning on changing wound VAC dressing on Sunday. May consider discontinue wound VAC at that time. Can consider discharge home on Sunday.. 2. Small Bowel Obstruction/Upper GI Bleed: Resolved Tolerating diet Continue Famotidine. GI signed off 3. Hypertension Improved, cont. home Norvasc Currently holding home Metoprolol, resume if needed Continue to monitor 4. Tobacco Abuse Continue Wellbutrin Patient counseled on cessations/risks 5. Anemia Positive Hemoccult on 02/23 Patient followed by GI. H&H stabilized. No indication for endoscopy at this time. Continue to monitor labs as indicated. 6. Neuropathy Continue home Deacon 7. HLD Cont. statin 8. Hyperglycemia Blood sugar stable No previous history of diabetes Hemoglobin A1c 5.4% 9. DVT prophylaxis: SCD's due to frequent surgical debridements 10. Dependent edema: -Status post 1 time dose of 20 mg IV lasix with significant improvement. Ruben hose/stockings. Discharge Planning: When orthopedic procedures are completed and cleared by orthopedics..
[2018-03-10] MEDS: HYDROmorphone PF Inj 2 MG/ML Vial IV.PUSH PRN ×6 (00:17→20:57)
[2018-03-10] MEDS: oxyCODONE/Acetaminophen 10/325 Tablet PO PRN ×6 (02:24→22:49)
[2018-03-10] MEDS: ceFAZolin Inj 2,000 MG in Sodium Chlor 0.9% Inj 80 ML IV.SIG SCH ×3 (02:26→17:06)
[2018-03-10] MEDS: Gabapentin 400 MG Capsule PO SCH ×5 (06:04→21:00)
[2018-03-10] MEDS: amLODIPine 10 MG Tablet PO SCH (08:21)
[2018-03-10] MEDS: Ferrous Sulfate 325 MG Tablet PO SCH ×2 (08:21→20:58)
[2018-03-10] MEDS: Lactobacillus Acidophilus/L. Spores Tablet PO SCH ×3 (08:21→17:00)
[2018-03-10] MEDS: Famotidine PF Inj 20 MG/2 ML Vial IV.PUSH SCH ×2 (08:22→20:58)
--- NOTE | 2018-03-10 12:59 | P.PNIM ---
Subjective Interval history: Patient reports he is feeling ok today. Pain is controlled. Physical Exam Vital signs: Vital Signs 03/09/18 13:05 03/09/18 15:19 03/09/18 16:00 Temperature 98.0 F Pulse Rate 76 Respiratory Rate 16 16 18 Blood Pressure 126/57 L Pulse Oximetry 97 03/09/18 16:20 03/09/18 17:26 03/09/18 18:37 Temperature Pulse Rate 74 Respiratory Rate 16 16 Blood Pressure Pulse Oximetry 03/09/18 20:00 03/10/18 00:00 03/10/18 00:10 Temperature 98.0 F 98.2 F Pulse Rate 72 71 77 Respiratory Rate 18 18 Blood Pressure 151/63 H 143/63 H Pulse Oximetry 97 98 03/10/18 04:00 03/10/18 08:00 03/10/18 08:20 Temperature 98.1 F 98.1 F Pulse Rate 81 67 Respiratory Rate 18 20 16 Blood Pressure 146/65 H 118/56 L Pulse Oximetry 99 98 03/10/18 09:51 Temperature Pulse Rate Respiratory Rate 16 Blood Pressure Pulse Oximetry Intake & Output 03/09/18 03/10/18 03/10/18 18:59 06:59 18:59 Intake Total 350 / 350 200 / 200 Output Total 1000 / 1000 Balance 350 / 350 -1000 / -1000 200 / 200 Intake: IV 350 / 350 200 / 200 Cleocin 900 mg/NS Premix 900 mg 50 / 50 In 50 ml @ 100 mls/hr IV.SIG Q8H [place] Rx#:[id number] Ancef Inj 2,000 MG In NS Inj 80 300 / 300 200 / 200 ML @ 200 mls/hr IV.SIG Q8H [place] Rx#:[id number] Output: Urine 1000 / 1000 Other: Mode Setting Right Arm Continuous Continuous Date of Last Bowel Movement 03/09/18 Narrative: GENERAL: This is a well-nourished, well-developed patient, in no apparent distress. CARDIOVASCULAR: Normal rate and regular rhythm without murmurs, gallops, or rubs. RESPIRATORY: Good respiratory efforts. Breath sounds equal and clear to auscultation bilaterally. GASTROINTESTINAL: Abdomen soft, non-tender, non-distended. Normal active bowel sounds MUSCULOSKELETAL: Right forearm with dressing in place, C/D/I with wound VAC present. 1+ bilateral lower extremity edema. NEURO: Alert & Oriented x4 to person, place, time, situation. Moves all ext x4 PSYCH: Appropriate mood and affect. Results - Labs CBC & Chem 7: 03/08/18 07:17 03/08/18 07:17 Assessment and Plan - Assessment (1) HTN (hypertension) Code(s): I10 - Essential (primary) hypertension Status: Chronic (2) Cellulitis and abscess of upper arm and forearm Status: Acute (3) GI bleed Code(s): K92.2 - Gastrointestinal hemorrhage, unspecified Status: Acute - Plan 62-year-old M with PMHx of HTN admitted secondary to necrotizing fasciitis of the right arm s/p multiple irrigation and debridements with wound vac, s/p OR on 03/05 for Irrigation and debridement of right arm, split-thickness skin grafting right arm of wound measuring 40 cm x 15 cm (600 cm), application of wound VAC dressing 1. Necrotizing fasciitis, +GA Strep. Ortho and ID managing, appreciate assistance with care s/p multiple irrigation and debridements s/p Irrigation and debridement of right arm, split-thickness skin grafting right arm of wound measuring 40 cm x 15 cm (600 cm), application of wound VAC dressing on 03/05 Continue Cefazolin IV started on 02/21 and cont. Clinda started on 03/02 Continue pain management with Dilaudid and Oxy PRN Wound culture arm from 02/17, negative fungal x2 wks, + Group A strep, pansensitive Wound culture elbow from 02/17, negative fungal x2 wks, Negative AFB, + Group A strep, pansensitive Blood culture from 02/17, no growth at 5 days x4 (Final) Orthopedics planning on changing wound VAC dressing tomorrow. May consider discontinue wound VAC at that time. 2. Small Bowel Obstruction/Upper GI Bleed: Resolved Tolerating diet Continue Famotidine. GI signed off 3. Hypertension Improved, cont. home Norvasc Currently holding home Metoprolol, resume if needed Continue to monitor 4. Tobacco Abuse Continue Wellbutrin Patient counseled on cessations/risks 5. Anemia Positive Hemoccult on 02/23 Patient followed by GI. H&H stabilized. No indication for endoscopy at this time. Continue to monitor labs as indicated. 6. Neuropathy Continue home Deacon 7. HLD Cont. statin 8. Hyperglycemia Blood sugar stable No previous history of diabetes Hemoglobin A1c 5.4% 9. DVT prophylaxis: SCD's due to frequent surgical debridements 10. Dependent edema: Improved -Status post 1 time dose of 20 mg IV lasix with significant improvement. Ruben hose/stockings. Discharge Planning: When orthopedic procedures are completed and cleared by orthopedics..
[2018-03-11] MEDS: HYDROmorphone PF Inj 2 MG/ML Vial IV.PUSH PRN ×3 (02:33→10:19)
[2018-03-11] MEDS: ceFAZolin Inj 2,000 MG in Sodium Chlor 0.9% Inj 80 ML IV.SIG SCH ×3 (02:34→17:03)
[2018-03-11] MEDS: oxyCODONE/Acetaminophen 10/325 Tablet PO PRN ×5 (03:42→21:06)
[2018-03-11] MEDS: Gabapentin 400 MG Capsule PO SCH ×5 (06:21→21:05)
[2018-03-11] MEDS: Lactobacillus Acidophilus/L. Spores Tablet PO SCH ×3 (08:01→17:03)
[2018-03-11] MEDS: amLODIPine 10 MG Tablet PO SCH (08:01)
[2018-03-11] MEDS: Ferrous Sulfate 325 MG Tablet PO SCH ×2 (08:01→21:06)
[2018-03-11] MEDS: Famotidine PF Inj 20 MG/2 ML Vial IV.PUSH SCH ×2 (08:02→21:05)
--- NOTE | 2018-03-11 09:22 | P.PNOP ---
Subjective Interval history: Resting comfortably with no new complaints Physical Exam Vital signs: Vital Signs 03/10/18 09:51 03/10/18 12:00 03/10/18 14:20 Temperature 97.6 F Pulse Rate 91 H Respiratory Rate 16 20 16 Blood Pressure 152/65 H Pulse Oximetry 98 03/10/18 16:00 03/10/18 16:58 03/10/18 17:52 Temperature 98.1 F Pulse Rate 84 Respiratory Rate 20 16 16 Blood Pressure 105/58 L Pulse Oximetry 100 03/10/18 19:42 03/10/18 20:00 03/11/18 00:00 Temperature 97.6 F 98.4 F Pulse Rate 85 74 Respiratory Rate 16 18 18 Blood Pressure 136/99 H 140/60 Pulse Oximetry 97 98 03/11/18 04:00 03/11/18 04:10 Temperature 97.9 F Pulse Rate 73 70 Respiratory Rate 18 Blood Pressure 165/75 H Pulse Oximetry 99 Intake & Output 03/10/18 03/11/18 03/11/18 18:59 06:59 18:59 Intake Total 300 / 300 100 / 100 Output Total 750 / 750 1900 / 1900 500 / 500 Balance -450 / -450 -1900 / -1900 -400 / -400 Intake: IV 300 / 300 100 / 100 Ancef Inj 2,000 MG In NS Inj 80 300 / 300 100 / 100 ML @ 200 mls/hr IV.SIG Q8H [facility] Rx#:[id number] Output: Urine 750 / 750 1900 / 1900 500 / 500 Other: Mode Setting Right Arm Continuous Continuous # Voids 2 Narrative: Right upper extremity: Splint and dressings are clean and intact. There are taken down and a wound VAC is removed. Split-thickness skin graft appears to be healthy with no signs of necrosis. New dressing is applied with Xeroform 4 x 4's ABD and Júnior wrap. Distally intact sensation with active extension and flexion of all fingers. Right lower extremity: ABD removed from skin graft harvest site. Mild drainage. Results - Labs CBC & Chem 7: 03/08/18 07:17 03/08/18 07:17 Assessment and Plan - Assessment and Plan 1) Right Arm wound with multiple I&D and application of STSG - POD 5 -Discontinue wound VAC. Begin daily dressing changes with Xeroform, 4 x 4's , ABD and Júnior wrap to the right upper extremity -dressing removed over thigh today. Let air dry for a few hours then place ABD and Júnior wrap or stockinette to hold in place. Do not use tape. DO NOT REMOVE XEROFORM ON WOUND. -Discharge planning. Daily dressing changes. Weightbearing as tolerated right upper extremity but no excessive movements. Infectious disease for antibiotic treatments
--- NOTE | 2018-03-11 09:30 | P.DCO ---
- Nursing Nursing: Dressing changes Dressing changes: Daily dressing change, Júnior wrap, 4x4s, Xeroform Additional instructions: Right lower extremity: Maintain Xeroform (do not remove). May use ABD if drainage is present and use Júnior wrap - Certification Need for Home Health services: I have seen patient Kyree Parker on 03/11/18. My clinical findings support the need for the requested home health care services because: Need for Home Health Services: Limited mobility due to disease progression Homebound Certification: I certify that my clinical findings support that this patient is homebound because: Homebound Certification: Post-op weakness
--- NOTE | 2018-03-11 14:32 | P.DIET ---
Nutritional Evaluation Type of nutrition evaluation: follow-up Nutrition screening: [facility] [place] (Patient has very delayed wound healing. Please evaluate his dietary intake.) Subjective Subjective Comments: Usually eating 75-100% of his meals. Objective - Diagnosis Necrotizing Fascitis R forearm - Objective % IBW: 129 (IBW = 172#) Body Weight Used for Calculations: IBW (78.2 kg) Energy Needs - Lower Range (kCal/kg): 30 Energy Needs - Upper Range (kCal/kg): 35 Lower Limit kCal/kg (kCals): 2,345 Upper Limit kCal/kg (kCals): 2,737 Lower Limit Protein Factor (Grams per Kg): 1.2 Upper Limit Protein Factor (Grams per Kg): 1.5 Lower Protein Needs (Protein): 94 Upper Protein Needs (Protein): 117 Fluid Factor (ml/kg): 35 Estimated Fluid Needs (ml): 2,737 Dietitian Reviewed in Medical Record: Current diet, Curent medications, Intake & Output, Labs, Medical history, Wound/DTI Assessment Assessment: Pt was admitted on 02/17 for necrotizing fascitis and has had 6 surgeries so far. This entails being npo so he has probably not had any nutrition on at least 6 days of his 22 day stay. . Pt's po intake is good when he is able to eat. Current diet as ordered is appropriate. Glucose has been in good control. Will send Glucerna Shakes bid: each 8 oz serving provides 220 kcals and 10 gms protein. Pt would also benefit from the addition of a daily MVI/min, current order is for MVI without minerals. RD will continue to follow. Recommendations: 1. Continue regular 2. Glucerna Shakes bid 3. Please order MVI/min q day 4. RD will follow Dietitian to Monitor: Lab values, Supplement acceptance, Intake & Output, Diet tolerance, Weight change, PO Intake, Wound/skin status, Medical course
--- NOTE | 2018-03-11 16:41 | P.PNIM ---
Subjective Interval history: Patient reports he is feeling ok except for pain on the graft site on his right leg. Physical Exam Vital signs: Vital Signs 03/10/18 16:58 03/10/18 17:52 03/10/18 19:42 Temperature Pulse Rate Respiratory Rate 16 16 16 Blood Pressure Pulse Oximetry 03/10/18 20:00 03/11/18 00:00 03/11/18 04:00 Temperature 97.6 F 98.4 F 97.9 F Pulse Rate 85 74 73 Respiratory Rate 18 18 18 Blood Pressure 136/99 H 140/60 165/75 H Pulse Oximetry 97 98 99 03/11/18 04:10 03/11/18 08:00 03/11/18 10:52 Temperature 98.0 F Pulse Rate 70 71 Respiratory Rate 20 14 Blood Pressure 159/70 H Pulse Oximetry 97 03/11/18 12:00 Temperature 97.7 F Pulse Rate 77 Respiratory Rate 20 Blood Pressure 132/62 Pulse Oximetry 100 Intake & Output 03/10/18 03/11/18 03/11/18 18:59 06:59 18:59 Intake Total 300 / 300 200 / 200 Output Total 750 / 750 1900 / 1900 500 / 500 Balance -450 / -450 -1900 / -1900 -300 / -300 Intake: IV 300 / 300 200 / 200 Ancef Inj 2,000 MG In NS Inj 80 300 / 300 200 / 200 ML @ 200 mls/hr IV.SIG Q8H [facility] Rx#:[id number] Output: Urine 750 / 750 1900 / 1900 500 / 500 Other: Mode Setting Right Arm Continuous Continuous # Voids 2 Narrative: GENERAL: This is a well-nourished, well-developed patient, in no apparent distress. CARDIOVASCULAR: Normal rate and regular rhythm without murmurs, gallops, or rubs. RESPIRATORY: Good respiratory efforts. Breath sounds equal and clear to auscultation bilaterally. GASTROINTESTINAL: Abdomen soft, non-tender, non-distended. Normal active bowel sounds MUSCULOSKELETAL: Right forearm with dressing in place. Right thigh dressing is intact. 1+ bilateral lower extremity edema. NEURO: Alert & Oriented x4 to person, place, time, situation. Moves all ext x4 PSYCH: Appropriate mood and affect. Results - Labs CBC & Chem 7: 03/08/18 07:17 03/08/18 07:17 Microbiology 02/17/18 21:40 Wound - Elbow Fungal Smear - Final No fungal elements seen 02/17/18 21:40 Wound - Elbow Fungal Culture - Preliminary No growth in 3 weeks 02/17/18 21:40 Wound - Elbow Acid Fast Bacilli Smear - Final No acid fast bacilli seen 02/17/18 21:40 Wound - Elbow Mycobacterial Culture - Preliminary No growth in 3 weeks 02/17/18 21:50 Wound - Arm Fungal Smear - Final No fungal elements seen 02/17/18 21:50 Wound - Arm Fungal Culture - Preliminary No growth in 3 weeks 02/17/18 21:50 Wound - Arm Acid Fast Bacilli Smear - Final No acid fast bacilli seen 02/17/18 21:50 Wound - Arm Mycobacterial Culture - Preliminary No growth in 3 weeks 02/17/18 21:40 Wound - Arm Fungal Smear - Final No fungal elements seen 02/17/18 21:40 Wound - Arm Fungal Culture - Preliminary No growth in 3 weeks 02/17/18 21:40 Wound - Arm Acid Fast Bacilli Smear - Final No acid fast bacilli seen 02/17/18 21:40 Wound - Arm Mycobacterial Culture - Preliminary No growth in 3 weeks Assessment and Plan - Assessment (1) HTN (hypertension) Code(s): I10 - Essential (primary) hypertension Status: Chronic (2) Cellulitis and abscess of upper arm and forearm Status: Acute (3) GI bleed Code(s): K92.2 - Gastrointestinal hemorrhage, unspecified Status: Acute - Plan 62-year-old M with PMHx of HTN admitted secondary to necrotizing fasciitis of the right arm s/p multiple irrigation and debridements with wound vac, s/p OR on 03/05 for Irrigation and debridement of right arm, split-thickness skin grafting right arm of wound measuring 40 cm x 15 cm (600 cm), application of wound VAC dressing 1. Necrotizing fasciitis, +GA Strep. Ortho and ID managing, appreciate assistance with care s/p multiple irrigation and debridement of right arm, split-thickness skin grafting right arm of wound measuring 40 cm x 15 cm (600 cm), application of wound VAC dressing on 03/05 Continue Cefazolin IV per ID Wound culture arm from 02/17, negative fungal x2 wks, + Group A strep, pansensitive Wound culture elbow from 02/17, negative fungal x2 wks, Negative AFB, + Group A strep, pansensitive Blood culture from 02/17, no growth at 5 days x4 (Final) Woundvac discontinued today per Ortho. Will need home health with dressing changes. Transition to oral pain medications only. ID was asked to eval for DC antibiotics recs. 2. Small Bowel Obstruction/Upper GI Bleed: Resolved Tolerating diet Continue Famotidine. GI signed off 3. Hypertension Improved, cont. home Norvasc Currently holding home Metoprolol, resume if needed Continue to monitor 4. Tobacco Abuse Continue Wellbutrin Patient counseled on cessations/risks 5. Anemia Positive Hemoccult on 02/23 Patient followed by GI. H&H stabilized. No indication for endoscopy at this time. Continue to monitor labs as indicated. 6. Neuropathy Continue home [place] 7. HLD Cont. statin 8. Hyperglycemia Blood sugar stable No previous history of diabetes Hemoglobin A1c 5.4% 9. DVT prophylaxis: SCD's due to frequent surgical debridements 10. Dependent edema: Improved -Status post 1 time dose of 20 mg IV lasix with significant improvement. Ruben hose/stockings. Discharge Planning: Transition to oral antibiotics. Can DC home once home health nursing arranged for daily dressing changes and final recs received by ID.
[2018-03-12] MEDS: ceFAZolin Inj 2,000 MG in Sodium Chlor 0.9% Inj 80 ML IV.SIG SCH ×2 (01:03→10:00)
[2018-03-12] MEDS: oxyCODONE/Acetaminophen 10/325 Tablet PO PRN ×6 (01:03→21:59)
[2018-03-12] MEDS: Gabapentin 400 MG Capsule PO SCH ×5 (06:09→22:00)
--- NOTE | 2018-03-12 07:04 | P.PNOP ---
Subjective Interval history: Pain controlled resting comfortably Physical Exam Vital signs: Vital Signs 03/11/18 08:00 03/11/18 10:52 03/11/18 12:00 Temperature 98.0 F 97.7 F Pulse Rate 71 77 Respiratory Rate 20 14 20 Blood Pressure 159/70 H 132/62 Pulse Oximetry 97 100 03/11/18 16:00 03/11/18 18:09 03/11/18 19:05 Temperature 98.3 F 98.0 F Pulse Rate 80 77 Respiratory Rate 20 14 18 Blood Pressure 146/67 H 145/70 H Pulse Oximetry 98 98 03/11/18 20:00 03/11/18 22:40 03/12/18 00:00 Temperature 98 F Pulse Rate 76 79 Respiratory Rate 18 18 Blood Pressure 146/66 H Pulse Oximetry 83 L 03/12/18 00:30 03/12/18 04:00 03/12/18 04:35 Temperature 98.1 F 97.9 F Pulse Rate 69 70 69 Respiratory Rate 18 18 Blood Pressure 131/63 158/70 H Pulse Oximetry 99 98 Intake & Output 03/11/18 03/12/18 03/12/18 18:59 06:59 18:59 Intake Total 300 / 300 1200 / 1200 Output Total 500 / 500 Balance -200 / -200 1200 / 1200 Weight 96.7 kg Intake: IV 300 / 300 Ancef Inj 2,000 MG In NS Inj 80 300 / 300 ML @ 200 mls/hr IV.SIG Q8H [facility] Rx#:[id number] Oral 1200 / 1200 Output: Urine 500 / 500 Other: # Voids 5 4 # Bowel Movements 1 Narrative: Right upper extremity clean dry dressings intact. Intact sensation distally with full extension flexion of all fingers Right thigh with clean dry dressings. Results - Labs CBC & Chem 7: 03/08/18 07:17 03/08/18 07:17 Microbiology 02/17/18 21:40 Wound - Elbow Fungal Smear - Final No fungal elements seen 02/17/18 21:40 Wound - Elbow Fungal Culture - Preliminary No growth in 3 weeks 02/17/18 21:40 Wound - Elbow Acid Fast Bacilli Smear - Final No acid fast bacilli seen 02/17/18 21:40 Wound - Elbow Mycobacterial Culture - Preliminary No growth in 3 weeks 02/17/18 21:50 Wound - Arm Fungal Smear - Final No fungal elements seen 02/17/18 21:50 Wound - Arm Fungal Culture - Preliminary No growth in 3 weeks 02/17/18 21:50 Wound - Arm Acid Fast Bacilli Smear - Final No acid fast bacilli seen 02/17/18 21:50 Wound - Arm Mycobacterial Culture - Preliminary No growth in 3 weeks 02/17/18 21:40 Wound - Arm Fungal Smear - Final No fungal elements seen 02/17/18 21:40 Wound - Arm Fungal Culture - Preliminary No growth in 3 weeks 02/17/18 21:40 Wound - Arm Acid Fast Bacilli Smear - Final No acid fast bacilli seen 02/17/18 21:40 Wound - Arm Mycobacterial Culture - Preliminary No growth in 3 weeks Assessment and Plan - Problem List (1) Necrotizing soft tissue infection Code(s): M79.89 - Other specified soft tissue disorders Status: Acute - Assessment and Plan 1) Right Arm wound with multiple I&D and application of STSG - POD 6 - Begin daily dressing changes with Xeroform, 4 x 4's, ABD and Júnior wrap to the right upper extremity -dressing removed over thigh today. Let air dry for a few hours then place ABD and Júnior wrap or stockinette to hold in place. Do not use tape. DO NOT REMOVE XEROFORM ON WOUND. -Discharge planning. Must have DAILY dressing changes. Weightbearing as tolerated right upper extremity but no excessive movements. Infectious disease for antibiotic treatments Orthopedically cleared for discharge Follow-up with Dr. Galvan or PA in 2 weeks
[2018-03-12] MEDS: Lactobacillus Acidophilus/L. Spores Tablet PO SCH ×3 (08:27→17:49)
[2018-03-12] MEDS: Ferrous Sulfate 325 MG Tablet PO SCH ×2 (08:27→22:00)
[2018-03-12] MEDS: amLODIPine 10 MG Tablet PO SCH (08:28)
[2018-03-12] MEDS: Famotidine PF Inj 20 MG/2 ML Vial IV.PUSH SCH ×2 (08:28→22:00)
--- NOTE | 2018-03-12 10:29 | P.PNID ---
Subjective Remarks: no diarrhea no no fever sp skin graft 03/05 Antibiotics: ancef Allergies/Adverse Reactions: Allergies penicillin G Allergy (Mild, Verified 02/17/18 13:30) Hives Objective Vital Signs 03/11/18 10:52 03/11/18 12:00 03/11/18 16:00 Temperature 97.7 F 98.3 F Pulse Rate 77 80 Respiratory Rate 14 20 20 Blood Pressure 132/62 146/67 H Pulse Oximetry 100 98 03/11/18 18:09 03/11/18 19:05 03/11/18 20:00 Temperature 98.0 F 98 F Pulse Rate 77 76 Respiratory Rate 14 18 18 Blood Pressure 145/70 H 146/66 H Pulse Oximetry 98 83 L 03/11/18 22:40 03/12/18 00:00 03/12/18 00:30 Temperature 98.1 F Pulse Rate 79 69 Respiratory Rate 18 18 Blood Pressure 131/63 Pulse Oximetry 99 03/12/18 04:00 03/12/18 04:35 Temperature 97.9 F Pulse Rate 70 69 Respiratory Rate 18 Blood Pressure 158/70 H Pulse Oximetry 98 Intake & Output 03/11/18 03/12/18 03/12/18 18:59 06:59 18:59 Intake Total 300 / 300 1300 / 1300 Output Total 500 / 500 Balance -200 / -200 1300 / 1300 Weight 96.7 kg Intake: IV 300 / 300 100 / 100 Ancef Inj 2,000 MG In NS Inj 80 300 / 300 100 / 100 ML @ 200 mls/hr IV.SIG Q8H [facility] Rx#:[id number] Oral 1200 / 1200 Output: Urine 500 / 500 Other: # Voids 5 4 # Bowel Movements 1 02/17/18 21:40 Wound - Elbow Fungal Smear - Final No fungal elements seen 02/17/18 21:40 Wound - Elbow Fungal Culture - Preliminary No growth in 3 weeks 02/17/18 21:40 Wound - Elbow Acid Fast Bacilli Smear - Final No acid fast bacilli seen 02/17/18 21:40 Wound - Elbow Mycobacterial Culture - Preliminary No growth in 3 weeks 02/17/18 21:50 Wound - Arm Fungal Smear - Final No fungal elements seen 02/17/18 21:50 Wound - Arm Fungal Culture - Preliminary No growth in 3 weeks 02/17/18 21:50 Wound - Arm Acid Fast Bacilli Smear - Final No acid fast bacilli seen 02/17/18 21:50 Wound - Arm Mycobacterial Culture - Preliminary No growth in 3 weeks 02/17/18 21:40 Wound - Arm Fungal Smear - Final No fungal elements seen 02/17/18 21:40 Wound - Arm Fungal Culture - Preliminary No growth in 3 weeks 02/17/18 21:40 Wound - Arm Acid Fast Bacilli Smear - Final No acid fast bacilli seen 02/17/18 21:40 Wound - Arm Mycobacterial Culture - Preliminary No growth in 3 weeks Imaging: ITS Impressions Forearm CT 02/17/18 13:55 CONCLUSION: 1. Prominent area of subcutaneous fluid, thickening, and collections of gas extending from distal forearm to elbow, suspicious for abscess along the medial aspect of the forearm. 2. Osseous structures are radiographically intact. Forearm X-Ray 02/17/18 13:55 CONCLUSION: 1. Diffuse soft tissue swelling. 2. No acute fracture or joint dislocation. Head CT 02/17/18 13:55 CONCLUSION: 1. Negative noncontrast CT brain. . Abdomen/Pelvis CT 02/24/18 00:00 CONCLUSION: 1. Small bowel obstruction with significantly dilated small bowel and evidence of free fluid identified within the right upper quadrant and left midabdomen. The transition point appears within the lower central pelvis within the ileum. There appears to be large areas of adhesion with small bowel and the adjacent abdominal mesh. Chest X-Ray 02/24/18 00:00 CONCLUSION: 1. NG tube is coiled in the oropharynx. 2. Stable mild left lower lung zone pleural-parenchymal opacities. Tube Placement X-Ray 02/24/18 00:00 CONCLUSION: 1. Fluoroscopic guided placement of nasogastric catheter. Abdomen X-Ray 03/03/18 08:00 CONCLUSION: Interval increase in the size and number of the mildly dilated small bowel loops. Gas and stool remains segmentally in the colon. Physical Exam: GENERAL: NAD comfortable SKIN: Warm and dry. No rash EYES: No scleral icterus. RESPIRATORY: No accessory muscle use. GASTROINTESTINAL: Abdomen soft, benign MUSCULOSKELETAL: Extremities without clubbing, cyanosis, or edema. RUE : xeroform/ABD/ CLAUDE dressing over graft area intact Proximal incision with stitches in - clean and dry no ascending lymphjangitis or cellulitis Mild hand dorsal edema NEUROLOGICAL: Awake and alert. Non focal. Normal speech. PSYCHIATRIC: cooperative Assessment and Plan - Plan Nec fasciitis RUE: GAS, MSSA - sp multiple debridement s, sp split graft placement no e/o any ascending infx Diarrhea, abd distention resolved.C.diff negative dc Ancef Ok to dc home from ID stand point No need to cont abx dw RN dw Dr Blevins
--- NOTE | 2018-03-12 11:06 | P.DS ---
Date of admission: 02/17/18 17:20 Primary care physician: Dolores Rosales Brief History from admission: HPI as documented by the admitting physician. 62-year-old male presents in complaining of pain and swelling to his right arm. He says it started Sunday when he fell. Per friend, he felt "woozy" that day and seemed off balance when he fell. The symptoms have resolved, however his arm continues to become more swollen, red, painful. He says that after the fall Sunday he noticed some drainage from his elbow. The redness just continued to spread from there. He denies fever at home. He has not taken anything for this symptoms. Necrotizing fasciitis was suspected and the patient was transferred to [facility], and was emergently taken to operating room by orthopedic surgeon. Patient update on day of discharge: Patient reports he is feeling okay today. Eager to go home. Pain is controlled. DS: Diagnosis - Discharge Diagnosis (1) HTN (hypertension) Status: Chronic (2) Cellulitis and abscess of upper arm and forearm Status: Acute (3) GI bleed Status: Acute DS: Medications - Discharge Medications Prescriptions: oxycodone-acetaminophen [Percocet] 1 tab PO Q4-6H PRN 7 Days #42 tab PRN Reason: Acute Pain DS: Summary Hospital Course: 62-year-old M with PMHx of HTN admitted secondary to necrotizing fasciitis of the right arm s/p multiple irrigation and debridements with wound vac, s/p OR on 03/05 for Irrigation and debridement of right arm, split-thickness skin grafting right arm of wound measuring 40 cm x 15 cm (600 cm), application of wound VAC dressing. Further treatment course detailed below: 1. Necrotizing fasciitis, +GA Strep. Ortho and ID managed the patient s/p multiple irrigation and debridement of right arm, split-thickness skin grafting right arm of wound measuring 40 cm x 15 cm (600 cm), application of wound VAC dressing on 03/05 Patient continued on IV Ancef until the day of discharge. Wound culture arm from 02/17, negative fungal x2 wks, + Group A strep, pansensitive Wound culture elbow from 02/17, negative fungal x2 wks, Negative AFB, + Group A strep, pansensitive Blood culture from 02/17, no growth at 5 days x4 (Final) Woundvac discontinued per orthopedics. To continue daily dressing changes with home health. 2. Small Bowel Obstruction/Upper GI Bleed: Resolved Tolerating diet Continue Famotidine. GI signed off 3. Hypertension Improved, cont. home medications. 4. Tobacco Abuse Continue Wellbutrin Patient counseled on cessations/risks 5. Anemia Positive Hemoccult on 02/23 Patient followed by GI. H&H stabilized. No indication for endoscopy at this time. 6. Neuropathy Continue home Deacon 7. HLD Cont. statin 8. Hyperglycemia Blood sugar stable No previous history of diabetes Hemoglobin A1c 5.4% 9. Dependent edema: Improved -Status post 1 time dose of 20 mg IV lasix with significant improvement. Ruben hose/stockings. - Time Spent with Patient Total time spent providing and/or coordinating discharge services: Greater than 30 minutes - Quality: VTE Deep Vein Thrombosis/Pulmonary Embolism Present on Admission: No Exam Vital signs: Vital Signs 03/11/18 12:00 03/11/18 16:00 03/11/18 18:09 Temperature 97.7 F 98.3 F Pulse Rate 77 80 Respiratory Rate 20 20 14 Blood Pressure 132/62 146/67 H Pulse Oximetry 100 98 03/11/18 19:05 03/11/18 20:00 03/11/18 22:40 Temperature 98.0 F 98 F Pulse Rate 77 76 Respiratory Rate 18 18 18 Blood Pressure 145/70 H 146/66 H Pulse Oximetry 98 83 L 03/12/18 00:00 03/12/18 00:30 03/12/18 04:00 Temperature 98.1 F Pulse Rate 79 69 70 Respiratory Rate 18 Blood Pressure 131/63 Pulse Oximetry 99 03/12/18 04:35 Temperature 97.9 F Pulse Rate 69 Respiratory Rate 18 Blood Pressure 158/70 H Pulse Oximetry 98 Intake & Output 03/11/18 03/12/18 03/12/18 18:59 06:59 18:59 Intake Total 300 / 300 1300 / 1300 Output Total 500 / 500 Balance -200 / -200 1300 / 1300 Weight 96.7 kg Intake: IV 300 / 300 100 / 100 Ancef Inj 2,000 MG In NS Inj 80 300 / 300 100 / 100 ML @ 200 mls/hr IV.SIG Q8H [place] Rx#:[id number] Oral 1200 / 1200 Output: Urine 500 / 500 Other: # Voids 5 4 # Bowel Movements 1 Narrative: GENERAL: This is a well-nourished, well-developed patient, in no apparent distress. CARDIOVASCULAR: Normal rate and regular rhythm without murmurs, gallops, or rubs. RESPIRATORY: Good respiratory efforts. Breath sounds equal and clear to auscultation bilaterally. GASTROINTESTINAL: Abdomen soft, non-tender, non-distended. Normal active bowel sounds MUSCULOSKELETAL: Right forearm with dressing in place. Right thigh dressing is intact. 1+ bilateral lower extremity edema. NEURO: Alert & Oriented x4 to person, place, time, situation. Moves all ext x4 PSYCH: Appropriate mood and affect. Results Procedures completed during hospitalization: See summary. Labs on day of discharge: Preliminary micro results at discharge 02/17/18 21:40 Fungal Culture - Preliminary Wound - Elbow No growth in 3 weeks 02/17/18 21:40 Mycobacterial Culture - Preliminary Wound - Elbow No growth in 3 weeks 02/17/18 21:50 Fungal Culture - Preliminary Wound - Arm No growth in 3 weeks 02/17/18 21:50 Mycobacterial Culture - Preliminary Wound - Arm No growth in 3 weeks 02/17/18 21:40 Fungal Culture - Preliminary Wound - Arm No growth in 3 weeks 02/17/18 21:40 Mycobacterial Culture - Preliminary Wound - Arm No growth in 3 weeks - Impressions ITS Impressions Forearm CT 02/17/18 13:55 CONCLUSION: 1. Prominent area of subcutaneous fluid, thickening, and collections of gas extending from distal forearm to elbow, suspicious for abscess along the medial aspect of the forearm. 2. Osseous structures are radiographically intact. Forearm X-Ray 02/17/18 13:55 CONCLUSION: 1. Diffuse soft tissue swelling. 2. No acute fracture or joint dislocation. Head CT 02/17/18 13:55 CONCLUSION: 1. Negative noncontrast CT brain. . Abdomen/Pelvis CT 02/24/18 00:00 CONCLUSION: 1. Small bowel obstruction with significantly dilated small bowel and evidence of free fluid identified within the right upper quadrant and left midabdomen. The transition point appears within the lower central pelvis within the ileum. There appears to be large areas of adhesion with small bowel and the adjacent abdominal mesh. Chest X-Ray 02/24/18 00:00 CONCLUSION: 1. NG tube is coiled in the oropharynx. 2. Stable mild left lower lung zone pleural-parenchymal opacities. Tube Placement X-Ray 02/24/18 00:00 CONCLUSION: 1. Fluoroscopic guided placement of nasogastric catheter. Abdomen X-Ray 03/03/18 08:00 CONCLUSION: Interval increase in the size and number of the mildly dilated small bowel loops. Gas and stool remains segmentally in the colon. Discharge Plan - Discharge Disposition Patient Disposition: W/Home Health Service - Discharge Condition Condition: Stable - Discharge Order Discharge Orders: Discharge Order (Routine); Ordered 03/12/18 Ordered By: Karly Blevins Orthopedic Clear for Discharge (Routine); Ordered 03/12/18 Ordered By: Gonzalo Cody - Physicians Team Primary Care Provider: Dolores Rosales Attending Provider: Karly Blevins Other Providers: Yuniel Moreno MD ; Pietro Catherine MD ; Angelita Velasquez MD ; Linda Gant MD ; [facility]
[2018-03-13] MEDS: oxyCODONE/Acetaminophen 10/325 Tablet PO PRN ×3 (02:51→09:59)
[2018-03-13] MEDS: Gabapentin 400 MG Capsule PO SCH ×2 (06:34→10:00)
--- NOTE | 2018-03-13 06:57 | P.PNOP ---
Subjective Interval history: Resting comfortably with no new complaints Physical Exam Vital signs: Vital Signs 03/12/18 08:00 03/12/18 12:00 03/12/18 16:00 Temperature 98.0 F 97.7 F Pulse Rate 71 73 Respiratory Rate 16 14 18 Blood Pressure 141/63 H 129/68 Pulse Oximetry 98 96 03/12/18 20:00 03/12/18 22:35 03/13/18 00:00 Temperature 97.7 F 98.2 F Pulse Rate 89 77 Respiratory Rate 18 18 18 Blood Pressure 135/59 L 140/69 Pulse Oximetry 96 100 03/13/18 04:00 03/13/18 04:35 Temperature 97.3 F L Pulse Rate 70 Respiratory Rate 18 18 Blood Pressure 147/66 H Pulse Oximetry 100 Intake & Output 03/12/18 03/12/18 03/13/18 06:59 18:59 06:59 Intake Total 1300 / 1300 Balance 1300 / 1300 Weight 96.7 kg 96.7 kg Intake: IV 100 / 100 Ancef Inj 2,000 MG In NS Inj 80 100 / 100 ML @ 200 mls/hr IV.SIG Q8H [place] Rx#:[id number] Oral 1200 / 1200 Other: # Voids 4 2 Date of Last Bowel Movement 03/09/18 Narrative: Right upper extremity clean dry dressings intact. Intact sensation distally over radial ulnar median nerve distributions with good capillary refills he has full extension and flexion of all fingers Right lower extremity shows skin graft harvest site with mild drainage. It is continuing to dry as expected. Xeroform remains Results - Labs CBC & Chem 7: 03/08/18 07:17 03/08/18 07:17 - Procedures See summary. Assessment and Plan - Problem List (1) Necrotizing soft tissue infection Code(s): M79.89 - Other specified soft tissue disorders Status: Acute - Assessment and Plan 1) Right Arm wound with multiple I&D and application of STSG - POD 7 - Daily dressing changes with Xeroform, 4 x 4's, ABD and Júnior wrap to the right upper extremity -dressing removed over thigh today. Let air dry for a few hours then place ABD and Júnior wrap or stockinette to hold in place. Do not use tape. DO NOT REMOVE XEROFORM ON WOUND. -Discharge planning. Must have DAILY dressing changes. Weightbearing as tolerated right upper extremity but no excessive movements. Infectious disease for antibiotic treatments Orthopedically cleared for discharge Follow-up with Dr. Galvan or [place] in 2 weeks
[2018-03-13 09:39] VITALS: RESP 18
[2018-03-13] MEDS: amLODIPine 10 MG Tablet PO SCH (10:00)
[2018-03-13] MEDS: Ferrous Sulfate 325 MG Tablet PO SCH (10:00)
[2018-03-13] MEDS: Lactobacillus Acidophilus/L. Spores Tablet PO SCH (10:00)
[2018-03-13] MEDS: Famotidine PF Inj 20 MG/2 ML Vial IV.PUSH SCH (10:03)
--- NOTE | 2018-03-13 10:14 | P.PN ---
Subjective Interval history: up and ambulating afebrile [facility] arranged today Physical Exam Vital signs: Vital Signs 03/12/18 12:00 03/12/18 16:00 03/12/18 20:00 Temperature 98.0 F 97.7 F 97.7 F Pulse Rate 71 73 89 Respiratory Rate 14 18 18 Blood Pressure 141/63 H 129/68 135/59 L Pulse Oximetry 98 96 96 03/12/18 22:35 03/13/18 00:00 03/13/18 04:00 Temperature 98.2 F 97.3 F L Pulse Rate 77 70 Respiratory Rate 18 18 18 Blood Pressure 140/69 147/66 H Pulse Oximetry 100 100 03/13/18 04:35 03/13/18 07:39 03/13/18 08:00 Temperature 97.9 F Pulse Rate 76 Respiratory Rate 18 16 18 Blood Pressure 127/62 Pulse Oximetry 96 Intake & Output 03/12/18 03/13/18 03/13/18 18:59 06:59 18:59 Weight 96.7 kg Other: # Voids 2 Date of Last Bowel Movement 03/09/18 03/09/18 Narrative: awake and alert no distreess lungs- clear regular rhythm abdomen soft Right upper extremity clean dry dressings intact. Intact sensation distally over radial ulnar median nerve distributions with good capillary refills he has full extension and flexion of all fingers Right lower extremity shows skin graft harvest site with mild drainage. It is continuing to dry as expected. Xeroform remains Results - Labs CBC & Chem 7: 03/08/18 07:17 03/08/18 07:17 - Procedures See summary. Assessment and Plan - Assessment (1) HTN (hypertension) Code(s): I10 - Essential (primary) hypertension Status: Chronic (2) Cellulitis and abscess of upper arm and forearm Status: Acute (3) GI bleed Code(s): K92.2 - Gastrointestinal hemorrhage, unspecified Status: Acute - Plan 62-year-old M with PMHx of HTN admitted secondary to necrotizing fasciitis of the right arm s/p multiple irrigation and debridements with wound vac, s/p OR on 03/05 for Irrigation and debridement of right arm, split-thickness skin grafting right arm of wound measuring 40 cm x 15 cm (600 cm), application of wound VAC dressing. Further treatment course detailed below: 1. Necrotizing fasciitis, +GA Strep. Ortho and ID managed the patient s/p multiple irrigation and debridement of right arm, split-thickness skin grafting right arm of wound measuring 40 cm x 15 cm (600 cm), application of wound VAC dressing on 03/05 Patient continued on IV Ancef until the day of discharge. Wound culture arm from 02/17, negative fungal x2 wks, + Group A strep, pansensitive Wound culture elbow from 02/17, negative fungal x2 wks, Negative AFB, + Group A strep, pansensitive Blood culture from 02/17, no growth at 5 days x4 (Final) Woundvac discontinued per orthopedics. To continue daily dressing changes with home health. Orthopedics- wrote script to continue po antiiboitcs for 21 days as OP OP ff up with ortho 2. Small Bowel Obstruction/Upper GI Bleed: Resolved Tolerating diet Continue Famotidine. GI signed off 3. Hypertension Improved, cont. home medications. 4. Tobacco Abuse Continue Wellbutrin Patient counseled on cessations/risks 5. Anemia Positive Hemoccult on 02/23 Patient followed by GI. H&H stabilized. No indication for endoscopy at this time. 6. Neuropathy Continue home Deacon 7. HLD Cont. statin 8. Hyperglycemia Blood sugar stable No previous history of diabetes Hemoglobin A1c 5.4% 9. Dependent edema: Improved -Status post 1 time dose of 20 mg IV lasix with significant improvement. Ruben hose/stockings. DC today OP ff up with Steve
[2018-03-13 12:05] VITALS: BP 136/64; PULSE 74; TEMP 97.7; O2SAT 99
== END 2018-03-13 12:48 | disposition home health service (06) ==
LOC: PHED 13:22 → PHEDA 17:20 → N03 19:20 → N05 02-19 18:38
PROVIDERS: ADMIT Internal Medicine; ATTEND Internal Medicine